=== PATIENT | male | born 1945 | race Caucasian/White ===

== ENCOUNTER 2018-09-04 10:35 | Inpatient (IN) ==
[2018-09-04] MEDS ORDERED: SODIUM CHLORIDE 0.9% 1000ML 1,000 ML IV ONE (11:07)
[2018-09-04] MEDS ORDERED: ONDANSETRON INJ 2 MG/ML 2 ML VIAL IV STA (11:07)
[2018-09-04] MEDS: ACETAMINOPHEN 500 MG TAB PO STA ×2 (11:22→11:37)
[2018-09-04 11:23] LABS: Hematocrit (blood only) 37.8 % (42-52); Hemoglobin 12.5 g/dL (14.0-18.0); Immature Granulocytes # (auto) 0.05 K/uL (0.00-0.02); Immature Granulocytes % (auto) 0.4 %; Lymphocytes % (auto) 4.4 %; Mean Corpuscular Hgb Conc 33.1 g/dL (32-36); Mean Corpuscular Volume 84.2 fL (80-100); Mean Platelet Volume 10.2 fL (7.4-10.4); Monocytes # (auto) 0.48 K/uL (0.11-0.59); Monocytes % (auto) 4.2 %; Platelet Count 119 K/uL (130-400); RDW Coefficient of Variation 14.7 % (11.5-14.5); Red Blood Count 4.49 M/uL (4.7-6.1); White Blood Count 11.33 K/uL (4.8-10.8)
--- NOTE | 2018-09-04 11:27 | XRay Report ---
XR chest 1V portable CLINICAL HISTORY: Sepsis COMPARISON STUDY: No previous studies for comparison. FINDINGS: Lung volumes are normal. There is no pneumothorax or pleural effusion. Note is made of a 3. 7 cm airspace opacity within the periphery of the right midlung. Left lung is clear. Cardiac size is normal. Mediastinal contours are normal. There is no evidence for pulmonary edema. IMPRESSION: Mild right midlung airspace opacity. This favors pneumonia however radiographic follow-u p is recommended to exclude the possibility of an underlying pulmonary nodule/mass. Electronically signed by: Randy Medina M.D. 09/04/2018 11:25 AM
[2018-09-04 11:37] LABS: INR 1.2 (0.9-1.1); Partial Thromboplastin Ratio 0.8; Partial Thromboplastin Time 20.5 Seconds (21.0-31.0); Prothrombin Time 12.4 Seconds (9.0-12.0)
[2018-09-04 11:41] LABS: Alanine Aminotransferase 25 U/L (12-78); Albumin Level 3.5 gm/dl (3.4-5.0); Aspartate Aminotransferase 16 U/L (15-37); BUN Creatinine Ratio 20.9 (10-20); Blood Urea Nitrogen 18 mg/dl (7-18); C Reactive Protein 0.82 mg/dl (0-0.29); Calcium 9.1 mg/dl (8.5-10.1); Carbon Dioxide 28 mmol/L (21-32); Chloride 104 mmol/L (98-107); Creatinine Clr Calc Pharmacy 90.9 ml/min; Est GFR (African American) 100.6; Est GFR (Non-African American) 86.8; Glucose 228 mg/dl (70-99); Magnesium 1.2 mg/dl (1.8-2.4); Potassium 3.7 mmol/L (3.5-5.1); Sodium 139 mmol/L (136-145)
[2018-09-04] MEDS ORDERED: cefTRIAXone SODIUM 1,000 MG/50 ML BAG IV STA (11:45)
[2018-09-04 11:46] LABS: Alkaline Phosphatase 42 U/L (45-117); Bilirubin,Total 0.7 mg/dl (0.2-1); Globulin 3.5 gm/dl (2.5-4.0); Troponin I < 0.015 ng/ml (0-0.045)
[2018-09-04 12:32] LABS: Influenza A virus by PCR Neg for Influ A (Neg); Influenza B virus by PCR Neg for Influ B (Neg)
[2018-09-04] MEDS ORDERED: OPTIRAY 320 125ml IV PRN (12:36)
[2018-09-04] MEDS: MAGNESIUM SULFATE / D5W 1 GM/100 ML BAG IV SCH ×4 (12:58→19:36)
--- NOTE | 2018-09-04 13:00 | CT Scan Report ---
CT angio chest PE protocol CT DOSE: 531.71 mGycm HISTORY: 73 years-old Male with PE. Acute shortness of breath with chest pain TECHNIQUE: Multiple CTA images of the chest were obtained after the intravenous administration of 120 ml Optiray 320. Coronal and sagittal MIPS were obtained from the axial data set and were submitted for review. All measurements were obtained according to NASCET criteria. A dose lowering technique w as utilized adhering to the principles of ALARA. COMPARISON: Chest radiograph of same day. FINDINGS: CTA: Heart is upper limits of normal in size. No pericardial effusion. Coronary arterial calcifications ar e noted in addition to aortic annular calcifications. There is no thoracic aortic aneurysm or dissect ion. There is patency of the imaged great vessels. The pulmonary arterial tree is opacified to level of the proximal subsegmental branches and demonstrates no focal filling defects to suggest pulmonary thromboembolic disease. CT CHEST: No dominant thyroid nodule. Mildly prominent paratracheal and hilar lymph nodes are likely physiologi c and not significantly enlarged by CT size criteria. No pneumothorax or pleural effusion. Respirator y motion artifact limits evaluation of the lungs. Moderate bilateral bronchial wall thickening with m ild areas of mucous plugging. Mild subsegmental bibasilar atelectasis. Moderate upper lung zone predo minant paraseptal and centrilobular emphysema. No overt pulmonary edema. 2.7 cm thin-walled cysts not ed about the medial aspect of the right lower lobe. Consolidation of the anterior segment right upper lobe abutting the minor fissure measures up to 4.8 x 4.6 cm. Associated airspace opacities are also noted about the right middle lobe. Mild nonspecific wall thickening of the distal esophagus. Thickening of the left adrenal gland. Soft tissues appear unremarkable. Demineralized appearance of the bones with degenerative changes of the s houlders and spine. IMPRESSION: 1. No acute aortic pathology or evidence of pulmonary thromboembolic disease. 2. Focal airspace consolidation of the anterior segment right upper lobe and right middle lobe sugges ts pneumonia. Follow-up imaging to document resolution is recommended. 3. Emphysema with moderate bilateral bronchial wall thickening suggestive of associated bronchitis wi th areas of mucous plugging. 4. Mild nonspecific wall thickening of the distal esophagus. 5. Additional findings as above. The above report was generated using voice recognition software. It may contain grammatical, syntax o r spelling errors. Electronically signed by: Hudson Potter M.D. 09/04/2018 12:58 PM
[2018-09-04 13:53] LABS: Appearance Urine Clear (Clear); Bilirubin Urine Negative (Negative); Blood Urine Negative (Negative); Color Urine Yellow; Glucose Urine UA 1+ (Negative); Ketones Urine Trace (Negative); Leukocyte Esterase Urine Negative (Negative); Nitrite Urine Negative (Negative); Protein Urine Negative (Negative); Specific Gravity Urine 1.043 (1.000-1.030); Urobilinogen Urine Negative (Negative)
--- NOTE | 2018-09-04 15:45 | History & Physical Report ---
Date of Service September 04, 2018 Assessment & Plan (1) PNA (pneumonia): This is a 73-year-old male who has a significant PMH T2 DM, HLD, ADHD who presents to [facility] ED secondary to ill feeling times 1 day. In ED influenza negative, WBC elevated at 11.3, H/H 12.5/37.8, PLT 119, ESR 32, CRP 0.82, INR 1.2, glucose 228, LA 2.4, mag 1.2, procalcitonin 1.01 CXR: concerning for mild R lung airspace opacity CTA: negative for PE but + for Ant RUL and RML PNA as well as centrilobular empysyhema with notable b/l bronchial wall thickening, associated bronchitis and mucous plugging Received 1L IVF, 1g Rocephin, IV Mag 2g while in ED. Patient did not meet Sirs/Sepsis criteria despite dx of PNA Temp 37.8, RR 15, WBC 11k, but pulse > 90 Lactate 2.4 -admit to med/surg telemetry -treatment for CAP including Rocephin 1g daily and Azithromycin 500mg IV daily -aggressive pulmonary toilet with duboneb, incentive spirometry, flutter valve, O2 prn -if no improvement consider mucomyst, pulm consultation -repeat lacate at 4pm -received 1L IVF while in ED, will order additional 1 L at 75cc/hr (2) Emphysema, unspecified: -noted on CXR, attributed to pt prior hx of tobacco abuse -acute exacerbation -aggressive pulmonary toilet, no [place]ia wheezing on exam, will hold on IV steroids -consider oral steroids if no improvement in symptoms (3) Hypomagnesemia: -received 2g IV mag while in ED -will replete wiht 2 additional grams -recheck mag in a.m. -being mag oxide 400mg daily (4) T2DM (type 2 diabetes mellitus): -obtain A1C in a.m., last known A1C 11/2017 7.5 -hold metformin and glipizide -Lantus/novolog per protocol (5) HLD (hyperlipidemia): -continue statin (6) ADHD: -continue methylphenidate (7) DVT prophylaxis: -lovenox Disposition: to be determined Follow up: PCP Dr. Spence upon discharge Patient was seen and examined in collaboration with Dr. Lema, please see addendum Starting 09/05/18 patient will be under the care of Dr. Cates History of Present Illness Chief Complaint: Ill feeling x 1 day. Primary Care Provider: Dr. Spence This is a 73-year-old male who has a significant PMH T2 DM, HLD, ADHD who presents to [facility] ED secondary to ill feeling times 1 day. Daughter is at bedside. "I am here because my daughter." Daughter received a call while patient was at work stating he was ill, shaking, "white," and recommended he be picked up to take for evaluation. Patient elicits he has been in his normal state of health until today. "I just did not feel good." He complains of moist cough but unable to produce, nausea and emesis x1, weakness, increased shortness of breath with exertion. Given patient's history of tobacco abuse he does have chronic JORGENSEN but was more pronounced today per daughter. Daughter has noted pursed lip breathing in the past but today was more pronounced. Patient denies feeling fevers chills, sweats, lightheadedness, dizziness, chest pain, shortness breath at rest, hemoptysis, abdominal pain, diarrhea, dysuria, hematuria, increased urgency or frequency with urination. Patient's appetite has been good, "I need to lose weight." He denies any weight loss. No known sick contacts. Patient does have a significant tobacco abuse history which he quit approximately 1 year ago; however, smoked half a pack a day for 30 years. Denies hx of PNA or COPD. 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 stress echo 09/2017 revealed EF 55-60%, mod av sclerosis w/o stenosis, Grade 1 DD T2DM (type 2 diabetes mellitus) (Chronic) HLD (hyperlipidemia) (Chronic) ADHD (Chronic) No active medical problems (Acute) Surgical History History of tonsillectomy (Chronic) History of colonoscopy with polypectomy (Chronic) Family History Father Alzheimer disease Mother Unknown family medical history Social History Preferred Language: Gibralt[place] Communication Ability: Effective Client Relations Associate Required: No Beliefs That Will Affect Care: None Current Living Situation: Alone current occupational status: employed 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 Feels Safe at Home: Yes Safety Concerns: Feels Safe At This Time Smoking Status: Former smoker Hx Alcohol Use: No Hx Substance Use: No Review of Systems All systems reviewed & are unremarkable except as noted in HPI & below Physical Exam Vital Signs (Past 24 Hours): Last Vital Signs Temp 37.8 C H 09/04/18 10:39 Pulse 83 09/04/18 15:01 Resp 15 09/04/18 15:01 BP 122/68 09/04/18 15:01 Pulse Ox 97 09/04/18 15:01 Physical Exam: Gen: WD/WN, M, appears older than stated age, NAD, sitting up in bed, pleasant, conversing easily Head: Normocephalic, Atraumatic Eyes: Sclera normal, no conjunctival injection, PERRLA, EOMI ENT: Gross hearing intact, normal pharynx, mucous membranes moist Neck: supple, no adenopathy, No JVD, no bruit, Resp: Clear to auscultation b/l, right sided rhonchi noted at base/lingula, otherwise no wheeze, rales. Normal insp/exp effort, no accessory muscle use, saturating well on room air CV: Regular rate, regular rhythm, no murmur, rub, gallop, or ectopy Abd: +BS x 4, soft, nontender, nondistended Musculoskeletal: moves extremities active rom x 4, strength intact, good oil prospecting observer strength Extremities: No edema bilaterally Skin: warm, moist, no rash, negative turgor, cap refill < 2sec Neuro: Alert and oriented x 3, speech normal, good mood/affect, cran nerve 2-12 intact grossly : deferred Results & Data Laboratory Results Short CBC 09/04/18 09/04/18 09/04/18 Range/Units 10:57 11:00 11:00 WBC 11.33 H (4.8-10.8) K/uL RBC 4.49 L (4.7-6.1) M/uL Hgb 12.5 L (14.0-18.0) g/dL Hct 37.8 L (42-52) % MCV 84.2 (80-100) fL MCH 27.8 (25-34) pg MCHC 33.1 (32-36) g/dL RDW Std Deviation 45.0 (36.4-46.3) fL RDW Coeff of Andreas 14.7 H (11.5-14.5) % Plt Count 119 L (130-400) K/uL MPV 10.2 (7.4-10.4) fL Immature Gran % (Auto) 0.4 % Neut % (Auto) 91.0 % Lymph % (Auto) 4.4 % [place] % (Auto) 4.2 % Eos % (Auto) 0.0 % Baso % (Auto) 0.0 % Immature Gran # (Auto) 0.05 H (0.00-0.02) K/uL Neut # (Auto) 10.30 H (1.4-6.5) K/uL Lymph # (Auto) 0.50 L (1.2-3.4) K/uL [place] # (Auto) 0.48 (0.11-0.59) K/uL Eos # (Auto) 0.00 (0-0.5) K/uL Baso # (Auto) 0.00 (0-0.2) K/uL ESR (0-14) mm/hr PT 12.4 H (9.0-12.0) Seconds INR 1.2 H (0.9-1.1) APTT 20.5 L (21.0-31.0) Seconds PTT Ratio 0.8 Sodium (136-145) mmol/L Potassium (3.5-5.1) mmol/L Chloride (98-107) mmol/L Carbon Dioxide (21-32) mmol/L Anion Gap (3-11) BUN (7-18) mg/dl Creatinine (0.6-1.4) mg/dl Est Cr Clr Drug Dosing ml/min Est GFR ( Amer) Est GFR (Non-Af Amer) BUN/Creatinine Ratio (10-20) Glucose (70-99) mg/dl POC Glucose (70-99) Lactate (0.4-2.0) mmol/L Calcium (8.5-10.1) mg/dl Magnesium (1.8-2.4) mg/dl Total Bilirubin (0.2-1) mg/dl AST (15-37) U/L ALT (12-78) U/L Alkaline Phosphatase (45-117) U/L Troponin I (0-0.045) ng/ml C-Reactive Protein (0-0.29) mg/dl Total Protein (6.4-8.2) gm/dl Albumin (3.4-5.0) gm/dl Globulin (2.5-4.0) gm/dl Albumin/Globulin Ratio (0.9-2) Procalcitonin (0-0.5) ng/ml Urine Color Urine Appearance (Clear) Urine pH (4.5-7.5) Ur Specific Russell (1.000-1.030) Urine Protein (Negative) Urine Glucose (UA) (Negative) Urine Ketones (Negative) Urine Blood (Negative) Urine Nitrite (Negative) Urine Bilirubin (Negative) Urine Urobilinogen (Negative) Ur Leukocyte Esterase (Negative) Influenza Type A (PCR) Neg for Influ A (Neg) Influenza Type B (PCR) Neg for Influ B (Neg) 09/04/18 09/04/18 09/04/18 Range/Units 11:00 11:00 11:00 WBC (4.8-10.8) K/uL RBC (4.7-6.1) M/uL Hgb (14.0-18.0) g/dL Hct (42-52) % MCV (80-100) fL MCH (25-34) pg MCHC (32-36) g/dL RDW Std Deviation (36.4-46.3) fL RDW Coeff of Andreas (11.5-14.5) % Plt Count (130-400) K/uL MPV (7.4-10.4) fL Immature Gran % (Auto) % Neut % (Auto) % Lymph % (Auto) % [place] % (Auto) % Eos % (Auto) % Baso % (Auto) % Immature Gran # (Auto) (0.00-0.02) K/uL Neut # (Auto) (1.4-6.5) K/uL Lymph # (Auto) (1.2-3.4) K/uL [place] # (Auto) (0.11-0.59) K/uL Eos # (Auto) (0-0.5) K/uL Baso # (Auto) (0-0.2) K/uL ESR 32 H (0-14) mm/hr PT (9.0-12.0) Seconds INR (0.9-1.1) APTT (21.0-31.0) Seconds PTT Ratio Sodium 139 (136-145) mmol/L Potassium 3.7 (3.5-5.1) mmol/L Chloride 104 (98-107) mmol/L Carbon Dioxide 28 (21-32) mmol/L Anion Gap 6.0 (3-11) BUN 18 (7-18) mg/dl Creatinine 0.87 (0.6-1.4) mg/dl Est Cr Clr Drug Dosing 90.9 ml/min Est GFR ( Amer) 100.6 Est GFR (Non-Af Amer) 86.8 BUN/Creatinine Ratio 20.9 H (10-20) Glucose 228 H (70-99) mg/dl POC Glucose (70-99) Lactate (0.4-2.0) mmol/L Calcium 9.1 (8.5-10.1) mg/dl Magnesium 1.2 L (1.8-2.4) mg/dl Total Bilirubin 0.7 (0.2-1) mg/dl AST 16 (15-37) U/L ALT 25 (12-78) U/L Alkaline Phosphatase 42 L (45-117) U/L Troponin I < 0.015 (0-0.045) ng/ml C-Reactive Protein 0.82 H (0-0.29) mg/dl Total Protein 7.0 (6.4-8.2) gm/dl Albumin 3.5 (3.4-5.0) gm/dl Globulin 3.5 (2.5-4.0) gm/dl Albumin/Globulin Ratio 1.0 (0.9-2) Procalcitonin 1.01 H (0-0.5) ng/ml Urine Color Urine Appearance (Clear) Urine pH (4.5-7.5) Ur Specific Russell (1.000-1.030) Urine Protein (Negative) Urine Glucose (UA) (Negative) Urine Ketones (Negative) Urine Blood (Negative) Urine Nitrite (Negative) Urine Bilirubin (Negative) Urine Urobilinogen (Negative) Ur Leukocyte Esterase (Negative) Influenza Type A (PCR) (Neg) Influenza Type B (PCR) (Neg) 09/04/18 09/04/18 09/04/18 Range/Units 11:03 11:30 13:15 WBC (4.8-10.8) K/uL RBC (4.7-6.1) M/uL Hgb (14.0-18.0) g/dL Hct (42-52) % MCV (80-100) fL MCH (25-34) pg MCHC (32-36) g/dL RDW Std Deviation (36.4-46.3) fL RDW Coeff of Andreas (11.5-14.5) % Plt Count (130-400) K/uL MPV (7.4-10.4) fL Immature Gran % (Auto) % Neut % (Auto) % Lymph % (Auto) % [place] % (Auto) % Eos % (Auto) % Baso % (Auto) % Immature Gran # (Auto) (0.00-0.02) K/uL Neut # (Auto) (1.4-6.5) K/uL Lymph # (Auto) (1.2-3.4) K/uL [place] # (Auto) (0.11-0.59) K/uL Eos # (Auto) (0-0.5) K/uL Baso # (Auto) (0-0.2) K/uL ESR (0-14) mm/hr PT (9.0-12.0) Seconds INR (0.9-1.1) APTT (21.0-31.0) Seconds PTT Ratio Sodium (136-145) mmol/L Potassium (3.5-5.1) mmol/L Chloride (98-107) mmol/L Carbon Dioxide (21-32) mmol/L Anion Gap (3-11) BUN (7-18) mg/dl Creatinine (0.6-1.4) mg/dl Est Cr Clr Drug Dosing ml/min Est GFR ( Amer) Est GFR (Non-Af Amer) BUN/Creatinine Ratio (10-20) Glucose (70-99) mg/dl POC Glucose 226 H (70-99) Lactate 2.4 H* (0.4-2.0) mmol/L Calcium (8.5-10.1) mg/dl Magnesium (1.8-2.4) mg/dl Total Bilirubin (0.2-1) mg/dl AST (15-37) U/L ALT (12-78) U/L Alkaline Phosphatase (45-117) U/L Troponin I (0-0.045) ng/ml C-Reactive Protein (0-0.29) mg/dl Total Protein (6.4-8.2) gm/dl Albumin (3.4-5.0) gm/dl Globulin (2.5-4.0) gm/dl Albumin/Globulin Ratio (0.9-2) Procalcitonin (0-0.5) ng/ml Urine Color Yellow Urine Appearance Clear (Clear) Urine pH 5.0 (4.5-7.5) Ur Specific Russell 1.043 H (1.000-1.030) Urine Protein Negative (Negative) Urine Glucose (UA) 1+ H (Negative) Urine Ketones Trace H (Negative) Urine Blood Negative (Negative) Urine Nitrite Negative (Negative) Urine Bilirubin Negative (Negative) Urine Urobilinogen Negative (Negative) Ur Leukocyte Esterase Negative (Negative) Influenza Type A (PCR) (Neg) Influenza Type B (PCR) (Neg) BMP 09/04/18 11:00 Sodium 139 Potassium 3.7 Chloride 104 Carbon Dioxide 28 BUN 18 Creatinine 0.87 Glucose 228 H Calcium 9.1 Cardiac Enzymes 09/04/18 Range/Units 11:00 Troponin I < 0.015 (0-0.045) ng/ml Liver Function 09/04/18 Range/Units 11:00 Total Bilirubin 0.7 (0.2-1) mg/dl AST 16 (15-37) U/L ALT 25 (12-78) U/L Alkaline Phosphatase 42 L (45-117) U/L Albumin 3.5 (3.4-5.0) gm/dl Urine 09/04/18 Range/Units 13:15 Urine Color Yellow Urine Appearance Clear (Clear) Urine pH 5.0 (4.5-7.5) Ur Specific Russell 1.043 H (1.000-1.030) Urine Protein Negative (Negative) Urine Glucose (UA) 1+ H (Negative) Diagnostic Findings CTA CHEST IMPRESSION: 1. No acute aortic pathology or evidence of pulmonary thromboembolic disease. 2. Focal airspace consolidation of the anterior segment right upper lobe and right middle lobe suggests pneumonia. Follow-up imaging to document resolution is recommended. 3. Emphysema with moderate bilateral bronchial wall thickening suggestive of associated bronchitis with areas of mucous plugging. 4. Mild nonspecific wall thickening of the distal esophagus. 5. Additional findings as above CXR: IMPRESSION: Mild right midlung airspace opacity. This favors pneumonia however radiographic follow-up is recommended to exclude the possibility of an underlying pulmonary nodule/mass. Medications Administered Ioversol (Optiray 320 125ml) 120 ml IV ONCE PRN PRN Reason: Interaction Checking Stop: 09/08/18 12:35 Last Admin: 09/04/18 12:37 Dose: 120 ml Documented by: [id number] Discontinued Medications Acetaminophen (Tylenol) 1,000 mg PO NOW STA Stop: 09/04/18 11:08 Last Admin: 09/04/18 11:37 Dose: 1,000 mg Documented by: [id number] Sodium Chloride (Nss 1000ml) 1,000 mls @ 999 mls/hr IV .Q1H1M ONE Stop: 09/04/18 12:07 Last Infusion: 09/04/18 12:22 Dose: 0 mls/hr Documented by: [id number] Admin: 09/04/18 11:18 Dose: 999 mls/hr Documented by: [id number] Magnesium Sulfate/Dextrose (Magnesium Sulfate / D5w) 1 gm in 100 mls @ 100 mls/hr IV Q1H ERINN Stop: 09/04/18 13:44 Last Infusion: 09/04/18 14:15 Dose: 0 mls/hr Documented by: [id number] Admin: 09/04/18 13:12 Dose: 100 mls/hr Documented by: [id number] Infusion: 09/04/18 13:12 Dose: 100 mls/hr Documented by: [id number] Admin: 09/04/18 12:58 Dose: 100 mls/hr Documented by: [id number] Ceftriaxone Sodium (Rocephin) 1,000 mg in 50 mls @ 100 mls/hr IV NOW STA Stop: 09/04/18 12:14 Last Infusion: 09/04/18 12:39 Dose: 0 mls/hr Documented by: [id number] Admin: 09/04/18 12:20 Dose: 100 mls/hr Documented by: [id number] Ondansetron HCl (Zofran) 4 mg IV NOW STA Stop: 09/04/18 11:08 Last Admin: 09/04/18 11:22 Dose: Not Given Documented by: [id number] ECG Rate (beats per minute): 88 Rhythm: normal sinus Code Status & VTE Plan Code Status Full Code VTE Prophylaxis Plan VTE Prophylaxis will be ordered: Yes Supervising Physician Co-Signing Physician Notes Attending addendum; The patient was seen and examined in emergency room He has been complaining of weakness with cough and shortness of breath for the last few days Denies any fever and/or chills Noted to have right lower lobe infiltration on x-ray in the emergency room On examination No apparent distress at rest Hemodynamically stable Chest-crackles bilaterally more on the right than the left Heart-S1-S2 regular Abdomen-benign Extremities-negative Admission labs and imaging studies noted Right lower lobe infiltration Intravenous ceftriaxone and azithromycin started in the emergency room Agree with assessment and plan as outlined above by Patsy Lema (1) T2DM (type 2 diabetes mellitus) Diabetes mellitus complication status: without complication Diabetes mellitus mcfp insulin use: without mcfp use Qualified Code(s): E11.9 - Type 2 diabetes mellitus without complications (2) HLD (hyperlipidemia) Hyperlipidemia type: unspecified Qualified Code(s): E78.5 - Hyperlipidemia, unspecified (3) Emphysema, unspecified Emphysema type: centrilobular Qualified Code(s): J43.2 - Centrilobular emphysema (4) ADHD Attention deficit-hyperactivity disorder type: unspecified Qualified Code(s): F90.9 - Attention-deficit hyperactivity disorder, unspecified type (5) PNA (pneumonia) Laterality: right Lung location: unspecified part of lung Pneumonia type: due to unspecified organism Qualified Code(s): J18.9 - Pneumonia, unspecified organism
--- NOTE | 2018-09-04 17:49 | Emergency Department Note ---
Entered by Perla Tejada acting as a scribe for Raul Landaverde DO History of Present Illness General Chief complaint: Illness Stated complaint: SOB,NAUSEA,ARM/LEG PAIN,SHAKING,WEAK Time Seen by Provider: 09/04/18 11:00 Source: patient and family History of Present Illness Provider complaint: weakness Onset (ago): hour(s) (today) Location: left and right Maximum Pain Intensity: 8 Quality: + other (weakness) Associated symptoms: + denies other symptoms (denies back pain or urinary sympto ms), + cough, + nausea/vomiting (nausea) and + weakness (shakiness, fatigue); no fever/chills The patient is a 73 year old male who presents to the Emergency Room with complaints of weakness today. Per family, the patient has also been nauseous and shaky. His family states that the patient was too sick to eat this morning and did not take his pills. His family states that the patient has also had a cough and has been fatigued. He reports having nausea but denies having any urinary symptoms or back pain. The patient denies being febrile. He states that he did not take Tylenol or Ibuprofen recently. He states that he did get a flu shot this year and a pneumonia shot. He denies recent tobacco or alcohol use. Home Medications Home Medications Medication Instructions Recorded Confirmed Type aspirin 81 mg PO DAILY 09/04/18 09/04/18 History atorvastatin [Lipitor] 40 mg PO DAILY 09/04/18 09/04/18 History glipizide 5 mg PO BID 09/04/18 09/04/18 History metformin 850 mg PO TID 09/04/18 09/04/18 History methylphenidate HCl [Concerta] 54 mg PO QAM 09/04/18 09/04/18 History multivitamin 1 tab PO DAILY 09/04/18 09/04/18 History Allergies Allergy/AdvReac Type Severity Reaction Status Date / Time milk AdvReac Nausea Unverified 09/04/18 12:01 Past Med/Surg History Medical History Diastolic 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 failure stress echo 09/2017 revealed EF 55-60%, mod av sclerosis w/o stenosis, Grade 1 DD T2DM (type 2 diabetes mellitus) (Chronic) HLD (hyperlipidemia) (Chronic) ADHD (Chronic) No active medical problems (Acute) Surgical History History of tonsillectomy (Chronic) History of colonoscopy with polypectomy (Chronic) Family History Father Alzheimer disease Mother Unknown family medical history Social History Preferred Language: Cambodian Communication Ability: Effective Lightning Protection Installer Required: No Beliefs That Will Affect Care: None Current Living Situation: Alone current occupational status: employed current occupation: Works at [employer] job Feels Safe at Home: Yes Safety Concerns: Feels Safe At This Time Smoking Status: Former smoker Hx Alcohol Use: No Hx Substance Use: No Review of Systems See HPI for pertinent positives & negatives. and A total of 10 systems reviewed and were otherwise negative Physical Exam Vital Signs Vital Signs - 24 hr 09/04/18 10:39 09/04/18 11:11 09/04/18 11:20 Temperature 37.8 C H Temperature Source Oral Sepsis Recent Fever Within 48 Hours No Sepsis New/Unexplained Change in Mental Status No Sepsis Action Taken by Nursing No Action Required Pulse Rate 104 H 92 H 88 Pulse Rate [Finger] Pulse Rate from SpO2 Sensor 92 H 91 H Pulse Rhythm [Finger] Pulse Strength [Finger] Respiratory Rate 22 28 H 19 Respiratory Effort / Characteristics Respiratory Depth Respiratory Pattern Blood Pressure 136/62 Blood Pressure [Right Arm] Blood Pressure Mean 86 Blood Pressure Mean [Right Arm] Blood Pressure Position [Right Arm] Pulse Oximetry 97 93 92 Oxygen Delivery Method 09/04/18 11:30 09/04/18 11:40 09/04/18 11:50 Temperature Temperature Source Sepsis Recent Fever Within 48 Hours Sepsis New/Unexplained Change in Mental Status Sepsis Action Taken by Nursing Pulse Rate 87 91 H 89 Pulse Rate [Finger] Pulse Rate from SpO2 Sensor Pulse Rhythm [Finger] Pulse Strength [Finger] Respiratory Rate 22 24 18 Respiratory Effort / Characteristics Respiratory Depth Respiratory Pattern Blood Pressure Blood Pressure [Right Arm] Blood Pressure Mean Blood Pressure Mean [Right Arm] Blood Pressure Position [Right Arm] Pulse Oximetry Oxygen Delivery Method 09/04/18 12:00 09/04/18 12:01 09/04/18 12:10 Temperature Temperature Source Sepsis Recent Fever Within 48 Hours Sepsis New/Unexplained Change in Mental Status Sepsis Action Taken by Nursing Pulse Rate 86 90 94 H Pulse Rate [Finger] Pulse Rate from SpO2 Sensor Pulse Rhythm [Finger] Pulse Strength [Finger] Respiratory Rate 21 25 H 17 Respiratory Effort / Characteristics Respiratory Depth Respiratory Pattern Blood Pressure 145/62 H Blood Pressure [Right Arm] Blood Pressure Mean 89 Blood Pressure Mean [Right Arm] Blood Pressure Position [Right Arm] Pulse Oximetry Oxygen Delivery Method 09/04/18 12:20 09/04/18 12:38 09/04/18 12:40 Temperature Temperature Source Sepsis Recent Fever Within 48 Hours Sepsis New/Unexplained Change in Mental Status Sepsis Action Taken by Nursing Pulse Rate 89 94 H 95 H Pulse Rate [Finger] Pulse Rate from SpO2 Sensor 95 H Pulse Rhythm [Finger] Pulse Strength [Finger] Respiratory Rate 21 17 20 Respiratory Effort / Characteristics Respiratory Depth Respiratory Pattern Blood Pressure 139/66 Blood Pressure [Right Arm] Blood Pressure Mean 90 Blood Pressure Mean [Right Arm] Blood Pressure Position [Right Arm] Pulse Oximetry 97 Oxygen Delivery Method 09/04/18 12:50 09/04/18 13:00 09/04/18 13:01 Temperature Temperature Source Sepsis Recent Fever Within 48 Hours Sepsis New/Unexplained Change in Mental Status Sepsis Action Taken by Nursing Pulse Rate 93 H 92 H 94 H Pulse Rate [Finger] 95 H Pulse Rate from SpO2 Sensor Pulse Rhythm [Finger] Pulse Strength [Finger] Respiratory Rate 22 13 17 Respiratory Effort / Characteristics Respiratory Depth Respiratory Pattern Blood Pressure 124/64 Blood Pressure [Right Arm] 124/64 Blood Pressure Mean 84 Blood Pressure Mean [Right Arm] 84 Blood Pressure Position [Right Arm] Pulse Oximetry 93 Oxygen Delivery Method Room Air 09/04/18 13:10 09/04/18 13:20 09/04/18 13:30 Temperature Temperature Source Sepsis Recent Fever Within 48 Hours Sepsis New/Unexplained Change in Mental Status Sepsis Action Taken by Nursing Pulse Rate 96 H 88 90 Pulse Rate [Finger] Pulse Rate from SpO2 Sensor 89 90 Pulse Rhythm [Finger] Pulse Strength [Finger] Respiratory Rate 20 24 22 Respiratory Effort / Characteristics Respiratory Depth Respiratory Pattern Blood Pressure Blood Pressure [Right Arm] Blood Pressure Mean Blood Pressure Mean [Right Arm] Blood Pressure Position [Right Arm] Pulse Oximetry 91 90 Oxygen Delivery Method 09/04/18 13:31 09/04/18 13:40 09/04/18 13:50 Temperature Temperature Source Sepsis Recent Fever Within 48 Hours Sepsis New/Unexplained Change in Mental Status Sepsis Action Taken by Nursing Pulse Rate 91 H 88 88 Pulse Rate [Finger] Pulse Rate from SpO2 Sensor 90 88 88 Pulse Rhythm [Finger] Pulse Strength [Finger] Respiratory Rate 22 23 21 Respiratory Effort / Characteristics Respiratory Depth Respiratory Pattern Blood Pressure 122/60 Blood Pressure [Right Arm] Blood Pressure Mean 80 Blood Pressure Mean [Right Arm] Blood Pressure Position [Right Arm] Pulse Oximetry 91 91 90 Oxygen Delivery Method 09/04/18 14:00 09/04/18 14:28 09/04/18 14:31 Temperature Temperature Source Sepsis Recent Fever Within 48 Hours Sepsis New/Unexplained Change in Mental Status Sepsis Action Taken by Nursing Pulse Rate 86 85 Pulse Rate [Finger] 86 Pulse Rate from SpO2 Sensor 86 85 Pulse Rhythm [Finger] Pulse Strength [Finger] Respiratory Rate 25 H 20 20 Respiratory Effort / Characteristics Respiratory Depth Respiratory Pattern Blood Pressure 124/59 L 133/63 Blood Pressure [Right Arm] 124/59 L Blood Pressure Mean 80 86 Blood Pressure Mean [Right Arm] 80 Blood Pressure Position [Right Arm] Pulse Oximetry 91 96 95 Oxygen Delivery Method Room Air 09/04/18 15:00 09/04/18 15:01 09/04/18 16:00 Temperature Temperature Source Sepsis Recent Fever Within 48 Hours Sepsis New/Unexplained Change in Mental Status Sepsis Action Taken by Nursing Pulse Rate 82 83 Pulse Rate [Finger] 81 Pulse Rate from SpO2 Sensor 81 83 Pulse Rhythm [Finger] Regular Pulse Strength [Finger] Normal Respiratory Rate 15 15 20 Respiratory Effort / Characteristics Non-Labored Respiratory Depth Normal Respiratory Pattern Regular Blood Pressure 122/68 Blood Pressure [Right Arm] 100/31 L Blood Pressure Mean 86 Blood Pressure Mean [Right Arm] 54 Blood Pressure Position [Right Arm] Sitting Pulse Oximetry 95 97 99 Oxygen Delivery Method Room Air 09/04/18 16:21 Temperature Temperature Source Sepsis Recent Fever Within 48 Hours Sepsis New/Unexplained Change in Mental Status Sepsis Action Taken by Nursing Pulse Rate Pulse Rate [Finger] Pulse Rate from SpO2 Sensor Pulse Rhythm [Finger] Pulse Strength [Finger] Respiratory Rate Respiratory Effort / Characteristics Spontaneous Short of Breath SOB on Exertion Respiratory Depth Normal Respiratory Pattern Regular Blood Pressure Blood Pressure [Right Arm] Blood Pressure Mean Blood Pressure Mean [Right Arm] Blood Pressure Position [Right Arm] Pulse Oximetry Oxygen Delivery Method Room Air GENERAL: Patient is awake, alert, and in no acute distress.Patient is resting comfortably and is mildly anxious. EYES: The conjunctivae are clear. The pupils are round and reactive. EARS, NOSE, MOUTH AND THROAT: The nose is without any evidence of any deformity. Mucous membranes are dry.Tongue is midline NECK: The neck is nontender and supple. RESPIRATORY: Normal respiratory effort is noted. Diminished breath sounds throughout. Rales at the left base. Mildly tachypneic. CARDIOVASCULAR: Regular rate and rhythm noted. Distant heart sounds. There no murmurs rubs or gallops normal S1 normal S2 GASTROINTESTINAL: The abdomen is soft. Bowel sounds are present in all q uadrants. Abdomen is nontender. MUSCULOSKELETAL/EXTREMITIES: There is no evidence of gross deformity. Full range of motion is noted in the hips and shoulders. Trace pedal edema. SKIN: There is no obvious evidence of any rash. There are no petechiae, pallor or cyanosis noted. NEUROLOGIC: Patient is awake alert and oriented x3. Course 1106: The patient was evaluated in room D3B, and a complete history and physical examination were performed. 1420: I updated the patient who verbalized agreement and understanding of the treatment plan. 1437: I discussed the patient's case with Patsy Murrieta who will evaluate the patient for further management. Consultations Consultation #1: Patsy Murrieta Time: 14:37 Administered Medications Ioversol (Optiray 320 125ml) 120 ml IV ONCE PRN PRN Reason: Interaction Checking Stop: 09/08/18 12:35 Last Admin: 09/04/18 12:37 Dose: 120 ml Documented by: [id number] Discontinued Medications Acetaminophen (Tylenol) 1,000 mg PO NOW STA Stop: 09/04/18 11:08 Last Admin: 09/04/18 11:37 Dose: 1,000 mg Documented by: [id number] Sodium Chloride (Nss 1000ml) 1,000 mls @ 999 mls/hr IV .Q1H1M ONE Stop: 09/04/18 12:07 Last Infusion: 09/04/18 12:22 Dose: 0 mls/hr Documented by: [id number] Admin: 09/04/18 11:18 Dose: 999 mls/hr Documented by: [id number] Magnesium Sulfate/Dextrose (Magnesium Sulfate / D5w) 1 gm in 100 mls @ 100 mls/hr IV Q1H ERINN Stop: 09/04/18 13:44 Last Infusion: 09/04/18 14:15 Dose: 0 mls/hr Documented by: [id number] Admin: 09/04/18 13:12 Dose: 100 mls/hr Documented by: [id number] Infusion: 09/04/18 13:12 Dose: 100 mls/hr Documented by: [id number] Admin: 09/04/18 12:58 Dose: 100 mls/hr Documented by: [id number] Ceftriaxone Sodium (Rocephin) 1,000 mg in 50 mls @ 100 mls/hr IV NOW STA Stop: 09/04/18 12:14 Last Infusion: 09/04/18 12:39 Dose: 0 mls/hr Documented by: [id number] Admin: 09/04/18 12:20 Dose: 100 mls/hr Documented by: [id number] Magnesium Sulfate/Dextrose (Magnesium Sulfate / D5w) 1 gm in 100 mls @ 100 mls/hr IV Q1H ERINN Stop: 09/04/18 17:14 Last Admin: 09/04/18 16:52 Dose: 100 mls/hr Documented by: [id number] Ondansetron HCl (Zofran) 4 mg IV NOW STA Stop: 09/04/18 11:08 Last Admin: 09/04/18 11:22 Dose: Not Given Documented by: [id number] Medical Decision Making Differential Diagnosis Differential diagnosis: Etiologies such as infections, reactive airway disease, COPD, pneumonia, pleural effusion, pulmonary edema, ARDS, pneumothorax, CHF, cardiac ischemia, cardiac tamponade, dysrhythmia, anemia, pulmonary embolism, musculoskeletal, gastrointestinal process, as well as others were entertained. Medical Records Attestation: I reviewed the patient's medical records. Home Medications Current Medication List: was personally reviewed by me Laboratory Data Attestation: I reviewed the patient's lab results. Result diagrams: 09/04/18 11:00 09/04/18 11:00 Lab Results 09/04/18 09/04/18 09/04/18 Range/Units 10:57 11:00 11:00 WBC 11.33 H (4.8-10.8) K/uL RBC 4.49 L (4.7-6.1) M/uL Hgb 12.5 L (14.0-18.0) g/dL Hct 37.8 L (42-52) % MCV 84.2 (80-100) fL MCH 27.8 (25-34) pg MCHC 33.1 (32-36) g/dL RDW Std Deviation 45.0 (36.4-46.3) fL RDW Coeff of Andreas 14.7 H (11.5-14.5) % Plt Count 119 L (130-400) K/uL MPV 10.2 (7.4-10.4) fL Immature Gran % (Auto) 0.4 % Neut % (Auto) 91.0 % Lymph % (Auto) 4.4 % [place] % (Auto) 4.2 % Eos % (Auto) 0.0 % Baso % (Auto) 0.0 % Immature Gran # (Auto) 0.05 H (0.00-0.02) K/uL Neut # (Auto) 10.30 H (1.4-6.5) K/uL Lymph # (Auto) 0.50 L (1.2-3.4) K/uL [place] # (Auto) 0.48 (0.11-0.59) K/uL Eos # (Auto) 0.00 (0-0.5) K/uL Baso # (Auto) 0.00 (0-0.2) K/uL ESR (0-14) mm/hr PT 12.4 H (9.0-12.0) Seconds INR 1.2 H (0.9-1.1) APTT 20.5 L (21.0-31.0) Seconds PTT Ratio 0.8 Sodium (136-145) mmol/L Potassium (3.5-5.1) mmol/L Chloride (98-107) mmol/L Carbon Dioxide (21-32) mmol/L Anion Gap (3-11) BUN (7-18) mg/dl Creatinine (0.6-1.4) mg/dl Est Cr Clr Drug Dosing ml/min Est GFR ( Amer) Est GFR (Non-Af Amer) BUN/Creatinine Ratio (10-20) Glucose (70-99) mg/dl POC Glucose (70-99) Lactate (0.4-2.0) mmol/L Calcium (8.5-10.1) mg/dl Magnesium (1.8-2.4) mg/dl Total Bilirubin (0.2-1) mg/dl AST (15-37) U/L ALT (12-78) U/L Alkaline Phosphatase (45-117) U/L Troponin I (0-0.045) ng/ml C-Reactive Protein (0-0.29) mg/dl Total Protein (6.4-8.2) gm/dl Albumin (3.4-5.0) gm/dl Globulin (2.5-4.0) gm/dl Albumin/Globulin Ratio (0.9-2) Procalcitonin (0-0.5) ng/ml Urine Color Urine Appearance (Clear) Urine pH (4.5-7.5) Ur Specific [place] (1.000-1.030) Urine Protein (Negative) Urine Glucose (UA) (Negative) Urine Ketones (Negative) Urine Blood (Negative) Urine Nitrite (Negative) Urine Bilirubin (Negative) Urine Urobilinogen (Negative) Ur Leukocyte Esterase (Negative) Influenza Type A (PCR) Neg for Influ A (Neg) Influenza Type B (PCR) Neg for Influ B (Neg) 09/04/18 09/04/18 09/04/18 Range/Units 11:00 11:00 11:00 WBC (4.8-10.8) K/uL RBC (4.7-6.1) M/uL Hgb (14.0-18.0) g/dL Hct (42-52) % MCV (80-100) fL MCH (25-34) pg MCHC (32-36) g/dL RDW Std Deviation (36.4-46.3) fL RDW Coeff of Andreas (11.5-14.5) % Plt Count (130-400) K/uL MPV (7.4-10.4) fL Immature Gran % (Auto) % Neut % (Auto) % Lymph % (Auto) % [place] % (Auto) % Eos % (Auto) % Baso % (Auto) % Immature Gran # (Auto) (0.00-0.02) K/uL Neut # (Auto) (1.4-6.5) K/uL Lymph # (Auto) (1.2-3.4) K/uL [place] # (Auto) (0.11-0.59) K/uL Eos # (Auto) (0-0.5) K/uL Baso # (Auto) (0-0.2) K/uL ESR 32 H (0-14) mm/hr PT (9.0-12.0) Seconds INR (0.9-1.1) APTT (21.0-31.0) Seconds PTT Ratio Sodium 139 (136-145) mmol/L Potassium 3.7 (3.5-5.1) mmol/L Chloride 104 (98-107) mmol/L Carbon Dioxide 28 (21-32) mmol/L Anion Gap 6.0 (3-11) BUN 18 (7-18) mg/dl Creatinine 0.87 (0.6-1.4) mg/dl Est Cr Clr Drug Dosing 90.9 ml/min Est GFR ( Amer) 100.6 Est GFR (Non-Af Amer) 86.8 BUN/Creatinine Ratio 20.9 H (10-20) Glucose 228 H (70-99) mg/dl POC Glucose (70-99) Lactate (0.4-2.0) mmol/L Calcium 9.1 (8.5-10.1) mg/dl Magnesium 1.2 L (1.8-2.4) mg/dl Total Bilirubin 0.7 (0.2-1) mg/dl AST 16 (15-37) U/L ALT 25 (12-78) U/L Alkaline Phosphatase 42 L (45-117) U/L Troponin I < 0.015 (0-0.045) ng/ml C-Reactive Protein 0.82 H (0-0.29) mg/dl Total Protein 7.0 (6.4-8.2) gm/dl Albumin 3.5 (3.4-5.0) gm/dl Globulin 3.5 (2.5-4.0) gm/dl Albumin/Globulin Ratio 1.0 (0.9-2) Procalcitonin 1.01 H (0-0.5) ng/ml Urine Color Urine Appearance (Clear) Urine pH (4.5-7.5) Ur Specific [place] (1.000-1.030) Urine Protein (Negative) Urine Glucose (UA) (Negative) Urine Ketones (Negative) Urine Blood (Negative) Urine Nitrite (Negative) Urine Bilirubin (Negative) Urine Urobilinogen (Negative) Ur Leukocyte Esterase (Negative) Influenza Type A (PCR) (Neg) Influenza Type B (PCR) (Neg) 09/04/18 09/04/18 09/04/18 Range/Units 11:03 11:30 13:15 WBC (4.8-10.8) K/uL RBC (4.7-6.1) M/uL Hgb (14.0-18.0) g/dL Hct (42-52) % MCV (80-100) fL MCH (25-34) pg MCHC (32-36) g/dL RDW Std Deviation (36.4-46.3) fL RDW Coeff of Andreas (11.5-14.5) % Plt Count (130-400) K/uL MPV (7.4-10.4) fL Immature Gran % (Auto) % Neut % (Auto) % Lymph % (Auto) % [place] % (Auto) % Eos % (Auto) % Baso % (Auto) % Immature Gran # (Auto) (0.00-0.02) K/uL Neut # (Auto) (1.4-6.5) K/uL Lymph # (Auto) (1.2-3.4) K/uL [place] # (Auto) (0.11-0.59) K/uL Eos # (Auto) (0-0.5) K/uL Baso # (Auto) (0-0.2) K/uL ESR (0-14) mm/hr PT (9.0-12.0) Seconds INR (0.9-1.1) APTT (21.0-31.0) Seconds PTT Ratio Sodium (136-145) mmol/L Potassium (3.5-5.1) mmol/L Chloride (98-107) mmol/L Carbon Dioxide (21-32) mmol/L Anion Gap (3-11) BUN (7-18) mg/dl Creatinine (0.6-1.4) mg/dl Est Cr Clr Drug Dosing ml/min Est GFR ( Amer) Est GFR (Non-Af Amer) BUN/Creatinine Ratio (10-20) Glucose (70-99) mg/dl POC Glucose 226 H (70-99) Lactate 2.4 H* (0.4-2.0) mmol/L Calcium (8.5-10.1) mg/dl Magnesium (1.8-2.4) mg/dl Total Bilirubin (0.2-1) mg/dl AST (15-37) U/L ALT (12-78) U/L Alkaline Phosphatase (45-117) U/L Troponin I (0-0.045) ng/ml C-Reactive Protein (0-0.29) mg/dl Total Protein (6.4-8.2) gm/dl Albumin (3.4-5.0) gm/dl Globulin (2.5-4.0) gm/dl Albumin/Globulin Ratio (0.9-2) Procalcitonin (0-0.5) ng/ml Urine Color Yellow Urine Appearance Clear (Clear) Urine pH 5.0 (4.5-7.5) Ur Specific [place] 1.043 H (1.000-1.030) Urine Protein Negative (Negative) Urine Glucose (UA) 1+ H (Negative) Urine Ketones Trace H (Negative) Urine Blood Negative (Negative) Urine Nitrite Negative (Negative) Urine Bilirubin Negative (Negative) Urine Urobilinogen Negative (Negative) Ur Leukocyte Esterase Negative (Negative) Influenza Type A (PCR) (Neg) Influenza Type B (PCR) (Neg) Imaging Data Radiologist's Impression: Radiology results as stated below per my review and the radiologist's interpretation: XR chest 1V portable CLINICAL HISTORY: Sepsis COMPARISON STUDY: No previous studies for comparison. FINDINGS: Lung volumes are normal. There is no pneumothorax or pleural effusion. Note is made of a 3.7 cm airspace opacity within the periphery of the right midlung. Left lung is clear. Cardiac size is normal. Mediastinal contours are normal. There is no evidence for pulmonary edema. IMPRESSION: Mild right midlung airspace opacity. This favors pneumonia however radiographic follow-up is recommended to exclude the possibility of an under lying pulmonary nodule/mass. Electronically signed by: Randy Medina M.D. 09/04/2018 11:[address] angio chest PE protocol CT DOSE: 531.71 mGycm HISTORY: 73 years-old Male with PE. Acute shortness of breath with chest pain TECHNIQUE: Multiple CTA images of the chest were obtained after the intravenous administration of 120 ml Optiray 320. Coronal and sagittal MIPS were obtained from the axial data set and were submitted for review. All measurements were o btained according to NASCET criteria. A dose lowering technique was utilized adhering to the principles of ALARA. COMPARISON: Chest radiograph of same day. FINDINGS: CTA: Heart is upper limits of normal in size. No pericardial effusion. Coronary arterial calcifications are noted in addition to aortic annular calcifications. There is no thoracic aortic aneurysm or dissection. There is patency of the imaged great vessels. The pulmonary arterial tree is opacified to level of the proximal subsegmental branches and demonstrates no focal filling defects to suggest pulmonary thromboembolic disease. CT CHEST: No dominant thyroid nodule. Mildly prominent paratracheal and hilar lymph nodes are likely physiologic and not significantly enlarged by CT size criteria. No pneumothorax or pleural effusion. Respiratory motion artifact limits evaluation of the lungs. Moderate bilateral bronchial wall thickening with mild areas of mucous plugging. Mild subsegmental bibasilar atelectasis. Moderate upper lung zone predominant paraseptal and centrilobular emphysema. No overt pulmonary edema. 2.7 cm thin-walled cysts noted about the medial aspect of the right lower lobe. Consolidation of the anterior segment right upper lobe abutting the minor fissure measures up to 4.8 x 4.6 cm. Associated airspace opacities are also noted about the right middle lobe. Mild nonspecific wall thickening of the distal esophagus. Thickening of the left adrenal gland. Soft tissues appear unremarkable. Demineralized appearance of the bones with degenerative changes of the shoulders and spine. IMPRESSION: 1. No acute aortic pathology or evidence of pulmonary thromboembolic disease. 2. Focal airspace consolidation of the anterior segment right upper lobe and right middle lobe suggests pneumonia. Follow-up imaging to document resolution is recommended. 3. Emphysema with moderate bilateral bronchial wall thickening suggestive of associated bronchitis with areas of mucous plugging. 4. Mild nonspecific wall thickening of the distal esophagus. 5. Additional findings as above. The above report was generated using voice recognition software. It may contain grammatical, syntax or spelling errors. Electronically signed by: Hudson Potter M.D. 09/04/2018 12:58 PM ECG Data Attestation: I personally reviewed and interpreted this ECG as follows: Indication: weakness Rate (beats per minute): 88 Rhythm: normal sinus Findings: no PAC, no PVC, no ST depression, no ST elevation, no acute ischemic change and no ectopy Comparison ECG Date: no prior available Blood Pressure Blood Pressure Findings: Low blood pressure Blood Pressure Disposition: further management by hospitalist KAREY Rodney The patient is a 73-year-old male who presented to the emergency department for an evaluation of cough. Patient had a low-grade fever and signs of pneumonia on chest x-ray. I discussed the patient's laboratory and radiographic studies with him. He was found to have only a slight pneumonia on chest x-ray and given his symptoms I thought this could be consistent with pulmonary embolism. For this reason CT of the chest was obtained. The patient was treated with IV fluids and IV antibiotics. He was reevaluated multiple times. I discussed the patient's laboratory and radiographic studies with him and his family member. Because of the degree of symptoms I also discussed his case with the on-call [facility] hospitalist group. They have agreed to evaluate the patient in the emergency department for further management and disposition. The patient was agreeable to inpatient management at this time. Impression & Plan PNA (pneumonia), Hypomagnesemia Discharge Plan Visit Data Chief Complaint: Illness Stated Complaint: SOB,NAUSEA,ARM/LEG PAIN,SHAKING,WEAK ED Provider: Raul Landaverde Discharge Problem: PNA (pneumonia), Hypomagnesemia Patient Disposition: Being Evaluated by Hospitalist Discharge Problem: PNA (pneumonia) Qualifiers: Pneumonia type: due to unspecified organism Laterality: right Lung location: unspecified part of lung Qualified Code(s): J18.9 - Pneumonia, unspecified organism The scribe's documentation has been prepared under my direction and personally reviewed by me in its entirety. I confirm that the note above accurately reflects all work, treatment, procedures, and medical decision making performed by me.
[2018-09-04] MEDS ORDERED: GLUCOSE 10 TABS/TUBE PO PRN (18:38)
[2018-09-04] MEDS ORDERED: ACETAMINOPHEN 325 MG TAB PO PRN (18:38)
[2018-09-04] MEDS ORDERED: POLYETHYLENE (MIRALAX) 17 GM PACK PO PRN (18:38)
[2018-09-04] MEDS ORDERED: CARBOHYDRATES FOR HYPOGLYCEMIA PO PRN (18:38)
[2018-09-04] MEDS ORDERED: GLUCAGON FOR INJ 1 MG VIAL SQ PRN (18:38)
[2018-09-04] MEDS ORDERED: ALUMINUM/MAGNESIUM SUSP 30 ML UDC PO PRN (18:38)
[2018-09-04] MEDS ORDERED: ONDANSETRON INJ 2 MG/ML 2 ML VIAL IV PRN (18:38)
[2018-09-04] MEDS ORDERED: MAGNESIUM HYDROXIDE SUSP 30 ML UDC PO PRN (18:38)
[2018-09-04] MEDS ORDERED: DEXTROSE 50% 50 ML SYRINGE IV PRN (18:38)
[2018-09-04] MEDS ORDERED: SODIUM CHLORIDE 0.9% 1000ML 1,000 ML IV SCH (18:38)
[2018-09-04] MEDS ORDERED: GLUCOSE 40% GEL 15 GM TUBE PO PRN (18:38)
[2018-09-04] MEDS ORDERED: AZITHROMYCIN 500 MG in DEXTROSE 5% 250 ML IV SCH (19:00)
[2018-09-04] MEDS: ALBUT/IPRATROP 3MG/0.5MG NEB 3 ML VIAL NEB SCH (19:22)
[2018-09-04] MEDS: INSULIN GLARGINE SOLOSTAR 100 UNITS/ML 3 ML PEN SC SCH (20:47)
[2018-09-04] MEDS: INSULIN ASPART 100 UNITS/ML 3 ML PEN SC SCH ×2 (20:47→22:30)
[2018-09-04] MEDS ORDERED: ENOXAPARIN INJ 40 MG/0.4 ML SYR SQ SCH (21:00)
[2018-09-05 06:03] LABS: Eosinophils # (auto) 0.01 K/uL (0-0.5); Eosinophils % (auto) 0.1 %; Hematocrit (blood only) 34.6 % (42-52); Hemoglobin 11.3 g/dL (14.0-18.0); Immature Granulocytes # (auto) 0.04 K/uL (0.00-0.02); Immature Granulocytes % (auto) 0.3 %; Lymphocytes # (auto) 0.94 K/uL (1.2-3.4); Lymphocytes % (auto) 8.2 %; Mean Corpuscular Hgb Conc 32.7 g/dL (32-36); Mean Corpuscular Volume 84.4 fL (80-100); Mean Platelet Volume 9.3 fL (7.4-10.4); Monocytes # (auto) 0.65 K/uL (0.11-0.59); Monocytes % (auto) 5.6 %; Neutrophils # (auto) 9.89 K/uL (1.4-6.5); Neutrophils % (auto) 85.8 %; Platelet Count 115 K/uL (130-400); RDW Coefficient of Variation 15.1 % (11.5-14.5); RDW Standard Deviation 46.6 fL (36.4-46.3); White Blood Count 11.53 K/uL (4.8-10.8)
[2018-09-05 06:20] LABS: BUN Creatinine Ratio 16.6 (10-20); Calcium 8.4 mg/dl (8.5-10.1); Creatinine Clr Calc Pharmacy 101.4 ml/min; Est GFR (African American) 105.3; Est GFR (Non-African American) 90.8; Magnesium 2.1 mg/dl (1.8-2.4); Potassium 3.3 mmol/L (3.5-5.1)
[2018-09-05 06:40] LABS: Estimated Average Glucose 194 mg/dl; Hemoglobin A1C 8.4 % (4.5-5.6)
[2018-09-05] MEDS: ALBUT/IPRATROP 3MG/0.5MG NEB 3 ML VIAL NEB SCH ×3 (07:00→15:03)
[2018-09-05] MEDS: cefTRIAXone SODIUM 1,000 MG in DEXTROSE 5% 50 ML IV SCH (08:06)
[2018-09-05] MEDS: INSULIN GLARGINE SOLOSTAR 100 UNITS/ML 3 ML PEN SC SCH ×2 (08:06→20:54)
[2018-09-05] MEDS: INSULIN ASPART 100 UNITS/ML 3 ML PEN SC SCH ×4 (08:06→20:54)
[2018-09-05] MEDS: ATORVASTATIN 40 MG TAB PO SCH (08:07)
[2018-09-05] MEDS: MAGNESIUM OXIDE 400 MG TAB PO SCH (08:07)
[2018-09-05] MEDS ORDERED: ASPIRIN 81 MG ECTAB PO SCH (09:00)
--- NOTE | 2018-09-05 17:45 | Hospitalist Progress Note ---
Date of Service September 05, 2018 Assessment & Plan (1) PNA (pneumonia): presented with cough , fever , feeling ill for past few days In ED influenza negative, CXR: concerning for mild R lung airspace opacity CTA: negative for PE but + for Ant RUL and RML PNA as well as centrilobular empysyhema with notable b/l bronchial wall thickening, associated bronchitis and mucous plugging on empiric tx with IV rocephin /Zithromax ( for atypical microbial coverage) presented with Lactate 2.4 level normalized with IV fluids clinically much improved /vitals stable D/c telemonitoring (2) Thrombocytopenia: platelet count 117 K no prior hx no evidence of active bleeding due to infection? D/c Lovenox /Aspirin follow CBC peripheral blood smear in AM Present on Admission?: Yes (3) Emphysema, unspecified: hx of heavy smoking in past /quit 1 yr back -noted on CXR, attributed to pt prior hx of tobacco abuse -no evidence of acute exacerbation-no wheeze -cont tx for Pneumonia changed Neb tx to PRN (4) Hypomagnesemia: corrected -on mag oxide 400mg daily -follow labs (5) T2DM (type 2 diabetes mellitus): -hold metformin and glipizide-acute illness -Lantus/novolog per protocol (6) HLD (hyperlipidemia): -continue statin (7) ADHD: -continue methylphenidate (8) DVT prophylaxis: -lovenox d/ras due to thrombocytopnenia ordered for SCD /TEds increased activity Disposition: lives at home alone was independent with ADL's ordered for PT/OT daughter updated at beside Follow up: PCP Dr. Spence upon discharge Subjective feels much better today afebrile minimum cough weakness has improved no complain of SOB or JORGENSEN no hypoxia Physical Exam Vital Signs (Past 24 Hours): Last Vital Signs Temp 36.7 C 09/05/18 15:34 Pulse 72 09/05/18 15:34 Resp 20 09/05/18 15:34 BP 136/69 09/05/18 15:34 Pulse Ox 96 09/05/18 15:34 Physical Exam: GENERAL: No sign of distress, HEENT: Sclera nonicteric, pink-purple bilateral equal reactive to light extraocular muscle intact Normal oral mucosa, neck: No JVD, no thyromegaly, trachea midline Lungs: + rales at base Cardiovascular: Regular S1 and S2, no murmur or gallop, no JVD, no lower extremity edema Abdomen: Soft, nontender, bowel sounds active, no hepatosplenomegaly Extremities: No rash or deformity, normal joint, Neuro: No focal neurological deficit, no dysarthria, no facial droop Psych: Alert awake oriented x3: Euthymic Skin: No rash LYMPH NODES: No cervical lymphadenopathy (1) T2DM (type 2 diabetes mellitus) Diabetes mellitus complication status: without complication Diabetes mellitus termite renewal inspector insulin use: without termite renewal inspector use Qualified Code(s): E11.9 - Type 2 diabetes mellitus without complications (2) HLD (hyperlipidemia) Hyperlipidemia type: unspecified Qualified Code(s): E78.5 - Hyperlipidemia, unspecified (3) Emphysema, unspecified Emphysema type: centrilobular Qualified Code(s): J43.2 - Centrilobular emphysema (4) ADHD Attention deficit-hyperactivity disorder type: unspecified Qualified Code(s): F90.9 - Attention-deficit hyperactivity disorder, unspecified type (5) PNA (pneumonia) Laterality: right Lung location: unspecified part of lung Pneumonia type: due to unspecified organism Qualified Code(s): J18.9 - Pneumonia, unspecified organism
[2018-09-05] MEDS ORDERED: ALBUT/IPRATROP 3MG/0.5MG NEB 3 ML VIAL NEB PRN (19:23)
[2018-09-05] MEDS: AZITHROMYCIN 250 MG TAB PO SCH (19:25)
[2018-09-06] MEDS: cefTRIAXone SODIUM 1,000 MG in DEXTROSE 5% 50 ML IV SCH (07:49)
[2018-09-06] MEDS: MULTIVITAMIN TAB PO SCH (07:50)
[2018-09-06] MEDS: POTASSIUM CHLORIDE 20 MEQ TABCR PO SCH (07:50)
[2018-09-06] MEDS: ATORVASTATIN 40 MG TAB PO SCH (07:50)
[2018-09-06] MEDS: MAGNESIUM OXIDE 400 MG TAB PO SCH (07:50)
[2018-09-06 08:01] LABS: Hematocrit (blood only) 33.2 % (42-52); Hemoglobin 10.9 g/dL (14.0-18.0); Mean Corpuscular Hgb Conc 32.8 g/dL (32-36); Mean Corpuscular Volume 83.8 fL (80-100); Mean Platelet Volume 9.5 fL (7.4-10.4); Platelet Count 118 K/uL (130-400); RDW Coefficient of Variation 14.9 % (11.5-14.5); RDW Standard Deviation 45.7 fL (36.4-46.3); Red Blood Count 3.96 M/uL (4.7-6.1); White Blood Count 6.49 K/uL (4.8-10.8)
[2018-09-06] MEDS: INSULIN ASPART 100 UNITS/ML 3 ML PEN SC SCH ×4 (08:14→21:12)
[2018-09-06] MEDS: INSULIN GLARGINE SOLOSTAR 100 UNITS/ML 3 ML PEN SC SCH ×2 (08:15→21:07)
[2018-09-06 08:23] LABS: BUN Creatinine Ratio 21.5 (10-20); Calcium 8.4 mg/dl (8.5-10.1); Creatinine Clr Calc Pharmacy 123.5 ml/min; Est GFR (African American) 114.2; Est GFR (Non-African American) 98.5; Magnesium 1.9 mg/dl (1.8-2.4); Potassium 3.4 mmol/L (3.5-5.1)
[2018-09-06 14:22] LABS: BUN Creatinine Ratio 14.2 (10-20); Calcium 8.5 mg/dl (8.5-10.1); Creatinine Clr Calc Pharmacy 87.8 ml/min; Est GFR (African American) 99.2; Est GFR (Non-African American) 85.6; Potassium 4.5 mmol/L (3.5-5.1)
[2018-09-06] MEDS: ALBUT/IPRATROP 3MG/0.5MG NEB 3 ML VIAL NEB SCH ×3 (15:47→23:09)
--- NOTE | 2018-09-06 16:00 | Hospitalist Progress Note ---
Date of Service September 06, 2018 Assessment & Plan (1) PNA (pneumonia): has more wheeze/SOB /productive cough ordered for scheduled Neb tx PO Prednisone for broncospasm cont empiric Abx for Communotu acquired pneumonia presented with cough , fever , feeling ill for past few days In ED influenza negative, CXR: concerning for mild R lung airspace opacity CTA: negative for PE but + for Ant RUL and RML PNA as well as centrilobular empysyhema with notable b/l bronchial wall thickening, associated bronchitis and mucous plugging on empiric tx with IV rocephin /Zithromax ( for atypical microbial coverage) presented with Lactate 2.4 level normalized with IV fluids (2) Thrombocytopenia: platelet count 117 K no prior hx no evidence of active bleeding due to infection? D/c Lovenox /Aspirin follow CBC peripheral blood smear in AM (3) Emphysema, unspecified: hx of heavy smoking in past /quit 1 yr back -noted on CXR, attributed to pt prior hx of tobacco abuse -having Audible wheeze /COPD exacerbation possible due to pneumoinia -ordered for PO prednisone - cont Neb tx cont Antibiotic for pneumonia (4) Hypomagnesemia: corrected -on mag oxide 400mg daily -follow labs (5) T2DM (type 2 diabetes mellitus): -hold metformin and glipizide-acute illness -Lantus/novolog per protocol (6) HLD (hyperlipidemia): -continue statin (7) ADHD: -continue methylphenidate (8) DVT prophylaxis: -lovenox d/ras due to thrombocytopnenia ordered for SCD /TEds increased activity Disposition: lives at home alone was independent with ADL's ordered for PT/OT daughter updated at beside Follow up: PCP Dr. Spence upon discharge Subjective Tired and worn out today, having ongoing nonproductive cough, audible wheeze Afebrile Order for nebulizer treatment added p.o. prednisone Physical Exam Vital Signs (Past 24 Hours): Last Vital Signs Temp 36.6 C 09/06/18 15:37 Pulse 67 09/06/18 15:47 Resp 16 09/06/18 15:47 BP 134/79 09/06/18 15:37 Pulse Ox 94 09/06/18 15:47 Physical Exam: GENERAL: No sign of distress, HEENT: Sclera nonicteric, pink-purple bilateral equal reactive to light extraocular muscle intact Normal oral mucosa, neck: No JVD, no thyromegaly, trachea midline Lungs: Clear to auscultate, no wheeze or rales Cardiovascular: Regular S1 and S2, no murmur or gallop, no JVD, no lower extremity edema Abdomen: Soft, nontender, bowel sounds active, no hepatosplenomegaly Extremities: No rash or deformity, normal joint, Neuro: No focal neurological deficit, no dysarthria, no facial droop Psych: Alert awake oriented x3: Euthymic Skin: No rash LYMPH NODES: No cervical lymphadenopathy (1) T2DM (type 2 diabetes mellitus) Diabetes mellitus complication status: without complication Diabetes mellitus 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 lines 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 insulin use: without long lines operator use Qualified Code(s): E11.9 - Type 2 diabetes mellitus without complications (2) HLD (hyperlipidemia) Hyperlipidemia type: unspecified Qualified Code(s): E78.5 - Hyperlipidemia, unspecified (3) Emphysema, unspecified Emphysema type: centrilobular Qualified Code(s): J43.2 - Centrilobular emphysema (4) ADHD Attention deficit-hyperactivity disorder type: unspecified Qualified Code(s): F90.9 - Attention-deficit hyperactivity disorder, unspecified type (5) PNA (pneumonia) Laterality: right Lung location: unspecified part of lung Pneumonia type: due to unspecified organism Qualified Code(s): J18.9 - Pneumonia, unspecified organism
[2018-09-06] MEDS: predniSONE 20 MG TAB PO SCH (16:32)
[2018-09-06] MEDS: AZITHROMYCIN 250 MG TAB PO SCH (19:01)
[2018-09-07] MEDS: ALBUT/IPRATROP 3MG/0.5MG NEB 3 ML VIAL NEB SCH ×6 (03:33→23:11)
[2018-09-07] MEDS: INSULIN ASPART 100 UNITS/ML 3 ML PEN SC SCH ×4 (08:03→21:16)
[2018-09-07] MEDS: cefTRIAXone SODIUM 1,000 MG in DEXTROSE 5% 50 ML IV SCH (08:03)
[2018-09-07] MEDS: MAGNESIUM OXIDE 400 MG TAB PO SCH (08:04)
[2018-09-07] MEDS: INSULIN GLARGINE SOLOSTAR 100 UNITS/ML 3 ML PEN SC SCH ×3 (08:04→21:24)
[2018-09-07] MEDS: MULTIVITAMIN TAB PO SCH (08:04)
[2018-09-07] MEDS: predniSONE 20 MG TAB PO SCH (08:04)
[2018-09-07] MEDS: POTASSIUM CHLORIDE 20 MEQ TABCR PO SCH (08:05)
[2018-09-07] MEDS: ATORVASTATIN 40 MG TAB PO SCH (08:05)
--- NOTE | 2018-09-07 18:28 | Hospitalist Progress Note ---
Date of Service September 07, 2018 Assessment & Plan (1) PNA (pneumonia): Clinically much improved today wheeze has improved after starting on scheduled nebulizer treatment oral prednisone cont empiric Abx for community acquired pneumonia, on p.o. Zithromax, IV Rocephin We will transition to oral antibiotics in next 1-2 days, patient will need total 7-10 days of treatment presented with cough , fever , feeling ill for past few days In ED influenza negative, CXR: concerning for mild R lung airspace opacity CTA: negative for PE but + for Ant RUL and RML PNA as well as centrilobular empysyhema with notable b/l bronchial wall thickening, associated bronchitis and mucous plugging on empiric tx with IV rocephin /Zithromax ( for atypical microbial coverage) presented with Lactate 2.4 level normalized with IV fluids (2) Thrombocytopenia: platelet count 117 K no prior hx no evidence of active bleeding Possible due to infection D/c Lovenox /Aspirin follow CBC peripheral blood smear: Shows normal chromic anemia possible secondary to anemia of chronic disease, low platelet counts, no evidence of bone marrow suppression, no evidence of cysts histocytes, possible secondary to active infection, continue to monitor no further testing or intervention needed (3) Emphysema, unspecified: Blood COPD exacerbation secondary to right lower lobe pneumonia, Symptom improved with scheduled nebulizer treatment, p.o. prednisone, continue pulmonary toileting She is encouraged to use incentive spirometry hx of heavy smoking in past /quit 1 yr back cont Antibiotic for pneumonia (4) Hypomagnesemia: corrected -on mag oxide 400mg daily -follow labs (5) T2DM (type 2 diabetes mellitus): -hold metformin and glipizide-acute illness -Lantus/novolog per protocol (6) HLD (hyperlipidemia): -continue statin (7) ADHD: -continue methylphenidate (8) DVT prophylaxis: -lovenox d/ras due to thrombocytopnenia ordered for SCD /TEds increased activity She is ambulatory Disposition: lives at home alone Appreciate input from PT OT, patient appears to be independent, minimum loss of balance, will be able to return home after clinic is stable Follow up: PCP Dr. Spence upon discharge Subjective Feels much better today, less wheeze, less short of breath, cough has improved, afebrile, able to walk on the hallway with assistance with physical therapy Physical Exam Vital Signs (Past 24 Hours): Last Vital Signs Temp 36.4 C L 09/07/18 14:59 Pulse 74 09/07/18 15:57 Resp 18 09/07/18 15:57 BP 156/65 H 09/07/18 14:59 Pulse Ox 97 09/07/18 15:57 Physical Exam: GENERAL: No sign of distress, HEENT: Sclera nonicteric, pink-purple bilateral equal reactive to light extraocular muscle intact Normal oral mucosa, neck: No JVD, no thyromegaly, trachea midline Lungs: Minimum wheeze, no rales Cardiovascular: Regular S1 and S2, no murmur or gallop, no JVD, no lower extremity edema Abdomen: Soft, nontender, bowel sounds active, no hepatosplenomegaly Extremities: No rash or deformity, normal joint, Neuro: No focal neurological deficit, no dysarthria, no facial droop Psych: Alert awake oriented x3: Euthymic Skin: No rash LYMPH NODES: No cervical lymphadenopathy (1) PNA (pneumonia) Laterality: right Lung location: unspecified part of lung Pneumonia type: due to unspecified organism Qualified Code(s): J18.9 - Pneumonia, unspecified organism (2) Emphysema, unspecified Emphysema type: centrilobular Qualified Code(s): J43.2 - Centrilobular emphysema (3) T2DM (type 2 diabetes mellitus) Diabetes mellitus custodial insulin use: without supervisor intermediates use Diabetes mellitus complication status: without complication Qualified Code(s): E11.9 - Type 2 diabetes mellitus without complications (4) HLD (hyperlipidemia) Hyperlipidemia type: unspecified Qualified Code(s): E78.5 - Hyperlipidemia, unspecified (5) ADHD Attention deficit-hyperactivity disorder type: unspecified Qualified Code(s): F90.9 - Attention-deficit hyperactivity disorder, unspecified type
[2018-09-07] MEDS: AZITHROMYCIN 250 MG TAB PO SCH (20:00)
[2018-09-08] MEDS: ALBUT/IPRATROP 3MG/0.5MG NEB 3 ML VIAL NEB SCH ×2 (03:40→08:27)
[2018-09-08] MEDS: INSULIN GLARGINE SOLOSTAR 100 UNITS/ML 3 ML PEN SC SCH ×2 (08:47→21:40)
[2018-09-08] MEDS: INSULIN ASPART 100 UNITS/ML 3 ML PEN SC SCH ×4 (08:50→21:38)
[2018-09-08] MEDS: POTASSIUM CHLORIDE 20 MEQ TABCR PO SCH (08:51)
[2018-09-08] MEDS: MULTIVITAMIN TAB PO SCH (08:51)
[2018-09-08] MEDS: MAGNESIUM OXIDE 400 MG TAB PO SCH (08:51)
[2018-09-08] MEDS: predniSONE 20 MG TAB PO SCH (08:52)
[2018-09-08] MEDS: cefTRIAXone SODIUM 1,000 MG in DEXTROSE 5% 50 ML IV SCH (08:52)
[2018-09-08] MEDS: ATORVASTATIN 40 MG TAB PO SCH (08:52)
[2018-09-08] MEDS ORDERED: ALBUT/IPRATROP 3MG/0.5MG NEB 3 ML VIAL NEB PRN (09:50)
[2018-09-08] MEDS ORDERED: PHARMACY GLYCEMIC MGMT CONSULT PRN (11:49)
[2018-09-08] MEDS ORDERED: SITAGLIPTIN PHOSPHATE 100 MG TAB PO ONE (12:00)
--- NOTE | 2018-09-08 12:21 | Pharmacy Report ---
Pharmacy Glycemic Short Note 2 - Date of Service September 08, 2018 - Glycemic Short BSG Results (Last 24 hours): 09/07/18 09/07/18 09/07/18 12:00 16:28 20:17 POC Glucose 281 H 343 H 369 H* 09/07/18 09/08/18 09/08/18 20:19 07:42 11:36 POC Glucose 357 H* 175 H 263 H OUTPATIENT ANTIDIABETIC REGIMEN: * Glipizide 5mg PO BID * Metformin 850mg PO TID The patient is currently receiving: * Basal insulin: Lantus 15 units every 12 hours * Correctional Insulin: Novolog Correction per scale ACHS Goal Range: Low 110 mg/dL - High 140 mg/dL Correction Factor: 25 mg/dL/unit * Prandial insulin: Per carb ratio of 1 unit per 7 grams CHO consumed ASSESSMENT: * Mr. Nair was admitted on 09/04 with complaints of generalized weakness. Chest XR and CT were indicative of pneumonia and was started on antibiotics and oral steroids. Oral diabetes meds held while admitted. * BSGs began to steadily climb from 09/05 to 09/07 where they reached a peak of 369 around dinner/early evening. * Pharmacy now consulted to manage hyperglycemia secondary to oral prednisone. * Daily insulin use has varied over the last three days (40-65 units/daily), may require additional basal to bring down fasting BSGs, as well as additional prandial coverage during steroid use. PLAN FOR INPATIENT GLYCEMIC CONTROL: * Hold outpatient oral diabetes medications * Basal insulin * Lantus 18 units SQ BID * NPH 37 units SQ daily with 40mg PO Prednisone starting tomorrow, 09/09 * Bolus insulin * NovoLog per scale ACHS * Goal Range: Low 110 mg/dL - High 140 mg/dL * Correction Factor: 15 mg/dL/unit * Nutritional / Prandial insulin per carb ratio of 1 unit per 5 grams CHO consumed PLAN FOR DISCHARGE: * to be determined
[2018-09-08] MEDS: IPRATROPIUM BROMIDE/ALBUTEROL respimat INH INH SCH ×3 (13:35→21:37)
--- NOTE | 2018-09-08 18:30 | Hospitalist Progress Note ---
Date of Service September 08, 2018 Assessment & Plan (1) PNA (pneumonia): Continue to feel better, no wheeze no shortness of breath, able to walk around without any hypoxia Continues to have nonproductive cough, no fever or chills Was treated empirically with IV Rocephin, p.o. Zithromax Will transition to p.o. doxycycline tomorrow Possible discharge home tomorrow Patient admitted on 09/04/2018 with cough , fever , feeling ill for past few days In ED influenza negative, CXR: concerning for mild R lung airspace opacity CTA: negative for PE but + for Ant RUL and RML PNA as well as centrilobular empysyhema with notable b/l bronchial wall thickening, associated bronchitis and mucous plugging on empiric tx with IV rocephin /Zithromax ( for atypical microbial coverage) presented with Lactate 2.4 level normalized with IV fluids (2) Thrombocytopenia: platelet count 117 K no prior hx no evidence of active bleeding Possible due to infection D/c Lovenox /Aspirin peripheral blood smear: Shows normal chromic anemia possible secondary to anemia of chronic disease, low platelet counts, no evidence of bone marrow suppression, no evidence of cysts histocytes, possible secondary to active infection, continue to monitor no further testing or intervention needed (3) Emphysema, unspecified: Blood COPD exacerbation secondary to right lower lobe pneumonia, Symptom improved with scheduled nebulizer treatment, p.o. prednisone, continue pulmonary toileting encouraged to use incentive spirometry hx of heavy smoking in past /quit 1 yr back cont Antibiotic for pneumonia She needs on p.o. prednisone 40 mg daily, will be discharged with Medrol Dosepak, will need as needed albuterol inhaler, outpatient follow-up with family physician for further evaluation, possible referral to pulmonology clinic, pulmonary function test (4) Hypomagnesemia: corrected -on mag oxide 400mg daily -follow labs (5) T2DM (type 2 diabetes mellitus): -hold metformin and glipizide-acute illness -Lantus/novolog per protocol -Blood sugar remains elevated secondary to steroids Hemoglobin A1c 8 point (6) HLD (hyperlipidemia): -continue statin (7) ADHD: -continue methylphenidate-patient home meds, (8) DVT prophylaxis: -lovenox d/ras due to thrombocytopnenia ordered for SCD /TEds increased activity Patient ambulatory Disposition: lives at home alone Appreciate input from PT OT, patient appears to be independent, minimum loss of balance, will be able to return home No further discharge need Follow up: PCP Dr. Spence upon discharge Subjective Continues to feel better, less short of breath, no dyspnea on exertion or hypoxia Having bouts of nonproductive cough, no fever or chills Physical Exam Vital Signs (Past 24 Hours): Last Vital Signs Temp 36.6 C 09/08/18 15:34 Pulse 77 09/08/18 15:34 Resp 16 09/08/18 15:34 BP 126/57 L 09/08/18 15:34 Pulse Ox 96 09/08/18 15:34 Physical Exam: GENERAL: No sign of distress, HEENT: Sclera nonicteric, pink-purple bilateral equal reactive to light extraocular muscle intact Normal oral mucosa, neck: No JVD, no thyromegaly, trachea midline Lungs: Breath sounds diminished, no wheeze or rales Cardiovascular: Regular S1 and S2, no murmur or gallop, no JVD, no lower extremity edema Abdomen: Soft, nontender, bowel sounds active, no hepatosplenomegaly Extremities: No rash or deformity, normal joint, Neuro: No focal neurological deficit, no dysarthria, no facial droop Psych: Alert awake oriented x3: Euthymic Skin: No rash LYMPH NODES: No cervical lymphadenopathy (1) T2DM (type 2 diabetes mellitus) Diabetes mellitus complication status: without complication Diabetes mellitus half-way insulin use: without half-way use Qualified Code(s): E11.9 - Type 2 diabetes mellitus without complications (2) HLD (hyperlipidemia) Hyperlipidemia type: unspecified Qualified Code(s): E78.5 - Hyperlipidemia, unspecified (3) Emphysema, unspecified Emphysema type: centrilobular Qualified Code(s): J43.2 - Centrilobular emphysema (4) ADHD Attention deficit-hyperactivity disorder type: unspecified Qualified Code(s): F90.9 - Attention-deficit hyperactivity disorder, unspecified type (5) PNA (pneumonia) Laterality: right Lung location: unspecified part of lung Pneumonia type: due to unspecified organism Qualified Code(s): J18.9 - Pneumonia, unspecified organism
[2018-09-08] MEDS: AZITHROMYCIN 250 MG TAB PO SCH (21:36)
[2018-09-09] MEDS ORDERED: INSULIN ASPART 100 UNITS/ML 3 ML PEN SC SCH (02:00)
[2018-09-09] MEDS: MULTIVITAMIN TAB PO SCH (08:26)
[2018-09-09] MEDS: IPRATROPIUM BROMIDE/ALBUTEROL respimat INH INH SCH ×2 (08:26→13:05)
[2018-09-09] MEDS: predniSONE 20 MG TAB PO SCH (08:26)
[2018-09-09] MEDS: POTASSIUM CHLORIDE 20 MEQ TABCR PO SCH (08:26)
[2018-09-09] MEDS: ATORVASTATIN 40 MG TAB PO SCH (08:26)
[2018-09-09] MEDS: cefTRIAXone SODIUM 1,000 MG in DEXTROSE 5% 50 ML IV SCH (08:27)
[2018-09-09] MEDS: MAGNESIUM OXIDE 400 MG TAB PO SCH (08:27)
[2018-09-09] MEDS: INSULIN ASPART 100 UNITS/ML 3 ML PEN SC SCH ×2 (08:28→13:02)
[2018-09-09] MEDS: INSULIN GLARGINE SOLOSTAR 100 UNITS/ML 3 ML PEN SC SCH (08:31)
[2018-09-09] MEDS ORDERED: INSULIN HUMAN NPH SC SCH (09:00)
[2018-09-09] MEDS ORDERED: SITAGLIPTIN PHOSPHATE 100 MG TAB PO SCH (09:00)
[2018-09-09] MEDS ORDERED: GUAIFENESIN/DEXTROM SYRUP 200MG/20MG 10ML UDC PO STA (13:22)
--- NOTE | 2018-09-09 15:32 | Discharge Summary ---
Date of Service September 09, 2018 Admission HPI Per Admitting Provider This is a 73-year-old male who has a significant PMH T2 DM, HLD, ADHD who presents to [facility] ED secondary to ill feeling times 1 day. Daughter is at bedside. "I am here because my daughter." Daughter received a call while patient was at work stating he was ill, shaking, "white," and recommended he be picked up to take for evaluation. Patient elicits he has been in his normal state of health until today. "I just did not feel good." He complains of moist cough but unable to produce, nausea and emesis x1, weakness, increased shortness of breath with exertion. Given patient's history of tobacco abuse he does have chronic JORGENSEN but was more pronounced today per daughter. Daughter has noted pursed lip breathing in the past but today was more pronounced. Patient denies feeling fevers chills, sweats, lightheadedness, dizziness, chest pain, shortness breath at rest, hemoptysis, abdominal pain, diarrhea, dysuria, hematuria, increased urgency or frequency with urination. Patient's appetite has been good, "I need to lose weight." He denies any weight loss. No known sick contacts. Patient does have a significant tobacco abuse history which he quit approximately 1 year ago; however, smoked half a pack a day for 30 years. Denies hx of PNA or COPD. Principal Diagnosis Right lower lobe pneumonia Discharge Data Allergies Allergy/AdvReac Type Severity Reaction Status Date / Time milk AdvReac Nausea Unverified 09/04/18 12:01 Consultations 09/04/18 14:24 ED Decision to Admit Stat 09/05/18 19:23 Consult Case Management - Discharge Planning Routine Ordered Studies 09/04/18 12:08 CT angio chest PE protocol Stat Hospital Course (1) PNA (pneumonia): Continue to feel better, no wheeze no shortness of breath, able to walk around without any hypoxia Continues to have nonproductive cough, no fever or chills Was treated empirically with IV Rocephin, p.o. Zithromax Stable to be discharged home today, antibiotic changed to p.o. doxycycline for 5 more days Patient admitted on 09/04/2018 with cough , fever , feeling ill for past few days In ED influenza negative, CXR: concerning for mild R lung airspace opacity CTA: negative for PE but + for Ant RUL and RML PNA as well as centrilobular empysyhema with notable b/l bronchial wall thickening, associated bronchitis and mucous plugging on empiric tx with IV rocephin /Zithromax ( for atypical microbial coverage) presented with Lactate 2.4 level normalized with IV fluids (2) Thrombocytopenia: platelet count 117 K no prior hx no evidence of active bleeding Possible due to infection D/c Lovenox /Aspirin peripheral blood smear: Shows normal chromic anemia possible secondary to anemia of chronic disease, low platelet counts, no evidence of bone marrow suppression, no evidence of cysts histocytes, possible secondary to active infection, continue to monitor no further testing or intervention needed (3) Emphysema, unspecified: Blood COPD exacerbation secondary to right lower lobe pneumonia, Symptom improved with scheduled nebulizer treatment, p.o. prednisone, continue pulmonary toileting encouraged to use incentive spirometry hx of heavy smoking in past /quit 1 yr back cont Antibiotic for pneumonia will be discharged with Medrol Dosepak, Order for as needed albuterol rescue inhaler r, outpatient follow-up with family physician for further evaluation, possible referral to pulmonology clinic, pulmonary function test (4) Hypomagnesemia: corrected -on mag oxide 400mg daily (5) T2DM (type 2 diabetes mellitus): -metformin and glipizide-resumed on discharge -Lantus/novolog per protocol -Blood sugar remains elevated secondary to steroids Hemoglobin A1c 8 point (6) HLD (hyperlipidemia): -continue statin (7) ADHD: -continue methylphenidate-patient home meds, (8) DVT prophylaxis: -lovenox d/ras due to thrombocytopnenia ordered for SCD /TEds increased activity Patient ambulatory Disposition: lives at home alone Appreciate input from PT OT, patient appears to be independent, minimum loss of balance, will be able to return home No further discharge need Stable to be discharged home today Follow up: PCP Dr. Spence upon discharge Total Time Total Time Spent Total Time Spent (In Minutes): Proximate 40 minutes Discharge Plan Discharge Items Patient Disposition: Home - Home Health Services Reason For Visit: PNA Discharge Diagnosis: Right lower lobe pneumonia Discharge Goals: Decrease discomfort, Diagnostic testing and Therapeutic intervention Activity: Resume your previous activity Non-emergency contact: Primary Care Provider Call non-emergency contact if: you have any medication questions Follow-up/Referrals: PCP,NO [Primary Care Provider] - Diet: Carb Consistent or DM2 and Heart Healthy Addtl Provider Instructions: Follow-up with family physician DR Spence at [facility] within a week, office will call with appointment Prescriptions: New doxycycline hyclate 100 mg capsule 100 mg PO BID 5 Days Qty: 10 RF: 0 methylprednisolone [Medrol ([place])] 4 mg tablets,dose pack 4 mg PO UD Qty: 21 RF: 0 albuterol sulfate 90 mcg/actuation HFA aerosol inhaler 1 inha INH Q6H PRN (Reason: shortness of breath or wheezing) Qty: 6.7 RF: 3 magnesium oxide 400 mg (241.3 mg magnesium) Tablet 400 mg PO QAM 7 Days Qty: 7 RF: 0 Continued multivitamin Tablet 1 tab PO DAILY RF: 0 atorvastatin [Lipitor] 40 mg Tablet 40 mg PO DAILY RF: 0 methylphenidate HCl [Concerta] 54 mg Tablet Extended Release 24hr 54 mg PO QAM RF: 0 metformin 850 mg Tablet 850 mg PO TID RF: 0 aspirin 81 mg Tablet,Delayed Release (Dr/Ec) 81 mg PO DAILY RF: 0 glipizide 5 mg Tablet 5 mg PO BID RF: 0 Stand-Alone Forms: My [facility], Work/School Release (Inpt) Discharge Orders: Discharge Order (Routine); Ordered 09/09/18 Ordered By: Nery Cates Admission Data Admit Date/Time: 09/04/18 14:56 Attending Provider: Nery Cates Admit Provider: Ronni Lema Primary Care Provider: PCP,DANIS Other Providers: Jez Tello Manabendra Service: Telemetry Medical Other Interventions: Discharge Summary Assessment (RN) Last Done: 09/09/18 11:43
== END 2018-09-09 15:33 | disposition home health service (06) | DRG 194 ==
LOC: ED 10:35 → 2N 14:56 → SUATTDRO 14:56 → 2N 18:30

== ENCOUNTER 2022-05-23 18:03 | Inpatient (IN) ==
[2022-05-23 19:27] LABS: Basophils # (auto) 0.02 K/uL (0-0.2); Basophils % (auto) 0.3 %; Eosinophils % (auto) 1.4 %; Hematocrit (blood only) 38.4 % (40.1-51.0); Hemoglobin 12.3 g/dl (14.0-18.0); Immature Granulocytes # (auto) 0.04 K/uL (0.00-0.02); Immature Granulocytes % (auto) 0.6 %; Lymphocytes # (auto) 0.85 K/uL (1.2-3.4); Lymphocytes % (auto) 12.1 %; Mean Corpuscular Hemoglobin 26.4 pg (25.0-34.0); Mean Corpuscular Volume 82.4 fL (80.0-100.0); Mean Platelet Volume 9.5 fL (9.4-12.4); Monocytes # (auto) 0.46 K/uL (0.24-0.82); Monocytes % (auto) 6.5 %; Neutrophils # (auto) 5.58 K/uL (1.4-6.5); Neutrophils % (auto) 79.1 %; Platelet Count 168 K/uL (130-400); RDW Coefficient of Variation 14.6 % (11.5-14.5); RDW Standard Deviation 43.6 fL (36.4-46.3); Red Blood Count 4.66 M/uL (4.63-6.08); White Blood Count 7.05 K/ul (4.8-10.8)
--- NOTE | 2022-05-23 19:27 | XRay Report ---
XR chest 1V portable CLINICAL HISTORY: SOB TECHNIQUE: Single frontal radiograph of the chest was obtained. Comparison: Comparison is made to chest radiograph 09/29/2018 FINDINGS: No lines and tubes are seen. The cardiomediastinal silhouette is normal. Reticular interstitial opaci ties are seen. No evidence of pleural effusion or pneumothorax. IMPRESSION: No acute abnormalities and in particular no evidence of pneumonia. ACT 112: Negative or not required by law. Electronically signed by: Parish Fajardo M.D. 05/23/2022 7:26 PM
[2022-05-23 19:39] LABS: INR 1.1 (0.9-1.1); Partial Thromboplastin Time 26.7 Seconds (21.0-31.0)
[2022-05-23 19:57] LABS: Alanine Aminotransferase 19 U/L (7-52); Albumin Globulin Ratio 1.3 (0.9-2); Albumin Level 4.1 gm/dl (3.4-5.0); Alkaline Phosphatase 44 U/L (34-104); Anion Gap 10 (3-11); Aspartate Aminotransferase 20 U/L (13-39); BUN Creatinine Ratio 21.1 (10-20); Bilirubin,Total 0.3 mg/dl (0.2-1.0); Blood Urea Nitrogen 19 mg/dl (6-23); Calcium 9.1 mg/dl (8.5-10.1); Carbon Dioxide 28 mmol/L (21-32); Chloride 103 mmol/L (98-107); Est GFR (African American) 96.5 ml/min; Est GFR (Non-African American) 83.3 ml/min; Globulin 3.1 gm/dl (2.5-4.0); Glucose 171 mg/dl (70-99(Fasting)); Magnesium 1.3 mg/dl (1.7-2.4); Potassium 4.3 mmol/L (3.5-5.1); Sodium 141 mmol/L (136-145); Total Protein 7.2 gm/dl (6.0-8.3)
[2022-05-23 20:00] LABS: Influenza A virus by PCR Negative (Neg); Influenza B virus by PCR Negative (Neg); RSV by PCR Negative (Neg); SARS CoV2 RNA(COVID-19) Ceph NEGATIVE (Negative)
[2022-05-23] MEDS ORDERED: ALBUT/IPRATROP 3MG/0.5MG NEB 3 ML VIAL NEB STA (21:03)
[2022-05-23] MEDS: MAGNESIUM SULFATE / D5W 1 GM/100 ML BAG IV SCH ×2 (21:12→22:05)
[2022-05-23] MEDS ORDERED: SODIUM CHLORIDE 0.9% 1000ML 1,000 ML IV SCH (21:15)
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
[2022-05-23] MEDS ORDERED: DOXYCYCLINE HYCLATE 100 MG in DEXTROSE 5% 100 ML IV STA (21:51)
[2022-05-23] MEDS ORDERED: MAGNESIUM SULFATE / D5W 1 GM/100 ML BAG IV ONE (22:56)
[2022-05-23] MEDS ORDERED: SODIUM CHLORIDE 0.9% 1000ML 1,000 ML IV ONE (22:57)
[2022-05-23] MEDS ORDERED: Flu Vaccine-High Dose (Fluzone-HD) PF 65+ 0.7mL SYR IM ONE (23:45)
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
[2022-05-24] MEDS ORDERED: GLUCAGON FOR INJ 1 MG VIAL SQ PRN (02:32)
[2022-05-24] MEDS ORDERED: INSULIN ASPART PER UNIT SC SCH (02:32)
[2022-05-24] MEDS ORDERED: GLUCOSE 40% GEL 15 GM TUBE PO PRN (02:32)
[2022-05-24] MEDS ORDERED: ACETAMINOPHEN 325 MG TAB PO PRN (02:32)
[2022-05-24] MEDS ORDERED: LANTUS PER UNIT CHARGE SQ SCH ×2 (02:32→03:15)
[2022-05-24] MEDS ORDERED: CARBOHYDRATES FOR HYPOGLYCEMIA PO PRN (02:32)
[2022-05-24] MEDS ORDERED: DEXTROSE 50% 50 ML SYRINGE IV PRN (02:32)
[2022-05-24] MEDS ORDERED: PROMETHAZINE HCL 6.25 MG in SODIUM CHLORIDE 0.9% 50 ML IV PRN (02:32)
[2022-05-24] MEDS ORDERED: GLUCOSE 10 TAB/TUBE PO PRN (02:32)
[2022-05-24 05:46] LABS: Hematocrit (blood only) 35.4 % (40.1-51.0); Hemoglobin 11.5 g/dl (14.0-18.0); Immature Granulocytes # (auto) 0.03 K/uL (0.00-0.02); Immature Granulocytes % (auto) 0.7 %; Lymphocytes # (auto) 0.39 K/uL (1.2-3.4); Lymphocytes % (auto) 8.8 %; Mean Corpuscular Hemoglobin 26.2 pg (25.0-34.0); Mean Corpuscular Hgb Conc 32.5 g/dL (32.0-36.0); Mean Corpuscular Volume 80.6 fL (80.0-100.0); Mean Platelet Volume 9.6 fL (9.4-12.4); Monocytes # (auto) 0.06 K/uL (0.24-0.82); Monocytes % (auto) 1.4 %; Neutrophils # (auto) 3.93 K/uL (1.4-6.5); Neutrophils % (auto) 89.1 %; Platelet Count 141 K/uL (130-400); RDW Coefficient of Variation 14.6 % (11.5-14.5); RDW Standard Deviation 42.5 fL (36.4-46.3); Red Blood Count 4.39 M/uL (4.63-6.08); White Blood Count 4.41 K/ul (4.8-10.8)
[2022-05-24] MEDS: DOXYCYCLINE HYCLATE 100 MG CAP PO SCH ×2 (06:04→17:44)
[2022-05-24] MEDS: PANTOprazole 40 MG TAB PO SCH (06:04)
[2022-05-24 06:16] LABS: Anion Gap 8 (3-11); Blood Urea Nitrogen 19 mg/dl (6-23); Calcium 8.4 mg/dl (8.5-10.1); Carbon Dioxide 25 mmol/L (21-32); Chloride 104 mmol/L (98-107); Est GFR (African American) 103.4 ml/min; Est GFR (Non-African American) 89.2 ml/min; Glucose 302 mg/dl (70-99(Fasting)); Magnesium 1.9 mg/dl (1.7-2.4); Potassium 4.1 mmol/L (3.5-5.1); Sodium 137 mmol/L (136-145)
[2022-05-24] MEDS ORDERED: LACTATED RINGER'S 1,000 ML IV ONE (07:00)
[2022-05-24] MEDS ORDERED: LANTUS PER UNIT CHARGE SQ STA (07:02)
[2022-05-24] MEDS: IPRATROPIUM BROMIDE NEB SOLN 0.02% 2.5 ML VIAL INH SCH ×3 (07:13→20:47)
[2022-05-24] MEDS: LEVALBUTEROL 1.25MG/0.5ML NEB INH SCH ×3 (07:13→20:47)
[2022-05-24 08:05] LABS: Estimated Average Glucose 183 mg/dl
[2022-05-24] MEDS ORDERED: XOPENEX/ATROVENT 1.25mg/0.5MG NEB COMBO NEB SCH (09:00)
[2022-05-24] MEDS ORDERED: predniSONE 20 MG TAB PO SCH (09:00)
[2022-05-24] MEDS: ENOXAPARIN INJ 40 MG/0.4 ML SYR SQ SCH (10:18)
[2022-05-24] MEDS: predniSONE 10 MG TABLET PO SCH (10:18)
[2022-05-24] MEDS: ATORVASTATIN 40 MG TAB PO SCH (10:18)
[2022-05-24] MEDS: MULTIVITAMIN TAB PO SCH (10:18)
[2022-05-24] MEDS: TAMSULOSIN HCL 0.4 MG CAP PO SCH (10:18)
[2022-05-24] MEDS: ASPIRIN 81 MG ECTAB PO SCH (10:18)
[2022-05-24] MEDS: MAGNESIUM OXIDE 400 MG TAB PO SCH (10:18)
[2022-05-24] MEDS: INSULIN ASPART PER UNIT SC SCH ×4 (10:19→21:07)
--- NOTE | 2022-05-24 11:50 | Communication Note ---
Date of Service: May 24, 2022 Patient seen and examined at bedside for follow-up of acute exacerbation of COPD and complicated bronchitis. Patient here with 1 week history of cough symptoms. Patient was sitting up in bed, on room air, NAD, crackles and occasional bibasilar wheezing bilaterally, heart rate in 90s, no murmurs appreciated, patient reports feeling better. Patient reports cough which is getting more dry now, earlier in infection it was with yellow sputum per patient. Patient also was found with lactic acid elevation likely secondary to transient hypotension s econdary to hypovolemia secondary to illness. Lactic acid normalized. Plan to continue with IV fluid and antibiotic. Nebulizations. Monitor /replete electrolytes. For detailed information on the patient refer to today's H and P note.
[2022-05-24] MEDS: LANTUS PER UNIT CHARGE SQ SCH (21:06)
[2022-05-24] MEDS ORDERED: guaiFENesin/CODEINE 100MG/10MG 5ML UDC PO PRN (23:28)
[2022-05-24] MEDS ORDERED: BENZONATATE 100 MG CAPSULE PO PRN (23:44)
[2022-05-25] MEDS: COUGH DROP (SUGAR FREE) LOZ 24 LOZ/1 BOX BUCCAL PRN ×2 (00:47→05:08)
[2022-05-25] MEDS: PANTOprazole 40 MG TAB PO SCH (05:07)
[2022-05-25] MEDS: DOXYCYCLINE HYCLATE 100 MG CAP PO SCH ×2 (05:07→17:53)
[2022-05-25 07:19] LABS: Hematocrit (blood only) 35.5 % (40.1-51.0); Hemoglobin 11.4 g/dl (14.0-18.0); Mean Corpuscular Hemoglobin 26.3 pg (25.0-34.0); Mean Corpuscular Hgb Conc 32.1 g/dL (32.0-36.0); Mean Corpuscular Volume 81.8 fL (80.0-100.0); Platelet Count 165 K/uL (130-400); RDW Coefficient of Variation 14.6 % (11.5-14.5); Red Blood Count 4.34 M/uL (4.63-6.08); White Blood Count 6.89 K/ul (4.8-10.8)
[2022-05-25 07:45] LABS: Anion Gap 8 (3-11); Blood Urea Nitrogen 20 mg/dl (6-23); Calcium 8.9 mg/dl (8.5-10.1); Carbon Dioxide 30 mmol/L (21-32); Chloride 105 mmol/L (98-107); Est GFR (African American) 95.2 ml/min; Est GFR (Non-African American) 82.2 ml/min; Glucose 62 mg/dl (70-99(Fasting)); Magnesium 1.4 mg/dl (1.7-2.4); Phosphorus 4.2 mg/dl (2.5-4.9); Potassium 3.5 mmol/L (3.5-5.1); Sodium 143 mmol/L (136-145)
[2022-05-25] MEDS: LEVALBUTEROL 1.25MG/0.5ML NEB INH SCH ×2 (07:49→19:53)
[2022-05-25] MEDS: IPRATROPIUM BROMIDE NEB SOLN 0.02% 2.5 ML VIAL INH SCH ×2 (07:49→19:53)
[2022-05-25] MEDS ORDERED: MAGNESIUM SULFATE / D5W 1 GM/100 ML BAG IV ONE (08:39)
[2022-05-25] MEDS: INSULIN ASPART PER UNIT SC SCH ×4 (09:14→20:32)
[2022-05-25] MEDS: ASPIRIN 81 MG ECTAB PO SCH (10:20)
[2022-05-25] MEDS: MAGNESIUM OXIDE 400 MG TAB PO SCH (10:20)
--- NOTE | 2022-05-25 10:20 | Hospitalist Progress Note ---
Date of Service May 25, 2022 Assessment & Plan (1) Acute exacerbation of chronic obstructive pulmonary disease (COPD): Plan: Complicated bronchitis No sepsis Continue prednisone Continue nebs Continue doxycycline Hypotension likely secondary to hypovolemia Lactic acidosis Resolved with IVF DM2 On oral medications, A1c of 7.5 last December 2021 A1c on 05/24/22 is 8 Will need counselling on glycemic control once more awake Continue insulin sliding scale while inpatient Hyperlipidemia Continue statin Rx History of GERD Stable on PPI ADD Stable on Concerta Chronic anemia Hemoglobin at baseline Hypomagnesemia Replete with IV mag Continue po mag DVT prophylaxis. Lovenox subcu Full code Get PT/OT eval Patient daughter requesting updates from providers. Ms. Julianna Lennon, contact #[phone]. Admission and Anticipated Discharge Date Admission Date: May 24, 2022 Subjective Patient seen and examined Patient was drowsy earlier. RN had reported he went to bed late Was reassessed when awake. Reports cough. Denied shortness of breath Denied fevers, chills, nausea, vomiting, abd pain, diarrhea Reports weakness and feels unsteady on his feet. Denied falls at home Denied chest pain Physical Exam Constitutional: no acute distress Drowsy Eyes: PERRL, conjunctivae normal, anicteric sclerae ENMT: External ear and nose normal Respiratory: normal respiratory effort; no respiratory distress Diminished breath sounds, Scattered rhonchi Cardiovascular: Rate/Rhythm: regular rate and regular rhythm S1 S2 Gastrointestinal (Abdomen): normal bowel sounds, soft, nontender, no hepatosplenomegaly Musculoskeletal: No pedal edema Neurologic: PERRL, EOMI, accommodation nl, no face palsy, no dysarthria AOX3 Results & Data Results & Data ([facility]) Vital Signs (Past 12 Hours) Vital Signs Temp Pulse Pulse Resp BP BP Pulse Ox 05/25/22 08:00 72 05/25/22 05:15 36.4 C L 71 16 113/61 95 05/24/22 23:44 05/24/22 23:04 36.8 C 87 18 125/58 L 94 O2 Del Method 05/25/22 08:00 05/25/22 05:15 Room Air 05/24/22 23:44 Room Air 05/24/22 23:04 Room Air Laboratory Results Abnormal lab results 05/24/22 05/24/22 05/24/22 Range/Units 12:41 16:34 19:54 RBC (4.63-6.08) M/uL Hgb (14.0-18.0) g/dl Hct (40.1-51.0) % RDW Coeff of Andreas (11.5-14.5) % BUN/Creatinine Ratio (10-20) Glucose (70-99(Fasting)) mg/dl POC Glucose 313 H* 222 H 160 H (70-99) mg/dl Magnesium (1.7-2.4) mg/dl 05/25/22 05/25/22 Range/Units 06:28 06:28 RBC 4.34 L (4.63-6.08) M/uL Hgb 11.4 L (14.0-18.0) g/dl Hct 35.5 L (40.1-51.0) % RDW Coeff of Andreas 14.6 H (11.5-14.5) % BUN/Creatinine Ratio 22.0 H (10-20) Glucose 62 L (70-99(Fasting)) mg/dl POC Glucose (70-99) mg/dl Magnesium 1.4 L (1.7-2.4) mg/dl
[2022-05-25] MEDS: TAMSULOSIN HCL 0.4 MG CAP PO SCH (10:21)
[2022-05-25] MEDS: ATORVASTATIN 40 MG TAB PO SCH (10:21)
[2022-05-25] MEDS: MULTIVITAMIN TAB PO SCH (10:21)
[2022-05-25] MEDS: predniSONE 10 MG TABLET PO SCH (10:21)
[2022-05-25] MEDS: ENOXAPARIN INJ 40 MG/0.4 ML SYR SQ SCH (10:22)
[2022-05-25] MEDS: LANTUS PER UNIT CHARGE SQ SCH ×2 (10:27→20:33)
--- NOTE | 2022-05-25 22:56 | Electrocardiogram Report ---
Test Reason : Blood Pressure : / mmHG Vent. Rate : 087 BPM Atrial Rate : 087 BPM P-R Int : 186 ms QRS Dur : 076 ms QT Int : 352 ms P-R-T Axes : 068 056 074 degrees QTc Int : 423 ms Sinus rhythm with occasional Premature ventricular complexes Otherwise normal ECG When compared with ECG of 30-JAN-2020 14:15, Premature ventricular complexes are now Present TX interval has decreased Confirmed by Adam Otero ([id number]) on 05/25/2022 10:55:42 PM Referred By: REFERRED SELF Confirmed By:Adam Otero
[2022-05-26] MEDS: PANTOprazole 40 MG TAB PO SCH (06:43)
[2022-05-26] MEDS: DOXYCYCLINE HYCLATE 100 MG CAP PO SCH ×2 (06:43→17:51)
[2022-05-26] MEDS: LEVALBUTEROL 1.25MG/0.5ML NEB INH SCH ×2 (07:30→20:13)
[2022-05-26] MEDS: IPRATROPIUM BROMIDE NEB SOLN 0.02% 2.5 ML VIAL INH SCH ×2 (07:30→20:14)
[2022-05-26] MEDS: MULTIVITAMIN TAB PO SCH (08:24)
[2022-05-26] MEDS: MAGNESIUM OXIDE 400 MG TAB PO SCH ×2 (08:24→20:36)
[2022-05-26] MEDS: ASPIRIN 81 MG ECTAB PO SCH (08:24)
[2022-05-26] MEDS: TAMSULOSIN HCL 0.4 MG CAP PO SCH (08:24)
[2022-05-26] MEDS: predniSONE 10 MG TABLET PO SCH (08:24)
[2022-05-26] MEDS: ATORVASTATIN 40 MG TAB PO SCH (08:24)
[2022-05-26] MEDS: INSULIN ASPART PER UNIT SC SCH ×4 (08:51→20:36)
[2022-05-26] MEDS: LANTUS PER UNIT CHARGE SQ SCH ×2 (08:51→20:40)
[2022-05-26] MEDS ORDERED: LANTUS PER UNIT CHARGE SQ SCH (09:00)
[2022-05-26] MEDS: ENOXAPARIN INJ 40 MG/0.4 ML SYR SQ SCH (10:17)
[2022-05-26 10:42] LABS: Hematocrit (blood only) 34.3 % (40.1-51.0); Hemoglobin 11.1 g/dl (14.0-18.0); Mean Corpuscular Hemoglobin 26.3 pg (25.0-34.0); Mean Corpuscular Hgb Conc 32.4 g/dL (32.0-36.0); Mean Corpuscular Volume 81.3 fL (80.0-100.0); Mean Platelet Volume 9.7 fL (9.4-12.4); Platelet Count 152 K/uL (130-400); RDW Coefficient of Variation 14.8 % (11.5-14.5); RDW Standard Deviation 43.1 fL (36.4-46.3); Red Blood Count 4.22 M/uL (4.63-6.08); White Blood Count 6.26 K/ul (4.8-10.8)
[2022-05-26 10:55] LABS: Anion Gap 7 (3-11); BUN Creatinine Ratio 26.6 (10-20); Blood Urea Nitrogen 21 mg/dl (6-23); Calcium 8.8 mg/dl (8.5-10.1); Carbon Dioxide 29 mmol/L (21-32); Chloride 104 mmol/L (98-107); Est GFR (African American) 101.8 ml/min; Est GFR (Non-African American) 87.8 ml/min; Glucose 181 mg/dl (70-99(Fasting)); Potassium 3.6 mmol/L (3.5-5.1); Sodium 140 mmol/L (136-145)
--- NOTE | 2022-05-26 12:00 | Hospitalist Progress Note ---
Date of Service May 26, 2022 Assessment & Plan (1) Acute exacerbation of chronic obstructive pulmonary disease (COPD): Plan: Complicated bronchitis No sepsis Continue prednisone Continue nebs On doxycycline Hypotension likely secondary to hypovolemia Lactic acidosis Resolved with IVF DM2 On oral medications, A1c of 7.5 last December 2021 A1c on 05/24/22 is 8 Provided diabetes education Was hypoglycemic this morning, inptient lantus reduced Continue insulin sliding scale while inpatient Will resume home antidiabetic regimen on discharge Hyperlipidemia Continue statin Rx History of GERD Stable on PPI ADD Stable on Concerta Chronic anemia Hemoglobin at baseline Hypomagnesemia Got repleted yesterday Recheck today DVT prophylaxis. Lovenox subcu Full code PT eval noted. Discharge home with rolling walker recommended Called daughter and updated her. Patient is medically ready for discharge. She stated she does not feel comfortable with patient going home. I reviewed his activity level based on PT eval. She reported that patient may not use the rolling walker or let HH/PT in. I explained that we cannot do anything about that. We can only encourage him to use rolling walker and participate in PT. She and family should continue to encourage him. She stated she will like patient discharged to SNF/rehab. I asked CM to make referrals Patient daughter requesting updates from providers. Ms. Julianna Lennon, contact #[phone]. Admission and Anticipated Discharge Date Admission Date: May 24, 2022 Subjective Patient seen and examined Patient reports feeling better Reports cough has significantly improved since admission Denied shortness of breath, chest pain Denied fevers, chills, nausea, vomiting, abd pain, diarrhea Denied dysuria, freq, urgency Physical Exam Constitutional: no acute distress Eyes: PERRL, conjunctivae normal, anicteric sclerae Respiratory: normal respiratory effort; no respiratory distress Diminished air entry. No crackles/wheeze Cardiovascular: Rate/Rhythm: regular rate and regular rhythm S1 S2 Gastrointestinal (Abdomen): normal bowel sounds, soft, nontender, no hepatosplenomegaly Musculoskeletal: No pedal edema Neurologic: PERRL, EOMI, accommodation nl, no face palsy, no dysarthria Results & Data Results & Data ([facility]) Vital Signs (Past 12 Hours) Vital Signs Temp Pulse Pulse Resp BP BP Pulse Ox 05/26/22 11:54 36.7 C 75 18 144/73 H 95 05/26/22 10:51 05/26/22 08:00 67 05/26/22 08:18 36.4 C L 68 20 128/72 93 05/26/22 03:48 36.4 C L 65 20 102/61 94 O2 Del Method 05/26/22 11:54 Room Air 05/26/22 10:51 Room Air 05/26/22 08:00 05/26/22 08:18 Room Air 05/26/22 03:48 Room Air Laboratory Results Abnormal lab results 05/25/22 05/25/22 05/26/22 Range/Units 16:34 20:17 07:54 RBC (4.63-6.08) M/uL Hgb (14.0-18.0) g/dl Hct (40.1-51.0) % RDW Coeff of Andreas (11.5-14.5) % BUN/Creatinine Ratio (10-20) Glucose (70-99(Fasting)) mg/dl POC Glucose 289 H 139 H 63 L* (70-99) mg/dl 05/26/22 05/26/22 05/26/22 Range/Units 10:09 10:09 11:33 RBC 4.22 L (4.63-6.08) M/uL Hgb 11.1 L (14.0-18.0) g/dl Hct 34.3 L (40.1-51.0) % RDW Coeff of Andreas 14.8 H (11.5-14.5) % BUN/Creatinine Ratio 26.6 H (10-20) Glucose 181 H (70-99(Fasting)) mg/dl POC Glucose 177 H (70-99) mg/dl
[2022-05-26] MEDS: MAGNESIUM SULFATE / D5W 1 GM/100 ML BAG IV SCH ×2 (14:51→16:51)
[2022-05-27] MEDS: DOXYCYCLINE HYCLATE 100 MG CAP PO SCH (05:50)
[2022-05-27] MEDS: PANTOprazole 40 MG TAB PO SCH (05:50)
[2022-05-27] MEDS: IPRATROPIUM BROMIDE NEB SOLN 0.02% 2.5 ML VIAL INH SCH ×2 (07:33→20:03)
[2022-05-27] MEDS: LEVALBUTEROL 1.25MG/0.5ML NEB INH SCH ×2 (07:33→20:04)
[2022-05-27] MEDS: LANTUS PER UNIT CHARGE SQ SCH ×2 (08:35→20:51)
[2022-05-27] MEDS: INSULIN ASPART PER UNIT SC SCH ×4 (08:35→20:50)
[2022-05-27] MEDS: ENOXAPARIN INJ 40 MG/0.4 ML SYR SQ SCH (08:41)
[2022-05-27] MEDS: ATORVASTATIN 40 MG TAB PO SCH (08:41)
[2022-05-27] MEDS: ASPIRIN 81 MG ECTAB PO SCH (08:41)
[2022-05-27] MEDS: TAMSULOSIN HCL 0.4 MG CAP PO SCH (08:41)
[2022-05-27] MEDS: MULTIVITAMIN TAB PO SCH (08:41)
[2022-05-27] MEDS: MAGNESIUM OXIDE 400 MG TAB PO SCH ×2 (08:41→20:51)
[2022-05-27 10:05] LABS: Anion Gap 9 (3-11); BUN Creatinine Ratio 27.5 (10-20); Blood Urea Nitrogen 22 mg/dl (6-23); Calcium 8.5 mg/dl (8.5-10.1); Carbon Dioxide 26 mmol/L (21-32); Chloride 106 mmol/L (98-107); Est GFR (African American) 101.3 ml/min; Est GFR (Non-African American) 87.4 ml/min; Glucose 229 mg/dl (70-99(Fasting)); Magnesium 1.6 mg/dl (1.7-2.4); Potassium 3.7 mmol/L (3.5-5.1); Sodium 141 mmol/L (136-145)
--- NOTE | 2022-05-27 11:54 | Hospitalist Progress Note ---
Date of Service May 27, 2022 Assessment & Plan (1) Acute exacerbation of chronic obstructive pulmonary disease (COPD): Plan: Complicated bronchitis No sepsis Completed prednisone and doxycycline Continue nebs Hypotension likely secondary to hypovolemia Lactic acidosis Resolved with IVF DM2 On oral medications, A1c of 7.5 last December 2021 A1c on 05/24/22 is 8 Provided diabetes education Continue insulin sliding scale while inpatient Will resume home antidiabetic regimen on discharge Hyperlipidemia Continue statin Rx History of GERD Stable on PPI ADD Stable on Concerta Chronic anemia Hemoglobin at baseline Hypomagnesemia Mag 1.6 Replete with IV Home po increased to BID DVT prophylaxis. Lovenox subcu Full code PT eval noted. Discharge home with rolling walker recommended CM working on placement per daughter's request Patient daughter requesting updates from providers. Ms. Julianna Lennon, contact #[phone]. Admission and Anticipated Discharge Date Admission Date: May 24, 2022 Subjective Patient seen and examined Reports mild cough Denied shortness of breath, chest pain Denied fevers, chills, nausea, vomiting, abd pain, diarrhea Denied dysuria, freq, urgency Physical Exam Constitutional: no acute distress Eyes: PERRL, conjunctivae normal, anicteric sclerae ENMT: external ear and nose normal, oropharynx normal Respiratory: normal respiratory effort; no respiratory distress Cardiovascular: Rate/Rhythm: regular rate and regular rhythm S1 S2 Gastrointestinal (Abdomen): normal bowel sounds, soft, nontender, no hepatosplenomegaly Musculoskeletal: No pedal edema Neurologic: PERRL, EOMI, accommodation nl, no face palsy, no dysarthria Results & Data Results & Data ([facility]) Vital Signs (Past 12 Hours) Vital Signs Temp Pulse Resp BP Pulse Ox O2 Del Method 05/27/22 11:42 36.6 C 75 18 108/57 L 94 Room Air 05/27/22 09:32 60 18 91 Room Air 05/27/22 08:06 36.5 C 82 18 129/68 94 Room Air Laboratory Results Abnormal lab results 05/26/22 05/26/22 05/27/22 Range/Units 16:39 20:26 07:56 BUN/Creatinine Ratio (10-20) Glucose (70-99(Fasting)) mg/dl POC Glucose 292 H 104 H 170 H (70-99) mg/dl Magnesium (1.7-2.4) mg/dl 05/27/22 05/27/22 Range/Units 08:45 11:39 BUN/Creatinine Ratio 27.5 H (10-20) Glucose 229 H (70-99(Fasting)) mg/dl POC Glucose 242 H (70-99) mg/dl Magnesium 1.6 L (1.7-2.4) mg/dl
[2022-05-27] MEDS: MAGNESIUM SULFATE / D5W 1 GM/100 ML BAG IV SCH ×2 (14:39→16:52)
[2022-05-27] MEDS ORDERED: XOPENEX/ATROVENT 1.25mg/0.5MG NEB COMBO NEB PRN (22:26)
[2022-05-27] MEDS ORDERED: LEVALBUTEROL 1.25MG/0.5ML NEB INH PRN (22:30)
[2022-05-27] MEDS ORDERED: IPRATROPIUM BROMIDE NEB SOLN 0.02% 2.5 ML VIAL INH PRN (22:30)
[2022-05-28] MEDS: PANTOprazole 40 MG TAB PO SCH (05:44)
[2022-05-28 07:00] LABS: Anion Gap 7 (3-11); BUN Creatinine Ratio 27.4 (10-20); Blood Urea Nitrogen 23 mg/dl (6-23); Calcium 8.8 mg/dl (8.5-10.1); Carbon Dioxide 30 mmol/L (21-32); Chloride 105 mmol/L (98-107); Est GFR (African American) 99.3 ml/min; Est GFR (Non-African American) 85.7 ml/min; Glucose 139 mg/dl (70-99(Fasting)); Magnesium 1.8 mg/dl (1.7-2.4); Potassium 4.2 mmol/L (3.5-5.1); Sodium 142 mmol/L (136-145)
[2022-05-28] MEDS: MULTIVITAMIN TAB PO SCH (08:41)
[2022-05-28] MEDS: ASPIRIN 81 MG ECTAB PO SCH (08:42)
[2022-05-28] MEDS: ENOXAPARIN INJ 40 MG/0.4 ML SYR SQ SCH (08:42)
[2022-05-28] MEDS: ATORVASTATIN 40 MG TAB PO SCH (08:42)
[2022-05-28] MEDS: MAGNESIUM OXIDE 400 MG TAB PO SCH ×2 (08:42→20:54)
[2022-05-28] MEDS: TAMSULOSIN HCL 0.4 MG CAP PO SCH (08:42)
[2022-05-28] MEDS: INSULIN ASPART PER UNIT SC SCH ×4 (08:44→20:54)
[2022-05-28] MEDS: LANTUS PER UNIT CHARGE SQ SCH ×2 (08:45→20:54)
--- NOTE | 2022-05-28 10:22 | Hospitalist Progress Note ---
Date of Service May 28, 2022 Assessment & Plan (1) Acute exacerbation of chronic obstructive pulmonary disease (COPD): Plan: Complicated bronchitis No sepsis Completed prednisone and doxycycline Continue nebs Hypotension likely secondary to hypovolemia Lactic acidosis Resolved with IVF DM2 On oral medications, A1c of 7.5 last December 2021 A1c on 05/24/22 is 8 Provided diabetes education Continue insulin sliding scale while inpatient Will resume home antidiabetic regimen on discharge Hyperlipidemia Continue statin Rx History of GERD Stable on PPI ADD Stable on Concerta Chronic anemia Hemoglobin at baseline Hypomagnesemia Mag 1.8 Continue home po mag increased to BID DVT prophylaxis. Lovenox subcu Full code PT eval noted. Discharge home with rolling walker recommended CM working on placement per daughter's request Patient daughter requesting updates from providers. Ms. Julianna Lennon, contact #[phone]. Admission and Anticipated Discharge Date Admission Date: May 24, 2022 Subjective Patient seen and examined Reports mild cough Denied shortness of breath, chest pain Denied fevers, chills, nausea, vomiting, abd pain, diarrhea Denied dysuria, freq, urgency Physical Exam Constitutional: no acute distress Eyes: PERRL, conjunctivae normal, anicteric sclerae ENMT: external ear and nose normal, oropharynx normal Respiratory: normal respiratory effort; no respiratory distress Diminished breath sounds. No crackles or wheeze Cardiovascular: Rate/Rhythm: regular rate and regular rhythm S1 S2 Gastrointestinal (Abdomen): normal bowel sounds, soft, nontender, no hepatosplenomegaly Musculoskeletal: No pedal edema Neurologic: PERRL, EOMI, accommodation nl, no face palsy, no dysarthria Results & Data Results & Data ([facility]) Vital Signs (Past 12 Hours) Vital Signs Temp Pulse Resp BP Pulse Ox O2 Del Method 05/28/22 08:28 93 H 05/28/22 08:27 19 L 18 125/71 97 Room Air 05/27/22 23:00 36.6 C 83 18 110/64 93 Room Air 05/27/22 22:24 Room Air Laboratory Results Abnormal lab results 05/27/22 05/27/22 05/27/22 Range/Units 11:39 17:01 17:06 BUN/Creatinine Ratio (10-20) Glucose (70-99(Fasting)) mg/dl POC Glucose 242 H 122 H 121 H (70-99) mg/dl 05/28/22 05/28/22 Range/Units 05:45 08:01 BUN/Creatinine Ratio 27.4 H (10-20) Glucose 139 H (70-99(Fasting)) mg/dl POC Glucose 119 H (70-99) mg/dl
[2022-05-29] MEDS: PANTOprazole 40 MG TAB PO SCH (05:37)
[2022-05-29] MEDS: TAMSULOSIN HCL 0.4 MG CAP PO SCH (08:38)
[2022-05-29] MEDS: MULTIVITAMIN TAB PO SCH (08:38)
[2022-05-29] MEDS: MAGNESIUM OXIDE 400 MG TAB PO SCH ×2 (08:38→20:13)
[2022-05-29] MEDS: ASPIRIN 81 MG ECTAB PO SCH (08:38)
[2022-05-29] MEDS: ENOXAPARIN INJ 40 MG/0.4 ML SYR SQ SCH (08:38)
[2022-05-29] MEDS: ATORVASTATIN 40 MG TAB PO SCH (08:38)
[2022-05-29] MEDS: INSULIN ASPART PER UNIT SC SCH ×4 (08:44→20:12)
[2022-05-29] MEDS: LANTUS PER UNIT CHARGE SQ SCH ×2 (08:44→20:12)
--- NOTE | 2022-05-29 09:25 | Hospitalist Progress Note ---
Date of Service May 29, 2022 Assessment & Plan (1) Acute exacerbation of chronic obstructive pulmonary disease (COPD): Plan: Complicated bronchitis No sepsis Completed prednisone and doxycycline Continue nebs Hypotension likely secondary to hypovolemia Lactic acidosis Resolved with IVF DM2 On oral medications, A1c of 7.5 last December 2021 A1c on 05/24/22 is 8 Provided diabetes education Continue insulin sliding scale while inpatient Will resume home antidiabetic regimen on discharge Hyperlipidemia Continue statin Rx History of GERD Stable on PPI ADD Stable on Concerta Chronic anemia Hemoglobin at baseline Hypomagnesemia Mag 1.7 Continue home po mag increased to BID DVT prophylaxis. Lovenox subcu Full code PT eval noted. Discharge home with rolling walker recommended CM working on placement per daughter's request Patient daughter requesting updates from providers. Ms. Julianna Lennon, contact #[phone]. Admission and Anticipated Discharge Date Admission Date: May 24, 2022 Subjective Patient seen and examined Reports only cough Denied shortness of breath, chest pain Denied fevers, chills, nausea, vomiting, abd pain, diarrhea Denied dysuria, freq, urgency Physical Exam Constitutional: no acute distress Eyes: PERRL, conjunctivae normal, anicteric sclerae ENMT: external ear and nose normal, oropharynx normal Respiratory: normal respiratory effort; no respiratory distress Diminished breath sounds Cardiovascular: Rate/Rhythm: regular rate and regular rhythm S1 S2 Gastrointestinal (Abdomen): normal bowel sounds, soft, nontender, no hepatosplenomegaly Musculoskeletal: No pedal edema Neurologic: PERRL, EOMI, accommodation nl, no face palsy, no dysarthria Psychiatric: A+Ox3, euthymic affect Results & Data Results & Data ([facility]) Vital Signs (Past 12 Hours) Vital Signs Temp Pulse Resp BP Pulse Ox O2 Del Method 05/29/22 08:34 36.4 C L 76 19 113/62 96 Room Air 05/28/22 22:43 36.5 C 88 18 112/70 95 Room Air 05/28/22 21:48 Room Air Laboratory Results Abnormal lab results 05/28/22 05/28/22 05/28/22 Range/Units 11:52 16:44 20:11 POC Glucose 120 H 187 H 141 H (70-99) mg/dl 05/29/22 Range/Units 07:36 POC Glucose 194 H (70-99) mg/dl
[2022-05-30] MEDS: PANTOprazole 40 MG TAB PO SCH (05:55)
[2022-05-30 07:12] LABS: Est GFR (Non-African American) 89.7 ml/min
[2022-05-30] MEDS: MULTIVITAMIN TAB PO SCH (08:51)
[2022-05-30] MEDS: MAGNESIUM OXIDE 400 MG TAB PO SCH ×2 (08:51→21:18)
[2022-05-30] MEDS: ENOXAPARIN INJ 40 MG/0.4 ML SYR SQ SCH (08:51)
[2022-05-30] MEDS: TAMSULOSIN HCL 0.4 MG CAP PO SCH (08:51)
[2022-05-30] MEDS: ASPIRIN 81 MG ECTAB PO SCH (08:51)
[2022-05-30] MEDS: ATORVASTATIN 40 MG TAB PO SCH (08:51)
[2022-05-30] MEDS: LANTUS PER UNIT CHARGE SQ SCH ×2 (10:01→21:17)
[2022-05-30] MEDS: INSULIN ASPART PER UNIT SC SCH ×4 (10:02→21:16)
--- NOTE | 2022-05-30 10:38 | Hospitalist Progress Note ---
Date of Service May 30, 2022 Assessment & Plan (1) Acute exacerbation of chronic obstructive pulmonary disease (COPD): Plan: Complicated bronchitis No sepsis Completed prednisone and doxycycline Continue nebs Hypotension likely secondary to hypovolemia Lactic acidosis Resolved with IVF DM2 On oral medications, A1c of 7.5 last December 2021 A1c on 05/24/22 is 8 Provided diabetes education Continue insulin sliding scale while inpatient Will resume home antidiabetic regimen on discharge Hyperlipidemia Continue statin Rx History of GERD Stable on PPI ADD Stable on Concerta Chronic anemia Hemoglobin at baseline Hypomagnesemia Last Mag 1.7 Continue home po mag increased to BID DVT prophylaxis. Lovenox subcu Full code PT eval noted. Discharge home with rolling walker recommended CM working on placement per daughter's request Patient daughter requesting updates from providers. Ms. Julianna Lennon, contact #[phone]. Admission and Anticipated Discharge Date Admission Date: May 24, 2022 Subjective Patient seen and examined Denied any complaints today Denied cough Denied shortness of breath, chest pain Denied fevers, chills, nausea, vomiting, abd pain, diarrhea Denied dysuria, freq, urgency Physical Exam Constitutional: no acute distress Eyes: PERRL, conjunctivae normal, anicteric sclerae ENMT: external ear and nose normal, oropharynx normal Respiratory: normal respiratory effort; no respiratory distress Diminished breath sounds Cardiovascular: Rate/Rhythm: regular rate and regular rhythm S1 S2 Gastrointestinal (Abdomen): normal bowel sounds, soft, nontender, no hepatosplenomegaly Musculoskeletal: No pedal edema Neurologic: PERRL, EOMI, accommodation nl, no face palsy, no dysarthria Psychiatric: A+Ox3, euthymic affect Results & Data Results & Data ([facility]) Vital Signs (Past 12 Hours) Vital Signs Temp Pulse Resp BP Pulse Ox O2 Del Method 05/30/22 08:01 37.0 C 84 18 101/61 95 Room Air Laboratory Results Abnormal lab results 05/29/22 05/29/22 05/29/22 Range/Units 11:44 15:50 16:44 POC Glucose 181 H 135 H 212 H (70-99) mg/dl 05/29/22 05/29/22 05/30/22 Range/Units 19:41 19:43 07:48 POC Glucose 309 H* 321 H* 137 H (70-99) mg/dl
[2022-05-31] MEDS: PANTOprazole 40 MG TAB PO SCH (06:25)
[2022-05-31] MEDS: ASPIRIN 81 MG ECTAB PO SCH (09:22)
[2022-05-31] MEDS: ATORVASTATIN 40 MG TAB PO SCH (09:22)
[2022-05-31] MEDS: TAMSULOSIN HCL 0.4 MG CAP PO SCH (09:23)
[2022-05-31] MEDS: MAGNESIUM OXIDE 400 MG TAB PO SCH ×2 (09:23→21:17)
[2022-05-31] MEDS: ENOXAPARIN INJ 40 MG/0.4 ML SYR SQ SCH (09:23)
[2022-05-31] MEDS: MULTIVITAMIN TAB PO SCH (09:23)
[2022-05-31] MEDS: INSULIN ASPART PER UNIT SC SCH ×4 (09:47→21:19)
[2022-05-31] MEDS: LANTUS PER UNIT CHARGE SQ SCH ×2 (09:48→21:18)
--- NOTE | 2022-05-31 15:04 | Hospitalist Progress Note ---
Date of Service May 31, 2022 Assessment & Plan (1) Acute exacerbation of chronic obstructive pulmonary disease (COPD): Plan: Complicated bronchitis No sepsis Completed prednisone and doxycycline Continue nebs Hypotension likely secondary to hypovolemia Lactic acidosis Resolved with IVF DM2 On oral medications, A1c of 7.5 last December 2021 A1c on 05/24/22 is 8 Provided diabetes education Continue insulin sliding scale while inpatient Will resume home antidiabetic regimen on discharge Hyperlipidemia Continue statin Rx History of GERD Stable on PPI ADD Stable on Concerta Chronic anemia Hemoglobin at baseline Hypomagnesemia Last Mag 1.7. Recheck BMP/Mag tomorrow Continue home po mag increased to BID DVT prophylaxis. Lovenox subcu Full code PT eval noted. CM working on placement per daughter's request Patient daughter requesting updates from providers. Ms. Julianna Lennon, contact #[phone]. Admission and Anticipated Discharge Date Admission Date: May 24, 2022 Subjective Patient seen and examined Denied any complaints today Reported occasional cough Denied shortness of breath, chest pain Denied fevers, chills, nausea, vomiting, abd pain, diarrhea Denied dysuria, freq, urgency Physical Exam Constitutional: no acute distress Eyes: PERRL, conjunctivae normal, anicteric sclerae ENMT: external ear and nose normal, oropharynx normal Respiratory: normal respiratory effort; no respiratory distress Cardiovascular: Rate/Rhythm: regular rate and regular rhythm S1 S2 Gastrointestinal (Abdomen): normal bowel sounds, soft, nontender, no hepatosplenomegaly Musculoskeletal: No pedal edema Neurologic: PERRL, EOMI, accommodation nl, no face palsy, no dysarthria Psychiatric: A+Ox3, euthymic affect Results & Data Results & Data ([facility]) Vital Signs (Past 12 Hours) Vital Signs Temp Pulse Resp BP Pulse Ox O2 Del Method 05/31/22 08:29 36.4 C L 72 16 123/67 95 Room Air Laboratory Results Abnormal lab results 05/30/22 05/30/22 05/31/22 Range/Units 17:02 19:50 07:56 POC Glucose 162 H 238 H 126 H (70-99) mg/dl 05/31/22 Range/Units 11:52 POC Glucose 204 H (70-99) mg/dl
[2022-06-01] MEDS: PANTOprazole 40 MG TAB PO SCH (06:25)
[2022-06-01] MEDS: INSULIN ASPART PER UNIT SC SCH ×4 (08:40→21:32)
[2022-06-01] MEDS: ASPIRIN 81 MG ECTAB PO SCH (08:41)
[2022-06-01] MEDS: LANTUS PER UNIT CHARGE SQ SCH ×2 (08:41→21:33)
[2022-06-01] MEDS: TAMSULOSIN HCL 0.4 MG CAP PO SCH (08:41)
[2022-06-01] MEDS: ATORVASTATIN 40 MG TAB PO SCH (08:41)
[2022-06-01] MEDS: MAGNESIUM OXIDE 400 MG TAB PO SCH ×2 (08:41→21:07)
[2022-06-01] MEDS: MULTIVITAMIN TAB PO SCH (08:41)
[2022-06-01] MEDS: ENOXAPARIN INJ 40 MG/0.4 ML SYR SQ SCH (08:41)
[2022-06-01 09:28] LABS: Anion Gap 6 (3-11); BUN Creatinine Ratio 34.1 (10-20); Blood Urea Nitrogen 28 mg/dl (6-23); Calcium 8.6 mg/dl (8.5-10.1); Carbon Dioxide 29 mmol/L (21-32); Chloride 106 mmol/L (98-107); Est GFR (African American) 100.3 ml/min; Est GFR (Non-African American) 86.5 ml/min; Glucose 134 mg/dl (70-99(Fasting)); Magnesium 1.7 mg/dl (1.7-2.4); Potassium 3.9 mmol/L (3.5-5.1); Sodium 141 mmol/L (136-145)
--- NOTE | 2022-06-01 10:52 | Hospitalist Progress Note ---
Date of Service June 01, 2022 Assessment & Plan (1) Acute exacerbation of chronic obstructive pulmonary disease (COPD): Plan: Acute COPD exacerbation Complicated bronchitis Completed doxycycline course Continue nebs Saturating well on room air Hypotension likely secondary to hypovolemia Lactic acidosis Resolved with IV Fluids DM II On oral medications, HbA1c 8.0 Continue insulin sliding scale while inpatient Monitor BGs Hyperlipidemia Continue statin GERD Continue PPI ADD On Concerta Chronic Anemia Monitor CBC Hypomagnesemia Replete electrolytes as needed DVT Px: Lovenox SQ Code Status Full code Admission and Anticipated Discharge Date Admission Date: May 24, 2022 Subjective Patient is seen and examined at bedside Less cough today Denies any shortness of breath, dizziness, nausea, abdominal pain Discussed with patient's daughter over the phone Saturating well on room air Review of Systems Review of Systems: All systems reviewed & are unremarkable except as noted in Subjective Physical Exam Physical Exam: Physical Exam: Vitals signs as noted above General Appearance:Moderately built and nourished, no apparent distress Head: normocephalic, Atraumatic Eyes: normal inspection, EOMI Neck: supple, Trachea midline Respiratory/Chest: Decreased breath sounds, scattered wheezing, No accessory muscle use Cardiovascular: S1, S2, No murmur Abdomen/GI:Soft, Non tender, Bowel sounds present Extremities/Musculoskeletal:normal inspection, no edema Neurologic/Psych:AAOX3, grossly no focal neurological deficits Skin: normal color, warm Results & Data Results & Data ([facility]) Vital Signs (Past 12 Hours) Vital Signs Temp Pulse Resp BP Pulse Ox O2 Del Method 06/01/22 07:35 36.8 C 74 16 111/65 97 Room Air Laboratory Results [facility] 06/01/22 08:09 Sodium 141 Potassium 3.9 Chloride 106 Carbon Dioxide 29 BUN 28 H Creatinine 0.82 Glucose 134 H Calcium 8.6
[2022-06-01] MEDS: LEVALBUTEROL 1.25MG/0.5ML NEB INH SCH ×2 (14:36→19:46)
[2022-06-01] MEDS: IPRATROPIUM BROMIDE NEB SOLN 0.02% 2.5 ML VIAL INH SCH ×2 (14:36→19:46)
[2022-06-01] MEDS: predniSONE 10 MG TABLET PO SCH (15:51)
[2022-06-02] MEDS: PANTOprazole 40 MG TAB PO SCH (06:18)
[2022-06-02] MEDS: IPRATROPIUM BROMIDE NEB SOLN 0.02% 2.5 ML VIAL INH SCH (07:08)
[2022-06-02] MEDS: LEVALBUTEROL 1.25MG/0.5ML NEB INH SCH (07:08)
[2022-06-02 08:52] LABS: Est GFR (African American) 106.4 ml/min; Est GFR (Non-African American) 91.8 ml/min; Magnesium 1.8 mg/dl (1.7-2.4)
[2022-06-02] MEDS ORDERED: UMECLIDINIUM BROMIDE 62.5MCG/BLISTER 7 PUFFS/INHALER INH SCH (09:00)
[2022-06-02] MEDS ORDERED: TIOTROPIUM BROMIDE 5 PUFF/90 MCG INH INH SCH (09:00)
[2022-06-02] MEDS ORDERED: LEVALBUTEROL 1.25MG/0.5ML NEB INH PRN (09:25)
[2022-06-02] MEDS ORDERED: IPRATROPIUM BROMIDE NEB SOLN 0.02% 2.5 ML VIAL INH PRN (09:25)
[2022-06-02] MEDS: INSULIN ASPART PER UNIT SC SCH ×2 (09:32→13:15)
[2022-06-02] MEDS: LANTUS PER UNIT CHARGE SQ SCH (09:33)
[2022-06-02] MEDS: ASPIRIN 81 MG ECTAB PO SCH (09:34)
[2022-06-02] MEDS: ENOXAPARIN INJ 40 MG/0.4 ML SYR SQ SCH (09:34)
[2022-06-02] MEDS: TAMSULOSIN HCL 0.4 MG CAP PO SCH (09:34)
[2022-06-02] MEDS: ATORVASTATIN 40 MG TAB PO SCH (09:34)
[2022-06-02] MEDS: MAGNESIUM OXIDE 400 MG TAB PO SCH (09:34)
[2022-06-02] MEDS: predniSONE 10 MG TABLET PO SCH (09:34)
[2022-06-02] MEDS: MULTIVITAMIN TAB PO SCH (09:35)
--- NOTE | 2022-06-02 13:05 | Hospitalist Progress Note ---
Date of Service June 02, 2022 Assessment & Plan (1) Acute exacerbation of chronic obstructive pulmonary disease (COPD): Plan: Acute COPD exacerbation Complicated bronchitis Completed doxycycline course Continue nebs as needed Continue home inhalers Saturating well on room air Plan to discharge home today on prednisone taper course Hypotension likely secondary to hypovolemia Lactic acidosis Resolved with IV Fluids DM II On oral medications, HbA1c 8.0 Continue insulin sliding scale while inpatient Monitor BGs Hyperlipidemia Continue statin GERD Continue PPI ADD On Concerta Chronic Anemia Monitor CBC Hypomagnesemia Replete electrolytes as needed DVT Px: Lovenox SQ Code Status Full code Admission and Anticipated Discharge Date Admission Date: May 24, 2022 Subjective Patient is seen and examined at bedside States feeling well today Reports having morning occasional non expectorant cough No other complaints Denies any shortness of breath, dizziness, nausea, abdominal pain Plan to discharge home today Review of Systems Review of Systems: All systems reviewed & are unremarkable except as noted in Subjective Physical Exam Physical Exam: Physical Exam: Vitals signs as noted above General Appearance:Moderately built and nourished, no apparent distress Head: normocephalic, Atraumatic Eyes: normal inspection, EOMI Neck: supple, Trachea midline Respiratory/Chest: Decreased breath sounds, CTA, No accessory muscle use Cardiovascular: S1, S2, No murmur Abdomen/GI:Soft, Non tender, Bowel sounds present Extremities/Musculoskeletal:normal inspection, no edema Neurologic/Psych:AAOX3, grossly no focal neurological deficits Skin: normal color, warm Results & Data Results & Data ([facility]) Vital Signs (Past 12 Hours) Vital Signs Temp Pulse Resp BP Pulse Ox O2 Del Method 06/02/22 08:59 Room Air 06/02/22 07:42 36.5 C 71 20 119/67 95 Room Air 06/02/22 07:10 65 16 97 Room Air Laboratory Results [facility] 06/02/22 07:49 Creatinine 0.71
--- NOTE | 2022-06-02 13:14 | Discharge Summary ---
Date of Service June 02, 2022 Admission HPI Per Admitting Provider History obtained from patient, family, and records. Medical history significant for COPD, DM2 on oral medications, hyperlipidemia, GERD, BPH, ADD, chronic anemia (baseline hemoglobin 12-13), past tobacco abuse. Last confinement September 2018 for right lower lobe pneumonia. 1 week history of cough symptoms occasionally productive of yellow sputum. No chest pain. Worsening shortness of breath. Patient more tired. Not sure about sick contacts. Patient received COVID-19 vaccination. Patient brought to ER for evaluation. SBP 90s at 1 point during ER stay. Solu-Medrol, neb treatment, doxycycline administered for COPD exacerbation. 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 Admission Exam Per Admitting Provider Physical Exam Physical Exam: GENERAL: Comfortable, pleasant, no respiratory distress SKIN: Pallor , warm HEENT: Bespectacled, pale palpebral conjunctivae, no ptosis, dry buccal mucosa NECK : Supple, no tenderness CHEST : Decreased breath sounds, no tenderness HEART : RRR, no obvious murmurs ABDOMEN: Some distention, nontender EXTREMITIES : No LE swelling/tenderness, no other conspicuous deformities noted NEUROLOGIC : Coherent, no facial asymmetry, no other gross focality Principal Diagnosis Acute COPD exacerbation Hypomagnesemia Discharge Data Allergies Allergy/AdvReac Type Severity Reaction Status Date / Time lactose AdvReac Severe Gastrointestinal Verified 05/28/22 12:01 Upset Consultations 05/23/22 22:59 ED Decision to Admit Stat Procedures Performed Laboratory Results WBC 6.26 K/ul (4.8-10.8) 05/26/22 10:09 RBC 4.22 M/uL (4.63-6.08) L 05/26/22 10:09 Hgb 11.1 g/dl (14.0-18.0) L 05/26/22 10:09 Hct 34.3 % (40.1-51.0) L 05/26/22 10:09 MCV 81.3 fL (80.0-100.0) 05/26/22 10:09 MCH 26.3 pg (25.0-34.0) 05/26/22 10:09 MCHC 32.4 g/dL (32.0-36.0) 05/26/22 10:09 RDW Std Deviation 43.1 fL (36.4-46.3) 05/26/22 10:09 RDW Coeff of Andreas 14.8 % (11.5-14.5) H 05/26/22 10:09 Plt Count 152 K/uL (130-400) 05/26/22 10:09 MPV 9.7 fL (9.4-12.4) 05/26/22 10:09 Immature Gran % (Auto) 0.7 % 05/24/22 05:32 Neut % (Auto) 89.1 % 05/24/22 05:32 Lymph % (Auto) 8.8 % 05/24/22 05:32 [place] % (Auto) 1.4 % 05/24/22 05:32 Eos % (Auto) 0.0 % 05/24/22 05:32 Baso % (Auto) 0.0 % 05/24/22 05:32 Neut # (Auto) 3.93 K/uL (1.4-6.5) 05/24/22 05:32 Lymph # (Auto) 0.39 K/uL (1.2-3.4) L 05/24/22 05:32 [place] # (Auto) 0.06 K/uL (0.24-0.82) L 05/24/22 05:32 Eos # (Auto) 0.00 K/uL (0-0.50) 05/24/22 05:32 Baso # (Auto) 0.00 K/uL (0-0.2) 05/24/22 05:32 Immature Gran # (Auto) 0.03 K/uL (0.00-0.02) H 05/24/22 05:32 PT 12.0 Seconds (9.0-12.0) 05/23/22 19:14 INR 1.1 (0.9-1.1) 05/23/22 19:14 APTT 26.7 Seconds (21.0-31.0) 05/23/22 19:14 PTT Ratio 1.0 05/23/22 19:14 Sodium 141 mmol/L (136-145) 06/01/22 08:09 Potassium 3.9 mmol/L (3.5-5.1) 06/01/22 08:09 Chloride 106 mmol/L (98-107) 06/01/22 08:09 Carbon Dioxide 29 mmol/L (21-32) 06/01/22 08:09 Anion Gap 6 (3-11) 06/01/22 08:09 BUN 28 mg/dl (6-23) H 06/01/22 08:09 Creatinine 0.71 mg/dl (0.6-1.4) 06/02/22 07:49 Est Cr Clr Drug Dosing Not Reportable 06/02/22 07:49 Est GFR ( Amer) 106.4 ml/min 06/02/22 07:49 Est GFR (Non-Af Amer) 91.8 ml/min 06/02/22 07:49 BUN/Creatinine Ratio 34.1 (10-20) H 06/01/22 08:09 Glucose 134 mg/dl (70-99(Fasting)) H 06/01/22 08:09 POC Glucose 221 mg/dl (70-99) H 06/02/22 12:15 Estimat Average Glucose 183 mg/dl 05/24/22 05:32 Hemoglobin A1c 8.0 % (4.5-5.6) H 05/24/22 05:32 Lactate 1.2 mmol/L (0.4-2.0) 05/24/22 09:53 Calcium 8.6 mg/dl (8.5-10.1) 06/01/22 08:09 Phosphorus 4.0 mg/dl (2.5-4.9) 06/01/22 08:09 Magnesium 1.8 mg/dl (1.7-2.4) 06/02/22 07:49 Total Bilirubin 0.3 mg/dl (0.2-1.0) 05/23/22 19:14 AST 20 U/L (13-39) 05/23/22 19:14 ALT 19 U/L (7-52) 05/23/22 19:14 Alkaline Phosphatase 44 U/L (34-104) 05/23/22 19:14 Troponin I High Sens 4.0 pg/ml (0-20) 05/23/22 19:14 Total Protein 7.2 gm/dl (6.0-8.3) 05/23/22 19:14 Albumin 4.1 gm/dl (3.4-5.0) 12/19/22 19:14 Globulin 3.1 gm/dl (2.5-4.0) 05/23/22 19:14 Albumin/Globulin Ratio 1.3 (0.9-2) 05/23/22 19:14 TSH 2.482 uIu/ml (0.300-4.500) 05/23/22 19:14 SARS-CoV-2 (PCR) NEGATIVE (Negative) 05/23/22 19:08 Influenza Type A (PCR) Negative (Neg) 05/23/22 19:08 Influenza Type B (PCR) Negative (Neg) 05/23/22 19:08 RSV (RT-PCR) Negative (Neg) 05/23/22 19:08 Impressions Chest X-Ray 05/23/22 18:17 XR chest 1V portable CLINICAL HISTORY: SOB TECHNIQUE: Single frontal radiograph of the chest was obtained. Comparison: Comparison is made to chest radiograph 09/29/2018 FINDINGS: No lines and tubes are seen. The cardiomediastinal silhouette is normal. Reticular interstitial opacities are seen. No evidence of pleural effusion or pneumothorax. IMPRESSION: No acute abnormalities and in particular no evidence of pneumonia. ACT 112: Negative or not required by law. Electronically signed by: Parish Fajardo M.D. 05/23/2022 7:26 PM Hospital Course (1) Acute exacerbation of chronic obstructive pulmonary disease (COPD): Acute COPD exacerbation Complicated bronchitis Completed doxycycline course Continue nebs as needed Continue home inhalers Saturating well on room air Plan to discharge home today on prednisone taper course Hypotension likely secondary to hypovolemia Lactic acidosis Resolved with IV Fluids DM II On oral medications, HbA1c 8.0 Continue insulin sliding scale while inpatient Monitor BGs Hyperlipidemia Continue statin GERD Continue PPI ADD On Concerta Chronic Anemia Monitor CBC Hypomagnesemia Replete electrolytes as needed DVT Px: Lovenox SQ Code Status Full code Total Time Total Time Spent Total Time Spent (In Minutes): 49 minutes Discharge Plan Discharge Items Patient Disposition: Home - Self-Care Reason For Visit: TRANSIENT HYPOTENSION, COPD EXACERBATION Discharge Diagnosis: Acute COPD exacerbation Hypomagnesemia Condition on Discharge: Good Activity: Per Instructions section Exercise/Sports: Gradually increase as tolerated Non-emergency contact: Primary Care Provider Call non-emergency contact if: you have any medication questions, your symptoms worsen and your pain is concerning for you Follow-up/Referrals: Nirmala Alford DO [Primary Care Provider] - (Date & Time 06/09/2022 10:00 AM Provider Pharmacist [address] [facility] [address] [facility] Date & Time 06/09/2022 10:20 AM Provider Nirmala Alford [facility] [address] [facility] ) Darline Odonnell PA-C [Outside Practitioners] - Diet: Carb Consistent or DM2 Addtl Attending Provider Instructions: Follow-up with your primary care physician on 06/09/2022 10:00 AM as scheduled -- Complete prednisone tapering course as prescribed. Take prednisone 10 mg daily for 1 more day and then take 5 mg daily for 2 days and stop. Seek immediate medical attention if your symptoms reoccur or worsen Please take all medications as instructed on discharge list below. Please call if you have any questions or problems. You can reach a [facility] hospitalist on duty at [facility] 24 hours a day by calling [phone] Pending Studies at Discharge: No Stand-Alone Forms: My [facility], Smoking Cessation Medications and DC Order Prescriptions: New Incruse Ellipta 62.5 mcg/actuation Blister With Device 1 inh inhalation DAILY Qty: 30 0RF magnesium oxide 400 mg (241.3 mg magnesium) Tablet 400 mg PO DAILY Qty: 30 0RF prednisone 5 mg tablet 5 mg PO DIRECTED Qty: 4 0RF Rx Instructions: see taper instructions: Take prednisone 10 mg daily for 1 more day and then take 5 mg daily for 2 days and stop. Continued multivitamin Tablet 1 tab PO QAM atorvastatin [Lipitor] 40 mg Tablet 40 mg PO QAM methylphenidate HCl [Concerta] 54 mg Tablet Extended Release 24hr 54 mg PO QAM metformin 850 mg Tablet 850 mg PO TIDM Rx Instructions: PER PT "TOLD NOT TO TAKE BY DAUGHTER'S FRIEND". aspirin 81 mg Tablet,Delayed Release (Dr/Ec) 81 mg PO QAM glipizide 5 mg Tablet 5 mg PO BID albuterol sulfate 90 mcg/actuation HFA aerosol inhaler 1 inha INH Q6H PRN (Reason: shortness of breath or wheezing) Qty: 6.7 3RF tamsulosin 0.4 mg Capsule 0.4 mg PO QAM acetaminophen [Tylenol] 325 mg Tablet 325 mg PO Q6H PRN (Reason: NEEDED PER [facility]) omeprazole 20 mg Capsule,Delayed Release(Dr/Ec) 20 mg PO DAILYBB Tradjenta 5 mg tablet 5 mg PO QAM Discontinued magnesium 250 mg Tablet 250 mg PO QAM Discharge Orders: Discharge Order (Routine); Ordered 06/02/22 Ordered By: Jez Lugo/Other Patient Handouts: Managing Type 2 Diabetes Admission Data Admit Date/Time: 05/24/22 00:35 Attending Provider: Jez Tello Admit Provider: Tejinder Zimmer Primary Care Provider: Nirmala Alford Other Providers: Joleen Oconnell ; Tejinder Zimmer
== END 2022-06-02 18:42 | disposition home or self-care (01) | DRG 191 ==
LOC: ED 18:03 → SUATTDRO 05-24 00:35 → EDINP 05-24 00:35 → 2N 05-24 02:33 → 3N 05-30 23:45

== ENCOUNTER 2024-06-16 23:36 | Inpatient (IN) ==
--- OUTSIDE RECORDS SUMMARY | 2024-06-16 23:41 | External Medical Summary | Summary of Care ---
Author Name Unknown Organization [facility] Address [address] [place] [address] Phone [phone] Care Team Providers Care [employer] Name Role Phone Nirmala Jackson DO Primary Care Provider [phone] Reason for Referral * Evaluate & Treat - Unlimited Visits (Within 3 days (urgent)) - Authorized Specialty Diagnoses / Procedures Referred By Eben samayoa Referred To Contact Physical Therapy / Physical Medicine And Rehab Diagnoses Falls frequently Other abnormalities of gait and mobility Nirmala Jackson DO [address] [place] [address] Phone: tel: fax: Referral ID Status Reason Start Date Expiration Date Visits Requested Visits Authorized [id number] Authorized Specialty Services Required 4 [phone] Question Answer Referral Priority Within 3 days (urgent) Where should this appointment be scheduled? [facility] Reason for Visit * Reason Onset Date Comments Advice 05/14/2024 Encounter Details Date Type Department Care Team (Late st Contact Info) Description 05/14/2024 Telephone Family Practice [facility], [place] [address] [place] [phone] Nirmala Jackson DO [address] [place] [address] Advice Allergies Active Allergy Reactions Criticality Noted Date Comments Alcohol 01/19/2023 Sugar Alcohol Lactose Intolerance 12/12/2005 documented as of this encounter (statuses as of 05/16/2024) Medications aspirin enteric coated 81 MG TBEC Take 1 Tablet by mouth daily at noon. 100 Tab 3 12/27/19 17 Active Multiple Vitamins-Minerals (MULTIVITAMIN ADULT) TABS Take 1 Tablet by mouth daily at noon. Active ONETOUCH ULTRASOFT LANCETS MISC Use as directed 4 times a day as needed for Hyperglycemia (high sugar) or Hypoglycemia (low sugar). E11.9 1 Box Dosing Unit 11 09/18/19 19 Active OneTouch Verio w/Device Kit Use to test blood sugars daily E11.9 1 Kit 02/19/20 21 Active Farxiga 10 MG Oral Tablet (Dapagliflozin Propanediol) Take 1 Tablet by mouth daily at noon. -- getting through roll wrapper 04/07/20 23 Active OneTouch Verio In Vitro Strip (Glucose Blood) USE UP TO 4 TIMES A DAY DIRECTED 400 Strip 3 4 9:55 AM EST 06/01/20 23 Active Incruse Ellipta 62.5 MCG/ACT Inhalation Aerosol Powder Breath Activated (umeclidinium [place])Indicatio ns:Chronic obstructive pulmonary disease, unspecified COPD type (HCC) INHALE ONE PUFF BY MOUTH EVERY MORNING 90 Each 3 06/17/19 24 025 Active glipiZIDE 10 MG Oral Tablet (Glucotrol)Indica tions:Type 2 diabetes mellitus with hemoglobin A1c goal of less than 8.0% (HCC) TAKE ONE TABLET BY MOUTH TWICE A DAY 30 MINUTES BEFORE MORNING AND EVENING MEALS 200 Tablet 3 4 5:54 PM EST 07/09/19 24 025 Active Atorvastatin Calcium 20 MG Oral Tablet (Lipitor)Indicati ons:Type 2 diabetes mellitus with hemoglobin A1c goal of less than 8.0% (HCC) TAKE ONE TABLET BY MOUTH DAILY 100 Tablet 3 4 2:12 PM EDT 07/31/19 24 025 Active Omeprazole 20 MG Oral Capsule Delayed Release (PriLOSEC)Indicat ions:Gastroesopha geal reflux disease without esophagitis TAKE ONE CAPSULE BY MOUTH EVERY MORNING 1 HOUR BEFORE THE FIRST MEAL OF THE DAY FOR HEART BURN 100 Capsule 3 4 2:12 PM EDT 07/31/19 24 025 Active Tamsulosin HCl 0.4 MG Oral Capsule (Flomax)Indicatio ns:BPH with obstruction/lower urinary tract symptoms TAKE TWO CAPSULES BY MOUTH EVERY DAY IN THE MORNING 180 Capsule 3 4 12:26 PM EDT 09/22/19 24 025 Active Dexcom G7 Sensor Use as directed. 0 24 Active Ketoconazole 2 % External Cream Apply topically to affected area on both feet twice daily. 30 g 2 12/11/19 24 Active Finasteride 5 MG Oral Tablet (Proscar) TAKE ONE TABLET BY MOUTH EVERY DAY IN THE MORNING 90 Tablet 6 4 12:26 PM EDT 12/18/19 24 025 Active Methylphenidate HCl 10 MG Oral Tablet (Ritalin)Indicati ons:Attention deficit hyperactivity disorder (ADHD), predominantly inattentive type Take 1 Tablet by mouth 2 times a day. 60 Tablet 02/15/20 24 Active metFORMIN HCl 850 MG Oral Tablet (Glucophage)Indic ations:Type 2 diabetes mellitus with hemoglobin A1c goal of less than 8.0% ([facility]) TAKE ONE TABLET BY MOUTH THREE TIMES A DAY IN THE MORNING, AT NOON AND BEFORE BEDTIME 300 Tablet 1 4 4:12 PM EDT 03/19/20 24 Active oxyBUTYnin Chloride ER 5 MG Oral Tablet Extended Release 24 Hour Take 1 Tablet by mouth in the morning. Take for bladder spasms and stent pain. 30 Tablet 03/22/20 24 Active Additional Information Patient not taking.Reported on 04/23/2024 Magnesium Oxide 400 MG Oral Tablet Take 1 Tablet by mouth daily. 100 Tablet 3 04/23/20 24 Active documented as of this encounter (statuses as of 05/16/2024) Active Problems Patient Care Coordination No te Formatting of this note migh t be different from the original. 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 07/26/2019 Attention deficit hyperactiv ity disorder (ADHD), predominantly inattentive type 07/26/2019 Pulmonary emphysema 12/28/2018 History of tobacco abuse 03/09/2018 Dyslipidemia 03/09/2018 Type 2 diabetes mellitus wit h hemoglobin A1c goal of less than 8.0% 11/28/2017 documented as of this encounter (statuses as of 05/16/2024) Resolved Problems Problem Noted Date Diagnosed Date Resolved Date COPD, group A, by GOLD 2017 classification 08/12/2019 06/16/2022 Overview: Per COPD GOLD Classification Attention deficit disorder w ithout hyperactivity 12/28/2018 01/13/2020 Overview (01/13/2020): history Dyslipidemia, goal LDL below 100 09/14/2011 03/09/2018 Type 2 diabetes mellitus wit h hemoglobin A1c goal of less than 7.0% 01/31/2011 11/28/2017 Overview (09/29/2015): Per Diabetes Protocol #22 ICD-10 update of inactive term Attention deficit hyperactiv ity disorder (ADHD) 11/05/2009 12/28/2018 Dyslipidemia, goal LDL below 160 04/08/2009 05/20/2009 Overview (05/20/2009): Per Lipid Taxonomy. ADVANCE DIRECTIVE INFORMATION 02/28/2005 03/09/2018 Overview (02/28/2005): No, Advance Directive brochure given to patient at prior appointment. Tobacco use disorder 018 documented as of this encounter (statuses as of 05/16/2024) Immunizations Name Administration Dates Next Due COVID-19 mRNA, LNP-s, No Pre serve, 2-Dose Series (Moderna) 09/07/2020,08/10/2020 COVID-19, LNP-s, No Preserve , Charlie-sucrose, Ages 12+ (Pfizer) 07/07/2021 COVID-19, MRNA-LNP, PF, 30 M CG/0.3 mL, 12 YRS AND ABOVE, IM (PFIZER-Comirnaty) 02/20/2024,04/14/2023 Covid-19, Mrna, Lnp-s, Pf, B ivalent, 30 Mcg, IM, 12 yrs and above (Pfizer) 08/19/2022 Pneumococcal Conjugate Vacc, 13 Valent (Prevnar) 11/07/2014 Pneumococcal Conjugate Vacci ne, 20-valent ([id number]) 02/20/2024 Pneumococcal Polysaccharide PPV23 (Pneumovax) 09/07/2017,02/25/2010 RSV Vac., Bivalent, Perfusio n F, Pf,0.5 Ml (Abrysvo) 04/14/2023 Seasonal Influenza Vac., MDV , IM, 0.5 mL (Fluzone) 02/18/2016,02/25/2015,03/05/2014,03/05,02/18/2012,02/25/2010 Seasonal Influenza, High Dos e, Trivalent, PF, IM (Fluzone HD) 02/20/2024 Seasonal Influenza, PF, 6 M & above, IM , (FluLaval or Fluzone) 05/08/2020,03/09/2019,03/05/2018,03/24 Seasonal Influenza, Quadriva lent Hd (Fluzone Hd) 04/14/2023,04/22/2021 Seasonal Influenza, Quadriva lent Hd, 65+ Yrs 06/02/2022 Seasonal Influenza, Trivalen t, (IIV3), PF, (Fluzone) 02/22/2012,03/14/2011,03/23/2009 TD, Preservative Free 2020 TDAP, Age 7 and older, IM (Adacel) 04/08/2009 Zoster Vaccine Recombinant (Shingrix) 08/19/2022 ,06/09/2022 documented as of this encounter Social History Tobacco Use Types Packs/Day Years Used Date Smoking Tobacco: Former Cigarettes 0.5 30 0 11/19/1987 - 11/18/2017 Passive Smoke Exposure: Past Smokeless Tobacco: Never Alcohol Use Standard Drinks/Week Comments No 0 (1 standard drink = 0.6 oz pur e alcohol) rarely PHQ-2 Answer Date Recorded PHQ Adult Total Score 0 04/12/2024 Hunger Vital Sign Answer Date Recorded Within the past 12 months, y ou worried that your food would run out before you got the money to buy more. Never true 04/12/20 24 Within the past 12 months, t he food you bought just didn't last and you didn't have money to get more. Never true 04/12/2024 Childcare Answer Date Recorded Do you feel overwhelmed with taking care of a child, family member or friend? No 04/12/2024 Does your family need help f inding childcare? (Household - for ages 0-17 years) Not on file 04/12/2024 Clothing Answer Date Recorded Have you been unable to get clothing when it was really needed? No 04/12/2024 Is your family able to get c lothes or diapers when needed? (Household - for ages 0-17 years) Not on file 04/12/2024 Personal Safety Answer Date Recorded Do you feel unsafe or have concerns for your saf ety? No 04/12/2024 Do you have concerns for you r family's safety? (Household - for ages 0-17 years) Not on file 04/12/2024 Utilities Answer Date Recorded Do you have trouble paying y our heating, water, or electric bill? No 04/12/2024 Is your family able to pay t he heat, water, or electric bill? (Household - for ages 0-17 years) Not on file 04/12/2024 Does your family have access to good internet? (Household - for ages 0-17 years) Not on file 04/12/2024 Employment Status Answer Date Recorded Are you unemployed or without regular income? No 04/12/2024 Does the household have a re gular source of income? (Household - for ages 0-17 years) Not on file 04/12/2024 Social Connections Answer Date Recorded How often do you feel lonely or isolated from th ose around you? Never 04/12/2024 Financial Resource Strain Answer Date R ecorded Do you have any trouble payi ng for your medications, or do you think you might in the future? No 04/12/2024 Does your family have troubl e paying for medicine? (Household - for ages 0-17 years) Not on file 04/12/2024 Transportation Needs Answer Date Record ed Do you have trouble getting a ride to medical visits or work? (Adult - for ages 18 years and over) Not on file 04/12/2024 Does your family have a hard time getting a ride to doctors visits? (Household - for ages 0-17 years) Not on file 04/12/2024 Has lack of transportation k ept you from medical appointments, meetings, work, or from getting things needed for daily living? Check all that apply. No 04/12/2024 Do you (or your family) have trouble finding or paying for a ride (transportation)? (Household - for ages 0-17 years) Not on file 04/12/2024 Housing Stability Answer Date Recorded Do you currently live in a s helter or have no steady place to sleep at night? No 04/12/2024 Do you think you are at risk of becoming homeless? (Adult - for ages 18 years and over) Not on file 04/12/2024 Does your family worry about paying for your home or becoming homeless? (Household - for ages 0-17 years) Not on file 1 06/12/2023 Are you homeless or worried that you might be in the future? No 04/12/2024 Are you (or your family) christoph eless or worried that you might be in the future? (Household - for ages 0-17 years) Not on file Food Insecurity Answer Date Recorded Do you need food for this week? No 04/12/2024 Are you able to get enough f ood for your family? (Household - for ages 0-17 years) Not on file 04/12/2024 Does your family need food t his week? (Household - for ages 0-17 years) Not on file 04/12/2024 Do you always have enough fo od for your family? (Household - for ages 0-17 years) Not on file 04/12/2024 Sex and Gender Information Value Date Recorded Sex Assigned at Male 10/05/2018 12:49 PM EDT Legal Sex Male 7:01 AM EST Gender Identity Male 10/05/2018 12:49 PM EDT Sexual Orientation Straight 10/05/2018 12 :49 PM EDT documented as of this encounter Functional Status * Are you deaf or do you have serious difficulty hearing? Answer Date of Assessment Author Yes 03/22/2024 12:26 PM EDT Oz Rosario RN * Are you blind or do you have serious difficulty seeing, even when wearing glasses? Answer Date of Assessment Author No 03/22/2024 12:26 PM EDT Oz Rosario RN * Do you have serious difficulty walking or climbing stairs? (5 years old or older) Answer Date of Assessment Author Yes 03/22/2024 12:26 PM EDT Oz Rosario RN * Do you have difficulty dressing or bathing? (5 years old or older) Answer Date of Assessment Author No 03/22/2024 12:26 PM EDT Oz Rosario RN * Because of a physical, mental, or emotional condition, do you have difficulty doing errands alone such as visiting a doctors office or shopping? (15 years old or older) Answer Date of Assessment Author Yes 03/22/2024 12:26 PM EDT Oz Rosario RN documented as of this encounter Mental Status * Because of a physical, mental, or emotional condition, do you have serious difficulty concentrating, remembering, or making decisions? (5 years old or older) Answer Entry Date Author Yes 03/22/2024 12:26 PM EDT Oz Rosario RN documented in this encounter Miscellaneous Notes * Addendum Note - Nirmala Jackson DO - 05/16/2024 1:52 PM ESTAddended by: NIRMALA JACKSON on: 05/16/2024 01:52 PM Modules accepted: Orders * Telephone Encounter - Nirmala Jackson DO - 05/16/2024 1:50 PM EST I signed but it is the responsibility of the PT company to submit and get approval to be paid. I would fax back to [employer] and ask that they get this going for pt as it has been nearly a month. * Addendum Note - Imelda Hidalgo RN - 05/16/2024 1:33 PM ESTAddended by: IMELDA HIDALGO on: 05/16/2024 01:33 PM Modules accepted: Orders * Telephone Encounter - Imelda Hidalgo RN - 05/16/2024 1:30 PM EST I heard back from [facility] insurance. States they cannot find any reference to this referral, and they ask this be resubmitted. Will pend for your review. Thanks. * Telephone Encounter - Nirmala Jackson DO - 05/14/2024 4:57 PM EST We really need that clean catch [facility] to see what is going on. * Telephone Encounter - Imelda Hidalgo RN - 05/14/2024 4:28 PM EST Spoke to Julianna. Reports that patient has not had any falls since living with his daughter- which will be the permanent residence. She has been taking over his medications and he is taking them all consistently now. She said he has frequent incontinence episodes and will sit in the wet pants for a long period of time. She said he c/o of a diaper-type rash, she did not look at it, but did get him the 'bourdeaux'sbutt paste' to help with it. She has discussed with him about retraining his bladder to help with decreasing accidents, but states he only sits and watches TV most days. Office of Aging is meeting with the family tomorrow evening. Julianna is doing well, but overwhelmed with the add on of her dad. She is unable to take off any additional time from work. Encouraged her to reach out to the [facility] for assistance. States patient is hesitant to it, but said it might offer some caregiver assistance. I did ask her to drop off a urine specimen when she can. I will follow up with the PT referral tomorrow. Any additional recommendations? * Telephone Encounter - Imelda Hidalgo RN - 05/14/2024 3:53 PM EST I called to get an update... still living with his daughter. Using walker to get around the house. Denies pain, fevers. Has not fallen for over a week. He gave verbal consent to speak to his daughter, Julianna. Had to leave voicemail- want to follow up about urinalaysis that was ordered at last visit as well as PT referral. CM to call Julianna again tomorrow, 05/15/24. Dr. Jackson- would you like to see him sooner? I am still trying to get a hold of the daughter, Julianna. Patient states there is some burning with urination, and has had some blood in urine the past couple days, and that "when he has to go, he has got to go." documented in this encounter Plan of Treatment Upcoming Encounters Date Type Department Care Team (Late st Contact Info) Description 06/03/2024 3:00 PM EST Office Visit Podiatry [facility] [address] [address] Coreen Gonzales DPM [address] [place] [address] 06/25/2024 3:00 PM EST Nutrition Services Nutrition Services [address] [place] [id number] Mari Parra RDN [address] [place] [address] 06/25/2024 3:40 PM EST Office Visit Family Practice [address] [place] [phone] Nirmala Jackson DO [address] [place], [place] [phone] 10/03/2024 2:15 PM EDT Office Visit Urology, [place] [address] [place] [address] Jonas Gupta MD [address] [place] [address] 10/07/2024 2:00 PM EDT Nurse Only Family Practice [address] [place] [phone] Betty Hartmann, JEO [address] [place] [phone] Scheduled Procedures Name Priority Associated Diagnoses Date/Ti me COLONOSCOPY FLEXIBLE PROXIMA L DIAGNOSTIC Recall Benign neoplasm of colon Scheduled Referrals Name Type Priority Associated Diagnoses Orde r Schedule PHYSICAL THERAPY REFERRAL OP Referral Within 3 days (urgent) Falls frequently Other abnormalities of gait and mobility Ordered: 05/16/2024 Health Maintenance Due Date Last Done Comments Alpha-1 Antitrypsin 1963 Colonoscopy 06/23/2014 06/23/2009 Albumin/Creatinine Ratio 07/10/2024 024, 06/09/2022, 04/22/2021, Additional history exists Diabetic Foot Exam 07/10/2024 07/10/2023, 0 06/09/2022, 06/14/2021, Additional history exists HbA1c 09/24/2024 03/26/2024, 1009/2023, 10/24/2023, Additional history exists Adult Wellness Visit 09/28/2024 09/29/2023, 09/27/19 23 B-12 10/23/2024 10/24/2023, 08, 12/15/2021, Additional history exists Diabetic Eye Exam 01/25/2025 01/26/2024, , 2023, Additional history exists O2 ASSESSMENT COMPLETED IN PAST YEAR FOR COPD 03/22/2025 03/22/2024 Depression Screening 04/12/2025 04/12/2024, 09/29/2023, 09/29/2023 GFR 04/23/2025 04/23/2024, 03/06, 03/25/2024, Additional history exists DTap/Tdap Vaccines (3 - Td or Tdap) 01/23/2030 2020, 04/08/2009 RETIRED - COLONOSCOPY-EVERY 5 YRS AGES 18-100 Discontinued 06/23/2009 Zoster Vaccines Completed 08/19/2022, 06/09/2022 COVID-19 Vaccine Completed 02/20/2024, 03/2023, 08/19/2022, Additional history exists Influenza Vaccine (FLU shot) Completed 02/20/2024, 04/14/2023, 06/02/2022, Additional history exists Pneumococcal Vaccine: 65+ Years Completed 02/20/2024, 09/07/2017, 11/07/2014, Additional history exists HPV (Gardasil) Vaccine Aged Out No lo nger eligible based on patient's age to complete this topic Hepatitis B Vaccine Aged Out No longe r eligible based on patient's age to complete this topic MENINGOCOCCAL (MENACTRA/MENVEO) Aged Out No longer eligible based on patient's age to complete this topic documented as of this encounter Medical Devices Not on filedocumented as of this encounter Visit Diagnoses Diagnosis Falls frequently- Primary Personal history of fall Other abnormalities of gait and mobility documented in this encounter Advance Directives * Full Code (Latest Code Status on File) Date Activated Date Inactivated Comments 03/22/2024 9:13 AM 03/26/2024 12:27 AM This orde r reflects the patients wishes and were consensually agreed upon. Question Answer Comments Discussion of Advance Directives occurred with: Patient * Full Code Date Activated Date Inactivated Comments 03/22/2024 6:40 AM 03/22/2024 9:13 AM This order reflects the patients wishes and were consensually agreed upon. Question Answer Comments Discussion of Advance Directives occurred with: Patient Care Teams [employer] Relationship Specialty Start Date End Date Nirmala Jackson DO [address] [facility] [address] PCP - General Family Medicine 01/23/24 documented as of this encounter
--- OUTSIDE RECORDS SUMMARY | 2024-06-16 23:41 | External Medical Summary | Summary of Care ---
Author Name Unknown Organization [facility] Address [address] [place] [address] Phone [phone] Care Team Providers Care Reaming Machine Operator Name Role Phone Nirmala Jackson DO Primary Care Provider Reason for Visit * Reason Onset Date Comments Medication Refill 06/02/2024 Encounter Details Date Type Department Care Team (Late st Contact Info) Description 06/02/2024 Refill Family Practice [address] [place] [address] [place] [address] Nirmala Jackson DO [address] [place] [address] Confusion*; Attention deficit hyperactivity disorder (ADHD), predominantly inattentive type Allergies Active Allergy Reactions Criticality Noted Date Comments Alcohol 01/19/2023 Sugar Alcohol Lactose Intolerance 12/12/2005 documented as of this encounter (statuses as of 06/03/2024) Medications aspirin enteric coated 81 MG TBEC [...] Box Dosing Unit 11 09/18/19 19 Active COMARCO Verio w/Device Kit Use to test blood sugars daily E11.9 1 Kit 02/19/20 21 Active Farxiga 10 MG Oral Tablet (Dapagliflozin Propanediol) Take 1 Tablet by mouth daily at noon. -- getting through moisture conditioner operator 04/07/20 23 Active Eataly NetTouch Verio In Vitro Strip (Glucose Blood) USE UP TO 4 TIMES A DAY DIRECTED 400 Strip 3 4 9:55 AM EST 06/01/20 23 Active Incruse Ellipta 62.5 MCG/ACT Inhalation Aerosol Powder Breath Activated (umeclidinium [place])Indicatio ns:Chronic obstructive pulmonary disease, unspecified COPD type [...] BY MOUTH DAILY 100 Tablet 3 4 11:37 AM EST 07/31/19 24 025 Active Omeprazole 20 MG Oral Capsule Delayed Release (PriLOSEC)Indicat ions:Gastroesopha geal reflux disease without esophagitis TAKE ONE CAPSULE BY MOUTH EVERY MORNING 1 HOUR BEFORE THE FIRST MEAL OF THE DAY FOR HEART BURN 100 Capsule 3 4 11:37 AM EST 07/31/19 24 025 Active Tamsulosin HCl 0.4 [...] hemoglobin A1c goal of less than 8.0% ([facility]) TAKE ONE TABLET BY MOUTH THREE TIMES [...] daily. 100 Tablet 3 04/23/20 24 Active Methylphenidate HCl 5 MG Oral Tablet (Ritalin) Take 1 Tablet by mouth in the morning and 1 Tablet before bedtime. 60 Tablet 06/03/20 24 Active documented as of this encounter (statuses as of 06/03/2024) Active Problems Patient Care Coordination No te [...] 11/23/2020 Acquired absence of other right toe(s) 03/12/202 1 Type 2 diabetes mellitus with diabetic cataract 07/26/2019 Attention deficit hyperactiv ity disorder (ADHD), predominantly inattentive type 07/26/2019 Pulmonary emphysema 12/28/2018 History of tobacco abuse 03/09/2018 Dyslipidemia 03/09/2018 Type 2 diabetes mellitus wit h hemoglobin A1c goal of less than 8.0% 11/28/2017 documented as of this encounter (statuses as of 06/03/2024) Resolved Problems Problem Noted Date Diagnosed Date [...] as of this encounter (statuses as of 06/03/2024) Immunizations Name Administration Dates Next Due COVID-19 [...] (Prevnar) 11/07/2014 Pneumococcal Conjugate Vacci ne, 20-valent ([id number]) 02/20/2024 Pneumococcal Polysaccharide PPV23 (Pneumovax) 09/07/2017,02/25/2010 RSV [...] 04/12/2024 Does the household have a re lar source of income? (Household - for ages [...] Assessment Author Yes 03/22/2024 12:26 PM EDT zO Rosario RN * Do you have difficulty [...] documented in this encounter Miscellaneous Notes * Telephone Encounter - Betty Butts LPN - 06/03/2024 4:09 PM EST Did schedule a follow up for patient, also did ask daughter to bring in urine She will try Thank you * Telephone Encounter - Nirmala Jackson DO - 06/03/2024 3:39 PM EST R/O of urine infection would be important. Still no urine from last visit. Would schedule visit back to see me with her present if able. * Telephone Encounter - Moriah Linares CCMA - 06/03/2024 2:51 PM EST Spoke with Julianna and made her aware Rx was sent in and to stop medication next month. Daughter has concerns that pt is having visual and audio hallucination. He's frequently seeing bugsthat no one else is seeing, he thinks he has seen bubbles in his drink when they aren't there, alsokeeps hearing noises out side that no one else is hearing. Please advise. Daughter would like a response through the portal if possible. * Telephone Encounter - Nirmala Jackson DO - 06/03/2024 2:28 PM ESTSigned Prescriptions: Disp Refills Methylphenidate HCl 5 MG Oral Tablet (Shakira*60 Tab*0 Sig: Take 1 Tablet by mouth in the morning and 1 Tablet before bedtime. Authorizing Provider: NIRMALA JACKSON * Telephone Encounter - Nirmala Jackson DO - 06/03/2024 2:27 PM EST Cut down to 5mg twice daily. Plan to stop next month. 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 Please give them daughter's number to schedule. * Telephone Encounter - Betty Butts LPN - 06/03/2024 1:59 PM ESTPending Prescriptions: Disp Refills Methylphenidate HCl 10 MG Oral Tablet (Rit*60 Tab*0 Sig: Take 1 Tablet by mouth 2 times a day. * Telephone Encounter - Beckie Stephenie, LPN - 06/03/2024 1:59 PM ESTPending Prescriptions: Disp Refills Methylphenidate HCl 10 MG Oral Tablet (Rit*60 Tab*0 Sig: Take 1 Tablet by mouth 2 times a day. * Telephone Encounter - Beckie Stephenie, LPN - 06/03/2024 1:58 PM EST Daughter states she has been trying to get him off for years. Is aware that medication will be changed to wean off. Also, home pt was ordered and they have not heard anything Possibly because they maybe calling house phone and he has not been there since April. * Telephone Encounter - Lashonda Rubin OSA - 06/03/2024 1:55 PM EST Julianna returned Betty's call. She is able to take the call any time this afternoon. She apologizes formissing the first call. * Telephone Encounter - Betty Butts LPN - 06/03/2024 1:47 PM EST Attempted to call patient, there was no answer, left voicemail. When patient returns call, ok for ELE[facility]AR to relay message, please refer to below documentation. If needed, can transfer to dedicated nurse line. Please see Dr Jackson's note. Thank you * Telephone Encounter - Nirmala Jackson DO - 06/03/2024 9:51 AM ESTPending Prescriptions: Disp Refills Methylphenidate HCl 10 MG Oral Tablet (Rit*60 Tab*0 Sig: Take 1 Tablet by mouth 2 times a day. * Telephone Encounter - Nirmala Jackson DO - 06/03/2024 9:50 AM EST I would like pt to start weaning this medication now that he is living with his daughter. It has significant potential cardiac issues and risk of sudden . No longer has requirements for use. * Telephone Encounter - Marybeth Kapadia [facility] - 06/03/2024 9:46 AM ESTPending Prescriptions: Disp Refills Methylphenidate HCl 10 MG Oral Tablet (Rit*60 Tab*0 Sig: Take 1 Tablet by mouth 2 times a day. * Telephone Encounter - Marybeth Kapadia [facility] - 06/03/2024 9:19 AM EST I have reviewed the patients controlled substance dispensing history in the Prescription Drug Monitoring Program in compliance with the [facility] regulations before prescribing a controlled substance. PDMP checked on 06/03/2024. Pending Prescriptions: Disp Refills Methylphenidate HCl 10 MG Oral Tablet (Ri*60 Tab*0 Sig: Take 1 Tablet by mouth 2 times a day. Last Visit: 04/23/2024 (in office), 11/07/2023 (telemedicine) Next Visit: 06/25/2024 Date medication was last filled: 03/28/24 Date medication is due for refill: 04/27/24 Pharmacy: [id number] Is this request for a controlled substance? Yes and Urine Drug Screen Not completed Toxicology results: No results found for this or any previous visit. Please approve if appropriate. Thanks, Marybeth Hauser, Pharm D, BCACP Clinical Pharmacist [address] [facility] 06/03/2024, 9:45 AM Ph. [phone] documented in this encounter Plan of Treatment Upcoming Encounters Date Type Department Care Team (Late st Contact Info) Description 06/17/2024 3:40 PM EST Office Visit Family Practice [address] [place] [phone] Nirmala Jackson DO [address] [place] [address] 06/25/2024 3:00 PM EST Nutrition Services Nutrition Services [address] [address] Mari Parra RDN [address] [place] [address] 06/25/2024 3:40 PM EST Office Visit Family Practice [address] [place] [phone] Nirmala Jackson, DO [address] [place] [address] 10/03/2024 2:15 PM EDT Office Visit Urology, [place] [address] [place] [address] Jonas Gupta MD [address] [place] [address] Scheduled Orders Name Type Priority Associated Diagnoses Orde r Schedule URINALYSIS, POINT OF CARE (ENTER/EDIT) Point of Care Testing Routine Confusion Ordered: 06/03/2024 Scheduled Procedures Name Priority Associated Diagnoses Date/Ti me COLONOSCOPY FLEXIBLE PROXIMA L DIAGNOSTIC Recall Benign neoplasm of colon Health Maintenance Due Date Last Done Comments Alpha-1 Antitrypsin 1963 Colonoscopy 06/23/2014 06/23/2009 Albumin/Creatinine Ratio 07/10/2024 024, 06/09/2022, 04/22/2021, Additional history exists Diabetic Foot Exam 07/10/2024 07/10/2023, 0 06/09/2022, 06/14/2021, Additional history exists HbA1c 09/24/2024 03/26/2024, 10/09/2023, 10/24/2023, Additional history exists Adult Wellness Visit 09/28/2024 09/29/2023, 09/27/19 23 B-12 10/23/2024 10/24/2023, 08/, 12/15/2021, Additional history exists Diabetic Eye Exam [...] 04/14/2023, 06/02/2022, Additional history exists Pneumococcal Vaccine: 50+ Years Completed 02/20/2024, 09/07/2017, 11/07/2014, Additional history [...] as of this encounter Visit Diagnoses Diagnosis Confusion- Primary Unspecified psychosis Attention deficit hyperactivity disorder (ADHD), predominantly inattentive type documented in this encounter Advance Directives * [...] Advance Directives occurred with: Patient Care Teams Reaming Machine Operator Relationship Specialty Start Date End Date Nirmala Jackson DO [address] [place] [phone] PCP - General Family Medicine 01/23/24 documented as of this encounter
--- OUTSIDE RECORDS SUMMARY | 2024-06-16 23:41 | External Medical Summary | Summary of Care ---
Author Name Unknown Organization [facility] Address [address] [place] [address] Phone [phone] Care Team Providers Care Saturation Diver Name Role Phone Nirmala Alford DO Primary Care Provider Reason for Visit * Reason Onset Date Comments Advice 05/14/2024 Encounter Details Date Type Department Care Team (Late st Contact Info) Description 05/14/2024 Telephone Family Practice 65 [facility] [address] [place] [phone] Nirmala Alford DO [address] [place] [address] Advice Allergies Active Allergy Reactions Criticality Noted Date Comments Alcohol 01/19/2023 Sugar Alcohol Lactose Intolerance 12/12/2005 documented as of this encounter (statuses as of 05/14/2024) Medications aspirin enteric coated 81 MG TBEC [...] mouth daily at noon. -- getting through perforating machine operator 04/07/20 23 Active Fitouch Verernestina In Vitro Strip (Glucose Blood) USE UP TO 4 TIMES A DAY DIRECTED 400 Strip 3 4 9:55 AM EST 06/01/20 23 Active Incruse Ellipta 62.5 MCG/ACT Inhalation Aerosol Powder Breath Activated (umeclidinium [place])Indicatio ns:Chronic obstructive pulmonary disease, unspecified COPD type [...] 8.0% (HCC) TAKE ONE TABLET BY MOUTH THREE TIMES [...] as of this encounter (statuses as of 05/14/2024) Active Problems Patient Care Coordination No te [...] as of this encounter (statuses as of 05/14/2024) Resolved Problems Problem Noted Date Diagnosed Date [...] as of this encounter (statuses as of 05/14/2024) Immunizations Name Administration Dates Next Due COVID-19 mRNA, LNP-s, No Pre serve, 2-Dose Series (Moderna) 09/07/2020,08/10/2020 COVID-19, LNP-s, No Preserve , Charlie-sucrose, Ages 12+ (Pfizer) 07/07/2021 COVID-19, MRNA-LNP, PF, 30 M CG/0.3 mL, 12 YRS AND ABOVE, IM (PFIZER-Comirnat) 02/20/2024,04/14/2023 Covid-19, Mrna, Lnp-s, Pf, B ivalent, 30 Mcg, IM, 12 yrs and above (Pfizer) 08/19/2022 Pneumococcal Conjugate Vacc, 13 Valent (Prevnar) 11/07/2014 Pneumococcal Conjugate Vacci ne, 20-valent ([id number]) 02/20/2024 Pneumococcal Polysaccharide PPV23 (Pneumovax) 09/07/2017,02/25/2010 RSV [...] Author Yes 03/22/2024 12:26 PM EDT Oz Rosario, JOE * Are you blind or do you [...] encounter Miscellaneous Notes * Telephone Encounter - Nirmala Alford DO - 05/14/2024 4:57 PM EST We really need that clean catch LUCIO to see what is going on. * [...] to call Julianna again tomorrow, 05/15/24. Dr. Alford- would you like to see him sooner? [...] 06/03/2024 3:00 PM EST Office Visit Podiatry [facility] [address] [facility] [place] [address] Coreen Gonzales DPM [address] [facility] [place] [id number] 06/25/2024 3:00 PM EST Nutrition Services Nutrition Services [address] [place] [address] [facility] [address] GolMari hope RDN [address] [place] [address] 06/25/2024 3:40 PM EST Office Visit Family Practice 65 [facility] [address] [place] [phone] Nirmala Alford DO [address] [place] [address] 10/03/2024 2:15 PM EDT Office Visit Urology, [place] [address] [place] [address] Jonas Gupta MD [address] [place] [address] 10/07/2024 2:00 PM EDT Nurse Only Family Practice [address] [place] [phone] Betty Hartmann, JOE [address] [place] [address] Scheduled Procedures Name Priority Associated Diagnoses Date/Ti me COLONOSCOPY FLEXIBLE PROXIMA L DIAGNOSTIC Recall Benign neoplasm of colon Health Maintenance Due Date Last Done Comments Alpha-1 Antitrypsin 1963 Colonoscopy 06/23/2014 06/23/2009 Albumin/Creatinine Ratio 07/10/2024 024, 06/09/2022, 04/22/2021, Additional history exists Diabetic Foot Exam 07/10/2024 07/10/2023, 0 06/09/2022, 06/14/2021, Additional history exists HbA1c 09/24/2024 03/26/2024, 10/0 09/2023, 10/24/2023, Additional history exists Adult Wellness Visit [...] Not on filedocumented as of this encounter Advance Directives * Full Code [...] Advance Directives occurred with: Patient Care Teams Saturation Diver Relationship Specialty Start Date End Date Nirmala Alford DO [address] [place] [facility] [place] [address] PCP - General Family Medicine 01/23/24 documented as of this encounter
--- OUTSIDE RECORDS SUMMARY | 2024-06-16 23:41 | External Medical Summary ---
Author Name Unknown Address Unknown Organization [id number]:[facility] [place] [facility] [place] [address] Laboratory Report Ordering Provider Test Date Status RENETTA SOLOMON 06/04/2024 14:25:28 Final Normal: <30 mg/g creatinine< br/>High: 30-300 mg/g creatinine
Very High: >300 mg/g creatinine
Nephrotic: >2200 mg/g creatinine Observation Date Value Abnormality Reference (Units ) Status Albumin, Urine 06/04/2024 14:25:28 19.00 (mg/dL) Final Creatinine, Urine 06/04/2024 14:25:28 69 (mg/dL) Final Albumin/Creatinine [Mass Ratio] in Urine 06/04/2024 14:25:28 275 Above high normal <30 (mg/g Creat) Final Performing Location LABOR[facility]ORY [facility] [place] [address] [place] [address]
--- OUTSIDE RECORDS SUMMARY | 2024-06-16 23:41 | External Medical Summary | Summary of Care ---
Author Name Unknown Organization [facility] Address [address] [place] [address] Phone [phone] Care Team Providers Care Sleep Technician Name Role Phone Nirmala Jackson DO Primary Care Provider Reason for Visit * Reason Onset Date Comments Medication Refill 06/02/2024 Encounter Details Date Type Department Care Team (Late st Contact Info) Description 06/02/2024 Refill Family Practice [address], [place] [address] [place] [phone] Nirmala Jackson DO [address] [place] [address] Confusion*; Attention deficit hyperactivity disorder (ADHD), predominantly inattentive type Allergies Active Allergy Reactions Criticality Noted Date Comments Alcohol 01/19/2023 Sugar Alcohol Lactose Intolerance 12/12/2005 documented as of this encounter (statuses as of 06/04/2024) Medications aspirin enteric coated 81 MG TBEC [...] Box Dosing Unit 11 09/18/19 19 Active Plunify Verio w/Device Kit Use to test blood sugars daily E11.9 1 Kit 02/19/20 21 Active Farxiga 10 MG Oral Tablet (Dapagliflozin Propanediol) Take 1 Tablet by mouth daily at noon. -- getting through shearer screen measurer and trimmer 04/07/20 23 Active SwippTouch Verio In Vitro Strip (Glucose Blood) USE UP TO 4 TIMES A DAY DIRECTED 400 Strip 3 4 9:55 AM EST 06/01/20 23 Active Incruse Ellipta 62.5 MCG/ACT Inhalation Aerosol Powder Breath Activated (umeclidinium [place])Indicatio ns:Chronic obstructive pulmonary disease, unspecified COPD type [...] hemoglobin A1c goal of less than 8.0% ([facility]) TAKE ONE TABLET BY MOUTH THREE TIMES [...] as of this encounter (statuses as of 06/04/2024) Active Problems Patient Care Coordination No te [...] as of this encounter (statuses as of 06/04/2024) Resolved Problems Problem Noted Date Diagnosed Date [...] as of this encounter (statuses as of 06/04/2024) Immunizations Name Administration Dates Next Due COVID-19 [...] (Prevnar) 11/07/2014 Pneumococcal Conjugate Vacci ne, 20-valent ([id number]) 02/20/2024 Pneumococcal Polysaccharide PPV23 (Pneumovax) 09/07/2017,02/25/2010 RSV [...] 12:26 PM EDT zO Rosario RN * Are you blind or [...] Telephone Encounter - Betty Butts LPN - 06/04/2024 3:28 PM EST [employer] [facility] [address] [facility] , [place] [address] * Telephone Encounter - Christy Emery OSA - 06/04/2024 1:50 PM EST In previous encounter, it stated patient hasn't been contacted by [facility]. Please advise on what facility or person is. Thanks. * Telephone Encounter - Betty Butts LPN [...] twice daily. Plan to stop next month. 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 Please give them daughter's number to schedule. * Telephone Encounter - Betty Butts LPN - 06/03/2024 1:59 PM ESTPending Prescriptions: Disp Refills Methylphenidate HCl 10 MG Oral Tablet (Rit*60 Tab*0 Sig: Take 1 Tablet by mouth 2 times a day. * Telephone Encounter - Betty Butts LPN - 06/03/2024 1:59 PM ESTPending Prescriptions: Disp Refills Methylphenidate HCl 10 MG Oral Tablet (Rit*60 Tab*0 Sig: Take 1 Tablet by mouth 2 times a day. * Telephone Encounter - Betty Butts LPN - 06/03/2024 1:58 PM EST Daughter [...] the first call. * Telephone Encounter - Beckie Betty TejadaKYRA - 06/03/2024 1:47 PM EST Attempted to [...] use. * Telephone Encounter - Marybeth Kapadia RP - 06/03/2024 9:46 AM ESTPending Prescriptions: Disp Refills Methylphenidate HCl 10 MG Oral Tablet (Rit*60 Tab*0 Sig: Take 1 Tablet by mouth 2 times a day. * Telephone Encounter - Marybeth Kapadia RP - 06/03/2024 9:19 AM EST I have reviewed the patients controlled substance dispensing history in the Prescription Drug Monitoring Program in compliance with the [facility] regulations before prescribing a controlled substance. PDMP checked on 06/03/2024. Pending Prescriptions: Disp Refills Methylphenidate HCl 10 MG Oral Tablet (Ri*60 Tab*0 Sig: Take 1 Tablet by mouth 2 times a day. Last Visit: 04/23/2024 (in office), 11/07/2023 (telemedicine) Next Visit: 06/25/2024 Date medication was last filled: 03/28/24 Date medication is due for refill: 04/27/24 Pharmacy: [id number] [facility] Is this request for a controlled substance? Yes and Urine Drug Screen Not completed Toxicology results: No results found for this or any previous visit. Please approve if appropriate. Thanks, Marybeth Hauser, Pharm D, BCACP Clinical Pharmacist [address] [facility] - Medication Therapy Disease [facility] 06/03/2024, 9:45 AM Ph. [phone] documented in this encounter Plan of Treatment Upcoming Encounters Date Type Department Care Team (Late st Contact Info) Description 06/17/2024 3:40 PM EST Office Visit Family Practice [address], [address] [place] [phone] Nirmala Jackson, DO [address] [place] [address] 06/25/2024 3:00 PM EST Nutrition Services Nutrition Services 65 [facility] [address] [place] [address] Mari Prara RDN [address] [place] [address] 06/25/2024 3:40 PM EST Office Visit Family Practice 65 [facility] [address] [place] [phone] Nirmala Jackson, DO [address] [place] [address] 10/03/2024 2:15 PM EDT Office Visit Urology, [place] [address] [place] [address] Jonas Gupta MD [address] [place] [address] Scheduled Orders Name Type Priority Associated Diagnoses [...] 09/28/2024 09/29/2023, 09/27/19 23 B-12 10/23/2024 10/24/2023, 01/03, 12/15/2021, Additional history exists Diabetic Eye Exam [...] Advance Directives occurred with: Patient Care Teams Sleep Technician Relationship Specialty Start Date End Date Nirmala Jackson DO [address] [place] [address] PCP - General Family Medicine 01/23/24 documented as of this encounter
--- OUTSIDE RECORDS SUMMARY | 2024-06-16 23:41 | External Medical Summary ---
Author Name Unknown Address Unknown Organization K01:LABORATORY [facility] [place] - [address] [facility] [address] Laboratory Report Ordering Provider Test Date Status RENETTA SOLOMON 06/04/2024 14:24:53 Final <10,000 colonies/ml mixed no rmal birgit Observation Date Value Abnormality Reference (Units ) Status Bacteria identified in Specimen by Culture 06/04/2024 14:24:53 [id number]^PROTEUS MIRABILIS Abnormal Final >100,000 colonies/mL Proteus mirabilis Performing Location LAB[facility]ORY [facility] [place] - [address] [facility] [address] Ordering Provider Test Date Status RENETTA SOLOMON 06/04/2024 14:24:53 Final Observation Date Value Abnormality Reference (Units ) Status Ampicillin 06/04/2024 14:24:53 <=2 Susceptible Final Cefazolin 06/04/2024 14:24:53 <=4 Susceptible Final Cefepime susceptibility 06/04/2024 14:24:53 <=1 Susceptible Final Ceftriaxone suceptibility 06/04/2024 14:24:53 <=1 Susceptible Final Ciprofloxacin 06/04/2024 14:24:53 1 Resistant Final Due to serious side effects, the FDA has advised against using Ciprofloxacin to treat uncomplicated UTIs and respiratory tract infections unless there are no alternative treatment options. Gentamicin susceptibility 06/04/2024 14:24:53 >=16 Resi stant Final Levofloxacin susceptibility 06/04/2024 14:24:53 1 In termediate Final Due to serious side effects, the FDA has advised against using Levofloxacin to treat uncomplicated UTIs and respiratory tract infections unless there are no alternative treatment options. Piperacillin + Tazobactamsusceptibility 06/04/2024 14:24:53 <=4 Susceptible Final TMP-SMZ susceptibility 06/04/2024 14:24:53 >=320 Resista nt Final Test: Culture, Urine, Quanti tative
Specimen Source: Urine, Clean Catch
Specimen Type: Urine
Specimen Date: 06/04/2024 1424
Result Date: 06/07/2024 0722
Result Status: Final result
Abnormal: Yes
Resulting Lab: [facility]ORY [facility]
[address]
[place] [address]

CULTURE

>100,000 colonies/mL Proteus mirabilis (Abnormal)

<10,000 colonies/ml mixed normal birgit

SUSCEPTIBILITY

Proteus mirabilis
METHOD MICROBROTH
DILUTIONS

AMPICILLIN <=2 Susceptible
CEFAZOLIN <=4 Susceptible
CEFEPIME <=1 Susceptible
CEFTRIAXONE <=1 Susceptible
CIPROFLOXACIN 1 Resistant
[1]
GENTAMICIN >=16 Resistant
LEVOFLOXACIN 1 Intermediate
[2]
PIPERACILLIN TAZOBACTAM <=4 Susceptible
TRIMETH/SULFAMETHOXAZOLE >=320 Resistant

[1] Due to serious side effects, the FDA has advised against using
Ciprofloxacin to treat uncomplicated UTIs and respiratory tract infections
unless there are no alternative treatment options.

[2] Due to serious side effects, the FDA has advised against using
Levofloxacin to treat uncomplicated UTIs and respiratory tract infections
unless there are no alternative treatment options.

null Performing Location LABORATORY [facility] - [address] [place] [address]
--- OUTSIDE RECORDS SUMMARY | 2024-06-16 23:41 | External Medical Summary ---
Author Name Unknown Address Unknown Organization [id number]:[facility] [place] [address] [facility] [address] Laboratory Report Ordering Provider Test Date Status RENETTA SOLOMON 06/04/2024 14:24:24 Final Observation Date Value Abnormality Reference (Units ) Status Color of Urine by Auto 06/04/2024 14:24:24 Yellow Colorless, Light Yellow, Yellow, Dark Yellow Final Clarity, Urine 06/04/2024 14:24:24 Cloudy Abnormal Clear Final Glucose [Mass/volume] in Urine by Automated test strip 06/04/2024 14:24:24 250 Abnormal Negative (mg/dL) Final Bilirubin.total [Presence] in Urine by Automated test strip 06/04/2024 14:24:24 Negative Negative Final Ketones [Mass/volume] in Urine by Automated test strip 06/04/2024 14:24:24 Trace Abnormal Negative (mg/dL) Final Specific gravity, Urine 06/04/2024 14:24:24 1.029 1.003-1.030 Final Hemoglobin [Presence] in Urine by Automated test strip 06/04/2024 14:24:24 Negative Negative Final pH, Urine 06/04/2024 14:24:24 8.5 Above high normal 5.0-7.5 (Units) Final Protein [Mass/volume] in Urine by Automated test strip 06/04/2024 14:24:24 >300 Abnormal Negative (mg/dL) Final Urobilinogen [Mass/volume] in Urine by Automated test strip 06/04/2024 14:24:24 Normal Normal (mg/dL) Final Nitrite [Presence] in Urine by Automated test strip 06/04/2024 14:24:24 Negative Negative Final Leukocyte esterase [Presence] in Urine by Automated test strip 06/04/2024 14:24:24 Large Abnormal Negative Final RBC, Urine 06/04/2024 14:24:24 50+ Abnormal 0-2 (/HPF) Final WBC, Urine 06/04/2024 14:24:24 50+ Abnormal 0-2 (/HPF) Final Bacteria [#/area] in Urine sediment by Microscopy high power field 06/04/2024 14:24:24 26-50 Abnormal 0-25 (/HPF) Final Leukocyte clumps [#/area] in Urine sediment by Microscopy high power field 06/04/2024 14:24:24 Present Abnormal None (/HPF) Final Performing Location [facility] [place] [address] [facility] [address]
--- OUTSIDE RECORDS SUMMARY | 2024-06-16 23:41 | External Medical Summary | Summary of Care ---
Author Name Unknown Organization [facility] Address [address] [place] [address] Phone [phone] Care Team Providers Care Interventional Radiology Rn Name Role Phone Nirmala Alford DO Primary Care Provider [phone] Reason for Visit * Reason Onset Date Comments Advice 05/14/2024 Encounter Details Date Type Department Care Team (Late st Contact Info) Description 05/14/2024 Telephone Family Practice 65 [facility] [address] [place] [address] Nirmala Alford DO [address] [place] [address] Advice Allergies Active Allergy Reactions Criticality Noted [...] mouth daily at noon. -- getting through powder blender and pourer 04/07/20 23 Active Fitouch Verernestina In Vitro Strip (Glucose Blood) USE UP TO 4 TIMES A DAY DIRECTED 400 Strip 3 4 9:55 AM EST 06/01/20 23 Active Incruse Ellipta 62.5 MCG/ACT Inhalation Aerosol Powder Breath Activated (umeclidinium [place])Indicatio ns:Chronic obstructive pulmonary disease, unspecified COPD type [...] (Prevnar) 11/07/2014 Pneumococcal Conjugate Vacci ne, 20-valent ([id number]) 02/20/2024 Pneumococcal Polysaccharide PPV23 (Pneumovax) 09/07/2017,02/25/2010 RSV [...] encounter Miscellaneous Notes * Addendum Note - Imelda Hidalgo RN - 05/16/2024 1:33 PM ESTAddended by: IMELDA HIDALGO on: 05/16/2024 01:33 PM Modules accepted: Orders * Telephone Encounter - Imelda Hidalgo RN - 05/16/2024 1:30 PM EST I heard back from [facility] insurance. States they cannot find any reference to this referral, and they ask this be resubmitted. Will pend for your review. Thanks. * Telephone Encounter - Nirmala Alford DO [...] 06/03/2024 3:00 PM EST Office Visit Podiatry [facility] [address] [place] [address] Coreen Gonzales DPM [address] [place], [place] [id number] 06/25/2024 3:00 PM EST Nutrition Services Nutrition Services 65 [facility] [address] [place] [address] Mari Parra RDN [address] [place], [place] [phone] 06/25/2024 3:40 PM EST Office Visit Family Practice 65 [facility] [address] [place] [address] Nirmala Alford DO [address] [place] [address] 10/03/2024 2:15 PM EDT Office Visit Urology, [place] [address] [place] [address] Jonas Gupta MD [address] [place] [address] 10/07/2024 2:00 PM EDT Nurse Only Family Practice 65 [facility] [address] [place] [address] Betty Hartmann, JOE [address] [place] [address] Scheduled Procedures Name Priority Associated [...] Advance Directives occurred with: Patient Care Teams Interventional Radiology Rn Relationship Specialty Start Date End Date Nirmala Alford DO [address] [place] [address] PCP - General Family Medicine 01/23/24 documented as of this encounter
--- OUTSIDE RECORDS SUMMARY | 2024-06-16 23:41 | External Medical Summary | Summary of Care ---
Author Name Unknown Organization [facility] Address [address] [place] [address] Phone [phone] Care Team Providers Care Front Line Supervisor Name Role Phone Nirmala Jackson DO Primary Care Provider Reason for Visit * Reason Onset Date Comments Medication Refill 06/02/2024 Encounter Details Date Type Department Care Team (Late st Contact Info) Description 06/02/2024 Refill Family Practice [address] [facility] [place] [address] [place] [address] Nirmala Jackson DO [address] [place] [address] Confusion*; Attention deficit hyperactivity disorder (ADHD), predominantly [...] Box Dosing Unit 11 09/18/19 19 Active Nanostim Verio w/Device Kit Use to test blood sugars daily E11.9 1 Kit 02/19/20 21 Active Farxiga 10 MG Oral Tablet (Dapagliflozin Propanediol) Take 1 Tablet by mouth daily at noon. -- getting through accounting policy consultant 04/07/20 23 Active NeofonieTouch Verio In Vitro Strip (Glucose Blood) USE UP TO 4 TIMES A DAY DIRECTED 400 Strip 3 4 9:55 AM EST 06/01/20 23 Active Incruse Ellipta 62.5 MCG/ACT Inhalation Aerosol Powder Breath Activated (umeclidinium [place])Indicatio ns:Chronic obstructive pulmonary disease, unspecified COPD type [...] hemoglobin A1c goal of less than 8.0% ([facility]) TAKE ONE TABLET BY MOUTH THREE [...] (Prevnar) 11/07/2014 Pneumococcal Conjugate Vacci ne, 20-valent ([id number]) 02/20/2024 Pneumococcal Polysaccharide PPV23 (Pneumovax) 09/07/2017,02/25/2010 RSV [...] encounter Miscellaneous Notes * Telephone Encounter - Christy Emery OSA - 06/04/2024 1:50 PM EST In previous encounter, it stated patient hasn't been contacted by [employer]. Please advise on what facility or person [...] to stop next month. it desktop support specialist- please f/u with [employer] as pt has not been scheduled as of yet. Please give them daughter's number to schedule. * Telephone Encounter - Betty Butts LPN - 06/03/2024 1:59 PM ESTPending Prescriptions: Disp Refills Methylphenidate HCl 10 MG Oral Tablet (Rit*60 Tab*0 Sig: Take 1 Tablet by mouth 2 times a day. * Telephone Encounter - Beckie Betty TejadaKYRA - 06/03/2024 1:59 PM ESTPending Prescriptions: Disp Refills Methylphenidate HCl 10 MG Oral Tablet (Rit*60 Tab*0 Sig: Take 1 Tablet by mouth 2 times a day. * Telephone Encounter - Betty ButtsKYRA - 06/03/2024 1:58 PM EST Daughter states [...] for use. * Telephone Encounter - Marybeth Kapadia, [facility] - 06/03/2024 9:46 AM ESTPending Prescriptions: Disp Refills Methylphenidate HCl 10 MG Oral Tablet (Rit*60 Tab*0 Sig: Take 1 Tablet by mouth 2 times a day. Electronically signed by Marybeth Kapadia [facility] at 06/03/2024 9:46 AM EST * Telephone Encounter - Marybeth Kapadia [facility] - 06/03/2024 9:19 AM EST I have reviewed the patients controlled substance dispensing history in the Prescription Drug Monitoring Program in compliance with the [facility] regulations before prescribing a controlled substance. PDMP checked on 06/03/2024. Pending Prescriptions: Disp Refills Methylphenidate HCl 10 MG Oral Tablet (Ri*60 Tab*0 Sig: Take 1 Tablet by mouth 2 times a day. Last Visit: 04/23/2024 (in office), 11/07/2023 (telemedicine) Next Visit: 06/25/2024 Date medication was last filled: 03/28/24 Date medication is due for refill: 04/27/24 Pharmacy: [id number] Is this request for a controlled substance? Yes and Urine Drug Screen Not completed Toxicology results: No results found for this or any previous visit. Please approve if appropriate. Thanks, Marybeth Hauser, Pharm D, BCACP Clinical Pharmacist 65 [facility] - [facility] 06/03/2024, 9:45 AM Ph. [phone] Electronically signed by Marybeth Kapadia [facility] at 06/03/2024 9:46 AM EST documented in this encounter Plan of Treatment Upcoming Encounters Date Type Department Care Team (Late st Contact Info) Description 06/17/2024 3:40 PM EST Office Visit Family Practice 65 [facility] [address] [place] [address] Nirmala Jackson DO [address] [place] [address] 06/25/2024 3:00 PM EST Nutrition Services Nutrition Services 65 [facility] [address] [place] [address] Mari Parra RDN 293 [place] [address] 06/25/2024 3:40 PM EST Office Visit Family Practice [address] [facility] [place] [address] [place] [phone] Nirmala Jackson DO 293 [place] [address] 10/03/2024 2:15 PM EDT Office Visit Urology, [place] [address] [place] [address] Jonas Gupta MD [address] [place] [address] Scheduled Orders Name Type Priority Associated Diagnoses [...] Advance Directives occurred with: Patient Care Teams Front Line Supervisor Relationship Specialty Start Date End Date Nirmala Jackson DO [address] [place] [address] PCP - General Family Medicine 01/23/24 documented as of this encounter
--- OUTSIDE RECORDS SUMMARY | 2024-06-16 23:41 | External Medical Summary | Summary of Care ---
Author Name Unknown Organization [facility] Address [address] [place] [address] Phone [phone] Care Team Providers Care Test Skein Winder Name Role Phone Nirmala Alford DO Primary Care Provider [phone] Encounter Details Date Type Department Care Team (Late st Contact Info) Description 06/04/2024 9:45 AM EST Nurse Only Family Practice 65 [facility] [address] [place] [address] College, Nurse [facility] Pr[facility] [address] [address] Arrived Allergies Active Allergy Reactions Criticality Noted Date [...] mouth daily at noon. -- getting through cut off worker 04/07/20 23 Active OneArturouch Verernestina In Vitro Strip (Glucose Blood) USE UP TO 4 TIMES A DAY DIRECTED 400 Strip 3 4 9:55 AM EST 06/01/20 23 Active Incruse Ellipta 62.5 MCG/ACT Inhalation Aerosol Powder Breath Activated (umeclidinium [place])Indicatio ns:Chronic obstructive pulmonary disease, unspecified COPD type [...] CG/0.3 mL, 12 YRS AND ABOVE, IM ([facility]) 02/20/2024,04/14/2023 Covid-19, Mrna, Lnp-s, Pf, B ivalent, 30 Mcg, IM, 12 yrs and above (Pfizer) 08/19/2022 Pneumococcal Conjugate Vacc, 13 Valent (Prevnar) 11/07/2014 Pneumococcal Conjugate Vacci ne, 20-valent ([id number]) 02/20/2024 Pneumococcal Polysaccharide PPV23 (Pneumovax) 09/07/2017,02/25/2010 RSV [...] Oz Rosario RN documented in this encounter Plan of Treatment Upcoming Encounters Date Type Department Care Team (Late st Contact Info) Description 06/17/2024 3:40 PM EST Office Visit Family Practice [address] [address] Nirmala Alford DO [address] [place] [address] 06/25/2024 3:00 PM EST Nutrition Services Nutrition Services [address] [address] Mari Parra RDN [address] [place] [address] 06/25/2024 3:40 PM EST Office Visit Family Practice [address] [address] Nirmala Alford DO [address] [place] [address] 10/03/2024 2:15 PM EDT Office Visit Urology, [place] [address] [place] [address] Jonas Gupta MD [address] [place] [address] Pending Results Name Type Priority Associated Diagnoses Date /Time URINALYSIS WITH MICROSCOPIC EXAM Lab Routine Confusion 06/04/2024 2:24 PM EST CULTURE, URINE, QUANTITATIVE Lab Routine Other urinary incontinence 06/04/2024 2:24 PM EST ALBUMIN / CREATININE RATIO, URINE Lab Routine Type 2 diabetes mellitus with hyperglycemia, without long-term current use of insulin ([facility]) 06/04/2024 2:25 PM EST Scheduled Orders Name Type Priority Associated Diagnoses Orde r Schedule URINALYSIS WITH MICROSCOPIC EXAM Lab Routine Confusion Expected: 06/04/2024 (Approximate), Expires: 06/04/2025 Scheduled Procedures Name Priority Associated Diagnoses Date/Ti [...] Visit Diagnoses Diagnosis Confusion- Primary Unspecified psychosis Other urinary incontinence Type 2 diabetes mellitus with hyperglycemia, without long-term current use of insulin (HCC) documented in this encounter Advance Directives * [...] Advance Directives occurred with: Patient Care Teams Test Skein Winder Relationship Specialty Start Date End Date Nirmala Alford DO [address] [place] [address] PCP - General Family Medicine 01/23/24 documented as of this encounter
--- OUTSIDE RECORDS SUMMARY | 2024-06-16 23:41 | External Medical Summary | Summary of Care ---
Author Name Unknown Organization [facility] Address [address] [place] [address] Phone [phone] Care Team Providers Care Cab Station Attendant Name Role Phone Nirmala Jackson DO Primary Care Provider Reason for Visit * Reason Onset Date Comments Medication Refill 06/02/2024 Encounter Details Date Type Department Care Team (Late st Contact Info) Description 06/02/2024 Refill Family Practice [address] [facility] [place] [address] [place] [address] Nirmala Jackson DO [address] [place] [address] Confusion*; Attention deficit hyperactivity disorder (ADHD), predominantly [...] Box Dosing Unit 11 09/18/19 19 Active PolySpot Verio w/Device Kit Use to test blood sugars daily E11.9 1 Kit 02/19/20 21 Active Farxiga 10 MG Oral Tablet (Dapagliflozin Propanediol) Take 1 Tablet by mouth daily at noon. -- getting through water operator 04/07/20 23 Active TagoraTouch Verio In Vitro Strip (Glucose Blood) USE UP TO 4 TIMES A DAY DIRECTED 400 Strip 3 4 9:55 AM EST 06/01/20 23 Active Incruse Ellipta 62.5 MCG/ACT Inhalation Aerosol Powder Breath Activated (umeclidinium [place])Indicatio ns:Chronic obstructive pulmonary disease, unspecified COPD type [...] hemoglobin A1c goal of less than 8.0% ([facility]) TAKE ONE TABLET BY MOUTH THREE TIMES [...] (Prevnar) 11/07/2014 Pneumococcal Conjugate Vacci ne, 20-valent ([id number]) 02/20/2024 Pneumococcal Polysaccharide PPV23 (Pneumovax) 09/07/2017,02/25/2010 RSV [...] twice daily. Plan to stop next month. assignment desk editor- please f/u with [employer] as pt has [...] use. * Telephone Encounter - Marybeth Kapadia, [facility] - 06/03/2024 9:46 AM ESTPending Prescriptions: Disp Refills Methylphenidate HCl 10 MG Oral Tablet (Rit*60 Tab*0 Sig: Take 1 Tablet by mouth 2 times a day. * Telephone Encounter - Marybeth Kapadia [facility] - 06/03/2024 9:19 AM EST I have reviewed the patients controlled substance dispensing history in the Prescription Drug Monitoring Program in compliance with the [facility] regulations before prescribing a controlled substance. PDMP checked on 06/03/2024. Pending Prescriptions: Disp Refills Methylphenidate HCl 10 MG Oral Tablet (Ri*60 Tab*0 Sig: Take 1 Tablet by mouth 2 times a day. Last Visit: 04/23/2024 (in office), 11/07/2023 (telemedicine) Next Visit: 06/25/2024 Date medication was last filled: 03/28/24 Date medication is due for refill: 04/27/24 Pharm[facility]: [id number] [facility] HERNANDE[facility]RISTOPHER Is this request for a controlled substance? Yes and Urine Drug Screen Not completed Toxicology results: No results found for this or any previous visit. Please approve if appropriate. Thanks, Marybeth Hauser, Pharm D, BCACP Clinical Pharmacist 65 [facility] - [facility] 06/03/2024, 9:45 AM Ph. [phone] documented in this encounter Plan of Treatment Upcoming Encounters Date Type Department Care Team (Late st Contact Info) Description 06/17/2024 3:40 PM EST Office Visit Family Practice 65 [facility] [address] [place] [address] Nirmala Jackson DO [address] [place] [address] 06/25/2024 3:00 PM EST Nutrition Services Nutrition Services 65 [facility] [address] [place] [address] Mari Parra RDN [address] [place] [address] 06/25/2024 3:40 PM EST Office Visit Family Practice [address] [facility] [place] [address] [facility] [place] [phone] Nirmala Jackson DO [address] [place] [address] 10/03/2024 2:15 PM EDT Office Visit Urology, [place] [address] [place] [address] Jonas Gupta MD [address] [place] [address] Scheduled Orders Name Type Priority Associated Diagnoses [...] Advance Directives occurred with: Patient Care Teams Cab Station Attendant Relationship Specialty Start Date End Date Nirmala Jackson DO [address] [place] [address] PCP - General Family Medicine 01/23/24 documented as of this encounter
--- OUTSIDE RECORDS SUMMARY | 2024-06-16 23:42 | External Medical Summary | Summary of Care ---
Author Name Unknown Organization [facility] Address [address] [place] [address] Phone [phone] Care Team Providers Care Pot Tender Name Role Phone Nirmala Alford DO Primary Care Provider [phone] Reason for Visit * Reason Onset Date Comments Test Results 04/25/202404/25 Encounter Details Date Type Department Care Team (Late st Contact Info) Description 04/25/2024 Telephone Family Practice 65 [facility] [address] [place] [address] Nirmala Alford DO [address] [place] [address] Test Results (04/25) Allergies Active Allergy Reactions Criticality Noted Date Comments Alcohol 01/19/2023 Sugar Alcohol Lactose Intolerance 12/12/2005 documented as of this encounter (statuses as of 04/25/2024) Medications aspirin enteric coated 81 MG TBEC [...] mouth daily at noon. -- getting through de icer installer 04/07/20 23 Active A[employer]os Software Ver1Rebel In Vitro Strip (Glucose Blood) USE UP TO 4 TIMES A DAY DIRECTED 400 Strip 3 4 9:55 AM EST 06/01/20 23 Active Incruse Ellipta 62.5 MCG/ACT Inhalation Aerosol Powder Breath Activated (umeclidinium [place])Indicatio ns:Chronic obstructive pulmonary disease, unspecified COPD type (HCC) INHALE ONE PUFF BY MOUTH EVERY MORNING 90 Each 3 06/17/19 24 025 Active glipiZIDE 10 MG Oral Tablet (Glucotrol)Indica tions:Type 2 diabetes mellitus with hemoglobin A1c goal of less than 8.0% (HCC) TAKE ONE TABLET BY MOUTH TWICE A DAY 30 MINUTES BEFORE MORNING AND EVENING MEALS 200 Tablet 3 4 5:49 PM EDT 07/09/19 24 025 Active Atorvastatin Calcium 20 [...] 4 4:12 PM EDT 03/19/20 24 Active Magnesium Oxide 400 MG Oral Tablet Take 1 Tablet by mouth daily. 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 Pulmonary emphysema 12/28/2018 History of tobacco abuse 03/09/2018 Dyslipidemia 03/09/2018 Type 2 diabetes mellitus wit h hemoglobin A1c goal of less than 8.0% 11/28/2017 documented as of this encounter (statuses as of 04/25/2024) Resolved Problems Problem Noted Date Diagnosed Date [...] as of this encounter (statuses as of 04/25/2024) Immunizations Name Administration Dates Next Due COVID-19 [...] (Prevnar) 11/07/2014 Pneumococcal Conjugate Vacci ne, 20-valent ([id number]) 02/20/2024 Pneumococcal Polysaccharide PPV23 (Pneumovax) 09/07/2017,02/25/2010 RSV [...] No 04/12/2024 Does the household have a [facility] source of income? (Household - for ages [...] encounter Miscellaneous Notes * Telephone Encounter - Thuy Gayle LPN - 04/25/2024 1:52 PM EST Spoke to patient. Aware and verbalized understanding. * Telephone Encounter - Constanza Mary OSA - 04/25/2024 1:41 PM EST Pt returning our call. He asks a call back, he states you may have to leave a message. He can be reached at [phone] * Telephone Encounter - Thuy Gayle LPN - 04/25/2024 11:17 AM EST Attempted to call, no answer. Left message to call back. * Telephone Encounter - Nirmala Alford DO - 04/25/2024 9:35 AM EST Please let pt know: His x-ray showed no rib fractures. His lab studies looked good. Continue to eat and drink well. No changes there. documented in this encounter Plan of Treatment Upcoming Encounters Date Type Department Care Team (Late st Contact Info) Description 05/10/2024 2:00 PM EST Office Visit Podiatry [facility] [address] [place] [address] Coreen Gonzales DPM [address] [place], [place] [phone] 05/16/2024 9:00 AM EST Office Visit Urology, [place] [address] [place], [place] [phone] Jonas Gupta MD [address] [place] [address] 06/25/2024 3:00 PM EST Nutrition Services Nutrition Services 65 [facility] [address] [place] [address] Mari Parra RDN [address] [place] [address] 06/25/2024 3:40 PM EST Office Visit Family Practice 65 [facility] [address] [place] [address] Nirmala Alford DO [address] [place] [address] 10/07/2024 2:00 PM EDT Nurse Only Family Practice 65 [facility] [address] [place] [address] Betty Hartmann, JOE [address] [place] [address] Scheduled Procedures Name Priority Associated [...] Advance Directives occurred with: Patient Care Teams Pot Tender Relationship Specialty Start Date End Date Nirmala Alford DO 293 [place] [address] PCP - General Family Medicine 01/23/24 documented as of this encounter
--- OUTSIDE RECORDS SUMMARY | 2024-06-16 23:42 | External Medical Summary | Summary of Care ---
Author Name Unknown Organization [facility] Address [address] [place] [address] Phone [phone] Care Team Providers Care Closing Coordinator Name Role Phone JessicaNirmala ziegler Derrick LOCO Primary Care Provider Encounter Details Date Type Department Care Team (Late st Contact Info) Description 04/26/2024 11:30 AM EST Scheduled Telephone Care Coordination and Integration [address] [place] [address] [facility] [address] [place] [address] Allergies Active Allergy Reactions Criticality Noted Date Comments Alcohol 01/19/2023 Sugar Alcohol Lactose Intolerance 12/12/2005 documented as of this encounter (statuses as of 04/26/2024) Medications aspirin enteric coated 81 MG TBEC [...] mouth daily at noon. -- getting through criminal justice faculty 04/07/20 23 Active Marion Rose In Vitro Strip (Glucose Blood) USE UP TO 4 TIMES A DAY DIRECTED 400 Strip 3 4 9:55 AM EST 06/01/20 23 Active Incruse Ellipta 62.5 MCG/ACT Inhalation Aerosol Powder Breath Activated (umeclidinium [place])Indicatio ns:Chronic obstructive pulmonary disease, unspecified COPD type [...] as of this encounter (statuses as of 04/26/2024) Active Problems Patient Care Coordination No te [...] as of this encounter (statuses as of 04/26/2024) Resolved Problems Problem Noted Date Diagnosed Date [...] as of this encounter (statuses as of 04/26/2024) Immunizations Name Administration Dates Next Due COVID-19 [...] (Prevnar) 11/07/2014 Pneumococcal Conjugate Vacci ne, 20-valent ([id number]) 02/20/2024 Pneumococcal Polysaccharide PPV23 (Pneumovax) 09/07/2017,02/25/2010 RSV [...] No 04/12/2024 Does the household have a [facility] source of income? (Household - for [...] Oz Rosario RN documented in this encounter Progress Notes * [facility] - 04/26/2024 12:32 PM EST Telemedicine visit: No [facility] (KATINA) documentation: [facility] lorelei call week 2 per Imelda Hidalgo RNCM [facility] spoke with pt this date and told him that [facility] would be reaching out about a rollingwalker and PT. Pt confirmed that he is still living with his daughter at this time. [facility] survey completed without any new issues or concerns identified. Red Flags address: Fever, Chills, Blood in urine, Falls, Increased Shortness of Breath. Pt was not sure if [facility] had been in contact or not. He states that his daughter takes care of all of that. I. documented in this encounter Plan of Treatment Upcoming Encounters Date Type Department Care Team (Late st Contact Info) Description 05/10/2024 2:00 PM EST Office Visit Podiatry [facility] [address] [facility] [place]STOP[place] RANGEL [phone] Coreen Gonzales DPM 400 [facility] [place] RAMOS [id number] 05/16/2024 9:00 AM EST Office Visit Urology, [address] [place] [address] Jonas Gupta MD [address] [place] [address] 06/25/2024 3:00 PM EST Nutrition Services Nutrition Services [address] [address] Mari Parra RDN [address] [place] [address] 06/25/2024 3:40 PM EST Office Visit Family Practice [address] [phone] Nirmala Alford DO [address] [place] [address] 10/07/2024 2:00 PM EDT Nurse Only Family Practice [address] [phone] Betty Hartmann, JOE [address] [facility] [place] [phone] Scheduled Procedures Name Priority Associated Diagnoses Date/Ti [...] Advance Directives occurred with: Patient Care Teams Closing Coordinator Relationship Specialty Start Date End Date Nirmala Alford DO [address] [facility] [place] [address] PCP - General Family Medicine 01/23/24 documented as of this encounter
--- OUTSIDE RECORDS SUMMARY | 2024-06-16 23:42 | External Medical Summary | Summary of Care ---
Author Name Unknown Organization [facility] Address [address] [place] [address] Phone [phone] Care Team Providers Care Superintendent Sales Name Role Phone JessicaNirmala ziegler Derrick LOCO Primary Care Provider [phone] Encounter Details Date Type Department Care Team (Late st Contact Info) Description 05/09/2024 12:00 PM EST Scheduled Telephone Care Coordination and Integration [address] [place] [address] [facility] [address] [place] [address] Allergies Active Allergy Reactions Criticality Noted Date Comments Alcohol 01/19/2023 Sugar Alcohol Lactose Intolerance 12/12/2005 documented as of this encounter (statuses as of 05/09/2024) Medications aspirin enteric coated 81 MG TBEC [...] mouth daily at noon. -- getting through billet recorder 04/07/20 23 Active Marion Rose In Vitro Strip (Glucose Blood) USE UP TO 4 TIMES A DAY DIRECTED 400 Strip 3 4 9:55 AM EST 06/01/20 23 Active Incruse Ellipta 62.5 MCG/ACT Inhalation Aerosol Powder Breath Activated (umeclidinium [place])Indicatio ns:Chronic obstructive pulmonary disease, unspecified COPD type [...] as of this encounter (statuses as of 05/09/2024) Active Problems Patient Care Coordination No te [...] as of this encounter (statuses as of 05/09/2024) Resolved Problems Problem Noted Date Diagnosed Date [...] as of this encounter (statuses as of 05/09/2024) Immunizations Name Administration Dates Next Due COVID-19 [...] (Prevnar) 11/07/2014 Pneumococcal Conjugate Vacci ne, 20-valent ([id number]) 02/20/2024 Pneumococcal Polysaccharide PPV23 (Pneumovax) 09/07/2017,02/25/2010 RSV [...] Progress Notes * [facility] - 05/09/2024 12:31 PM EST Telemedicine visit: No [facility] (KATINA) documentation: Pt returned call to [facility] this date. He reports he is still living with his daughter. [facility] is scheduled to come and do an assessment with him to determine needs. He is currently using a walker from time to time in the home depending on where in the home he has to go. He states some areas aren't accessible with the walker. Pt states he has no new issue or concerns for his CM. * [facility] - 05/09/2024 11:58 AM EST Telemedicine visit: No [facility] (KATINA) documentation: [facility] lorelei call week 4 [facility] documented in this encounter Plan of Treatment Upcoming Encounters Date Type Department Care Team (Late st Contact Info) Description 05/10/2024 2:00 PM EST Office Visit Podiatry [facility] [address] [facility] [place] [address] Coreen Gonzales DPM 400 [facility] [place] [address] 05/16/2024 9:00 AM EST Office Visit Urology, [place] [address] [place] [address] Jonas Gupta MD [address] [place] [address] 06/25/2024 3:00 PM EST Nutrition Services Nutrition Services 65 [facility] [address] [place] [address] Mari Parra RDN [address] [place] [address] 06/25/2024 3:40 PM EST Office Visit Family Practice [address] [place] [address] [address] [place] [phone] Nirmala Alford DO [address] [place] [address] 10/07/2024 2:00 PM EDT Nurse Only Family Practice 65 [facility] [address] [place] [phone] Betty Hartmann, JOE [address] [place] [phone] Scheduled Procedures Name Priority Associated Diagnoses Date/Ti [...] Advance Directives occurred with: Patient Care Teams Superintendent Sales Relationship Specialty Start Date End Date Nirmala Alford DO [address] [place] [address] PCP - General Family Medicine 01/23/24 documented as of this encounter
--- OUTSIDE RECORDS SUMMARY | 2024-06-16 23:42 | External Medical Summary | Summary of Care ---
Author Name Unknown Organization [facility] Address [address] [place] [address] Phone [phone] Care Team Providers Care End Polisher Name Role Phone Nirmala Alford DO Primary Care Provider [phone] Reason for Referral * Evaluate & Treat - Unlimited Visits (Within 10 days (routine)) - Authorized Specialty Diagnoses / Procedures Referred By Eben samayoa Referred To Contact Physical Therapy / Physical Medicine And Rehab Diagnoses Falls frequently Nirmala Alford DO [address] [place] [address] Phone: tel: fax: Referral ID Status Reason Start Date Expiration Date Visits Requested Visits Authorized [id number] Authorized Specialty Services Required [phone] Question Answer Referral Priority Within 10 days (routine) Where should this appointment be scheduled? [facility] in the home please Reason for Visit * Reason Comments Hospital Follow-Up Encounter Details Date Type Department Care Team (Late st Contact Info) Description 04/23/2024 1:40 PM EST Office Visit Family Practice [facility], [place] [address] [place] [phone] Nirmala Alford DO [address] [place] [address] Hospital discharge follow-up*; S/P TURP; Type 2 diabetes mellitus with hyperglycemia, without long-term current use of insulin (HCC); Falls frequently; Other urinary incontinence; Rib pain on left side; Mass of right axilla Allergies Active Allergy Reactions Criticality Noted Date Comments Alcohol 01/19/2023 Sugar Alcohol Lactose Intolerance 12/12/2005 documented as of this encounter (statuses as of 04/24/2024) Medications aspirin enteric coated 81 MG TBEC [...] mouth daily at noon. -- getting through staff analyst 04/07/20 23 Active BuddyBounceTouch Verio In Vitro Strip (Glucose Blood) USE UP TO 4 TIMES A DAY DIRECTED 400 Strip 3 4 9:55 AM EST 06/01/20 23 Active Incruse Ellipta 62.5 MCG/ACT Inhalation Aerosol Powder Breath Activated (umeclidinium [place])Indicatio ns:Chronic obstructive pulmonary disease, unspecified COPD type [...] daily. 100 Tablet 3 04/23/20 24 Active Magnesium Oxide 400 MG Oral Tablet Take 1 Tablet by mouth daily. 100 Tablet 3 07/04/19 23 024 Discontin ued(Refil l) documented as of this encounter (statuses as of 04/24/2024) Active Problems Patient Care Coordination No te [...] as of this encounter (statuses as of 04/24/2024) Resolved Problems Problem Noted Date Diagnosed Date [...] as of this encounter (statuses as of 04/24/2024) Immunizations Name Administration Dates Next Due COVID-19 [...] (Prevnar) 11/07/2014 Pneumococcal Conjugate Vacci ne, 20-valent ([id number]) 02/20/2024 Pneumococcal Polysaccharide PPV23 (Pneumovax) 09/07/2017,02/25/2010 RSV [...] Passive Smoke Exposure: Past Smokeless Tobacco: Never Tobacco Cessation:Counseling Given: Yes Alcohol Use Standard Drinks/Week Comments No 0 [...] PM EDT documented as of this encounter Last Filed Vital Signs Vital Sign Reading Time Taken Comments Blood Pressure 110/60 04/23/2024 1:37 PM EST Pulse 100 04/23/2024 1:37 PM EST Temperature 36.2 C (97.1 F) 04/23/2024 1:37 PM ES T Respiratory Rate - - Oxygen Saturation 95% 04/23/2024 1:37 PM EST Inhaled Oxygen Concentration - - Weight 76.6 kg (168 lb 14.4 oz) 04/23/2024 1:37 PM EST Height 175.3 cm (5' 9") 04/23/2024 1:37 PM EST Body Mass Index 24.94 04/23/2024 1:37 PM EST documented in this encounter Functional Status * Are you [...] documented in this encounter Progress Notes * Nirmala Alford, - 04/23/2024 1:58 PM EST SUBJECTIVE: Chief Complaint Patient presents with Hospital Follow-Up HPI: Kamlesh Nair Jr. is a 79 year old male who presents today for hospital and rehab discharge. Pt was admitted to [facility] on 03/22 for TURP and cystolithalopaxy. He remained hospitalized for 3 days pending SNF placement. He was noted to be stable for discharged on 03/25 to [facility]. Wedo not have any information from that facility. He was discharged to home on 04/11/24. Since discharge, he has had at least 2 falls. Pt states that he was outside for at least 1/2 an hour after a fall. He states that he crawled to a place he could stand up. He had a fall inside before this fall. He hit his low left back and notes he has had a lot of pain up until last night. He is using a cane. He is not at his daughter's so that he has supervision. Pt feels that his urinary incontinence initially improved but then worsened. He states that sometimes he feels he has to go and then does not. He may also urinate without realizing it. Pt has had a cough for a couple of weeks per his report. He notes that it seemed to get better and then return. He notes that it is a dry cough. He is not really bringing anything up. 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 100 Tab 3 Multiple Vitamins-Minerals (MULTIVITAMIN ADULT) TABS Take 1 Tablet by mouth daily at noon. PaxeraUCH ULTRASOFT LANCETS MISC Use as directed 4 times a day as needed for Hyperglycemia (high sugar) or Hypoglycemia (low sugar). E11.9 1 Box Dosing Unit 11 Pay by Shopping (deal united) Verio w/Device Kit Use to test blood sugars daily E11.9 1 Kit 0 Magnesium Oxide 400 MG Oral Tablet Take 1 Tablet by mouth daily. 100 Tablet 3 Farxiga 10 MG Oral Tablet (Dapagliflozin Propanediol) Take 1 Tablet by mouth daily at noon. -- getting through staff analyst [employer] ([employer]) VerUbiquisys In Vitro Strip (Glucose Blood) USE UP TO 4 TIMES A DAY DIRECTED 400 Strip 3 Incruse Ellipta 62.5 MCG/ACT Inhalation Aerosol Powder Breath Activated (umeclidinium [place]) INHALE ONE PUFF BY MOUTH EVERY MORNING 90 Each 3 glipiZIDE 10 MG Oral Tablet (Glucotrol) TAKE ONE TABLET BY MOUTH TWICE A DAY 30 MINUTES BEFORE MORNING AND EVENING MEALS 200 Tablet 3 Atorvastatin Calcium 20 MG Oral Tablet (Lipitor) TAKE ONE TABLET BY MOUTH DAILY 100 Tablet 3 Omeprazole 20 MG Oral Capsule Delayed Release (PriLOSEC) TAKE ONE CAPSULE BY MOUTH EVERY MORNING 1 HOUR BEFORE THE FIRST MEAL OF THE DAY FOR HEART BURN 100 Capsule 3 Tamsulosin HCl 0.4 MG Oral Capsule (Flomax) TAKE TWO CAPSULES BY MOUTH EVERY DAY IN THE MORNING 180Capsule 3 Dexcom G7 Sensor Use as directed. (Patient not taking: Reported on 02/20/2024) Ketoconazole 2 % External Cream Apply topically to affected area on both feet twice daily. 30 g 2 Finasteride 5 MG Oral Tablet (Proscar) TAKE ONE TABLET BY MOUTH EVERY DAY IN THE MORNING 90 Tablet 6 Methylphenidate HCl 10 MG Oral Tablet (Ritalin) Take 1 Tablet by mouth 2 times a day. 60 Tablet 0 metFORMIN HCl 850 MG Oral Tablet (Glucophage) TAKE ONE TABLET BY MOUTH THREE TIMES A DAY IN THE MORNING, AT NOON AND BEFORE BEDTIME 300 Tablet 1 No current facility-administered medications for this visit. Past Medical History: Diagnosis Date ADHD COPD (chronic obstructive pulmonary disease) (HCC) DM2 (diabetes mellitus, type 2) (HCC) Dyslipidemia Emphysema, unspecified (HCC) GERD (gastroesophageal reflux disease) Past Surgical History: Procedure Laterality Date COLONOSCOPY W/ BIOPSY (RECTUM) 06/23/2009 done diverticulosis, one polyp at 20cm proximal to anus PARTIAL AMPUTATION OF TOE Right right middle toe- REMOVAL OF PROSTATE (TURP) N/A 03/22/2024 TRANSURETHRAL RESECTION PROSTATE ELECTROSURGICAL performed by [facility] at [facility] REMOVAL OF TONSILS, UNDER AGE 14 REMOVE SMALL BLADDER STONE, SIMPLE N/A 03/22/2024 LITHOLAPAXY SIMPLE performed by Jonas Gupta MD at [facility] Review of patient's allergies indicates: Allergen Reactions Alcohol Sugar Alcohol Milk [Lactose Intolerance] Family History Problem Relation Name Age of Onset Arthritis Mother 77 years old in 2006, now 85 Other (alzheimers) Father at age 84 Family Status Relation Status Mo (Not Specified) Fa (Not Specified) Social History Tobacco Use Smoking status: Former Current packs/day: 0.00 Average packs/day: 0.5 packs/day for 30.0 years (15.0 ttl pk-yrs) Types: Cigarettes Start date: 11/19/1987 Quit date: 11/18/2017 Years since quittin.4 Passive exposure: Past Smokeless tobacco: Never Substance Use Topics Alcohol use: No Comment: rarely Vaping/E-Cigarette Use Vaping/E-Cigarette Use Never User Vaping/E-Cigarette Substances Vaping/E-Cigarette Devices REVIEW OF SYSTEMS: Review of Systems Constitutional: Negative for chills, fatigue, fever and unexpected weight change. Respiratory: Negative for cough, chest tightness, shortness of breath and wheezing. Cardiovascular: Negative for chest pain, palpitations and leg swelling. Gastrointestinal: Negative for abdominal pain, constipation, diarrhea, nausea and vomiting. Genitourinary: As per HPI Musculoskeletal: Negative for arthralgias, gait problem and joint swelling. Skin: Negative for color change, pallor and rash. OBJECTIVE: BP 110/60 (BP Site: Left Arm, BP Position: Sitting, BP Cuff Size: Regular) | Pulse 100 | Temp 97.1 F (36.2 C) (Tympanic) | Ht 5' 9" (1.753 m) | Wt 168 lb 14.4 oz (76.6 kg) | SpO2 95% | BMI 24.94 kg/m | BSA 1.93 m PHYSICAL EXAM: Physical Exam Constitutional: General: He is not in acute distress. Appearance: He is well-developed. Cardiovascular: Rate and Rhythm: Normal rate and regular rhythm. Heart sounds: Normal heart sounds. No murmur heard. No friction rub. No gallop. Pulmonary: Effort: Pulmonary effort is normal. No respiratory distress. Breath sounds: Normal breath sounds. No wheezing or rales. Abdominal: General: Bowel sounds are normal. There is no distension. Palpations: Abdomen is soft. Tenderness: There is no abdominal tenderness. There is no guarding. Musculoskeletal: General: No tenderness or deformity. Normal range of motion. Skin: General: Skin is warm and dry. Coloration: Skin is not pale. Findings: No erythema or rash. Neurological: Mental Status: He is alert and oriented to person, place, and time. ASSESSMENT/PLAN: (Z09) Hospital discharge follow-up (primary encounter diagnosis) (Z90.79) S/P TURP Plan: DISCH MED RECON CUR MED LIS Pt overall doing ok from a procedural standpoint. Some worsening incontinence, see below.keep f/u with urology. (E11.65) Type 2 diabetes mellitus with hyperglycemia, without long-term current use of insulin (HCC) Plan: ALBUMIN / CREATININE RATIO, URINE Pt will remain on current regimen. Hopeful that in a more controlled environment, sugars will improve. (R29.6) Falls frequently Plan: CBC WITH WBC DIFFERENTIAL, COMPREHENSIVE METABOLIC PANEL, MAGNESIUM, XR RIBS UNILATERAL W/PA CHEST MINIMUM 3 VIEWS, CBC WITH WBC DIFFERENTIAL, COMPREHENSIVE METABOLIC PANEL, MAGNESIUM, PHYSICAL THERAPY REFERRAL OP Pt will complete lab studies today. PT order in for PT in the home. Await official read on rib x-ray but I do not see obvious fracture. (N39.498) Other urinary incontinence Plan: CULTURE, URINE, QUANTITATIVE Pt unable to urinate in office today. Sent with culture collection cup. Will await results. (R07.81) Rib pain on left side Plan: XR RIBS UNILATERAL W/PA CHEST MINIMUM 3 VIEWS As above. (R22.31) Mass of right axilla Plan: US EXTREMITY AXILLA ?small lump upper arm/axilla. Check US. Follow-up:1-2 months Total time today including reviewing chart before the visit, pertinent labs, imaging reports, face to face time, and documentation time was 51 minutes. Nirmala Alford DO documented in this encounter Plan of Treatment Upcoming Encounters Date Type Department Care Team (Late st Contact Info) Description 04/25/2024 11:15 AM EST Imaging Radiology, [address] [address] 05/10/2024 2:00 PM EST Office Visit Podiatry [facility] [address] [facility] [place] [address] Coreen Gonzales DPDerrick [address] [place] [address] 05/16/2024 9:00 AM EST Office Visit Urology, [place] [address] [place] [address] Jonas Gupta MD [address] [place] [address] 06/25/2024 3:00 PM EST Nutrition Services Nutrition Services [address] [facility] [address] [place] [address] Mari Parra RDN [address] [place] [address] 06/25/2024 3:40 PM EST Office Visit Family Practice [address] [facility] [address] [place] [phone] Nirmala Alford DO [address] [place] [address] 10/07/2024 2:00 PM EDT Nurse Only Family Practice [address] [facility] [address] [place] [address] Betty Hartmann RN [address] [place] [address] Scheduled Orders Name Type Priority Associated Diagnoses Orde r Schedule ALBUMIN / CREATININE RATIO, URINE Lab Routine Type 2 diabetes mellitus with hyperglycemia, without long-term current use of insulin (HCC) Expected: 04/23/2024, Expires: 04/23/2025 CULTURE, URINE, QUANTITATIVE Lab Routine Other urinary incontinence Expected: 04/23/2024, Expires: 04/23/2025 US EXTREMITY AXILLA Medical Imaging Routine Mass of right axilla Expected: 04/23/2024, Expires: 05/23/2025 Scheduled Procedures Name Priority Associated Diagnoses Date/Ti me COLONOSCOPY FLEXIBLE PROXIMA L DIAGNOSTIC Recall Benign neoplasm of colon Scheduled Referrals Name Type Priority Associated Diagnoses Orde r Schedule PHYSICAL THERAPY REFERRAL OP Referral Within 10 days (routine) Falls frequently Ordered: 04/24/2024 Health Maintenance Due Date Last Done Comments [...] Not on filedocumented as of this encounter Procedures Procedure Name Priority Date/Time Associated Diagnosis Comments DIFFERENTIAL, AUTOMATED Routine 04/23/2024 2:55 PM EST Falls frequently COMPREHENSIVE METABOLIC PANEL Routine 04/23/2024 2:55 PM EST Falls frequently CBC Routine 04/23/2024 2:55 PM EST Falls frequently CBC Routine 04/23/2024 2:55 PM EST Falls frequently MAGNESIUM Routine 04/23/2024 2:55 PM EST Falls frequently XR RIBS UNILATERAL W/PA CHEST MINIMUM 3 VIEWS Routine 04/23/2024 2:37 PM EST Falls frequently Rib pain on left side documented in this encounter Results * (ABNORMAL) DIFFERENTIAL, AUTOMATED (04/23/2024 2:55 PM EST) WBC 6.49 4.00 - 10.80 K/uL 04/23/2024 11:44 PM EST [facility] Neutrophils % 78.0(H) 40.0 - 75.0 % 04/23/2024 11:44 PM EST [facility] Lymphocytes % 13.1(L) 18.0 - 42.0 % 04/23/2024 11:44 PM EST [facility] Monocytes % 7.9 1.0 - 11.0 % 04/23/2024 11:44 PM EST [facility] Eosinophils % 0.5 0.0 - 6.0 % 04/23/2024 11:44 PM EST [facility] Basophils % 0.2 0.0 - 2.0 % 04/23/2024 11:44 PM EST [facility] Immature Granulocytes % 0.3 0.0 - 2.0 % 04/23/2024 11:44 PM EST [facility] Absolute Neutrophils 5.07 1.80 - 7.70 K/uL 04/23/2024 11:44 PM EST [facility] Absolute Lymphocytes 0.85(L) 1.00 - 4.80 K/ul 04/23/2024 11:44 PM EST [facility] Absolute Monocytes 0.51 0.00 - 1.10 K/uL 04/23/2024 11:44 PM EST [facility] Absolute Eosinophils 0.03 0.00 - 0.70 K/uL 04/23/2024 11:44 PM EST [facility] Absolute Basophils 0.01 0.00 - 0.20 K/uL 04/23/2024 11:44 PM EST [facility] Absolute Immature Granulocytes 0.02 0.00 - 0.20 K/uL 04/23/2024 11:44 PM EST [facility] Blood Venous blood specimen / Unknown Venipuncture / Unknown 04/23/2024 2:55 PM EST 04/23/2024 2:55 PM EST us Nirmala Alford DO LAB BLOOD ORDERABLES Final R esult [facility] [address] [place] [address] * (ABNORMAL) CBC (04/23/2024 2:55 PM EST) WBC 6.49 4.00 - 10.80 K/uL 04/23/2024 11:44 PM EST [facility] RBC 4.65 4.50 - 5.25 M/uL 04/23/2024 11:44 PM EST [facility] HGB 11.9(L) 14.0 - 16.8 g/dL 04/23/2024 11:44 PM EST [facility] HCT 40.3 40.0 - 48.4 % 04/23/2024 11:44 PM EST [facility] MCV 86.7 82.0 - 99.5 fL 04/23/2024 11:44 PM EST [facility] MCH 25.6 27.0 - 34.0 pg 04/23/2024 11:44 PM EST [facility] MCHC 29.5 32.0 - 36.0 g/dL 04/23/2024 11:44 PM EST [facility] RDW 15.0 11.5 - 15.5 % 04/23/2024 11:44 PM EST [facility] PLT 216 140 - 400 K/uL 04/23/2024 11:44 PM EST [facility] MPV 10.9 6.6 - 11.1 fL 04/23/2024 11:44 PM EST [facility] nRBCs 0 <=0 /100 WBCs 04/23/2024 11:44 PM EST [facility] Blood Venous blood specimen / Unknown Venipuncture / Unknown 04/23/2024 2:55 PM EST 04/23/2024 2:55 PM EST Nirmala Alford DO LAB BLOOD ORDERABLES Final R esult [facility] [address] [place] [address] * MAGNESIUM (04/23/2024 2:55 PM EST) Pathologist [facility] Magnesium 1.6 1.5 - 2.6 mg/dL 04/24/2024 5:23 AM EST [facility] Blood Venous blood specimen / Unknown Venipuncture / Unknown 04/23/2024 2:55 PM EST 04/23/2024 2:55 PM EST us Nirmala Meza Jessicatoney DO LAB BLOOD ORDERABLES Final R esult [facility] [address] [place] [address] * (ABNORMAL) COMPREHENSIVE METABOLIC PANEL (04/23/2024 2:55 PM EST) BUN 25(H) 6 - 20 mg/dL 04/24/2024 5:23 AM EST [facility] CREATININE 0.9 0.6 - 1.2 mg/dL 04/24/2024 5:23 AM EST [facility] EGFR 88 >=60 mL/min 04/24/2024 5:23 AM EST [facility] Comment:eGFR is calculated b ased on the CKD-EPI 2020 equation. SODIUM 142 135 - 146 mmol/L 04/24/2024 5:23 AM EST [facility] POTASSIUM 3.9 3.5 - 5.1 mmol/L 04/24/2024 5:23 AM EST [facility] CHLORIDE 101 98 - 107 mmol/L 04/24/2024 5:23 AM EST [facility] CO2 22 22 - 32 mmol/L 04/24/2024 5:23 AM EST [facility] ANION GAP 19(H) 7 - 15 mmol/L 04/24/2024 5:23 AM EST [facility] GLUCOSE 209(H) 70 - 120 mg/dL 04/24/2024 5:23 AM EST [facility] Albumin 4.1 3.8 - 5.0 g/dL 04/24/2024 5:23 AM EST [facility] AST 19 10 - 50 U/L 04/24/2024 5:23 AM EST [facility] Alkaline Phosphatase 55 35 - 130 U/L 04/24/2024 5:23 AM EST [facility] Bilirubin, Total 0.4 <=1.2 mg/dL 04/24/2024 5:23 AM EST [facility] CALCIUM 9.4 8.4 - 10.2 mg/dL 04/24/2024 5:23 AM EST [facility] Protein 6.4 6.0 - 8.3 g/dL 04/24/2024 5:23 AM EST [facility] ALT 17 10 - 50 U/L 04/24/2024 5:23 AM EST [facility] Blood Venous blood specimen / Unknown Venipuncture / Unknown 04/23/2024 2:55 PM EST 04/23/2024 2:55 PM EST Nirmala Alford DO LAB BLOOD ORDERABLES Final R esult [facility] [address] [place] [address] * XR RIBS UNILATERAL W/PA CHEST MINIMUM 3 VIEWS (04/23/2024 2:37 PM EST) Anatomical Region Laterality Modality Chest Digital Radiogra phy 04/23/2024 9:53 PM EST Impressions 04/23/2024 9:51 PM EST IMPRESSION No acute displaced left rib fracture. Narrative 04/23/2024 9:51 PM EST EXAM XR RIBS UNILATERAL W/PA CHEST MINIMUM 3 VIEWS - 04/23/2024 2:37 pm HISTORY left lower rib pain, fall TECHNIQUE Single AP view of the chest was obtained in addition to 5 views of the left ribs, as part of a rib series. COMPARISON None. FINDINGS No acute displaced left rib fracture is identified. The visualized lungs are clear, without focal consolidation, pleural effusion, or pneumothorax. Procedure Note Ashok Portillo MD - 04/23/2024 EXAM XR RIBS UNILATERAL W/PA CHEST MINIMUM 3 VIEWS - 04/23/2024 2:37 pm HISTORY left lower rib pain, fall TECHNIQUE Single AP view of the chest was obtained in addition to 5 views of theleft ribs, as part of a rib series. COMPARISON None. FINDINGS No acute displaced left rib fracture is identified. The visualized lungs are clear, without focal consolidation, pleuraleffusion, or pneumothorax. IMPRESSION IMPRESSION No acute displaced left rib fracture. us Nirmala Alford DO RADIOLOGY (RAD GENERAL) Marilyn l Result documented in this encounter Visit Diagnoses Diagnosis Hospital discharge follow-up- Primary Other follow-up examination S/P TURP Other postprocedural status Type 2 diabetes mellitus with hyperglycemia, without long-term current use of insulin (HCC) Falls frequently Personal history of fall Other urinary incontinence Rib pain on left side Chest pain, unspecified Mass of right axilla documented in this encounter Advance Directives * [...] Advance Directives occurred with: Patient Care Teams End Polisher Relationship Specialty Start Date End Date Nirmala Alford DO [address] [address] PCP - General Family Medicine 01/23/24 documented as of this encounter
--- OUTSIDE RECORDS SUMMARY | 2024-06-16 23:42 | External Medical Summary | Summary of Care ---
Author Name Unknown Organization [facility] Address [address] [place] [address] Phone [phone] Care Team Providers Care Knitting Machine Operator Helper Name Role Phone Nirmala Alford DO Primary Care Provider Reason for Visit * Reason Onset Date Comments Advice 05/14/2024 Encounter Details Date Type Department Care Team (Late st Contact Info) Description 05/14/2024 Telephone Family Practice [facility] [address] [place] [address] Nirmala Alford DO [address] [place] [address] Advice Allergies Active Allergy Reactions Criticality Noted [...] mouth daily at noon. -- getting through processing tech 04/07/20 23 Active Fitouch Verernestina In Vitro Strip (Glucose Blood) USE UP TO 4 TIMES A DAY DIRECTED 400 Strip 3 4 9:55 AM EST 06/01/20 23 Active Incruse Ellipta 62.5 MCG/ACT Inhalation Aerosol Powder Breath Activated (umeclidinium [place])Indicatio ns:Chronic obstructive pulmonary disease, unspecified COPD type [...] (Prevnar) 11/07/2014 Pneumococcal Conjugate Vacci ne, 20-valent ([id number]) 02/20/2024 Pneumococcal Polysaccharide PPV23 (Pneumovax) 09/07/2017,02/25/2010 RSV [...] encounter Miscellaneous Notes * Telephone Encounter - Imelda Hidalgo RN [...] 06/03/2024 3:00 PM EST Office Visit Podiatry [facility] [address] [facility] [place] [address] Coreen Gonzales, BRANDON [address] [facility] [place] [address] 06/25/2024 3:00 PM EST Nutrition Services Nutrition Services 65 [facility] [address] [place] [address] Mari Parra RDN [address] [place] [address] 06/25/2024 3:40 PM EST Office Visit Family Practice [address] [place] [address] [address] [place] [address] Nirmala Alford DO [address] [place] [address] 10/03/2024 2:15 PM EDT Office Visit Urology, [place] [address] [place] [address] Jonas Gupta MD [address] [place] [address] 10/07/2024 2:00 PM EDT Nurse Only Family Practice [address] [facility] [address] [place] [address] Betty Hartmann, JOE [address] [place] [address] Scheduled Procedures Name Priority Associated [...] Advance Directives occurred with: Patient Care Teams Knitting Machine Operator Helper Relationship Specialty Start Date End Date Nirmala Alford DO [address] [place] [address] PCP - General Family Medicine 01/23/24 documented as of this encounter
--- OUTSIDE RECORDS SUMMARY | 2024-06-16 23:42 | External Medical Summary ---
Author Name Unknown Address Unknown Organization K01:[facility] [place] - [address] [facility] John [place] [address] Laboratory Report Ordering Provider Test Date Status RENETTA SOLOMON 04/23/2024 14:55:18 Final Observation Date Value Abnormality Reference (Units ) Status SYNC LEUKOCYTES IN BLOOD BY AUTOMATED COUNT 04/23/2024 14:55:18 6.49 4.00-10.80 (K/uL) Final Segs 04/23/2024 14:55:18 78.0 Above high normal 40.0-75.0 (%) Final Lymphs % 04/23/2024 14:55:18 13.1 Below low normal 18.0-42.0 (%) Final Monos 04/23/2024 14:55:18 7.9 1.0-11.0 (%) Final Eosinophils 04/23/2024 14:55:18 0.5 0.0-6.0 (%) Final Basos 04/23/2024 14:55:18 0.2 0.0-2.0 (%) Final Immature Granulocyte, Percent 04/23/2024 14:55:18 0.3 0.0-2.0 (%) Final Absolute Segs 04/23/2024 14:55:18 5.07 1.80-7.70 (K/uL) Final Lymphs, absolute 04/23/2024 14:55:18 0.85 Below low normal 1.00-4.80 (K/ul) Final Monos, Abs 04/23/2024 14:55:18 0.51 0.00-1.10 (K/uL) Final Eos, Abs 04/23/2024 14:55:18 0.03 0.00-0.70 (K/uL) Final Basos, Abs 04/23/2024 14:55:18 0.01 0.00-0.20 (K/uL) Final Immature Granulocytes, Number 04/23/2024 14:55:18 0.02 0.00-0.20 (K/uL) Final Performing Location [facility] [place] - [facility] [address] [place] [address]
--- OUTSIDE RECORDS SUMMARY | 2024-06-16 23:42 | External Medical Summary | Summary of Care ---
Author Name Unknown Organization [facility] Address [address] [place] [address] Phone [phone] Care Team Providers Care Work Ticket Distributor Name Role Phone Nirmala Alford DO Primary Care Provider [phone] Reason for Visit * Reason Onset Date Comments Advice 05/14/2024 Encounter Details Date Type Department Care Team (Late st Contact Info) Description 05/14/2024 Telephone Family Practice 65 [facility] [address] [place] [address] Nirmala Alford DO [address] [place] [address] Advice Allergies Active Allergy Reactions Criticality Noted [...] mouth daily at noon. 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 Reports that patient has not had any [...] PM EST Office Visit Podiatry [facility] [address] [place] [address] Coreen Gonzales DPM [address] [place], [place] [address]CHRISTOPHER Mckeon [address] 06/25/2024 3:00 PM EST Nutrition Services Nutrition Services 65 [facility] [address] [place] [address] Mari Parra RDN [address] [place] [address] 06/25/2024 3:40 PM EST Office Visit Family Practice 65 [facility] [address] [place] [phone] Nirmala Alford DO [address] [place] [address] 10/03/2024 2:15 PM EDT Office Visit Urology, [place] [address] [place] [address] Jonas Gupta MD [address] [place] [address] 10/07/2024 2:00 PM EDT Nurse Only Family Practice [address] [facility] [place] [address] [place] [address] Betty Hartmann, JOE [address] [place] [address] Scheduled Procedures Name Priority Associated [...] Advance Directives occurred with: Patient Care Teams Work Ticket Distributor Relationship Specialty Start Date End Date Nirmala Alford DO [address] [place] [address] PCP - General Family Medicine 01/23/24 documented as of this encounter
--- OUTSIDE RECORDS SUMMARY | 2024-06-16 23:42 | External Medical Summary | Summary of Care ---
Author Name Unknown Organization [facility] Address [address] [place] [address] Phone [phone] Care Team Providers Care Icu Manager Name Role Phone Nirmala Alford DO Primary Care Provider Encounter Details Date Type Department Care Team (Late st Contact Info) Description 04/24/2024 Orders Only Care Coordination and Integration [address] [place] [address] Nirmala Alford DO [address] [place] [address] Falls frequently*; Other abnormalities of gait and mobility Allergies Active Allergy Reactions Criticality Noted Date [...] mouth daily at noon. 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 04/07/20 23 Active OneTouch Verernestina In Vitro Strip (Glucose Blood) USE UP TO 4 TIMES A DAY DIRECTED 400 Strip 3 4 9:55 AM EST 06/01/20 23 Active Incruse Ellipta 62.5 MCG/ACT Inhalation Aerosol Powder Breath Activated (umeclidinium [place])Indicatio ns:Chronic obstructive pulmonary disease, unspecified COPD type [...] DAY IN THE MORNING 90 Tablet 6 10/14/202 4 12:26 PM EDT 12/18/19 24 025 [...] (Prevnar) 11/07/2014 Pneumococcal Conjugate Vacci ne, 20-valent ([id number]) 02/20/2024 Pneumococcal Polysaccharide PPV23 (Pneumovax) 09/07/2017,02/25/2010 RSV [...] No 04/12/2024 Does the household have a [facility] source of income? (Household - for [...] Info) Description 04/25/2024 11:15 AM EST Imaging Radiology[address] [address] 05/10/2024 2:00 PM EST Office Visit Podiatry [facility] [address] [place] [address] Coreen Gonzales, BRANDON [address] [place] [address] 05/16/2024 9:00 AM EST Office Visit Urology, [place] [address] [place] [address] Jonas Gupta MD [address] [place] [address] 06/25/2024 3:00 PM EST Nutrition Services Nutrition Services 65 [facility] [address] [place] [address] Mari Parra RDN 293 [place] [address] 06/25/2024 3:40 PM EST Office Visit Family Practice 65 [facility] [address] [place] [phone] Nirmala Alford, 293 [place] [address] 10/07/2024 2:00 PM EDT Nurse Only Family Practice [address] [facility], [place] 293 [place] [address] Betty Hartmann, JOE 293 [place] [place] [address] Scheduled Procedures Name Priority Associated Diagnoses [...] Advance Directives occurred with: Patient Care Teams Icu Manager Relationship Specialty Start Date End Date Nirmala Alford DO [address] [place] [address] PCP - General Family Medicine 01/23/24 documented as of this encounter
--- OUTSIDE RECORDS SUMMARY | 2024-06-16 23:42 | External Medical Summary ---
Author Name Unknown Address Unknown Organization K01:[facility] [place] [address] [facility] [address] [facility] [address] Laboratory Report Ordering Provider Test Date Status RENETTA SOLOMON 04/23/2024 14:55:18 Final Observation Date Value Abnormality Reference (Units ) Status WBC, Total 04/23/2024 14:55:18 6.49 4.00-10.80 (K/uL) Final RBC 04/23/2024 14:55:18 4.65 4.50-5.25 (M/uL) Final Hemoglobin 04/23/2024 14:55:18 11.9 Below low normal 14.0-16.8 (g/dL) Final HCT 04/23/2024 14:55:18 40.3 40.0-48.4 (%) Final MCV 04/23/2024 14:55:18 86.7 82.0-99.5 (fL) Final MCH 04/23/2024 14:55:18 25.6 27.0-34.0 (pg) Final MCHC 04/23/2024 14:55:18 29.5 32.0-36.0 (g/dL) Final RDW 04/23/2024 14:55:18 15.0 11.5-15.5 (%) Final Platelets 04/23/2024 14:55:18 216 140-400 (K/uL) Final MPV 04/23/2024 14:55:18 10.9 6.6-11.1 (fL) Final Nucleated erythrocytes/100 leukocytes [Ratio] in Blood by Automated count 04/23/2024 14:55:18 0 <=0 (/100 WBCs) Final Performing Location [facility] [place] [address] [facility] [address]
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
--- OUTSIDE RECORDS SUMMARY | 2024-06-16 23:42 | External Medical Summary | Summary of Care ---
Author Name Unknown Organization [facility] Address [address] [place] [address] Phone [phone] Care Team Providers Care Head Orthopedic Team Physician Name Role Phone JessicaNirmala ziegler Derrick LOCO Primary Care Provider Encounter Details Date Type Department Care Team (Late st Contact Info) Description 05/09/2024 12:00 PM EST Scheduled Telephone Care Coordination and Integration [address] [place] [address] Jag[facility] Head Correction Officer [address] [place] [address] Allergies Active Allergy Reactions Criticality Noted Date [...] mouth daily at noon. 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 04/07/20 23 Active Marion Rose In Vitro Strip (Glucose Blood) USE UP TO 4 TIMES A DAY DIRECTED 400 Strip 3 4 9:55 AM EST 06/01/20 23 Active Incruse Ellipta 62.5 MCG/ACT Inhalation Aerosol Powder Breath Activated (umeclidinium [place])Indicatio ns:Chronic obstructive pulmonary disease, unspecified COPD type [...] (Prevnar) 11/07/2014 Pneumococcal Conjugate Vacci ne, 20-valent ([id number]) 02/20/2024 Pneumococcal Polysaccharide PPV23 (Pneumovax) 09/07/2017,02/25/2010 RSV [...] Progress Notes * Jagr[facility] Head Correction Officer - 05/09/2024 11:58 AM EST Telemedicine visit: No Community [facility] Head Correction Officer (KATINA) documentation: CHW lorelei call week 4 per Imelda Hidalgo [facility]SSM [facility] documented in this encounter Plan of Treatment Upcoming Encounters Date Type Department Care Team (Late st Contact Info) Description 05/10/2024 2:00 PM EST Office Visit Podiatry [facility] 132 [facility] CHRISTOPHER RANGEL [address] Coreen Gonzales DPM [address] [place] [address] 05/16/2024 9:00 AM EST Office Visit Urology, [place] [address] [place] [address] Jonas Gupta MD [address] [place] [address] 06/25/2024 3:00 PM EST Nutrition Services Nutrition Services 65 [facility] 293 [place] [address] Mari Parra RDN 293 [place] [address] 06/25/2024 3:40 PM EST Office Visit Family Practice 65 [facility] 293 [place] [phone] Nirmala Alford DO 293 [place] [address] 10/07/2024 2:00 PM EDT Nurse Only Family Practice 65 [facility] 293 [place] [phone] Betty Hartmann, JOE 293 [place] [address] Scheduled Procedures Name Priority Associated Diagnoses [...] Advance Directives occurred with: Patient Care Teams Head Orthopedic Team Physician Relationship Specialty Start Date End Date Nirmala Alford DO [address] [facility] [place] [address] PCP - General Family Medicine 01/23/24 documented as of this encounter
--- OUTSIDE RECORDS SUMMARY | 2024-06-16 23:42 | External Medical Summary | Summary of Care ---
Author Name Unknown Organization [facility] Address [address] [place] [address] Phone [phone] Care Team Providers Care Roving Department Supervisor Name Role Phone JessicaNirmala ziegler Derrick LOCO Primary Care Provider Reason for Visit * Reason Onset Date Comments Other 04/19/2024 Encounter Details Date Type Department Care Team (Late st Contact Info) Description 04/19/2024 Telephone Care Coordination and Integration [address] [place], [place] [phone] Denise Castelan OSA [address] [place], [place] [phone] Other Allergies Active Allergy Reactions Criticality Noted Date Comments Alcohol 01/19/2023 Sugar Alcohol Lactose Intolerance 12/12/2005 documented as of this encounter (statuses as of 04/19/2024) Medications aspirin enteric coated 81 MG TBEC [...] daily E11.9 1 Kit 02/19/20 21 Active Magnesium Oxide 400 MG Oral Tablet Take 1 Tablet by mouth daily. 100 Tablet 3 07/04/19 23 Active Farxiga 10 MG Oral Tablet (Dapagliflozin Propanediol) Take 1 Tablet by mouth daily at noon. 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 30 Tablet 03/22/20 24 024 Active Docusate Sodium 100 MG Oral Capsule (Colace) Take 1 Capsule by mouth twice per day (morning, before bedtime). 10 Capsule 03/22/20 24 Active Additional Information Patient not taking.Reported on 04/12/2024 documented as of this encounter (statuses as of 04/19/2024) Active Problems Patient Care Coordination No te [...] as of this encounter (statuses as of 04/19/2024) Resolved Problems Problem Noted Date Diagnosed Date [...] as of this encounter (statuses as of 04/19/2024) Immunizations Name Administration Dates Next Due COVID-19 mRNA, LNP-s, No Pre serve, 2-Dose Series (Moderna) 09/07/2020,08/10/2020 COVID-19, LNP-s, No Preserve , Charlie-sucrose, Ages 12+ (Pfizer) 07/07/2021 COVID-19, MRNA-LNP, PF, 30 M CG/0.3 mL, 12 YRS AND ABOVE, IM ([facility]) 02/20/2024,04/14/2023 Covid-19, Mrna, Lnp-s, Pf, B ivalent, 30 Mcg, IM, 12 yrs and above (Pfizer) 08/19/2022 Pneumococcal Conjugate Vacc, 13 Valent (Prevnar) 11/07/2014 Pneumococcal Conjugate Vacci ne, 20-valent ([id number]) 02/20/2024 Pneumococcal Polysaccharide PPV23 (Pneumovax) 09/07/2017,02/25/2010 RSV [...] st Contact Info) Description 04/23/2024 1:10 PM EST Pharmacy Family Practice 65 [facility] 293 [place] [address] College, Pharmacist [address] [place] [address] 04/23/2024 1:40 PM EST Office Visit Family Practice 65 [facility] 293 [place] [address] Nirmala Alford DO 293 [place] [address] 05/10/2024 2:00 PM EST Office Visit Podiatry [facility] [address] [place] [address] Coreen Gonzales DPM [address] [place] [address] [place] [address] 05/16/2024 9:00 AM EST Office Visit Urology, [place] [address] [place] [address] Jonas Gupta MD [address] [place] [address] 06/25/2024 3:00 PM EST Nutrition Services Nutrition Services 65 [facility] 293 [place] [address] Mari Parra RDN [address] [place] [address] 06/25/2024 3:40 PM EST Office Visit Family Practice [address] [place] [phone] Nirmala Alford DO [address] [place] [address] 10/07/2024 2:00 PM EDT Nurse Only Family Practice [address] [place] [phone] Betty Hartmann, JOE [address] [place] [address] Scheduled Procedures Name Priority Associated [...] IN PAST YEAR FOR COPD 03/22/2025 03/22/2024 GFR 03/26/2025 03/26/2024, 03/06, 03/24/2024, Additional history exists Depression Screening 04/12/2025 04/12/2024, 09/29/2023, 09/29/2023 DTap/Tdap Vaccines (3 - Td or Tdap) [...] Advance Directives occurred with: Patient Care Teams Roving Department Supervisor Relationship Specialty Start Date End Date Nirmala lAford DO [address] [facility] [place] [address] PCP - General Family Medicine 01/23/24 documented as of this encounter
--- OUTSIDE RECORDS SUMMARY | 2024-06-16 23:42 | External Medical Summary | Summary of Care ---
Author Name Unknown Organization [facility] Address [address] [place] [address] Phone [phone] Care Team Providers Care Preparation Room Worker Name Role Phone JessicaNirmala ziegler Derrick LOCO Primary Care Provider Encounter Details Date Type Department Care Team (Late st Contact Info) Description 05/03/2024 10:15 AM EST Scheduled Telephone Care Coordination and Integration [address] [place] [address] Jagruti Jackson [facility]ist [address] [place] [address] Allergies Active Allergy Reactions Criticality Noted Date Comments Alcohol 01/19/2023 Sugar Alcohol Lactose Intolerance 12/12/2005 documented as of this encounter (statuses as of 05/03/2024) Medications aspirin enteric coated 81 MG TBEC [...] mouth daily at noon. -- getting through floral manager 04/07/20 23 Active Marion Rose In Vitro Strip (Glucose Blood) USE UP TO 4 TIMES A DAY DIRECTED 400 Strip 3 4 9:55 AM EST 06/01/20 23 Active Incruse Ellipta 62.5 MCG/ACT Inhalation Aerosol Powder Breath Activated (umeclidinium [place])Indicatio ns:Chronic obstructive pulmonary disease, unspecified COPD type [...] as of this encounter (statuses as of 05/03/2024) Active Problems Patient Care Coordination No te [...] as of this encounter (statuses as of 05/03/2024) Resolved Problems Problem Noted Date Diagnosed Date [...] as of this encounter (statuses as of 05/03/2024) Immunizations Name Administration Dates Next Due COVID-19 [...] (Prevnar) 11/07/2014 Pneumococcal Conjugate Vacci ne, 20-valent ([id number]) 02/20/2024 Pneumococcal Polysaccharide PPV23 (Pneumovax) 09/07/2017,02/25/2010 RSV [...] No 04/12/2024 Does the household have a [facility] source of income? (Household - for [...] Author No 03/22/2024 12:26 PM EDT Oz Rosario, JOE * Because of a physical, mental, or [...] Progress Notes * Jagruti Jackson [facility] Specialist - 05/03/2024 10:36 AM EST Telemedicine visit: No Community Health Inclusion Specialist (KATINA) documentation: [facility] lorelei call week 3 per Imelda Hidalgo [facility], [facility] Electronically signed by Jagruti Jackson [facility] Specialist at 05/03/2024 10:37 AM EST documented in this encounter Plan of Treatment Upcoming Encounters Date Type Department Care Team (Late st Contact Info) Description 05/10/2024 2:00 PM EST Office Visit Podiatry Health system [address] [place] [address] Coreen Gonzales, DPM [address] [place] [address] 05/16/2024 9:00 AM EST Office Visit Urology, [place] [address] [place] [address] Jonas Gupta MD [address] [place] [address] 06/25/2024 3:00 PM EST Nutrition Services Nutrition Services [address] [place] [address] [address] [place] [address] Mari Parra RDN [address] [place] [address] 06/25/2024 3:40 PM EST Office Visit Family Practice [facility] [address] [place] [phone] Nirmala Alford DO [address] [place] [address] 10/07/2024 2:00 PM EDT Nurse Only Family Practice [address] [facility] [address] [place] [phone] Betty Hartmann, JOE [address] [place] [address] Scheduled Procedures Name Priority Associated Diagnoses [...] Advance Directives occurred with: Patient Care Teams Preparation Room Worker Relationship Specialty Start Date End Date Nirmala Alford DO [address] [place] [address] PCP - General Family Medicine 01/23/24 documented as of this encounter
--- OUTSIDE RECORDS SUMMARY | 2024-06-16 23:42 | External Medical Summary ---
Author Name Unknown Address Unknown Organization K01:[facility] - [address] [place] [address] Laboratory Report Ordering Provider Test Date Status RENETTA SOLOMON 04/23/2024 14:55:18 Final Observation Date Value Abnormality Reference (Units ) Status Magnesium 04/23/2024 14:55:18 1.6 1.5-2.6 (m g/dL) Final Performing Location [facility] - [address] [place] [address]
--- OUTSIDE RECORDS SUMMARY | 2024-06-16 23:42 | External Medical Summary ---
Author Name Unknown Address Unknown Organization K01:[facility] - [address] [facility] [place] [address] Laboratory Report Ordering Provider Test Date Status RENETTA SOLOMON 04/23/2024 14:55:18 Final Observation Date Value Abnormality Reference (Units ) Status BUN 04/23/2024 14:55:18 25 Above high normal 6-20 (mg/dL) Final Creatinine 04/23/2024 14:55:18 0.9 0.6-1.2 (mg/dL) Final Glomerular filtration rate/1.73 sq M.predicted [Volume Rate/Area] in Serum, Plasma or Blood by Creatinine-based formula (CKD-EPI) 04/23/2024 14:55:18 88 >=60 (mL/min) Final eGFR is calculated based on the CKD-EPI 2020 equation. Sodium 04/23/2024 14:55:18 142 135-146 (m mol/L) Final Potassium 04/23/2024 14:55:18 3.9 3.5-5.1 (m mol/L) Final Cl 04/23/2024 14:55:18 101 98-107 (mm ol/L) Final CO2 04/23/2024 14:55:18 22 22-32 (mmo l/L) Final Anion gap 04/23/2024 14:55:18 19 Above high normal 7- 15 (mmol/L) Final Glucose 04/23/2024 14:55:18 209 Above high normal 70 -120 (mg/dL) Final Albumin 04/23/2024 14:55:18 4.1 3.8-5.0 (g /dL) Final AST (Aspartate aminotransferase) 04/23/2024 14:55:18 19 10-50 (U/L) Fin al Alk Phos 04/23/2024 14:55:18 55 35-130 (U/ L) Final Bilirubin, Total 04/23/2024 14:55:18 0.4 <=1 .2 (mg/dL) Final Calcium 04/23/2024 14:55:18 9.4 8.4-10.2 ( mg/dL) Final Protein 04/23/2024 14:55:18 6.4 6.0-8.3 (g /dL) Final ALT (Alanine aminotransferase) 04/23/2024 14:55:18 17 10-50 (U/L) Ilir ngo Performing Location [facility] - [address] [facility] [address]
--- OUTSIDE RECORDS SUMMARY | 2024-06-16 23:43 | External Medical Summary | Summary of Care ---
Author Name Unknown Organization [facility] Address [address] [place] [address] Phone [phone] Care Team Providers Care Manager Winter Name Role Phone Prashanth Nirmalajorgito Meza DO Primary Care Provider Reason for Visit * Auth/Cert Specialty Diagnoses / Procedures Referred By Eben samayoa Referred To Contact Diagnoses Acute urinary retention BPH with obstruction/lower urinary tract symptoms Bladder stone Acute urinary retention [R33.8] BPH with obstruction/lower urinary tract symptoms [N40.1, N13.8] Bladder stone [N21.0] Procedures REMOVAL OF PROSTATE (TURP) REMOVE SMALL BLADDER STONE, SIMPLE TRANSURETHRAL RESECTION PROSTATE ELECTROSURGICAL LITHOLAPAXY SIMPLE Jonas Gupta MD [address] [place] [address] Or Ip [facility] [address] [place] [address] Referral ID Status Reason Start Date Expiration Date Visits Re quested Visits Authorized [id number] Encounter Details Date Type Department Care Team (Latest Contact Info) Description 03/22/2024 6:25 AM EDT - 03/25/2024 8:21 PM EDT Hospital Encounter [facility], [facility] [address] [place] [address] Jonas Gupta MD [address] [place] [address] Discharge Disposition: SNF Allergies Active Allergy Reactions Criticality Noted Date Comments Alcohol 01/19/2023 Sugar Alcohol Lactose Intolerance 12/12/2005 documented as of this encounter (statuses as of 03/26/2024) Medications Medication Sig Dispensed Refills Start Date End Date Status aspirin enteric coated 81 MG TBEC Take 1 Tablet by mouth daily at noon. 100 Tab 3 12/26/2016 Active Multiple Vitamins-Minerals (MULTIVITAMIN ADULT) TABS Take 1 Tablet by mouth daily at noon. Active ONETOUCH ULTRASOFT LANCETS MISC Use as directed 4 times a day as needed for Hyperglycemia (high sugar) or Hypoglycemia (low sugar). E11.9 1 Box Dosing Unit 11 09/17/2018 Active OneTouch Verio w/Device Kit Use to test blood sugars daily E11.9 1 Kit 02/18/2021 Active Magnesium Oxide 400 MG Oral Tablet Take 1 Tablet by mouth daily. 100 Tablet 3 07/04/2022 Active Farxiga 10 MG Oral Tablet (Dapagliflozin Propanediol) Take 1 Tablet by mouth daily at noon. -- getting through infrastructure manager 04/07/2023 Active SensGardTouch Verio In Vitro Strip (Glucose Blood) USE UP TO 4 TIMES A DAY DIRECTED 400 Strip 3 06/01/2023 Active Incruse Ellipta 62.5 MCG/ACT Inhalation Aerosol Powder Breath Activated (umeclidinium [place])Indications :Chronic obstructive pulmonary disease, unspecified COPD type (HCC) INHALE ONE PUFF BY MOUTH EVERY MORNING 90 Each 3 06/17/2023 5 Active glipiZIDE 10 MG Oral Tablet (Glucotrol)Indicati ons:Type 2 diabetes mellitus with hemoglobin A1c goal of less than 8.0% (HCC) TAKE ONE TABLET BY MOUTH TWICE A DAY 30 MINUTES BEFORE MORNING AND EVENING MEALS 200 Tablet 3 07/09/2023 5 Active Atorvastatin Calcium 20 MG Oral Tablet (Lipitor)Indication s:Type 2 diabetes mellitus with hemoglobin A1c goal of less than 8.0% (HCC) TAKE ONE TABLET BY MOUTH DAILY 100 Tablet 3 07/31/2023 5 Active Omeprazole 20 MG Oral Capsule Delayed Release (PriLOSEC)Indicatio ns:Gastroesophageal reflux disease without esophagitis TAKE ONE CAPSULE BY MOUTH EVERY MORNING 1 HOUR BEFORE THE FIRST MEAL OF THE DAY FOR HEART BURN 100 Capsule 3 07/31/2023 5 Active Tamsulosin HCl 0.4 MG Oral Capsule (Flomax)Indications :BPH with obstruction/lower urinary tract symptoms TAKE TWO CAPSULES BY MOUTH EVERY DAY IN THE MORNING 180 Capsule 3 09/22/2023 5 Active Dexcom G7 Sensor Use as directed. 10/27/2023 Ac tive Ketoconazole 2 % External Cream Apply topically to affected area on both feet twice daily. 30 g 2 12/11/2023 Active Finasteride 5 MG Oral Tablet (Proscar) TAKE ONE TABLET BY MOUTH EVERY DAY IN THE MORNING 90 Tablet 6 12/18/2023 5 Active Methylphenidate HCl 10 MG Oral Tablet (Ritalin)Indication s:Attention deficit hyperactivity disorder (ADHD), predominantly inattentive type Take 1 Tablet by mouth 2 times a day. 60 Tablet 02/15/2024 Active metFORMIN HCl 850 MG Oral Tablet (Glucophage)Indicat ions:Type 2 diabetes mellitus with hemoglobin A1c goal of less than 8.0% ([facility]) TAKE ONE TABLET BY MOUTH THREE TIMES A DAY IN THE MORNING, AT NOON AND BEFORE BEDTIME 300 Tablet 1 03/19/2024 Active oxyBUTYnin Chloride ER 5 MG Oral Tablet Extended Release 24 Hour Take 1 Tablet by mouth in the morning. Take for bladder spasms and stent pain. 30 Tablet 03/22/2024 4 Active Docusate Sodium 100 MG Oral Capsule (Colace) Take 1 Capsule by mouth twice per day (morning, before bedtime). 10 Capsule 03/22/2024 Active Sennosides 8.6 MG Oral Tablet (Senokot) Take 1 Tablet by mouth twice per day (morning, before bedtime) for 10 days. 20 Tablet 03/22/2024 4 Active documented as of this encounter (statuses as of 03/26/2024) Active Problems Patient Care Coordination No te [...] diabetic retinopathy of right e ye 06/10/2022 Overview: See letter from Dr Mclean on 01/18/2022 [...] as of this encounter (statuses as of 03/26/2024) Resolved Problems Problem Noted Date Diagnosed Date Resolved Date COPD, group A, by GOLD 2017 classification 08/12/2019 06/16/2022 Overview: Per COPD GOLD Classification Attention deficit disorder w ithout hyperactivity 12/28/2018 01/13/2020 Overview: history Dyslipidemia, goal LDL below 100 09/14/2011 03/09/2018 Type 2 diabetes mellitus wit h hemoglobin A1c goal of less than 7.0% 01/31/2011 11/28/2017 Overview: Per Diabetes Protocol #22 ICD-10 update of inactive term Attention deficit hyperactiv ity disorder (ADHD) 11/05/2009 12/28/2018 Dyslipidemia, goal LDL below 160 04/08/2009 05/20/2009 Overview: Per Lipid Taxonomy. ADVANCE DIRECTIVE INFORMATION 02/28/2005 03/09/2018 Overview: No, Advance Directive brochure given to patient at prior appointment. Tobacco use disorder 018 documented as of this encounter (statuses as of 03/26/2024) Immunizations Name Administration Dates Next Due COVID-19 mRNA, LNP-s, No Pre serve, 2-Dose Series (Moderna) 09/07/2020,08/10/2020 COVID-19, LNP-s, No Preserve , Charlie-sucrose, Ages 12+ (Pfizer) 07/07/2021 COVID-19, MRNA-LNP, 23-24, P F, 30 MCG/0.3 mL, 12 YRS AND ABOVE, IM ([facility]) 04/14/2023 COVID-19, MRNA-LNP, 24-25, P R, 30MCG/0.3ML, IM, 12YRS AND ABOVE ([facility]) 02/20/2024 Covid-19, Mrna, Lnp-s, Pf, B ivalent, 30 Mcg, IM, 12 yrs and above (Pfizer) 08/19/2022 Pneumococcal Conjugate Vacc, 13 Valent (Prevnar) 11/07/2014 Pneumococcal Conjugate Vacci ne, 20-valent ([id number]) 02/20/2024 Pneumococcal Polysaccharide PPV23 (Pneumovax) 09/07/2017,02/25/2010 RSV [...] Answer Date Recorded PHQ Adult Total Score 4 09/29/2023 Hunger Vital Sign Answer Date Recorded Within the past 12 months, y ou worried that your food would run out before you got the money to buy more. Never true 04/14/20 23 Within the past 12 months, t he food you bought just didn't last and you didn't have money to get more. Never true 04/14/2023 Childcare Answer Date Recorded Do you feel overwhelmed with taking care of a child, family member or friend? No 04/14/2023 Does your family need help f inding childcare? (Household - for ages 0-17 years) Not on file 04/14/2023 Clothing Answer Date Recorded Have you been unable to get clothing when it was really needed? No 04/14/2023 Is your family able to get c lothes or diapers when needed? (Household - for ages 0-17 years) Not on file 04/14/2023 Personal Safety Answer Date Recorded Do you feel unsafe or have concerns for your saf ety? No 04/14/2023 Do you have concerns for you r family's safety? (Household - for ages 0-17 years) Not on file 04/14/2023 Utilities Answer Date Recorded Do you have trouble paying y our heating, water, or electric bill? No 04/14/2023 Is your family able to pay t he heat, water, or electric bill? (Household - for ages 0-17 years) Not on file 04/14/2023 Does your family have access to good internet? (Household - for ages 0-17 years) Not on file 04/14/2023 Employment Status Answer Date Recorded Are you unemployed or without regular income? No 04/14/2023 Does the household have a re gular source of income? (Household - for ages 0-17 years) Not on file 04/14/2023 Social Connections Answer Date Recorded How often do you feel lonely or isolated from those around you? Sometimes 04/14/2023 Financial Resource Strain Answer Date R ecorded Do you have any trouble payi ng for your medications, or do you think you might in the future? No 04/14/2023 Does your family have troubl e paying for medicine? (Household - for ages 0-17 years) Not on file 04/14/2023 Transportation Needs Answer Date Record ed READ ONLY Do you have troubl e getting a ride to medical visits or work? Never True 04/14/2023 Does your family have a hard time getting a ride to doctors visits? (Household - for ages 0-17 years) Not on file 04/14/2023 Has lack of transportation k ept you from medical appointments, meetings, work, or from getting things needed for daily living? Check all that apply. (Adult - for ages 18 years and over) Not on file 04/14/2023 Do you (or your family) have trouble finding or paying for a ride (transportation)? (Household - for ages 0-17 years) Not on file 04/14/2023 Housing Stability Answer Date Recorded Do you currently live in a s helter or have no steady place to sleep at night? No 04/14/2023 READ ONLY Do you think you a re at risk of becoming homeless? No 04/14/2023 Does your family worry about paying for your home or becoming homeless? (Household - for ages 0-17 years) Not on file 1 06/14/2022 Are you homeless or worried that you might be in the future? (Adult - for ages 18 years and over) Not on file Are you (or your family) christoph eless or worried that you might be in the future? (Household - for ages 0-17 years) Not on file Food Insecurity Answer Date Recorded Do you need food for this week? No 04/14/2023 Are you able to get enough f ood for your family? (Household - for ages 0-17 years) Not on file 04/14/2023 Does your family need food t his week? (Household - for ages 0-17 years) Not on file 04/14/2023 Do you always have enough fo od for your family? (Household - for ages 0-17 years) Not on file 04/14/2023 Sex and Gender Information Value Date Recorded Sex Assigned at Male 10/05/2018 12:49 PM EDT Gender Identity Male 10/05/2018 12:49 PM EDT Sexual Orientation Straight 10/05/2018 12 :49 PM EDT Job Start Date Occupation Industry Not on file Not on file Not on file documented as of this encounter Last Filed Vital Signs Vital Sign Reading Time Taken Comments Blood Pressure 121/43 03/25/2024 2:07 PM EDT Pulse 76 03/25/2024 2:07 PM EDT Temperature 36.4 C (97.5 F) 03/25/2024 2:07 PM ED T Respiratory Rate 18 03/25/2024 2:07 PM EDT Oxygen Saturation 96% 03/25/2024 2:07 PM EDT Inhaled Oxygen Concentration - - Weight 81.6 kg (179 lb 12.8 oz) 03/24/2024 6:40 AM EDT Height 175.3 cm (5' 9") 03/22/2024 12:0 7 PM EDT Body Mass Index 26.55 03/22/2024 12:07 PM EDT documented in this encounter Functional Status Functional Status Response Date of Assess ment Are you deaf or do you have serious difficulty hearing? 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 No hearing aids 03/22/2024 Are you blind or do you have serious difficulty seeing, even when wearing glasses? No 03/22/2024 Do you have serious difficul ty walking or climbing stairs? (5 years old or older) Yes 03/22/2024 Do you have difficulty dress ing or bathing? (5 years old or older) No 03/22/2024 Because of a physical, menta l, or emotional condition, do you have difficulty doing errands alone such as visiting a doctor s office or shopping? (15 years old or older) Yes 03/22/2024 Cognitive Status Response Date of Assessm ent Because of a physical, menta l, or emotional condition, do you have serious difficulty concentrating, remembering, or making decisions? (5 years old or older) Yes 03/22/2024 documented as of this encounter Discharge Summaries * Mary Brar MD - 03/25/2024 12:29 PM EDT UROLOGY DISCHARGE SUMMARY Name: Kamlesh Nair Jr. Sex: male Age: [age] year old Admission Date: 03/22/2024 Discharge Date: 03/25/2024 DISCHARGE DIAGNOSES: Active Hospital Problems Diagnosis Acute urinary retention BPH with obstruction/lower urinary tract symptoms Bladder stone Resolved Hospital Problems No resolved problems to display. Other Significant Diagnoses: Past Medical History: Diagnosis Date ADHD COPD (chronic obstructive pulmonary disease) ([facility]) DM2 (diabetes mellitus, type 2) ([facility]) Dyslipidemia Emphysema, unspecified ([facility]) GERD (gastroesophageal reflux disease) CONDITION ON DISCHARGE: Stable Cognition: Normal DISPOSITION ON DISCHARGE: Home FOLLOW-UP: Future Appointments Appt Date/Time Provider Department 03/29/2024 10:30 AM [place]03/2024 3:00 PM Coreen Gonzales DPM Podiatry [facility] 05/16/2024 9:00 AM [facility]as [facility] 06/25/2024 3:00 PM Mari Parra RDN Nutrition Services [address] [place] [address] 06/25/2024 3:40 PM Nirmala Jackson DO [address] 10/07/2024 2:00 PM Betty Hartmann RN [address] Inpatient test results pending: surgical pathology MEDICATIONS ON DISCHARGE: MEDICATION UPDATES AT DISCHARGE START taking these medications INSTRUCTIONS Docusate Sodium 100 MG Capsule Commonly known as: Colace Take 1 Capsule by mouth in the morning and 1 Capsule before bedtime. oxybutynin XL 5 MG Tb24 Commonly known as: Ditropan XL Take 1 Tablet by mouth in the morning. Take for bladder spasms and stent pain. senna Tablet Commonly known as: Senokot Take 1 Tablet by mouth in the morning and 1 Tablet before bedtime. Do all this for 10 days. CONTINUE taking these medications INSTRUCTIONS aspirin enteric coated 81 MG Tbec Take 1 Tablet by mouth daily at noon. atorvaSTATin 20 MG Tablet Commonly known as: Lipitor TAKE ONE TABLET BY MOUTH DAILY Farxiga 10 MG Tabs Generic drug: Dapagliflozin Propanediol Take 1 Tablet by mouth daily at noon. -- getting through infrastructure manager Finasteride 5 MG Tablet Commonly known as: Proscar TAKE ONE TABLET BY MOUTH EVERY DAY IN THE MORNING glipiZIDE 10 MG Tablet Commonly known as: Glucotrol TAKE ONE TABLET BY MOUTH TWICE A DAY 30 MINUTES BEFORE MORNING AND EVENING MEALS INCRUSE ellipta 62.5 MCG/ACT Aepb Generic drug: umeclidinium [place] INHALE ONE PUFF BY MOUTH EVERY MORNING Ketoconazole 2 % cream Apply topically to affected area on both feet twice daily. Magnesium Oxide 400 MG Tablet Take 1 Tablet by mouth daily. metFORMIN 850 MG Tablet Commonly known as: Glucophage TAKE ONE TABLET BY MOUTH THREE TIMES A DAY IN THE MORNING, AT NOON AND BEFORE BEDTIME methylPHENIDATE 10 MG Tablet Commonly known as: Ritalin Take 1 Tablet by mouth 2 times a day. Multivitamin Adult Tabs Take 1 Tablet by mouth daily at noon. omeprazole 20 MG Cpdr Commonly known as: PriLOSEC TAKE ONE CAPSULE BY MOUTH EVERY MORNING 1 HOUR BEFORE THE FIRST MEAL OF THE DAY FOR HEART BURN OneTouch UltraSoft Lancets Misc Use as directed 4 times a day as needed for Hyperglycemia (high sugar) or Hypoglycemia (low sugar).E11.9 OneTouch Verio Strp Generic drug: Glucose Blood USE UP TO 4 TIMES A DAY DIRECTED OneTouch Verio w/Device Kit Use to test blood sugars daily E11.9 tamsulosin 0.4 MG Capsule Commonly known as: Flomax TAKE TWO CAPSULES BY MOUTH EVERY DAY IN THE MORNING CONTINUE taking these medications but follow up with your Primary Care Physician (PCP). INSTRUCTIONS Dexcom G7 Sensor Misc Use as directed. ALLERGIES: Alcohol and Milk [lactose intolerance] ADMISSION HISTORY & PHYSICAL EXAM (focused): Kamlesh Nair Jr. is a 79 year old male who presents today for TURP and cystolithalopaxy. Clinical history as detailed below: "78 year old male with BPH and mixed LUTS, primarily weak stream, urgency, and urge incontinence. The patient underwent office cystoscopy which revealed wide caliber bulbar stricture and significant bilateral hyperplasia of the lateral lobes. The patient was recommended to proceed with an outlet procedure and he elected to proceed with TURP" The patient reports no interval changes in health since last seen in clinic. Anticoagulation: none HOSPITAL COURSE (focused): Kamlesh Nair Jr. is a 79 year old male admitted to [facility] on 03/22/2024 following the operation listed below. The operation was performed without complication and he was transferred postoperativelyto the floor in stable condition. On POD 1 he continued to do well clinically and progressed appropriately. He remained in the hospital for the next 3 days pending SNF placement. On day of discharge the patient was stable for discharge and he was discharged to home with appropriate medications, postoperative instructions and follow-up arrangements. Prior to discharge, the patient was able to tolerate a diet, ambulate without difficulty, and have adequate pain control. Operations & Procedures: TRANSURETHRAL RESECTION PROSTATE ELECTROSURGICAL LITHOLAPAXY SIMPLE Complications: None significant SIGNIFICANT RESULTS: Vital Signs (last recorded): Most Recent Systolic BP: 109 mmHg (03/22/24 1000) Most Recent Diastolic BP: 49 mmHg (03/22/24 1000) Pulse: 56 (03/22/24 1000) Resp: 14 (03/22/24 1000) Most Recent Temperature: 36 C (03/22/24 0945) Weight: 78.5 kg (173 lb) (03/22/24 0630) SpO2: 96 % (03/22/24 1000) O2 flow rate: 0 L/MIN (03/22/24 1000) Labs: CHEMISTRY: BUN, Creatinine, GFR Estimated, Sodium, Potassium, Chloride, Carbon Dioxide, Glucose, Calcium (see below for most recent value): Lab Results Component Value Date/Time BUN 22 (H) 03/22/2024 09:35 AM BUN 19 01/14/2020 09:14 AM CREAT 0.7 03/22/2024 09:35 AM CREAT 1.0 01/14/2020 09:14 AM GFRESTIMATED >60.0 01/14/2020 09:14 AM NA 138 03/22/2024 09:35 AM NA 139 01/14/2020 09:07 AM POTASSIUM 3.8 03/22/2024 09:35 AM POTASSIUM 4.4 01/14/2020 09:07 AM CL 103 03/22/2024 09:35 AM CL 101 01/14/2020 09:07 AM CO2 25 03/22/2024 09:35 AM CO2 23 01/14/2020 09:07 AM CA 8.3 (L) 03/22/2024 09:35 AM CA 9.7 01/14/2020 09:07 AM COAGS: PT, INR (see below for three most recent values): No results found for: "PATINR", "INR" BLOOD COUNT: WBC, Hgb, Platelets (see below for most recent value): Lab Results Component Value Date/Time WBC 3.79 (L) 03/22/2024 09:35 AM WBC 5.94 12/28/2018 10:53 AM HGB 10.9 (L) 03/22/2024 09:35 AM HGB 13.2 (L) 12/28/2018 10:53 AM PLT 102 (L) 03/22/2024 09:35 AM PLT 162 12/28/2018 10:53 AM HEMOGLOBIN: Hgb (see below for last three most recent values): Lab Results Component Value Date/Time HGB 10.9 (L) 03/22/2024 09:35 AM HGB 12.6 (L) 03/08/2024 08:55 AM HGB 13.4 (L) 01/12/2023 03:59 PM HGB 13.2 (L) 12/28/2018 10:53 AM HGB 12.7 (L) 09/25/2018 11:45 AM HGB 11.4 (L) 11/20/2017 02:58 PM Imaging (focused): No significant imaging No orders to display CONSULTS ORDERED: None REFERRING PHYSICIAN: REF: NIRMALA JACKSON PRIMARY CARE PROVIDER: PCP: NIRMALA JACKSON [address] [place] [address] [phone] Note: To contact a physician responsible for this patients hospital care, please call [facility] [phone]. Mary Brar MD PGY1 | [facility] Urology documented in this encounter Discharge Instructions * Discharge Instr - AVS* Mary Brar MD - 03/22/2024 10:18 AM EDT Discharge Date: 03/25/[address] Gupta of the Department of Urology at [phone] during business hours for any questions or test results. For after hours emergencies call [phone] and have the doctor on callpaged. Call your doctor right away or go to the ER if you have any of the following: Fever above 100.2F Pain or cramping in the abdomen that won't go away Check your Patient Education Brochure for further information. [facility] is available 24 hours a dayat . The information below provides you with the instructions and the list of medications you need to betaking following discharge from the hospital. If you have any questions, please ask before leaving.Please carry this letter with you when you see your doctor in the clinic. If you have questions, you can reach us at the numbers above. Brief summary of your inpatient care: You were treated for enlarged prostate You have had a procedure called a Transurethral Resection of Prostate (TURP) Anticoagulation: You may resume your blood thinner aspirin once your crow catheter is removed. Home Care: Take care of your catheter the way you were shown in the hospital. The nursing staff will instruct you on the care of your catheter and the use of a leg bag. It is recommended that you use a leg bag during the day and the large drainage bag at night. Remember to keep the bag to gravity drainage, the bag should be lower than your lower abdominal area Avoid tension on the catheter by keeping the leg strap high on your thigh. Apply KY or similar water based lubricant at the catheter insertion site if any irritation occurs. Don't be alarmed by light red blood, or clots, in your urine. It can be normal to see blood in the urine for the next several weeks - this is expected. This is a result of the procedure. If clots areso numerous, or large, that urine does not flow call us right away. Drink plenty of fluids during the day (enough to keep your urine very light colored). This will help keep a healthy flow of urine. Don't do any heavy lifting for two weeks after the procedure. Slowly resume activities as toleratedand plenty of rest after surgery to support your recovery. Do not lift heavier than 10 pounds until after your crow catheter is removed. Walking at least 100 feet three times a day is encouraged. Once your catheter is removed, expect some blood in your urine and some burning when you urinate. If you take any blood thinners you may resume your blood thinners after your crow catheter removal. Post Operative Pain Control: Take Tylenol 975 every 8 hrs (dosage), no more than 4000 mg in 24 hr. Decrease as tolerated after you are no longer having pain / no longer using Oxycodone. Ibuprofen: you can take this medication scheduled as instructed over the counter - do not use this if you have problems with acid reflux and heart burn. Take this medication staggered between your Tylenol doses, take according to manufacture instructions and limitations. Pain medication has been prescribed for bladder spasms called oxybutynin. Take 5mg once a day. DISCONTINUE DITROPAN/OXYBUTYNIN AT LEAST 48 HOURS BEFORE YOUR CROW REMOVAL IT MAY INCREASE YOUR RISKOF URINARY RETENTION AND CAUSE YOU TO FAIL YOUR VOID TRIAL IN CLINIC Follow-Up: Our office will call you for follow up to remove the catheter on 03/29/24. Another appointment has been made on 05/16/[address] Gupta to review your symptoms. Call us at [phone] if you do not hear back in the next 3 days. Future Appointments-next 60 days Date/Time Provider Specialty Dept Phone 03/29/2024 10:30 AM Nurse John Urology Urology [phone] 04/03/2024 3:00 PM (Arrive by 2:45 PM) Coreen Gonzales DPM Podiatry [phone] 05/16/2024 9:00 AM Jonas Gupta MD Urology [phone] 06/25/2024 3:00 PM (Arrive by 2:45 PM) Mari Parra RDN Nutrition Services [phone] 06/25/2024 3:40 PM (Arrive by 3:25 PM) Nirmala Jackson DO Family Medicine [phone] 10/07/2024 2:00 PM Betty Hartmann, stencil machine operator Medicine [phone] documented in this encounter H&P Notes * Razia Stack MD - 03/22/2024 7:21 AM EDT History and Physical - Urology [facility] [address] Name: Kamlesh Nair Jr. Location: Room/bed info not found Date: 03/22/24 HPI: Kamlesh Nair Jr. is a 79 year old male who presents today for TURP and cystolithalopaxy. Clinical history as detailed below: "78 year old male with BPH and mixed LUTS, primarily weak stream, urgency, and urge incontinence. The patient underwent office cystoscopy which revealed wide caliber bulbar stricture and significant bilateral hyperplasia of the lateral lobes. The patient was recommended to proceed with an outlet procedure and he elected to proceed with TURP" The patient reports no interval changes in health since last seen in clinic. Anticoagulation: none PAST MEDICAL HISTORY: Past Medical History: Diagnosis Date ADHD COPD (chronic obstructive pulmonary disease) (HCC) DM2 (diabetes mellitus, type 2) (HCC) Dyslipidemia Emphysema, unspecified (HCC) GERD (gastroesophageal reflux disease) PAST SURGICAL HISTORY: Past Surgical History: Procedure Laterality Date COLONOSCOPY W/ BIOPSY (RECTUM) 06/23/2009 done diverticulosis, one polyp at 20cm proximal to anus PARTIAL AMPUTATION OF TOE Right right middle toe- REMOVAL OF TONSILS, UNDER AGE 14 FAMILY HISTORY: Family History Problem Relation Name Age of Onset Arthritis Mother 77 years old in 2005, now 85 Other (alzheimers) Father at age 84 SOCIAL HISTORY: Social History Tobacco Use Smoking status: Former Current packs/day: 0.00 Average packs/day: 0.5 packs/day for 30.0 years (15.0 ttl pk-yrs) Types: Cigarettes Start date: 11/19/1987 Quit date: 11/18/2017 Years since quittin.3 Passive exposure: Past Smokeless tobacco: Never Vaping Use Vaping status: Never Used Substance Use Topics Alcohol use: No Comment: rarely Drug use: No ALLERGIES: Alcohol and Milk [lactose intolerance] HOME MEDS: Prior to Admission medications Medication Sig Last Dose Discont. metFORMIN HCl 850 MG Oral Tablet (Glucophage) TAKE ONE TABLET BY MOUTH THREE TIMES A DAY IN THE MORNING, AT NOON AND BEFORE BEDTIME Past Week Methylphenidate HCl 10 MG Oral Tablet (Ritalin) Take 1 Tablet by mouth 2 times a day. Past Week Finasteride 5 MG Oral Tablet (Proscar) TAKE ONE TABLET BY MOUTH EVERY DAY IN THE MORNING Past Week Ketoconazole 2 % External Cream Apply topically to affected area on both feet twice daily. Past Week Tamsulosin HCl 0.4 MG Oral Capsule (Flomax) TAKE TWO CAPSULES BY MOUTH EVERY DAY IN THE MORNING Past Week Atorvastatin Calcium 20 MG Oral Tablet (Lipitor) TAKE ONE TABLET BY MOUTH DAILY Past Week Omeprazole 20 MG Oral Capsule Delayed Release (PriLOSEC) TAKE ONE CAPSULE BY MOUTH EVERY MORNING 1 HOUR BEFORE THE FIRST MEAL OF THE DAY FOR HEART BURN Past Week glipiZIDE 10 MG Oral Tablet (Glucotrol) TAKE ONE TABLET BY MOUTH TWICE A DAY 30 MINUTES BEFORE MORNING AND EVENING MEALS Past Week Incruse Ellipta 62.5 MCG/ACT Inhalation Aerosol Powder Breath Activated (umeclidinium [place]) INHALE ONE PUFF BY MOUTH EVERY MORNING Past Week OneTouch Verio In Vitro Strip (Glucose Blood) USE UP TO 4 TIMES A DAY DIRECTED Past Week Farxiga 10 MG Oral Tablet (Dapagliflozin Propanediol) Take 1 Tablet by mouth daily at noon. 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 Past Week OneTouch Verio w/Device Kit Use to test blood sugars daily E11.9 Past Week Multiple Vitamins-Minerals (MULTIVITAMIN ADULT) TABS Take 1 Tablet by mouth daily at noon. Past Week ONETOUCH ULTRASOFT LANCETS MISC Use as directed 4 times a day as needed for Hyperglycemia (high sugar) or Hypoglycemia (low sugar). E11.9 Past Week aspirin enteric coated 81 MG TBEC Take 1 Tablet by mouth daily at noon. Past Week Dexcom G7 Sensor Use as directed. Patient not taking: Reported on 02/20/2024 REVIEW OF SYSTEMS: Pertinent +/- in HPI PHYSICAL EXAMINATION: Most Recent Vital Signs: BP: 119 mmHg/54 mmHg (03/22/24704) Pulse: 68 (03/22/24704) Resp: 16 (03/22/24704) Temp: 36.22 C (03/22/24704) Temp Summary: Temp Min: 36.2 C (97.2 F) Max: 36.2 C (97.2 F) SpO2: 97 % (03/22/24704) O2 flow rate: Supplemental O2 Delivery: Room Air, None (03/22/24704) GEN: NAD, awake, alert and responsive HEAD: Normocephalic, atraumatic CV: Regular rate CHEST: Normal WOB on RA ABDOMEN: soft non tender EXT: No deformities : none NEURO: grossly intact PSYCH: normal affect LAB LINKS:Labs reviewed as indicated below: CBC Lab Results Component Value Date/Time WBC 6.29 03/08/2024 08:55 AM WBC 5.94 12/28/2018 10:53 AM HGB 12.6 (L) 03/08/2024 08:55 AM HGB 13.2 (L) 12/28/2018 10:53 AM HCT 41.6 03/08/2024 08:55 AM HCT 42.6 12/28/2018 10:53 AM PLT 138 (L) 03/08/2024 08:55 AM PLT 162 12/28/2018 10:53 AM BMP Lab Results Component Value Date/Time NA 137 03/08/2024 08:55 AM NA 139 01/14/2020 09:07 AM POTASSIUM 4.3 03/08/2024 08:55 AM POTASSIUM 4.4 01/14/2020 09:07 AM CL 101 03/08/2024 08:55 AM CL 101 01/14/2020 09:07 AM CO2 25 03/08/2024 08:55 AM CO2 23 01/14/2020 09:07 AM BUN 22 (H) 03/08/2024 08:55 AM BUN 19 01/14/2020 09:14 AM CREAT 0.8 03/08/2024 08:55 AM CREAT 1.0 01/14/2020 09:14 AM IMAGING: No orders to display IMPRESSION: Kamlesh Nair Jr. 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 [facility] G218/A General Internal Medicine Consult IP Consult performed by: Michael Ríos MD Consult ordered by: Tessa Alarcon MD REASON FOR CONSULT: " Hyperglycemia - recs for dc meds" REQUESTOR OF CONSULT: Urology HPI: Kamlesh Nair Jr. is a 79 year old male with PMH significant for type 2 diabetes mellitus (A1c 7.8 in March 24, 2024), COPD, ADHD, BPH admitted for TURP and removal of bladder stone (4Dr. Alonso). Hospital Medicine consulted for management of hyperglycemia in the setting of diabetes. Since surgery patient has had blood sugars 190 - 360 range, mostly in the 300s. On sliding scale insulin. Patient states he is surprised his blood sugars have been high recently. At home his blood sugars in the 130-160 range. Patient states he does not like the food here and has not been eating well. Endorses having a good appetite. Denies any dyspnea, chest discomfort, any history of heart problems. Was hoping to be discharged home immediately after surgery however now is considering the possibilityof going to SNF. Subjective Patient's past history, medications, and allergies were reviewed. Objective Physical Exam Most Recent Vital Signs: BP: 128 mmHg/48 mmHg (03/24/24125) Pulse: 74 (03/24/24125) Resp: 18 (03/24/24125) Temp: 36.22 C (03/24/24125) Temp Summary: Temp Min: 36.2 C (97.2 F) Max: 37.3 C (99.1 F) SpO2: 96 % (03/24/24125) O2 flow rate: 0 L/MIN (03/22/24 1100) Supplemental O2 Delivery: Room Air, None (03/24/24125) BP: 125 mmHg/49 mmHg (03/24/24727) Pulse: 74 (03/24/24727) Resp: 18 (03/24/24727) Temp: 36.78 C (03/24/24727) Temp Summary: Temp Min: 36.2 C (97.2 F) Max: 37.3 C (99.1 F) SpO2: 94 % (03/24/24727) O2 flow rate: 0 L/MIN (03/22/24 1100) Supplemental O2 Delivery: Room Air, None (03/24/24727) Most Recent Systolic BP Av.3 mmHg Min: 101 mmHg Max: 128 mmHg Most Recent Temperature Av.9 C Min: 36.22 C Max: 37.28 C Pulse Av.2 Min: 72 Max: 90 Resp Av.7 Min: 17 Max: 18 SpO2 Av.3 % Min: 91 % Max: 96 % General: elderly gentleman, reclined in bed, no acute distress CV: regular rate & rhythm, no murmur Pulm: non-labored, clear to auscultation bilaterally without wheezes/crackles/rhonchi GI: soft, non-tender, non-distended, no rigidity or guarding Ext: warm & well-perfused, no edema Skin: no significant rash or wound on limited skin exam Neuro: alert, normal speech & comprehension - weak with attempting to sit up on his own Lines/Drains/Airways: Continuous Bladder Irrigation Triple lumen (Active) Number of days: 2 Urethral Catheter (Active) Number of days: 2 Peripheral Line Right 20 Gauge (Active) Number of days: 2 STUDIES: Encounter Orders Labs and other studes reviewed with pertinent findings noted below: Cr 0.7-0.8 BG's 220-360 Hgb 10.5 (10-11) MCV 85 Plt 106 (100-130) Assessment and Plan IMPRESSION: Active Problems: Acute urinary retention BPH with obstruction/lower urinary tract symptoms Bladder stone Resolved Problems: * No resolved hospital problems. * Kamlesh Nair Jr. is a 79 year old male with PMH significant for type 2 diabetes mellitus (A1c 7.8 in March 24, 2024), COPD, ADHD, BPH admitted for TURP and removal of bladder stone (4Dr. Alonso). Hospital Medicine consulted for management of hyperglycemia in the setting of diabetes. RECOMMENDATIONS: T2DM Hyperglycemia - likely stress-induced as well as related to not taking his usual 3 oral diabetes meds Insulin to carb ratio of 1:10 added by me Continue high-dose sliding scale for now, though with addition of nutritional insulin anticipate improved glycemic control Continue holding HAT SIZER metformin, glipizide, Farxiga while inpatient - recommend resuming these 3 meds at HAT SIZER doses at time of discharge Recommend patient keeping blood sugar log at home and following up with PCP Discussed with primary team this AM Thank you for allowing Hospital Medicine to participate in the care of this patient. Hospital Medicine will continue to follow. Please page [facility] Consults Hospitalists on [employer] with anyquestions. I spent a total of 45 minutes coordinating, documenting, and providing care for this patient excluding time spent in the performance of separately billed services or time spent by another provider/QHP. * Alicia Arora, OT - 03/23/2024 1:30 PM EDTAssociated Order(s): ADULT OCCUPATIONAL THERAPY CONSULT IP GENERAL EVALUATION - Occupational Therapy [address] [id number] Name: Kamlesh Nair Jr. Location: [facility] G218/A Date: 03/23/2024 Time: 1:30 PM Kamlesh Nair Jr. is a 79 year old male. Patient Status: SORU (23 hr Surgical Overnight) Insurance: Payor: Work Market Plan: Work Market CLASSIC 1 PART D -LD Product Type: *No Product type* Patient Seen: at bedside, nursing cleared patient for therapy Patient Identified By: Name, ID Band and Date Diagnosis: Benign prostatic hypertrophy with bladder outlet obstruction, s/p TURp (03/23/241246) Status of treatment: Evaluation completed (03/23/241246) Orders: OT evaluation and treatment (03/23/241246) Weight Bearing Status: Weight bearing as tolerated (03/23/241246) Precautions: Alarms;Falls;Crow;Safety (03/23/241246) Total Treatment Time: 20 (03/23/241246) Per [facility] note: "Kamlesh Nair Jr. is a 79 year old male who presents today for TURP and cystolithalopaxy. Clinical history as detailed below: "78 year old male with BPH and mixed LUTS, primarily weak stream, urgency, and urge incontinence. The patient underwent office cystoscopy which revealed wide caliber bulbar stricture and significant bilateral hyperplasia of the lateral lobes. The patient was recommended to proceed with an outlet procedure and he elected to proceed with TURP" The patient reports no interval changes in health since last seen in clinic." OPERATION: 1. Cystoscopy and Transurethral Bipolar Resection of the prostate 2. Removal of the bladder stone 3. Urethrotomy with anthony urethrotome 4. Crow Catheter Placement Past Medical History: Past Medical History: Diagnosis Date ADHD COPD (chronic obstructive pulmonary disease) (HCC) DM2 (diabetes mellitus, type 2) (HCC) Dyslipidemia Emphysema, unspecified (HCC) GERD (gastroesophageal reflux disease) Past Surgical History: Past Surgical History: Procedure Laterality Date COLONOSCOPY W/ BIOPSY (RECTUM) 06/23/2009 done diverticulosis, one polyp at 20cm proximal to anus PARTIAL AMPUTATION OF TOE Right right middle toe- REMOVAL OF TONSILS, UNDER AGE 14 Social History/Disposition Lives with: Alone (03/23/241246) Assistance available: Yes (limited) (03/23/241246) Dwelling type: Multi-story home (03/23/241246) Entry steps: 3 (03/23/241246) Inside steps: None (03/23/241246) Bedroom location: 1st floor (03/23/241246) Bath location: 1st floor full bath (03/23/241246) Prior Level of Function Reported by: Patient (03/23/241246) Ambulation: Ambulatory with device (03/23/241246) Ambulatory Device: Cane (03/23/241246) Grooming: Independent (03/23/241246) Bathing: Independent (03/23/241246) Dressing: Independent (03/23/241246) Feeding: Independent (03/23/241246) Toileting: Independent (03/23/241246) Meal Prep: Independent (03/23/241246) Homemaking: Independent (03/23/241246) Shopping: Independent (03/23/241246) Medication Management: Independent (03/23/241246) Money Management: Independent (03/23/241246) Driving: Yes (03/23/241246) Durable Medical Equipment at home: Rolling walker;Straight cane;Shower chair (03/23/241246) Pain: No complaints of pain Observations Consciousness: Alert (03/23/241246) Orientation: Oriented times 4 (03/23/241246) Psychosocial: Patient can communicate basic needs;Patient can converse in a social setting (03/23/241246) Sitting posture: Forward head;Rounded shoulders (03/23/241246) Standing posture: Forward head;Rounded shoulders (03/23/241246) Safety awareness: Needs cueing supervision.;The Patient can communicate basic needs. (03/23/241246) Other Findings Endurance: Fair (03/23/241246) Light touch sensation: LUE;RUE;Intact (03/23/241246) Coordination: LUE;RUE;Intact (03/23/241246) Current Functional Status: Bilateral Upper Extremity Range of Motion: WFL (03/23/241246) Self Care Able to provide self care: Yes (03/23/241246) Feeding: Supervision (Please comment) (03/23/241246) Grooming: Supervision (Please comment) (to wash face after setup while seated) (03/23/241246) Dressing Upper Body: Minimal Assistance (to keyla robe seated) (03/23/241246) Lower Body: Supervision (Please comment) (to keyla/doff socks seated) (03/23/241246) Functional Ambulation Assistive Device: Rolling walker (03/23/241246) Distance in feet:: 5 (03/23/241246) Level of Assistance: Minimal Assistance (03/23/241246) Bed Mobility Supine-Sit: Minimal Assistance (03/23/241246) OT Transfers Sit-Stand: Moderate Assistance (of 2 from bed) (03/23/241246) Stand-Sit: Minimal Assistance (to chair) (03/23/241246) Bed-Chair: Minimal Assistance (03/23/241246) Balance Sit (Static): Fair (03/23/241246) Sit (Dynamic): Fair (03/23/241246) Stand (Static): (poor+) (03/23/241246) Stand (Dynamic): (poor+) (03/23/241246) Alarm Status Patient positioned in: Chair (03/23/241246) With: Pressure pad alarm intact and functioning and call parikh in reach (03/23/241246) Patient and Family Goals: to get well and to return home Patient Education Education Topic: Role of OT (03/23/241246) Review of Precautions: Safety;Fall (03/23/241246) Barriers to learning: Medical status;Emotional (03/23/241246) Preferred learning method: Combination (03/23/241246) Treatment Provided: Evaluation Moderate Complexity 20 minutes - 84436: Patient was cooperative and pleasant during treatment session. Moderate complexity evaluation performed and 3-5 activity limitations were identified, including ADL deficit, functional mobility deficit, bed mobility deficit, decreased strength, decreased endurance, and impaired balance. Minimal or moderate modification of the functional task was necessary to complete the evaluation. Deficits Requiring O.T. Treatment: Deficits requiring O.T. treatment needs: ADL/self-care;Balance;Endurance;Functional mobility;Safety;Upper extremity strength;Weakness (03/23/241246) Assessment: Mr. Nair was admitted to [facility] for above dx. He was cooperative and actively participated during this OT evaluation. Mr. Nair reported that prior to admission he was independent with ADLs and IADLs. Currently, he presents with deficits in ADL completion and general mobility secondary to decreased strength, decreased balance, decreased safety, decreased endurance and overall medical condition. Mr. Nair would benefit from continued acute OT services to increase independence in ADLs and general mobility. He may benefit from the use of a shower chair when discharged home. Please consider post-acute care services which may include home health, long-term, outpatient therapy or inpatient rehabilitation. The level of care will be determined in collaboration with patient, family/caregiver and care team members. A portion of this AM-PAC assessment not scored based on functional assessment; rather clinical decision making utilized based on current findings and/or prior level of function. Please refer to future AM-PAC calculations of functional ability as they become available. Following session patient seated OOB in chair with chair alarm activated and cord plugged into callbell system. Goals: Increase BUE strength 1/2 muscle grade Increase safety with ADLs and general mobility. Demonstrates self care at: Grooming: Modified Independent in stance Bathing upper body: Modified Independent Bathing lower body: Modified Independent Upper body dressing: Modified Independent Lower body dressing: Modified Independent Toileting: Modified Independent Demonstrates Bed Mobility with: Supine to Sit: Modified Independent Sit to Supine: Modified Independent Demonstrates Transfers with: Sit to Stand: Modified Independent Stand to Sit: Modified Independent Bed to Chair/Wheelchair: Modified Independent Toilet: Modified Independent Tub: Modified Independent Demonstrates Functional Ambulation: Assistive Device: appropriate device as needed Level of Assistance: Modified Independent Goal Time Frame: 8 visits Treatment Plan: Energy Conservation, Safety, Bed mobility training, Functional Ambulation, Transfertraining, ROM exercises, Upper extremity strengthening, Balance activities, ADL training, Endurance, and Educate on safety with mobility and ADL completion Anticipated Frequency (on eval): 1 to 3 times per week (03/23/241246) AM-PAC Help From Another Person Eating Meals: A little (03/23/241246) Help From Another Person Taking Care of Personal Grooming: A little (03/23/241246) Help From Another Person To Put On/Take Off Upper Body Clothing: A little (03/23/241246) Help From Another Person To Put On/Take Off Lower Body Clothing: A little (03/23/241246) Help From Another Person Toileting: A lot (03/23/241246) Help From Another Person Bathing: A lot (03/23/241246) OT AM-PAC Score: 16 (03/23/241246) OT AM-PAC t-Scale Score: 35.96 (03/23/241246) HLM (Highest Level of Mobility) Goal: Level 6 walk 10 steps or more (03/22/24 1600) * Poornima Briceno, PT - 03/23/2024 12:33 PM EDTAssociated Order(s): ADULT PHYSICAL THERAPY CONSULT IP GENERAL EVALUATION - Physical Therapy [address] [id number] Name: Kamlesh Meza Joanie Da Silva Location: [facility] G218/A Date: 03/23/2024 Time: 1233 Per Chart Review: Kamlesh Nair Jr. is a/an 79 year old male presents for TURP for BPH. Patient Status: SORU (23 hr Surgical Overnight) Insurance: Payor: [facility] Cloud.CM Plan: [facility] Cloud.CM CLASSIC 1 PART D -LD Product Type: *No Product type* Patient Seen: at bedside Patient Identified By: Name, ID Band and Date Diagnosis: acute urinary retention BPH (03/23/241232) Status of treatment: Evaluation completed (03/23/241232) Orders: PT evaluation and treatment;OOB (03/23/241232) Weight Bearing Status: Weight bearing as tolerated;RLE;LLE (03/23/241232) Precautions: Alarms;Falls;Crow;Safety (03/23/241232) Total Treatment Time--free text: 20 (03/23/241232) Subjective: Consulted with RN prior to entering room. Patient received semi- reclined in bed. Patient agreeable to working with PT. Past Medical History: Past Medical History: Diagnosis Date ADHD COPD (chronic obstructive pulmonary disease) (HCC) DM2 (diabetes mellitus, type 2) (HCC) Dyslipidemia Emphysema, unspecified (HCC) GERD (gastroesophageal reflux disease) Past Surgical History: Past Surgical History: Procedure Laterality Date COLONOSCOPY W/ BIOPSY (RECTUM) 06/23/2009 done diverticulosis, one polyp at 20cm proximal to anus PARTIAL AMPUTATION OF TOE Right right middle toe- REMOVAL OF TONSILS, UNDER AGE 14 Social History/Disposition Lives with: Alone (03/23/241246) Assistance available: Yes (limited) (03/23/24 124) Dwelling type: Multi-story home (03/23/241246) Entry steps: 3 (03/23/241246) Inside steps: None (03/23/241246) Bedroom location: 1st floor (03/23/24 124) Bath location: 1st floor full bath (03/23/24 124) Prior Level of Function Reported by: Patient (03/23/24 123) Ambulation: Ambulatory with device (03/23/24 123) Ambulatory Device: Cane (03/23/24 123) Devices at home: Straight cane;Rolling walker (03/23/24 123) Observations Consciousness: Alert (03/23/241232) Orientation: Oriented times 4 (03/23/241232) Psychosocial: Patient can communicate basic needs;Patient can converse in a social setting (03/23/24 123) Other Findings: Yes (03/23/241232) Findings: Light touch sensation (03/23/241232) Light Touch Sensation Results: Intact;LLE;RLE (03/23/241232) Sitting Posture: Forward head;Rounded shoulders;Kyphotic (03/23/241232) Standing Posture: Forward head;Rounded shoulders;Kyphotic (03/23/241232) Pain: No complaints of pain Range of Motion Range of Motion: WFL (03/23/241232) Strength Assessment Strength Assessment: Deficits noted (03/23/241232) WNL, except: LLE;RLE (03/23/241232) LLE: 4-/5 (03/23/241232) RLE: 4-/5 (03/23/241232) P.T. Bed Mobility Supine-Sit: Minimal Assistance (03/23/241232) Transfers Sit-Stand: Moderate Assistance (x2) (03/23/241232) Stand-Sit: Moderate Assistance (x2) (03/23/241232) Ambulation: Distance ambulated (feet): 5' Assistive Device: Rolling walker Assist: Minimal Assistance x1 Balance Sit (Static): Fair (03/23/241232) Sit (Dynamic): Fair (03/23/241232) Stand (Static): Poor (+) (03/23/241232) Stand (Dynamic): Poor (+) (03/23/241232) Patient and or Family Goal(s): to get well Patient Education Review of Precautions: Safety;Fall (03/23/241232) Safety Awareness: Needs cueing supervision (03/23/241232) Preferred learning method: Combination (03/23/241232) Barriers to learning: Medical Status;Hearing (03/23/241232) Method of Education: Verbalized to patient (03/23/241232) Topic of Education: Safety with mobility, Goals/plan of care, and Fall prevention Method of Education: Verbal discussion and explanation provided to pt: demonstrated the exercise and or task with extra cues Treatment Provided: Evaluation Moderate Complexity 20 minutes - [id number]: Patient was cooperative during treatment session. Moderate complexity evaluation performed and 1-2 personal factors or comorbidities were identified that will impact plan of care, including multiple steps at home, lives alone athome, and history of COPD. Patient presents with limitations in strength, bed mobility, transfers, gait, elevations, balance, endurance, and safety, which will impact plan of care. These limitations will be addressed by the goals set for this patient. Alarm Status Patient positioned in: Chair (03/23/241232) With: Pressure pad alarm intact and functioning and call parikh in reach (03/23/241232) Following session patient seated OOB in chair with chair alarm activated and cord plugged into callbell system. Treatment Status: Treatment at bedside (03/23/241232) Time Frame: 10 visits Assessment: Kamlesh Nair Jr. is a/an 79 year old male admitted to [facility] with acute urinary retention BPH. Upon evaluation, pt presents with functional limitations and impairments including, B LE strength deficits, decreased balance, decreased aerobic capacity and decreased activity tolerance. At baseline, pt is modified independent with ambulation and mobility with a single point cane and lives alone in a multi-level home. Today, patient transferred to edge of bed with minAx1, engaged in a sit to stand with modAx2 and ambulated 5' with a rolling walker, minAx1 and increased multi-modal cues for safety and task management. Patient presents at a regression from functional baseline and will benefit from skilled therapy while in-house in order to address decreased functional mobility, activity tolerance and optimize function. Please consider post-acute care services which may include home health, long-term, outpatient therapy or inpatient rehabilitation. The level of care will be determined in collaboration with patient, family/caregiver and care team members. Deficits requiring P.T. treatment needs: Safety;Mobility;Balance;Weakness;Endurance (03/23/241232) Goals: Demonstrate Bed Mobility with: modified independence Demonstrate Sit to/from Stand Transfers with: modified independence Demonstrate bed <> chair transfer with: modified independence Demonstrate Ambulation: modified independence, least restrictive AD, 250' Demonstrate Stairclimbing: modified independence, 10 stairs Increase Strength of: B/L LE by 1/2-1 muscle grade Increase Balance: dynamic standing balance to Fair + Increase Safety: of functional mobility Equipment Needs: Equipment needs: No device (03/23/241232) Treatment Plan: Bed mobility training, Transfer training, Gait training, Elevation training, Strengthening exercises: B LE, Balance activities, and Educate on safety with mobility Anticipated Frequency (on eval): (1-5x/wk) (03/23/241232) AM PAC Score with Stairs: 16 A portion of this AM-PAC assessment not scored based on functional assessment; rather clinical decision making utilized based on current findings and/or prior level of function. Please refer to future AM-PAC calculations of functional ability as they become available. Poornima Briceno, PT, DPT documented in this encounter Nursing Notes * Zenobia Christensen RN - 03/25/2024 8:07 PM EDT Pt @ present in bedside chair alert and oriented times 3,equal joanne chest expansion noted.Nil c/o voiced.Nil IV in situ.Pt exited unit in wheelchair accompany by daughter and another relative.Nil signs of distress noted. * Marcia Diego RN - 03/25/2024 4:00 PM EDT Report called to [facility] [place] * Oz Cerda RN - 03/22/2024 12:36 PM EDT VIRTUAL RN [facility]-[address] [address] Name: Kamlesh Nair Location: [facility] G218/A Date: 03/22/2024 Time: 12:36 PM I completed the Admission Navigator. The patient was in the hospital. I was in a private office space at a [facility] location. After connecting through Admittedlyo, the patient was identified by name and date of and / or wristband checked. Patient (or authorized legal advertising account representative) was then in formed that this was a Virtual Nurse visit and was being conducted confidentially over secure lines. I used a headset and other methods to ensure confidentiality for the patient. Patient acknowledgedconsent and understanding of privacy and security of the Virtual Nurse visit. I presented the opportunity for the patient or authorized legal advertising account representative to ask any questions regarding the visit today. The patient or authorized legal advertising account representative agreed to participate. Kamlesh (call me Jarredanastacia Nair is a 79 y.o.m. admitted w/acute urinary retention, BPH w/obstruction/lower urinary tract symptoms, bladder stone. He is A&Ox4, MAEW, but very NAVAJO, and doesn't wear hearing aids. His daughter, Julianna, is with him for moral support, and answered all the admission questions. She knows all the patients meds, their use and dosing schedule. States she understands everything discussed, and has no questions. Encouraged patient and daughter to ring for assistance if the patient needs to get OOB or has other requirements. They stated that they will do so. Call jl is within reach. * Tosha Newton, RN - 03/22/2024 12:28 PM EDT Dual Licensed Skin Assessment completed by Judy Wood and Jarred Traore. The patient is/has a N/A Skin Breakdown (includes non blanchable erythema): Yes. Wound Type: Moisture associated skin damage/incontinent related skin damage, location sacrum Other, location fungal infection on his feet. Scattered scabs including left arm and back of head. Groin: red/pink Wound Ostomy Nurse Notified: No - wound ostomy not needed at this time Nursing interventions: Bandage on scab on left arm. Notified provider about fungal infection on feet. * Hanna Garcia NA - 03/22/2024 12:20 PM EDT Post Anesthesia Care Unit Transport Note [facility] [address] [facility] [address] Dept. Kamlesh Nair Jr. Transported from PeriOp to : [id number] Time: 1208 Care of patient transferred to: Tosha DIAZ Transported via: Bed Belongings with Patient: YES, 1 bag Pulse : 62 Temp : 35.7 BP : 111/41 Respirations : 14 Pulse Ox : 98 O2 : Room Air SCDS: On but not activated/no machine * Alicia Rubalcava RN - 03/22/2024 9:51 AM EDT PERIOP TO IP HANDOFF COMMUNICATION NOTE [facility]-[address] [address] Name: Kamlesh Nair Jr. AGE: [id number] year old Location: OR [facility]/OR Date: 03/22/2024 Attention to: Lilli Mcguire RN Report from: Chanda Rodas RN Patient arriving via: Bed Time of call: 11:23 AM Phone Ext: [phone] Reason for SBAR (Situation, Background, Assessment, Recommendation) handoff: OR Sending to: [id number] Emotional/Personal Events & Special Needs: NAVAJO Prescriptions in chart: No Code Status: Full Code Safety Concerns: no safety concerns identified Allergies: Alcohol and Milk [lactose intolerance] PMH: Past Medical History: Diagnosis Date ADHD COPD (chronic obstructive pulmonary disease) (HCC) DM2 (diabetes mellitus, type 2) ([facility]) Dyslipidemia Emphysema, unspecified ([facility]) GERD (gastroesophageal reflux disease) PSH: Past Surgical History: Procedure Laterality Date COLONOSCOPY W/ BIOPSY (RECTUM) 06/23/2009 done diverticulosis, one polyp at 20cm proximal to anus 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 Cystoscopy and Transurethral Bipolar Resection of the prostate 2. Removal of the bladder stone 3. Urethrotomy with anthony urethrotome 4. Crow Catheter Placement Type of Anesthesia: General endotracheal anesthesia Block: none IV intake: 550 mL EBL: OR: 100 mL PACU: 0 mL Urine output: OR 450 mL PACU CBI mL IUBC (Crow): Incision location: n/a Dressing location: n/a Time of last skin assessment: 929 Pressure injuries or areas of concern: none Lines: Continuous Bladder Irrigation Triple lumen (Active) Site Assessment Clean;Skin intact 03/22/24929 Securement Method Leg strap 03/22/24929 Catheter secured to leg? Yes 03/22/24929 Catheter bag below bladder? Yes 03/22/24929 IUBC Tubing Disconnected This Shift? No 03/22/24929 Collection Container Standard urine bag 03/22/24929 CBI Irrigation Yes 03/22/24929 Patient Tolerance of Continuous Bladder Irrigation Tolerating 03/22/24929 Irrigant Normal saline 03/22/24929 Urine Description Blood Tinged 03/22/24929 Number of days: 0 Peripheral Line Right 20 Gauge (Active) Status Fluids infusing 03/22/24929 Tubing Changed No 03/22/24929 Phlebitis Scale 0 03/22/24899 Infiltration Scale 0 03/22/24899 Site Description (Other) Without redness, swelling or drainage 03/22/24899 Site Intervention None required 03/22/24899 Dressing Assessment Dressing clean, dry, and intact;Transparent dressing 03/22/24899 Dressing Intervention None required 03/22/24899 Number of days: 0 Vital Signs: BP: 104/48 (03/22/24944) Temp: 35.8 C (96.4 F) (03/22/24929) Pulse: 57 (03/22/24944) Resp: 10 (03/22/24944) SpO2: 94 % (03/22/24944) O2 flow rate: 0 L/MIN (03/22/24944) Glucose (Bedside): 234 (03/22/24909) Time of last pain medication: 0817 Med: 25mcg fentanyl Time of last antibiotic: 45 Med: 2g Ancef Time of last antiemetic: 41 Med: 4mg Zofran BIT GATHERER: no Drips: no Neurological: Speech: Clear (03/22/24929) Level of Consciousness: Responds to voice (03/22/24929) RUE Motor Strength: 5-Active movement with full resistance (03/22/24929) RLE Motor Strength: 5-Active movement with full resistance (03/22/24929) LUE Motor Strength: 5-Active movement with full resistance (03/22/24929) LLE Motor Strength: 5-Active movement with full resistance (03/22/24929) Coma Score: 15 (03/22/24944) Respiratory: Respiratory WNL: WNL- within normal limits (03/22/24929) Oxygen therapy/ Mechanical vent Supplemental O2 Delivery: Room Air, None (03/22/24944) O2 flow rate: 0 L/MIN (03/22/24944) Cardiac: Cardiovascular WNL: X - Exceptions to WNL as documented below (03/22/24929) Rhythm: NSR (03/22/24929) Extremities: +Sensation (03/22/24929) Pulses Right: Dorsalis Pedis + (03/22/24929) Pulses Left: Dorsalis Pedis + (03/22/24929) GI: GI WNL: WNL - within normal limits (03/22/24929) GUC WNL: X - Exceptions to WNL as documented below (03/22/24929) Urine Description: Blood Tinged (03/22/24929) Continuous Bladder Irrigation Triple lumen (Active) Site Assessment Clean;Skin intact (gauze wrapped around penis) 03/22/24929 Securement Method Leg strap 03/22/24929 Catheter secured to leg? Yes 03/22/24929 Catheter bag below bladder? Yes 03/22/24929 IUBC Tubing Disconnected This Shift? No 03/22/24929 Collection Container Standard urine bag 03/22/24929 CBI Irrigation Yes 03/22/24929 Patient Tolerance of Continuous Bladder Irrigation Tolerating 03/22/24929 Irrigant Normal saline 03/22/24929 Urine Description Blood Tinged 03/22/24929 Number of days: 0 Due to Void: CBI w/crow Integumentary:Integumentary WNL: X - Exceptions to WNL as documented below (03/22/24929) Skin Description: Dry;Flaky (b/l feet) (03/22/24929) Skin Variations: Other - Describe (see below) (03/22/24929) Family updated on transfer: yes Additional Assessment Information: Oriented x 4. DARLING. Excoraited groins, dry flaky feet. CBI tolerating * Chanda Rodas RN - 03/22/2024 9:25 AM EDT Dual Licensed Skin Assessment completed by Chanda Cannon and Brenda Dorsey. The patient is/has a N/A Skin Breakdown (includes non blanchable erythema): Yes. Wound Type: Moisture associated skin damage/incontinent related skin damage, location b/l groins, dry flaky feet Wound Ostomy Nurse Notified: No - wound ostomy not needed at this time Nursing interventions: continue skin assessments, q2h repositioning * Rosangela Baltazar RN - 03/22/2024 7:22 AM EDT Dual Licensed Skin Assessment completed by alisha Baltazar RN and zenia Jasso RN. The patient is/has a N/A Skin Breakdown (includes non blanchable erythema): No Scattered bruising, dry flaky skin b/l feet. Pt daughter states he has "fungal issues" and has a cream for it documented in this encounter OR Notes * OR Surgeon - Razia Stack MD - 03/22/2024 9:19 AM EDT UROLOGY OPERATIVE REPORT Operative Note for: Kamlesh Nair JrLc Date: 03/22/2024 Location: [facility] PRE-OP DIAGNOSIS: 1. Benign prostatic hypertrophy with bladder outlet obstruction. 2. Bladder stones 3. Meatal stenosis POST-OP DIAGNOSIS: Same. OPERATION: 1. Cystoscopy and Transurethral Bipolar Resection of the prostate 2. Removal of the bladder stone 3. Urethrotomy with anthony urethrotome 4. Crow Catheter Placement Surgeons: Razia Stack MD and Jonas Gupta MD Assistants: None Case description: clean contaminated Pathology: Prostate Chips sent to pathology and bladder stones for stone analysis ANESTHESIA: LMA IVF: Per anesthesia EBL: 100cc Drains: [address] crow catheter to saline CBI Findings: - narrow meatus and fossa navicularis, bulbar stricture which accepts the 23 resectoscope with visual obturator - bilateral lateral prostate hyperplasia, short prostate gland - 3 subcentimeter bladder stones Complications: None Condition: stable INDICATIONS AND HISTORY: This is a 79 year old male with history of BPH and bladder outlet obstruction DESCRIPTION OF OPERATION: The patient was identified and the procedure verified. He was brought to the Operating Theatre and had time-out taken with Anesthesia/Nursing to confirm the patient's identity and the procedure. He then underwent induction of general endotracheal anesthesia and was preppedand draped in the dorsal lithotomy position. Meatal and fossa navicularis stenosis was addressed with Anthony urethrotome to accept the resectoscope. Then An ACMI 23 Nigerian cystoscope with 30-degree visual obturator was passed per urethra. Mild stricture of the vulvar urethra was navigated by the scope. The prostate was short but there was bilobar prostatic hyperplasia. Inspection of the bladder revealed mild hypertrophy no erythema, or evidence of neoplastic changes. Three subcentimeter bladder stones were noted which was evacuated via the scope. The visual obturator was then exchanged for the resectoscope and bipolar resection of prostate was performed. The resection was started in the left lateral and then right lateral lobes, creating a wide channel while being careful at all times to remain proximal to the verumontanum. Apical tissues as well as anterior tissue were also resected. Allthe prostate chips were removed and sent to pathology. At the end of the procedure while resting the tip of the scope at the verumontanum, a clear channel could be seen to the bladder. There was minimal blood loss during the case, and after removal of the cystoscope a 22 Nigerian 3- way crow catheter was passed per urethra into the bladder and the balloon inflated with 30 cubic centimeters of sterile water. Saline CBI was instituted. The patient tolerated the procedure well, and there were no complications. He was extubated and transferred to the Recovery Unit in stable condition. Dr. Jonas Gupta MD was present at the entire procedure. Plan: 1. Admit to Urology for saline continuous bladder irrigation (CBI) 2. Wean CBI to keep urine light pink 3. Will plan discharge home tomorrow if the CBI clears Razia Stack MD 03/22/2024 9:24 AM Associated attestation - Jonas Gupta MD - 03/22/2024 9:35 AM EDT A procedure was performed. I was present for entire procedure. I agree with the resident/fellow physician note. documented in this encounter Miscellaneous Notes * Ancillary Progress Note - Shahana Ko MSW - 03/25/2024 2:53 PM EDT CARE MANAGEMENT - ADULT DISCHARGE NOTE [facility]-[address] [address] Name: Kamlesh Nair Jr. Location: [facility] G218/A Date: 03/25/2024 Time: 2:54 PM The following coordination of care and discharge plan has been coordinated with the care team, patient, family and/or caregiver according to the patients needs and preferences. Discharge Discharge Second Notice Important Message from Medicare delivered: Yes (03/25/241450) Date Delivered: 03/25/24 (03/25/241450) Was Caregiver/Family/Facility contacted regarding discharge: Yes (03/25/241450) Discharge Transportation: Family/Friends drive (03/25/24 145) Date of scheduled discharge transportation: 03/25/24 (03/25/241450) Time of scheduled discharge transportation: 1929 (03/25/24 145) Patient declined post-hospital transition of care recommendation: N/A (03/25/24 145) Final Discharge Plan (Complete only at time of Discharge): SNF (03/25/24 1453) Destination - Admitted Since 03/22/2024 Service Provider Selected Services Address Phone Fax Patient Preferred Last Updated [facility] [address] [place] [phone] -- Shahana Ko MSW 03/25/2024 1251 Narrative: Per service, pt is medically stable for d/c. Pt and pt's daughter agreeable to [facility]. Auth returned #[id number]. SW coordinated disposition with Carlotta at [facility]. Pt's daughter to provide transportation upon d/c. Discharge destination time-out called during BOOST rounds, all parties agreeable with transition plan of care. * Communication - Michael Ríos MD - 03/25/2024 9:21 AM EDT Chart review only Patient remains with hyperglycemia in the 200-300 range, mildly improved yesterday from the day before. Total daily dose of insulin yesterday was 45. Cr 0.7 Fasting BG 200 A/P T2DM Hyperglycemia - likely stress-induced as well as related to not taking his usual 3 oral diabetes meds Insulin to carb ratio tightened to 1:8 from 1:10 by me Continue high-dose sliding scale Insulin glargine 10 units QHS added by me Continue consistent carb diet Continue holding HAT SIZER metformin, glipizide, Farxiga while inpatient - recommend resuming these 3 meds at HAT SIZER doses at time of discharge Recommend patient keeping blood sugar log at home and following up with PCP Thank you for allowing Hospital Medicine to participate in the care of this patient. Hospital Medicine will continue to follow peripherally but not necessarily see patient every day. Please page [facility] Medicine Consults Hospitalists on [employer] with any questions. * Progress Notes - Post-Op [employer] - Razia Stack MD - 03/25/2024 7:28 AM EDT UROLOGY PROGRESS NOTE [facility]-[address] [address] Name: Kamlesh Nair Location: [address] SUBJECTIVE: Doing well this morning, no acute events overnight. Feeling overwhelmed regarding SNF placement butdoing well overall PHYSICAL EXAMINATION: Most Recent Vital Signs: BP: 128 mmHg/42 mmHg (03/25/24721) Pulse: 73 (03/25/24721) Resp: 18 (03/25/24721) Temp: 36.22 C (03/25/24721) Temp Summary: Temp Min: 35.8 C (96.4 F) Max: 36.5 C (97.7 F) SpO2: 95 % (03/25/24721) O2 flow rate: 0 L/MIN (03/22/24 1100) Supplemental O2 Delivery: Room Air, None (03/25/24721) General: awake, alert and responsive Heart: Regular rate Chest: Normal WOB Abdomen: Soft nontender nondistended Extremities: no deformities : Crow in, draining clear yellow urine, and no clots present LABS: CBC Lab Results Component Value Date/Time WBC 4.38 03/25/2024 04:32 AM WBC 5.94 12/28/2018 10:53 AM HGB 10.8 (L) 03/25/2024 04:32 AM HGB 13.2 (L) 12/28/2018 10:53 AM HCT 34.5 (L) 03/25/2024 04:32 AM HCT 42.6 12/28/2018 10:53 AM PLT 99 (L) 03/25/2024 04:32 AM PLT 162 12/28/2018 10:53 AM BMP Lab Results Component Value Date/Time NA 135 03/25/2024 04:32 AM NA 139 01/14/2020 09:07 AM POTASSIUM 4.0 03/25/2024 04:32 AM POTASSIUM 4.4 01/14/2020 09:07 AM CL 104 03/25/2024 04:32 AM CL 101 01/14/2020 09:07 AM CO2 23 03/25/2024 04:32 AM CO2 23 01/14/2020 09:07 AM BUN 16 03/25/2024 04:32 AM BUN 19 01/14/2020 09:14 AM CREAT 0.7 03/25/2024 04:32 AM CREAT 1.0 01/14/2020 09:14 AM Ca, Mg, Phos Lab Results Component Value Date/Time CA 8.7 03/25/2024 04:32 AM CA 9.7 01/14/2020 09:07 AM MG 1.8 10/18/2022 03:49 PM MG 1.6 09/25/2018 11:45 AM CULTURES: Recent Cultures (2 Weeks) 03/15/2024 3:46 PM QUANT URINE CULTURE GROWTH No significant growth No significant growth ASSESSMENT: 79-year-old male with BPH now POD 3 s/p TURP off CBI and doing well PLAN: - continue discharge planning - Pain control: tylenol ATC, oxycodone 5/10, dilaudid breakthrough - Nausea control: Zofran prn - IV fluids: none - Diet: heart healthy - Crow/drains/lines: Maintain crow - DVT ppx: heparin, SCDs - Bowel regimen: senna - Abx: periop ancef - HAT SIZER meds: reviewed, restarted as appropriate - Encourage IS, OOB and ambulation - Dispo: med/surg Patient to be discussed with Dr. Gupta. Razia Stack MD 03/25/2024 7:29 AM Associated attestation - Jonas Gupta MD - 03/25/2024 11:12 AM EDT I saw and evaluated the patient today. I have reviewed the resident/fellow physician note and agree. * Ancillary Progress Note - Vickie Jolly LSW - 03/24/2024 11:29 AM EDT CARE MANAGEMENT - ADULT TRANSITION NOTE [facility]-[address] [address] Name: Kamlesh Foleydilshad Da Silva Location: [facility] G218/A Date: 03/24/2024 Time: 11:29 AM Risk Stratification Risk Stratification Psycho Social / Medical Concerns Identified: None Identified (03/23/24 1126) Readmission Risk Score: 9.36 (03/24/24 0801) AM-PAC Score With Stairs : 16 (03/23/24 1233) Caregiver Information Patient Contacts Name Relation Home Work Mobile julianna lennon Adult Child [phone] Transition of Care Checklist Narrative: SW met with Pt for SNF choices. Pt provided choices. Referrals pending. Daughter updated. Anticipated Transportation at Discharge: WC Patient/Family Expectations: SNF Transition Planning Transition Planning Transition Plan/Considerations: Needs uncertain at this time - Continue monitoring for needs (03/23/24 1127) Additional Considerations: NA Care Management will continue to monitor and assist with discharge planning needs * Progress Notes - Post-Op [facility] - Mary Brar MD - 03/24/2024 9:08 AM EDT UROLOGY PROGRESS NOTE [facility] [address] Name: Kamlesh Nair Jr. Location: [address] SUBJECTIVE: Doing well this morning, no acute events overnight. Evaluated by PT/OT yesterday. Patient reports he is ready to go home, he will discuss dispo with his daughter as he has also been looking at SNFs with CM. Output: Crow 900 PHYSICAL EXAMINATION: Most Recent Vital Signs: BP: 125 mmHg/49 mmHg (03/24/24727) Pulse: 74 (03/24/24727) Resp: 18 (03/24/24727) Temp: 36.78 C (03/24/24727) Temp Summary: Temp Min: 36.2 C (97.2 F) Max: 37.3 C (99.1 F) SpO2: 94 % (03/24/24727) O2 flow rate: 0 L/MIN (03/22/24 1100) Supplemental O2 Delivery: Room Air, None (03/24/24727) General: awake, alert and responsive Heart: Regular rate Chest: Normal WOB Abdomen: Soft nontender nondistended Extremities: no deformities : Crow in, draining clear yellow urine, and no clots present LABS: CBC Lab Results Component Value Date/Time WBC 4.38 03/24/2024 04:16 AM WBC 5.94 12/28/2018 10:53 AM HGB 10.5 (L) 03/24/2024 04:16 AM HGB 13.2 (L) 12/28/2018 10:53 AM HCT 33.3 (L) 03/24/2024 04:16 AM HCT 42.6 12/28/2018 10:53 AM PLT 106 (L) 03/24/2024 04:16 AM PLT 162 12/28/2018 10:53 AM BMP Lab Results Component Value Date/Time NA 136 03/24/2024 04:15 AM NA 139 01/14/2020 09:07 AM POTASSIUM 3.7 03/24/2024 04:15 AM POTASSIUM 4.4 01/14/2020 09:07 AM CL 105 03/24/2024 04:15 AM CL 101 01/14/2020 09:07 AM CO2 22 03/24/2024 04:15 AM CO2 23 01/14/2020 09:07 AM BUN 14 03/24/2024 04:15 AM BUN 19 01/14/2020 09:14 AM CREAT 0.7 03/24/2024 04:15 AM CREAT 1.0 01/14/2020 09:14 AM Ca, Mg, Phos Lab Results Component Value Date/Time CA 8.5 03/24/2024 04:15 AM CA 9.7 01/14/2020 09:07 AM MG 1.8 10/18/2022 03:49 PM MG 1.6 09/25/2018 11:45 AM CULTURES: Recent Cultures (2 Weeks) 03/15/2024 3:46 PM QUANT URINE CULTURE GROWTH No significant growth No significant growth ASSESSMENT: 79-year-old male with BPH now POD 2 s/p TURP off CBI and doing well PLAN: - medicine consult for hyper glycemia and diabetes management, appreciate recs - plan for discharge today pending dispo - Pain control: tylenol ATC, oxycodone 5/10, dilaudid breakthrough - Nausea control: Zofran prn - IV fluids: NSS@75, isolyte@25 - Diet: heart healthy - Crow/drains/lines: Maintain crow, maintain CBI overnight - DVT ppx: heparin, SCDs - Bowel regimen: senna - Abx: periop ancef - HAT SIZER meds: reviewed, restarted as appropriate - Encourage IS, OOB and ambulation - okay to go home per PT/OT, patient was discussed with his daughter whether he will go home or go to SNF - Dispo: med/surg Patient to be discussed with Dr. Gupta. Mary Brar MD PGY1 | [facility] Urology Associated attestation - Jonas Gupta MD - 03/25/2024 11:12 AM EDT I saw and evaluated the patient 03/24/2024. I have reviewed the resident/fellow physician note and agree. * Care Plan - Lilli Mcguire RN - 03/24/2024 8:39 AM EDT Clinical Goal(s): Patient will have shift from injury (03/24/24 0700) Possible barriers to meeting goal(s)/advancing plan of care: Illness Stability of the patient: Moderately stable - low risk of patient condition declining or worsening Summary regarding today's goal(s): Met: Recommendations: Continue POC * Care Plan - Alexandra Sargent RN - 03/24/2024 2:07 AM EDT Clinical Goal(s): Patient will remain free from fall and injury this shift. (03/23/24 2300) Possible barriers to meeting goal(s)/advancing plan of care: Patient's weakness/ impaired mobility. Stability of the patient: Moderately stable - low risk of patient condition declining or worsening Summary regarding today's goal(s): Met: Patient has remained free from fall and injury this shift. Recommendations: Continue plan of care. Follow fall precautions. Q2h turn and reposition. Problem: Pain & Impaired Comfort Goal: Patient's pain & discomfort is manageable. Outcome: Progressing Problem: Safety & Risk for Injury Goal: Patient will remain free from injury. Outcome: Progressing Problem: Risk for Impaired Physical Mobility Goal: Patient will maintain optimal mobility level. Outcome: Not Progressing * Care Plan - Kaylene Leahy RN - 03/23/2024 7:38 PM EDT Clinical Goal(s): The patient will be free from falls this shift. (03/23/24 0700) Possible barriers to meeting goal(s)/advancing plan of care: Admitting diagnosis, weakness, unfamiliar environment. Stability of the patient: Moderately stable - low risk of patient condition declining or worsening Summary regarding today's goal(s): Met. Recommendations: Maintain hourly rounding, continue fall prevention strategis including bed and chair alarms and placement of call parikh and personal items within reach, use of nonskid socks. * Ancillary Progress Note - Vickie Jolly LSW - 03/23/2024 2:02 PM EDT POST ACUTE CARE CARE MANAGEMENT [address] [address] Name: Kamlesh Nair Location: [facility] G218/A Date: 03/23/2024 Time: 2:02 PM Post-Acute Care Patient General Information Living Quarters: House (03/23/24 112) How many stories is the dwelling?: Two Stories (03/23/241125) Number of steps to enter living quarters:: 3 (03/23/24 112) Location of bathroom(s): Downstairs only (03/23/24 112) Do you have serious difficulty walking or climbing stairs? (5 years old or older): Yes (03/22/24 122) History of falling: Yes (03/22/242229) What was your living situation prior to admission/observation?: Independently;Alone (03/22/24 122) Do you have any children, pets, or other dependents that you are currently caring for?: No (03/22/24 122) AM-PAC Score With Stairs : 16 (03/23/24 1233) Post-Acute Care with AM-PAC < 17.99 Rehab diagnosis: Does not meet criteria (03/23/24 1402) Post-Acute Care AM-PAC >= 17.99 [facility] (SNF) Guidelines For Medical Approval (must select both): Care requires observation, monitoring and evaluation of effectiveness on a daily basis;Care must be provided by an RN/ED CASE MANAGER and cannot be managed at home (03/23/24 1402) Medical Procedures: Does not meet criteria (03/23/241401) SNF guidelines for Rehab Approval (All selections required): Able to participate for at least 1 hour of therapy per day;Requires Training (select at least one);Requires intense care planning with realistic goals as identified by 1 of the following;Established rehabilitative progress;Frequent monitoring and or revision of treatment plan;Frequent re-assessment of established rehabilitative progress;Services required only able to be provided in an inpatient setting;One or more therapy modalities (PT/OT/ST) at least 5 times a week (03/23/241401) SNF Required Training: Gait training;ADL training, with or without adaptive equipment;Transfer Training (03/23/241401) Therapy modalities: Occupational Therapy;Physical Therapy (03/23/241401) Intense Care Plan Goals: Completion of home evaluation, assistance with home modifications;Coordination of multiple community services;Family medication and/or transfer training;Assistance with application for community services (03/23/241401) Approved for [facility]: Approved for [facility] (03/23/241401) SW met with Pt to discuss d/c planning and PT/OT recommendations. SW provided information regardingSNF. SW provided Pt with list/rating of SNF. Pt requested for SW to contact his daughter to review.Pt also wants to think about himself. SW called Pt's daughter but needed to leave a message. CM will follow up with Pt and daughter on final dc planning. 321- SW received phone call from Pt's daughter. Daughter agreeable to placement as well. Daughter will speak with Pt as well to review list. CM will follow up with Pt and daughter. * Ancillary Progress Note - Vickie Jolly LSW - 03/23/2024 11:27 AM EDT CARE MANAGEMENT - ADULT INITIAL SCREENING [facility]-[address] [address] Name: Kamlesh Nair JrLc Location: [facility] G218/A Date: 03/23/2024 Time: 11:27 AM Discussed patient with the interdisciplinary care team. This Vehicle Painter performed a chart review and met with Pt at bedside to complete admission screen and assessed needs for transition planning. The pet care worker role and services were explained and emotional support was provided. Chief Complaint: No chief complaint on file. Prior Living Arrangements What was your living situation prior to admission/observation?: Independently;Alone (03/22/24 1226) Living Quarters: House (03/23/24 112) Number of steps to enter living quarters:: 3 (03/23/24 112) Do you have serious difficulty walking or climbing stairs? (5 years old or older): Yes (03/22/24 1226) History of falling: Yes (03/22/242229) Prior Level of Functioning Describe the patient's ability prior to admission/observation to perform ADLs: Requires assistance (03/22/24 122) Requires assistance with: Dressing;Eating;Grooming (03/22/24 122) Patient uses assistive device: Yes (03/22/24 122) If yes, choose:: Cane (03/22/24 1226) Caregiver Information Patient Contacts Name Relation Home Work Mobile julianna lennon Adult Child [phone] Risk Stratification/Psychosocial/Care Gaps Risk Stratification Psycho Social / Medical Concerns Identified: None Identified (03/23/24 112) Readmission Risk Score: 11.11 (03/23/24 0800) AM-PAC Score With Stairs : 19 (03/22/24 1600) Prior to Admission Services Services Prior to Admission HAT [facility]ER Services (Services received within the last 30 days with exception, Psych within last two years): Durable Medical Equipment (03/23/24 112) [facility] Durable Medical Equipment (DME) in home: Cane;Bedside commode;Shower chair/bench;Walker Rolling(03/23/24 112) [facility] Transportation (Services received within the last 30 days): Family/Friends Personal Vehicle;Patient drives self (03/23/24 112) Outpatient Vehicle Painter: No care steam table attendant to display Patient/Family Expectations: home pending PT/OT For further screening information, please refer to the Care Management flow document. * Progress Notes - Non-Billable - Tessa Alarcon MD - 03/23/2024 9:17 AM EDT UROLOGY POST OP CHECK Name: Kamlesh Nair Jr. Location: [address] SUBJECTIVE: Patient seen this morning, doing well and denies any complaints. Pain is well- controlled. CBI clamped for 2 hrs - fruit punch output and clear. Tolerating PO without n/v. Denies chest pain or shortness of breath. He wants to go home. PT /OT to see today. PHYSICAL EXAMINATION: Most Recent Vital Signs: BP: 125 mmHg/57 mmHg (03/23/24699) Pulse: 75 (03/23/24699) Resp: 18 (03/23/24699) Temp: 36.89 C (03/23/24699) Temp Summary: Temp Min: 35.7 C (96.3 F) Max: 36.9 C (98.4 F) SpO2: 95 % (03/23/24699) O2 flow rate: 0 L/MIN (03/22/24 1100) Supplemental O2 Delivery: Room Air, None (03/23/24699) Intake/Output Summary (Last 24 hours) at 03/23/2024916 Last data filed at 03/23/2024699 Gross per 24 hour Intake 1822.9 ml Output 2800 ml Net -977.1 ml General: awake, alert and responsive Heart: Regular rate Chest: Normal WOB Abdomen: soft NTND Extremities: no deformities : Crow in and draining light pink urine LABS: CBC Lab Results Component Value Date/Time WBC 5.45 03/23/2024 04:10 AM WBC 5.94 12/28/2018 10:53 AM HGB 11.1 (L) 03/23/2024 04:10 AM HGB 13.2 (L) 12/28/2018 10:53 AM HCT 34.4 (L) 03/23/2024 04:10 AM HCT 42.6 12/28/2018 10:53 AM PLT 100 (L) 03/23/2024 04:10 AM PLT 162 12/28/2018 10:53 AM BMP Lab Results Component Value Date/Time NA 137 03/23/2024 04:10 AM NA 139 01/14/2020 09:07 AM POTASSIUM 4.1 03/23/2024 04:10 AM POTASSIUM 4.4 01/14/2020 09:07 AM CL 105 03/23/2024 04:10 AM CL 101 01/14/2020 09:07 AM CO2 23 03/23/2024 04:10 AM CO2 23 01/14/2020 09:07 AM BUN 19 03/23/2024 04:10 AM BUN 19 01/14/2020 09:14 AM CREAT 0.8 03/23/2024 04:10 AM CREAT 1.0 01/14/2020 09:14 AM Ca, Mg, Phos Lab Results Component Value Date/Time CA 8.1 (L) 03/23/2024 04:10 AM CA 9.7 01/14/2020 09:07 AM MG 1.8 10/18/2022 03:49 PM MG 1.6 09/25/2018 11:45 AM CULTURES: Recent Cultures (2 Weeks) 03/15/2024 3:46 PM QUANT URINE CULTURE GROWTH No significant growth No significant growth PLAN: 79-year-old male with BPH now POD1 s/p TURP, clamped CBI PT/OT will see today, dispo pending - Pain control: tylenol ATC, oxycodone 5/10, dilaudid breakthrough - Nausea control: Zofran prn - IV fluids: NSS@75, isolyte@25 - Diet: heart healthy - Crow/drains/lines: Maintain crow, maintain CBI overnight - DVT ppx: heparin, SCDs - Bowel regimen: senna - Abx: periop ancef - HAT SIZER meds: reviewed, restarted as appropriate - Encourage IS, OOB and ambulation - will have PT/OT evaluate, CM aware may potentially need rehab or SNF - Dispo: med/surg Pt seen and with Dr Alonso Alarcon MD 03/23/2024 9:19 AM * Care Plan - Alexandra Sargent RN - 03/23/2024 6:36 AM EDT Problem: Pain & Impaired Comfort Goal: Patient's pain & discomfort is manageable. Outcome: Progressing Problem: Actual & Potential for Impaired Skin Integrity Goal: Patient will maintain skin integrity. Outcome: Progressing Clinical Goal(s): Patient will remain free from fall and injury this shift. (03/22/24 2300) Possible barriers to meeting goal(s)/advancing plan of care: Patient's weakness/ impaired mobility Stability of the patient: Moderately stable - low risk of patient condition declining or worsening Summary regarding today's goal(s): Met: Patient has remained free from fall and injury this shift. Recommendations: Continue plan of care. Follow fall precautions. Turn/ reposition q2h. * Care Plan - Lilli Mcguire RN - 03/22/2024 4:07 PM EDT Clinical Goal(s): patient will have shift free from injury (03/22/24 1500) Possible barriers to meeting goal(s)/advancing plan of care: illness Stability of the patient: Moderately stable - low risk of patient condition declining or worsening Summary regarding today's goal(s): Met: Recommendations: Continue POC * Progress Notes - Non-Billable - Mary Brar MD - 03/22/2024 2:48 PM EDT UROLOGY POST OP CHECK Name: Kamlesh Nair Jr. Location: [address] SUBJECTIVE: Patient seen for postop check, doing well and denies any complaints. Pain is well-controlled. CBI running on moderate drip with light pink urine. Tolerating PO without n/v. Denies chest pain or shortness of breath. Patient's daughter reports that he has not safe to take home as he has fallen several times in the last week. Patient himself reports only 1 fall. PHYSICAL EXAMINATION: Most Recent Vital Signs: BP: 111 mmHg/41 mmHg (03/22/24 1207) Pulse: 73 (03/22/24 1207) Resp: 14 (03/22/24 1207) Temp: 35.72 C (03/22/24 1207) Temp Summary: Temp Min: 35.7 C (96.3 F) Max: 36.2 C (97.2 F) SpO2: 100 % (03/22/24 1207) O2 flow rate: 0 L/MIN (03/22/24 1100) Supplemental O2 Delivery: Room Air, None (03/22/24 1207) Intake/Output Summary (Last 24 hours) at 03/22/2024 1448 Last data filed at 03/22/2024 1100 Gross per 24 hour Intake 790 ml Output 250 ml Net 540 ml General: awake, alert and responsive Heart: Regular rate Chest: Normal WOB Abdomen: soft NTND Extremities: no deformities : Crow in and draining light pink urine LABS: CBC Lab Results Component Value Date/Time WBC 3.79 (L) 03/22/2024 09:35 AM WBC 5.94 12/28/2018 10:53 AM HGB 10.9 (L) 03/22/2024 09:35 AM HGB 13.2 (L) 12/28/2018 10:53 AM HCT 33.6 (L) 03/22/2024 09:35 AM HCT 42.6 12/28/2018 10:53 AM PLT 102 (L) 03/22/2024 09:35 AM PLT 162 12/28/2018 10:53 AM BMP Lab Results Component Value Date/Time NA 138 03/22/2024 09:35 AM NA 139 01/14/2020 09:07 AM POTASSIUM 3.8 03/22/2024 09:35 AM POTASSIUM 4.4 01/14/2020 09:07 AM CL 103 03/22/2024 09:35 AM CL 101 01/14/2020 09:07 AM CO2 25 03/22/2024 09:35 AM CO2 23 01/14/2020 09:07 AM BUN 22 (H) 03/22/2024 09:35 AM BUN 19 01/14/2020 09:14 AM CREAT 0.7 03/22/2024 09:35 AM CREAT 1.0 01/14/2020 09:14 AM Ca, Mg, Phos Lab Results Component Value Date/Time CA 8.3 (L) 03/22/2024 09:35 AM CA 9.7 01/14/2020 09:07 AM MG 1.8 10/18/2022 03:49 PM MG 1.6 09/25/2018 11:45 AM CULTURES: Recent Cultures (2 Weeks) 03/15/2024 3:46 PM QUANT URINE CULTURE GROWTH No significant growth No significant growth PLAN: 79-year-old male with BPH now POD 0 s/p TURP - Pain control: tylenol ATC, oxycodone /, dilaudid breakthrough - Nausea control: Zofran prn - IV fluids: NSS@75, isolyte@25 - Diet: heart healthy - Crow/drains/lines: Maintain crow, maintain CBI overnight - DVT ppx: heparin, SCDs - Bowel regimen: senna - Abx: periop ancef - HAT SIZER meds: reviewed, restarted as appropriate - Encourage IS, OOB and ambulation - will have PT/OT evaluate, CM aware may potentially need rehab or SNF - Dispo: med/surg Mary Brar MD PGY1 | [facility] Urology * Ancillary Progress Note - Marybeth Parker, COAL CAGER - 03/22/2024 2:27 PM EDT PDP RE-EVALUATION NOTE - Respiratory Care Services [address] [address] Name: Kamlesh Nair Location: [facility] G218/A Date: 03/22/2024 Time: 2:27 PM Patient Driven Protocol Summary: Initial evaluation performed. This Treatment Plan and medications will be reviewed by the Primary Care Team for any contraindications. Respiratory Care Treatment Plan Aerosol Therapy Treatment:: Hand Held Nebulizer Tx PRN with Albuterol Sulfate: Unit dose 0.083%. to reduce work of breathing and improve pulmonary gas exchange. Additional Aerosolized Treatments: Inhaler(s) QDAY with Incruse Ellipta (Umeclidinium 62.5 mcg inhalation powder) / 1 inhalation. to reduce work of breathing and improve pulmonary gas exchange. . Pulmonary Volume Expansion Therapy: Incentive Spirometry PRN to prevent or treat alveolar consolidation and atelectasis. . Secretion Management Treatment: Flutter TherapyPRN to enhance mobilization of secretions and prevent or treat alveolar consolidation and atelectasis. .. The patient will be re-evaluated: No re-evaluation needed. Indications for treatment met. The Triage Level is: (Assessment Score = 0 - 5) Level 5. Triage Level Definitions: Level 1 Severe Respiratory/Airway Compromise Level 2 Moderate Respiratory/Airway Compromise or high risk for pulmonary complications Level 3 Mild Respiratory/Airway Compromise or moderate risk for pulmonary complications Level 4 Episodic Respiratory/Airway Compromise or low risk for pulmonary complications Level 5 No Respiratory/Airway Compromise Triage 1 Triage 2 Triage 3 Triage 4 Triage 5 greater than 20 16 - 20 11 - 15 6 - 10 0 - 5 Medical Record Assessment Clinical Findings Pulmonary Status: 3 - Pulm Impairment (acute or chronic) w/o exacerbation, or 1 - 2 rib fractures Surgical Status: 1 - General Surgery Chest X-Ray: 0 - Not Performed or performed greater than 3 days ago Assessment Score: 4 Patient Assessment Clinical Findings Respiratory Pattern: 0 - RR 12 - 20; Patient only gets breathless with strenuous exercise. Breath Sounds: 0 - Clear to auscultation Cough Effectiveness: 0 - Strong non-productive Sputum Production 0 - No sputum production Level of Activity: 1 - Ambulatory with assist O2 needed to keep SpO2 greater than or equal to 92%: 0 - Room Air Assessment Score: 1 Total Assessment Score: 5 Breath Sounds: Inspiratory and expiratory diminished bilaterally.. Cough and Sputum: An effective cough produced no sputum... Vital Signs: Resp: 14 (03/22/24 1207) Pulse: 73 (03/22/24 1207) Temp: 35.7 C (96.3 F) (03/22/24 1207) BP: 111/41 (03/22/24 1207) SpO2: 100 % (03/22/24 1207) PFT: Inspiratory capacity: 2.0L. Primary Service: Urology. Admitting Diagnosis: Acute urinary retention [R33.8] BPH with obstruction/lower urinary tract symptoms [N40.1, N13.8] Bladder stone [N21.0] BPH (benign prostatic hyperplasia) [N40.0] Pulmonary Diagnosis: COPD. documented in this encounter Plan of Treatment Upcoming Encounters Date Type Department Care Team (Late st Contact Info) Description 03/29/2024 10:30 AM EDT Nurse Only Urology, [place] [address] [place] [address] [place] Nurse Urology [facility] [address] 04/03/2024 3:00 PM EDT Office Visit Podiatry [facility] [address] [place] [address] Coreen Gonzales, DPDerrick [address] [place] [address] 05/16/2024 9:00 AM EST Office Visit Urology, [place] [address] [place] [address] Jonas Gupta MD [address] [place] [address] 06/25/2024 3:00 PM EST Nutrition Services Nutrition Services [address] [facility] [address] [place] [address] Mari Parra RDN [address] [place] [address] 06/25/2024 3:40 PM EST Office Visit Family Practice [address] [facility] [address] [place] [phone] Nirmala Jackson DO [address] [place] [address] 10/07/2024 2:00 PM EDT Nurse Only Family Practice [address] [facility] [address] [place] [phone] Betty Hartmann, JOE [address] [place] [address] Pending Results Name Type Priority Associated Diagnoses Date /Time STONE ANALYSIS Lab Routine Acute urinary retention BPH with obstruction/lower urinary tract symptoms Bladder stone 03/22/2024 8:09 AM EDT SURGICAL PATHOLOGY Pathology Routine Acute urinary retention BPH with obstruction/lower urinary tract symptoms Bladder stone 03/22/2024 8:49 AM EDT Scheduled Orders Name Type Priority Associated Diagnoses Orde r Schedule STONE ANALYSIS Lab Routine Acute urinary retention BPH with obstruction/lower urinary tract symptoms Bladder stone Release Upon Ordering for 1 Occurrences starting 03/22/2024 SURGICAL PATHOLOGY Pathology Routine Acute urinary retention BPH with obstruction/lower urinary tract symptoms Bladder stone Release Upon Ordering for 1 Occurrences starting 03/22/2024, 1 completed Scheduled Procedures Name Priority Associated Diagnoses Date/Ti me COLONOSCOPY FLEXIBLE PROXIMA L DIAGNOSTIC Recall Benign neoplasm of colon Health Maintenance Due Date Last Done Comments Alpha-1 Antitrypsin 1963 Colonoscopy 06/23/2014 06/23/2009 Albumin/Creatinine Ratio 07/10/2024 024, 06/09/2022, 04/22/2021, Additional history exists Diabetic Foot Exam 07/10/2024 07/10/2023, 0 06/09/2022, 06/14/2021, Additional history exists HbA1c 09/06/2024 03/08/2024, 10/04, 07/10/2023, Additional history exists Adult Wellness Visit 09/28/2024 09/29/2023, 09/27/19 23 Depression Screening 09/28/2024 09/29/2023, 09/29/19 24 B-12 10/23/2024 10/24/2023, 01/03, 12/15/2021, Additional history exists Diabetic Eye Exam 01/25/2025 01/26/2024, , 2023, Additional history exists O2 ASSESSMENT COMPLETED IN PAST YEAR FOR COPD 03/22/2025 03/22/2024 GFR 03/25/2025 03/26/2024, 03/06, 03/24/2024, Additional history exists DTap/Tdap Vaccines (3 - [...] Procedure Name Priority Date/Time Associated Diagnosis Comments GLUCOSE METER, POINT OF CARE LUCIO 03/25/2024 4:02 PM EDT GLUCOSE METER, POINT OF CARE LUCIO 03/25/2024 12:[address] HEAD/BRAIN WO CONTRAST Routine 03/25/2024 10:51 AM EDT GLUCOSE METER, POINT OF CARE LUCIO 03/25/2024 7:44 AM EDT DIFFERENTIAL, AUTOMATED Routine 03/25/2024 4:32 AM EDT BASIC METABOLIC PANEL Routine 03/25/2024 4:32 AM EDT CBC Routine 03/25/2024 4:32 AM EDT CBC Routine 03/25/2024 4:32 AM EDT GLUCOSE METER, POINT OF CARE LUCIO 03/24/2024 8:10 PM EDT GLUCOSE METER, POINT OF CARE LUCIO 03/24/2024 5:14 PM EDT GLUCOSE METER, POINT OF CARE LUCIO 03/24/2024 10:38 AM EDT GLUCOSE METER, POINT OF CARE LUCIO 03/24/2024 7:34 AM EDT DIFFERENTIAL, AUTOMATED Routine 03/24/2024 4:16 AM EDT CBC Routine 03/24/2024 4:16 AM EDT CBC Routine 03/24/2024 4:16 AM EDT BASIC METABOLIC PANEL Routine 03/24/2024 4:15 AM EDT GLUCOSE METER, POINT OF CARE LUCIO 03/23/2024 8:52 PM EDT GLUCOSE METER, POINT OF CARE LUCIO 03/23/2024 4:33 PM EDT GLUCOSE METER, POINT OF CARE LUCIO 03/23/2024 11:38 AM EDT GLUCOSE METER, POINT OF CARE LUCIO 03/23/2024 7:54 AM EDT DIFFERENTIAL, AUTOMATED Routine 03/23/2024 4:10 AM EDT BASIC METABOLIC PANEL Routine 03/23/2024 4:10 AM EDT CBC Routine 03/23/2024 4:10 AM EDT CBC Routine 03/23/2024 4:10 AM EDT GLUCOSE METER, POINT OF CARE LUCIO 03/22/2024 9:14 PM EDT GLUCOSE METER, POINT OF CARE LUCIO 03/22/2024 4:44 PM EDT GLUCOSE METER, POINT OF CARE LUCIO 03/22/2024 12:54 PM EDT BASIC METABOLIC PANEL STAT 03/22/2024 9:35 AM EDT CBC STAT 03/22/2024 9:35 AM EDT GLUCOSE METER, POINT OF CARE LUCIO 03/22/2024 9:12 AM EDT GLUCOSE METER, POINT OF CARE [facility] 03/22/2024 7:23 AM EDT REMOVE SMALL BLADDER STONE, SIMPLE 03/22/2024 6:50 AM EDT Acute urinary retention BPH with obstruction/lower urinary tract symptoms Bladder stone REMOVAL OF PROSTATE (TURP) 03/22/2024 6:50 AM EDT Acute urinary retention BPH with obstruction/lower urinary tract symptoms Bladder stone documented in this encounter Results * (ABNORMAL) GLUCOSE METER, POINT OF CARE (03/25/2024 4:02 PM EDT) GLUCOSE - POCT 274(H) 70 - 120 mg/dL 03/25/2024 4:05 PM EDT [employer] Blood Whole blood specimen / Unknown 03/25/2024 4:02 PM EDT 03/25/2024 4:04 PM EDT Jonas Gupta MD LAB POINT OF CARE TE ST DOCKED DEVICE UNSOLICITED RESULTS [address] [address] * (ABNORMAL) GLUCOSE METER, POINT OF CARE (03/25/2024 12:20 PM EDT) GLUCOSE - POCT 254(H) 70 - 120 mg/dL 03/25/2024 12:33 PM EDT [employer] Blood Whole blood specimen / Unknown 03/25/2024 12:20 PM EDT 03/25/2024 12:33 PM EDT Jonas Gupta MD LAB POINT OF CARE TE ST DOCKED DEVICE UNSOLICITED RESULTS [facility] [address] [place] [address] * CT HEAD/BRAIN WO CONTRAST (03/25/2024 10:51 AM EDT) Anatomical Region Laterality Modality Head Computed Tomogra phy 03/25/2024 11:0 4 AM EDT Impressions 03/25/2024 11:05 AM EDT IMPRESSION No acute intracranial abnormality. MRI offers greater sensitivity for most intracranial processes and should be considered based on clinical concern and as feasible. Global brain volume loss and white matter lucencies. Although nonspecific, these changes most likely reflect chronic microvascular ischemic disease, further supported by intracranial atherosclerosis. I have personally reviewed this examination and agree with the resident/fellow physician's interpretation. Narrative 03/25/2024 11:[address] HEAD WITHOUT CONTRAST - 03/25/2024 HISTORY 79 y/o M with headache following a recent fall. CT head 10/12/[address] images of the head were obtained without contrast. Coronal and sagittal reconstructions are provided. COMPARISON CT head 10/12/2020 FINDINGS There is no recent territorial transcortical infarct. No acute intracranial hemorrhage, hydrocephalus, downward herniation, midline shift, mass effect or abnormal extra-axial fluid collections are demonstrated. Similar mild scalloping of the biparietal calvarium (series 3, image 18), likely secondary to small underlying arachnoid cysts. Global brain volume loss is again noted, with proportionate ventriculosulcal prominence. Periventricular and deep white matter lucencies are most commonly associated with chronic microvascular ischemic disease. Calcified intracranial atherosclerotic disease is noted. Bilateral lens replacements. The mastoid air cells and paranasal sinuses are clear. Calvarium and visualized craniofacial soft tissues are normal. Procedure Note Christian Salazar MD - 03/25/[address] HEAD WITHOUT CONTRAST - 03/25/2024 HISTORY 79 y/o M with headache following a recent fall. CT head 10/12/[address] images of the head were obtained without contrast. Coronal andsagittal reconstructions are provided. COMPARISON CT head 10/12/2020 FINDINGS There is no recent territorial transcortical infarct. No acuteintracranial hemorrhage, hydrocephalus, downward herniation, midlineshift, mass effect or abnormal extra-axial fluid collections aredemonstrated. Similar mild scalloping of the biparietal calvarium (series3, image 18), likely secondary to small underlying arachnoid cysts. Global brain volume loss is again noted, with proportionateventriculosulcal prominence. Periventricular and deep white matter lucencies are most commonlyassociated with chronic microvascular ischemic disease. Calcifiedintracranial atherosclerotic disease is noted. Bilateral lens replacements. The mastoid air cells and paranasal sinusesare clear. Calvarium and visualized craniofacial soft tissues arenormal. IMPRESSION IMPRESSION No acute intracranial abnormality. MRI offers greater sensitivity formost intracranial processes and should be considered based on clinicalconcern and as feasible. Global brain volume loss and white matter lucencies. Althoughnonspecific, these changes most likely reflect chronic microvascularischemic disease, further supported by intracranial atherosclerosis. I have personally reviewed this examination and agree with the resident/fellow physician's interpretation. Tessa Alarcon MD RAD CT * (ABNORMAL) GLUCOSE METER, POINT OF CARE (03/25/2024 7:44 AM EDT) [facility] GLUCOSE - POCT 202(H) 70 - 120 mg/dL 03/25/2024 7:49 AM EDT [facility] [employer] [facility] Blood Whole blood specimen / Unknown 03/25/2024 7:44 AM EDT 03/25/2024 7:49 AM EDT Jonas Gupta MD LAB POINT OF CARE TE ST DOCKED DEVICE UNSOLICITED RESULTS [facility] [address] [place] [address] * (ABNORMAL) DIFFERENTIAL, AUTOMATED (03/25/2024 4:32 AM EDT) [facility] WBC 4.38 4.00 - 10.80 K/uL 03/25/2024 4:57 AM EDT LABORATORY [facility] Neutrophils % 72.7 40.0 - 75.0 % 03/25/2024 4:57 AM EDT LABORATORY [facility] Lymphocytes % 17.6(L) 18.0 - 42.0 % 03/25/2024 4:57 AM EDT LABORATORY [facility] Monocytes % 7.3 1.0 - 11.0 % 03/25/2024 4:57 AM EDT LABORATORY [facility] Eosinophils % 1.4 0.0 - 6.0 % 03/25/2024 4:57 AM EDT LABORATORY [facility] Basophils % 0.5 0.0 - 2.0 % 03/25/2024 4:57 AM EDT LABORATORY [facility] Immature Granulocytes % 0.5 0.0 - 2.0 % 03/25/2024 4:57 AM EDT LABORATORY [facility] Absolute Neutrophils 3.19 1.80 - 7.70 K/uL 03/25/2024 4:57 AM EDT LABORATORY [facility] Absolute Lymphocytes 0.77(L) 1.00 - 4.80 K/ul 03/25/2024 4:57 AM EDT LABORATORY [facility] Absolute Monocytes 0.32 0.00 - 1.10 K/uL 03/25/2024 4:57 AM EDT LABORATORY [facility] Absolute Eosinophils 0.06 0.00 - 0.70 K/uL 03/25/2024 4:57 AM EDT LABORATORY [facility] Absolute Basophils 0.02 0.00 - 0.20 K/uL 03/25/2024 4:57 AM EDT LABORATORY [facility] Absolute Immature Granulocytes 0.02 0.00 - 0.20 K/uL 03/25/2024 4:57 AM EDT LAB[facility]ATORY [facility] Blood Venous blood specimen / Unknown Venipuncture / Unknown 03/25/2024 4:32 AM EDT 03/25/2024 4:37 AM EDT Razia Stack MD LAB BLOOD ORDERABLES [facility]AT[facility] [address] [place], [place] [id number] * (ABNORMAL) CBC (03/25/2024 4:32 AM EDT) [facility] WBC 4.38 4.00 - 10.80 K/uL 03/25/2024 4:57 AM EDT LABORATORY [facility] RBC 4.03 4.50 - 5.25 M/uL 03/25/2024 4:57 AM EDT LAB[facility]ATORY [facility] HGB 10.8(L) 14.0 - 16.8 g/dL 03/25/2024 4:57 AM EDT LAB[facility]ATORY [facility] HCT 34.5(L) 40.0 - 48.4 % 03/25/2024 4:57 AM EDT LAB[facility]ATORY [facility] MCV 85.6 82.0 - 99.5 fL 03/25/2024 4:57 AM EDT LABORATORY [facility] MCH 26.8 27.0 - 34.0 pg 03/25/2024 4:57 AM EDT LABORATORY [facility] MCHC 31.3 32.0 - 36.0 g/dL 03/25/2024 4:57 AM EDT LABORATORY [facility] RDW 15.0 11.5 - 15.5 % 03/25/2024 4:57 AM EDT LABORATORY [facility] PLT 99(L) 140 - 400 K/uL 03/25/2024 4:57 AM EDT LABORATORY [facility] MPV 9.4 6.6 - 11.1 fL 03/25/2024 4:57 AM EDT LABORATORY [facility] nRBCs 0 <=0 /100 WBCs 03/25/2024 4:57 AM EDT LABORATORY [facility] Blood Venous blood specimen / Unknown Venipuncture / Unknown 03/25/2024 4:32 AM EDT 03/25/2024 4:37 AM EDT Razia Stack MD LAB BLOOD ORDERABLES LABORATORY [facility] [address] [place] [address] * (ABNORMAL) BASIC METABOLIC PANEL (03/25/2024 4:32 AM EDT) BUN 16 6 - 20 mg/dL 03/25/2024 6:15 AM EDT LABORATORY C CREATININE 0.7 0.6 - 1.2 mg/dL 03/25/2024 6:15 AM EDT LABORATORY [facility] EGFR >90 >=60 mL/min 03/25/2024 6:15 AM EDT LABORATORY [facility] Comment:eGFR is calculated b ased on the CKD-EPI 2020 equation. SODIUM 135 135 - 146 mmol/L 03/25/2024 6:15 AM EDT LAB[facility]ATORY [facility] POTASSIUM 4.0 3.5 - 5.1 mmol/L 03/25/2024 6:15 AM EDT LAB[facility]ATORY [facility] CHLORIDE 104 98 - 107 mmol/L 03/25/2024 6:15 AM EDT LAB[facility]ATORY [facility] CO2 23 22 - 32 mmol/L 03/25/2024 6:15 AM EDT LAB[facility]ATORY [facility] ANION GAP 8 7 - 15 mmol/L 03/25/2024 6:15 AM EDT LABORATORY C GLUCOSE 199(H) 70 - 120 mg/dL 03/25/2024 6:15 AM EDT LABORATORY C CALCIUM 8.7 8.4 - 10.2 mg/dL 03/25/2024 6:15 AM EDT LABORATORY [facility] Blood Venous blood specimen / Unknown Venipuncture / Unknown 03/25/2024 4:32 AM EDT 03/25/2024 4:37 AM EDT Razia Stack MD LAB BLOOD ORDERABLES LABORATORY [facility] [address] [place] [address] * (ABNORMAL) GLUCOSE METER, POINT OF CARE (03/24/2024 8:10 PM EDT) GLUCOSE - POCT 301(H) 70 - 120 mg/dL 03/24/2024 8:20 PM EDT [facility] Blood Whole blood specimen / Unknown 03/24/2024 8:10 PM EDT 03/24/2024 8:20 PM EDT Jonas Gupta MD LAB POINT OF CARE TE ST DOCKED DEVICE UNSOLICITED RESULTS Performing Organization Address City/[facility] Co de Phone Number [facility] [address] [place] [address] * (ABNORMAL) GLUCOSE METER, POINT OF CARE (03/24/2024 5:14 PM EDT) GLUCOSE - POCT 257(H) 70 - 120 mg/dL 03/24/2024 5:56 PM EDT [facility] Blood Whole blood specimen / Unknown 03/24/2024 5:14 PM EDT 03/24/2024 5:56 PM EDT Jonas Gupta MD LAB POINT OF CARE TE ST DOCKED DEVICE UNSOLICITED RESULTS [facility] [address] [place] [address] * (ABNORMAL) GLUCOSE METER, POINT OF CARE (03/24/2024 10:38 AM EDT) GLUCOSE - POCT 280(H) 70 - 120 mg/dL 03/24/2024 10:45 AM EDT [facility] Blood Whole blood specimen / Unknown 03/24/2024 10:38 AM EDT 03/24/2024 10:45 AM EDT Jonas Gupta MD LAB POINT OF CARE TE ST DOCKED DEVICE UNSOLICITED RESULTS Performing Organization Address City/[facility]/ZIP Co de Phone Number [facility] [address] [place] [address] * (ABNORMAL) GLUCOSE METER, POINT OF CARE (03/24/2024 7:34 AM EDT) Pathologist [facility] GLUCOSE - POCT 219(H) 70 - 120 mg/dL 03/24/2024 7:57 AM EDT [facility] Blood Whole blood specimen / Unknown 03/24/2024 7:34 AM EDT 03/24/2024 7:57 AM EDT Jonas Gupta MD LAB POINT OF CARE TE ST DOCKED DEVICE UNSOLICITED RESULTS [facility] [address] [place] [address] * (ABNORMAL) DIFFERENTIAL, AUTOMATED (03/24/2024 4:16 AM EDT) WBC 4.38 4.00 - 10.80 K/uL 03/24/2024 4:48 AM EDT LABORATORY [facility] Neutrophils % 75.0 40.0 - 75.0 % 03/24/2024 4:48 AM EDT LABORATORY [facility] Lymphocytes % 16.4(L) 18.0 - 42.0 % 03/24/2024 4:48 AM EDT LABORATORY [facility] Monocytes % 7.1 1.0 - 11.0 % 03/24/2024 4:48 AM EDT LABORATORY [facility] Eosinophils % 1.1 0.0 - 6.0 % 03/24/2024 4:48 AM EDT LABORATORY [facility] Basophils % 0.2 0.0 - 2.0 % 03/24/2024 4:48 AM EDT LABORATORY [facility] Immature Granulocytes % 0.2 0.0 - 2.0 % 03/24/2024 4:48 AM EDT LABORATORY [facility] Absolute Neutrophils 3.28 1.80 - 7.70 K/uL 03/24/2024 4:48 AM EDT LABORATORY [facility] Absolute Lymphocytes 0.72(L) 1.00 - 4.80 K/ul 03/24/2024 4:48 AM EDT LABORATORY [facility] Absolute Monocytes 0.31 0.00 - 1.10 K/uL 03/24/2024 4:48 AM EDT LABORATORY [facility] Absolute Eosinophils 0.05 0.00 - 0.70 K/uL 03/24/2024 4:48 AM EDT LABORATORY [facility] Absolute Basophils 0.01 0.00 - 0.20 K/uL 03/24/2024 4:48 AM EDT LABORATORY [facility] Absolute Immature Granulocytes 0.01 0.00 - 0.20 K/uL 03/24/2024 4:48 AM EDT LAB[facility]ATORY [facility] Blood Venous blood specimen / Unknown Venipuncture / Unknown 03/24/2024 4:16 AM EDT 03/24/2024 4:21 AM EDT Razia Stack MD LAB BLOOD ORDERABLES Performing Organization Address City/State/[facility] Co de Phone Number LABORATORY [facility] [address] [place] [address] * (ABNORMAL) CBC (03/24/2024 4:16 AM EDT) WBC 4.38 4.00 - 10.80 K/uL 03/24/2024 4:48 AM EDT LABORATORY [facility] RBC 3.92 4.50 - 5.25 M/uL 03/24/2024 4:48 AM EDT LABORATORY [facility] HGB 10.5(L) 14.0 - 16.8 g/dL 03/24/2024 4:48 AM EDT LABORATORY [facility] HCT 33.3(L) 40.0 - 48.4 % 03/24/2024 4:48 AM EDT LABORATORY [facility] MCV 84.9 82.0 - 99.5 fL 03/24/2024 4:48 AM EDT LAB[facility]ATORY [facility] MCH 26.8 27.0 - 34.0 pg 03/24/2024 4:48 AM EDT LAB[facility]ATORY [facility] MCHC 31.5 32.0 - 36.0 g/dL 03/24/2024 4:48 AM EDT LABORATORY [facility] RDW 14.9 11.5 - 15.5 % 03/24/2024 4:48 AM EDT LABORATORY [facility] PLT 106(L) 140 - 400 K/uL 03/24/2024 4:48 AM EDT LABORATORY [facility] MPV 10.8 6.6 - 11.1 fL 03/24/2024 4:48 AM EDT LABORATORY [facility] nRBCs 0 <=0 /100 WBCs 03/24/2024 4:48 AM EDT LAB[facility]ATORY [facility] Blood Venous blood specimen / Unknown Venipuncture / Unknown 03/24/2024 4:16 AM EDT 03/24/2024 4:21 AM EDT Razia Stack MD LAB BLOOD ORDERABLES LABORATORY [facility] [address] [place] [address] * (ABNORMAL) BASIC METABOLIC PANEL (03/24/2024 4:15 AM EDT) BUN 14 6 - 20 mg/dL 03/24/2024 4:49 AM EDT LABORATORY [facility] CREATININE 0.7 0.6 - 1.2 mg/dL 03/24/2024 4:49 AM EDT LABORATORY [facility] EGFR >90 >=60 mL/min 03/24/2024 4:49 AM EDT LABORATORY [facility] Comment:eGFR is calculated b ased on the CKD-EPI 2020 equation. SODIUM 136 135 - 146 mmol/L 03/24/2024 4:49 AM EDT LABORATORY [facility] POTASSIUM 3.7 3.5 - 5.1 mmol/L 03/24/2024 4:49 AM EDT LABORATORY [facility] CHLORIDE 105 98 - 107 mmol/L 03/24/2024 4:49 AM EDT LABORATORY [facility] CO2 22 22 - 32 mmol/L 03/24/2024 4:49 AM EDT LABORATORY [facility] ANION GAP 9 7 - 15 mmol/L 03/24/2024 4:49 AM EDT LABORATORY C GLUCOSE 221(H) 70 - 120 mg/dL 03/24/2024 4:49 AM EDT LABORATORY C CALCIUM 8.5 8.4 - 10.2 mg/dL 03/24/2024 4:49 AM EDT LABORATORY C Blood Venous blood specimen / Unknown Venipuncture / Unknown 03/24/2024 4:15 AM EDT 03/24/2024 4:21 AM EDT Razia Stack MD LAB BLOOD ORDERABLES LABORATORY [facility] [address] [place] [address] * (ABNORMAL) GLUCOSE METER, POINT OF CARE (03/23/2024 8:52 PM EDT) GLUCOSE - POCT 332(H) 70 - 120 mg/dL 03/23/2024 8:58 PM EDT [facility] Blood Whole blood specimen / Unknown 03/23/2024 8:52 PM EDT 03/23/2024 8:57 PM EDT Jonas Gupta MD LAB POINT OF CARE TE ST DOCKED DEVICE UNSOLICITED RESULTS [facility] [address] [place] [address] * (ABNORMAL) GLUCOSE METER, POINT OF CARE (03/23/2024 4:33 PM EDT) GLUCOSE - POCT 364(H) 70 - 120 mg/dL 03/23/2024 4:34 PM EDT [facility] Blood Whole blood specimen / Unknown 03/23/2024 4:33 PM EDT 03/23/2024 4:34 PM EDT Jonas Gupta MD LAB POINT OF CARE TE ST DOCKED DEVICE UNSOLICITED RESULTS Performing Organization Address City/[facility]/ZIP Co de Phone Number [facility] [address] [place] [address] * (ABNORMAL) GLUCOSE METER, POINT OF CARE (03/23/2024 11:38 AM EDT) GLUCOSE - POCT 308(H) 70 - 120 mg/dL 03/23/2024 12:04 PM EDT [facility] Blood Whole blood specimen / Unknown 03/23/2024 11:38 AM EDT 03/23/2024 12:04 PM EDT Jonas Gupta MD LAB POINT OF CARE TE ST DOCKED DEVICE UNSOLICITED RESULTS Performing Organization Address [facility] Co de Phone Number [facility] [address] [place] [address] * (ABNORMAL) GLUCOSE METER, POINT OF CARE (03/23/2024 7:54 AM EDT) GLUCOSE - POCT 296(H) 70 - 120 mg/dL 03/23/2024 8:02 AM EDT [facility] Blood Whole blood specimen / Unknown 03/23/2024 7:54 AM EDT 03/23/2024 8:02 AM EDT Jonas Gupta MD LAB POINT OF CARE TE ST DOCKED DEVICE UNSOLICITED RESULTS Performing Organization Address City/[facility]/ZIP Co de Phone Number [facility] [address] [place] [address] * (ABNORMAL) DIFFERENTIAL, AUTOMATED (03/23/2024 4:10 AM EDT) WBC 5.45 4.00 - 10.80 K/uL 03/23/2024 5:05 AM EDT LABORATORY [facility] Neutrophils % 81.0(H) 40.0 - 75.0 % 03/23/2024 5:05 AM EDT LABORATORY [facility] Lymphocytes % 12.1(L) 18.0 - 42.0 % 03/23/2024 5:05 AM EDT LABORATORY [facility] Monocytes % 5.7 1.0 - 11.0 % 03/23/2024 5:05 AM EDT LABORATORY [facility] Eosinophils % 0.6 0.0 - 6.0 % 03/23/2024 5:05 AM EDT LABORATORY [facility] Basophils % 0.2 0.0 - 2.0 % 03/23/2024 5:05 AM EDT LABORATORY [facility] Immature Granulocytes % 0.4 0.0 - 2.0 % 03/23/2024 5:05 AM EDT LABORATORY [facility] Absolute Neutrophils 4.42 1.80 - 7.70 K/uL 03/23/2024 5:05 AM EDT LABORATORY [facility] Absolute Lymphocytes 0.66(L) 1.00 - 4.80 K/ul 03/23/2024 5:05 AM EDT LABORATORY [facility] Absolute Monocytes 0.31 0.00 - 1.10 K/uL 03/23/2024 5:05 AM EDT LABORATORY [facility] Absolute Eosinophils 0.03 0.00 - 0.70 K/uL 03/23/2024 5:05 AM EDT LABORATORY [facility] Absolute Basophils 0.01 0.00 - 0.20 K/uL 03/23/2024 5:05 AM EDT LABORATORY [facility] Absolute Immature Granulocytes 0.02 0.00 - 0.20 K/uL 03/23/2024 5:05 AM EDT LAB[facility]ATORY [facility] Blood Venous blood specimen / Unknown Venipuncture / Unknown 03/23/2024 4:10 AM EDT 03/23/2024 4:37 AM EDT Razia Stack MD LAB BLOOD ORDERABLES LAB[facility]ATORY [facility] [address] [place] [address] * (ABNORMAL) CBC (03/23/2024 4:10 AM EDT) WBC 5.45 4.00 - 10.80 K/uL 03/23/2024 5:05 AM EDT LABORATORY [facility] RBC 4.10 4.50 - 5.25 M/uL 03/23/2024 5:05 AM EDT LABORATORY [facility] HGB 11.1(L) 14.0 - 16.8 g/dL 03/23/2024 5:05 AM EDT LABORATORY [facility] HCT 34.4(L) 40.0 - 48.4 % 03/23/2024 5:05 AM EDT LABORATORY [facility] MCV 83.9 82.0 - 99.5 fL 03/23/2024 5:05 AM EDT LABORATORY [facility] MCH 27.1 27.0 - 34.0 pg 03/23/2024 5:05 AM EDT LABORATORY [facility] MCHC 32.3 32.0 - 36.0 g/dL 03/23/2024 5:05 AM EDT LABORATORY [facility] RDW 15.0 11.5 - 15.5 % 03/23/2024 5:05 AM EDT LABORATORY [facility] PLT 100(L) 140 - 400 K/uL 03/23/2024 5:05 AM EDT LABORATORY [facility] MPV 10.5 6.6 - 11.1 fL 03/23/2024 5:05 AM EDT LABORATORY [facility] nRBCs 0 <=0 /100 WBCs 03/23/2024 5:05 AM EDT LABORATORY [facility] Blood Venous blood specimen / Unknown Venipuncture / Unknown 03/23/2024 4:10 AM EDT 03/23/2024 4:37 AM EDT Razia Stack MD LAB BLOOD ORDERABLES LABORATORY [facility] [address] [place] [address] * (ABNORMAL) BASIC METABOLIC PANEL (03/23/2024 4:10 AM EDT) BUN 19 6 - 20 mg/dL 03/23/2024 5:10 AM EDT LABORATORY [facility] CREATININE 0.8 0.6 - 1.2 mg/dL 03/23/2024 5:10 AM EDT LABORATORY [facility] EGFR >90 >=60 mL/min 03/23/2024 5:10 AM EDT LABORATORY [facility] Comment:eGFR is calculated b ased on the CKD-EPI 2020 equation. SODIUM 137 135 - 146 mmol/L 03/23/2024 5:10 AM EDT LABORATORY [facility] POTASSIUM 4.1 3.5 - 5.1 mmol/L 03/23/2024 5:10 AM EDT LABORATORY [facility] CHLORIDE 105 98 - 107 mmol/L 03/23/2024 5:10 AM EDT LABORATORY [facility] CO2 23 22 - 32 mmol/L 03/23/2024 5:10 AM EDT LABORATORY [facility] ANION GAP 9 7 - 15 mmol/L 03/23/2024 5:10 AM EDT LABORATORY [facility] GLUCOSE 194(H) 70 - 120 mg/dL 03/23/2024 5:10 AM EDT LABORATORY [facility] CALCIUM 8.1(L) 8.4 - 10.2 mg/dL 03/23/2024 5:10 AM EDT LABORATORY C Blood Venous blood specimen / Unknown Venipuncture / Unknown 03/23/2024 4:10 AM EDT 03/23/2024 4:37 AM EDT Razia Stack MD LAB BLOOD ORDERABLES LABORATORY [facility] [address] [place] [address] * (ABNORMAL) GLUCOSE METER, POINT OF CARE (03/22/2024 9:14 PM EDT) Pathologist [facility] GLUCOSE - POCT 322(H) 70 - 120 mg/dL 03/22/2024 9:20 PM EDT [facility] Blood Whole blood specimen / Unknown 03/22/2024 9:14 PM EDT 03/22/2024 9:20 PM EDT Jonas Gupta MD LAB POINT OF CARE TE ST DOCKED DEVICE UNSOLICITED RESULTS [facility] [address] [place] [address] * (ABNORMAL) GLUCOSE METER, POINT OF CARE (03/22/2024 4:44 PM EDT) GLUCOSE - POCT 223(H) 70 - 120 mg/dL 03/22/2024 4:49 PM EDT [facility] Blood Whole blood specimen / Unknown 03/22/2024 4:44 PM EDT 03/22/2024 4:49 PM EDT Jonas Gupta MD LAB POINT OF CARE TE ST DOCKED DEVICE UNSOLICITED RESULTS Performing Organization Address City/[facility]/ZIP Co de Phone Number [facility] [address] [place] [address] * (ABNORMAL) GLUCOSE METER, POINT OF CARE (03/22/2024 12:54 PM EDT) GLUCOSE - POCT 247(H) 70 - 120 mg/dL 03/22/2024 12:59 PM EDT [facility] Blood Whole blood specimen / Unknown 03/22/2024 12:54 PM EDT 03/22/2024 12:59 PM EDT Jonas Gupta MD LAB POINT OF CARE TE ST DOCKED DEVICE UNSOLICITED RESULTS Performing Organization Address City/[facility]/ZIP Co de Phone Number [facility] [address] [place] [address] * (ABNORMAL) BASIC METABOLIC PANEL (03/22/2024 9:35 AM EDT) BUN 22(H) 6 - 20 mg/dL 03/22/2024 10:12 AM EDT LABORATORY [facility] CREATININE 0.7 0.6 - 1.2 mg/dL 03/22/2024 10:12 AM EDT LABORATORY [facility] EGFR >90 >=60 mL/min 03/22/2024 10:12 AM EDT LABORATORY [facility] Comment:eGFR is calculated b ased on the CKD-EPI 2020 equation. SODIUM 138 135 - 146 mmol/L 03/22/2024 10:12 AM EDT LABORATORY [facility] POTASSIUM 3.8 3.5 - 5.1 mmol/L 03/22/2024 10:12 AM EDT LABORATORY [facility] CHLORIDE 103 98 - 107 mmol/L 03/22/2024 10:12 AM EDT LABORATORY [facility] CO2 25 22 - 32 mmol/L 03/22/2024 10:12 AM EDT LABORATORY [facility] ANION GAP 10 7 - 15 mmol/L 03/22/2024 10:12 AM EDT LABORATORY [facility] GLUCOSE 234(H) 70 - 120 mg/dL 03/22/2024 10:12 AM EDT LABORATORY [facility] CALCIUM 8.3(L) 8.4 - 10.2 mg/dL 03/22/2024 10:12 AM EDT LABORATORY [facility] Blood Venous blood specimen / Unknown Venipuncture / Unknown 03/22/2024 9:35 AM EDT 03/22/2024 9:40 AM EDT Razia Stack MD LAB BLOOD ORDERABLES LABORATORY C [address] [place] [address] * (ABNORMAL) CBC (03/22/2024 9:35 AM EDT) WBC 3.79(L) 4.00 - 10.80 K/uL 03/22/2024 9:50 AM EDT LABORATORY [facility] RBC 4.09 4.50 - 5.25 M/uL 03/22/2024 9:50 AM EDT LABORATORY [facility] HGB 10.9(L) 14.0 - 16.8 g/dL 03/22/2024 9:50 AM EDT LABORATORY [facility] HCT 33.6(L) 40.0 - 48.4 % 03/22/2024 9:50 AM EDT LABORATORY [facility] MCV 82.2 82.0 - 99.5 fL 03/22/2024 9:50 AM EDT LABORATORY [facility] MCH 26.7 27.0 - 34.0 pg 03/22/2024 9:50 AM EDT LABORATORY [facility] MCHC 32.4 32.0 - 36.0 g/dL 03/22/2024 9:50 AM EDT LABORATORY [facility] RDW 14.9 11.5 - 15.5 % 03/22/2024 9:50 AM EDT LABORATORY [facility] PLT 102(L) 140 - 400 K/uL 03/22/2024 9:50 AM EDT LABORATORY [facility] MPV 10.2 6.6 - 11.1 fL 03/22/2024 9:50 AM EDT LABORATORY [facility] nRBCs 0 <=0 /100 WBCs 03/22/2024 9:50 AM EDT LABORATORY [facility] Blood Venous blood specimen / Unknown Venipuncture / Unknown 03/22/2024 9:35 AM EDT 03/22/2024 9:40 AM EDT Razia Stack MD LAB BLOOD ORDERABLES LABORATORY [facility] [address] [place] [address] * (ABNORMAL) GLUCOSE METER, POINT OF CARE (03/22/2024 9:12 AM EDT) GLUCOSE - POCT 234(H) 70 - 120 mg/dL 03/22/2024 9:24 AM EDT [facility] Blood Whole blood specimen / Unknown 03/22/2024 9:12 AM EDT 03/22/2024 9:24 AM EDT Jonas Gupta MD LAB POINT OF CARE TE ST DOCKED DEVICE UNSOLICITED RESULTS Performing Organization Address City/[facility] Co de Phone Number [facility] [address] [place] [address] * (ABNORMAL) GLUCOSE METER, POINT OF CARE (03/22/2024 7:23 AM EDT) GLUCOSE - POCT 298(H) 70 - 120 mg/dL 03/22/2024 7:51 AM EDT [facility] Blood Whole blood specimen / Unknown 03/22/2024 7:23 AM EDT 03/22/2024 7:51 AM EDT Jonas Gupta MD LAB POINT OF CARE TE ST DOCKED DEVICE UNSOLICITED RESULTS Performing Organization Address City/[facility]/ZIP Co de Phone Number [facility] [address] [place] [address] documented in this encounter Visit Diagnoses Diagnosis 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 symptoms Hypertrophy of prostate with urinary obstruction and other lower urinary tract symptoms (LUTS) Acute urinary retention Other specified retention of urine Bladder stone Other calculus in bladder Physical deconditioning Debility, unspecified Acute urinary retention Other specified retention of urine Bladder stone Other calculus in bladder Type 2 diabetes mellitus with hyperglycemia, without long-term current use of insulin (HCC) 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 Avoid in patients with severe hepatic impairment or severe active liver disease. Administer 60 minutes prior to OR., Pre-Op Given 03/22/2024 7:15 AM EDT 975 mg Acetaminophen (Tylenol) tab 975 mg 975 mg, Oral, QID(AM/NOON/PM/HS), First dose on Mon03/22/24 at 1200, Until Discontinued, DO NOT PAGE IF PATIENT REFUSES TYLENOL, just document in chart. Given 03/25/2024 6:15 PM EDT 975 mg Given 03/25/2024 1:16 PM EDT 975 mg Given 03/25/2024 7:05 AM EDT 975 mg Albuterol Sulfate (Proventil) (2.5 MG/3ML) 0.083% inhalation solution 2.5 mg 2.5 mg, Nebulizer, Q4H PRN Dyspnea, Starting on Mon03/22/24 at 1431, Until Mon03/26/24 at 0022 aspirin enteric coated tab 81 mg 81 mg, Oral, DAILY NOON, First dose on Mon03/23/24 at 1200, Until Discontinued, This med should NOT be Crushed or Chewed Given 03/25/2024 1:16 PM EDT 81 mg Given 03/24/2024 1:15 PM EDT 81 mg Given 03/23/2024 1:08 PM EDT 81 mg atorvaSTATin (Lipitor) tab 20 mg 20 mg, Oral, Q1700, First dose on Mon03/22/24 at 1700, Until Discontinued Given 03/25/2024 6:15 PM EDT 20 mg Given 03/24/2024 6:50 PM EDT 20 mg Given 03/23/2024 5:37 PM EDT 20 mg ceFAZolin in dextrose (Ancef) ivpb 2 g 2 g, IV Piggyback, Q8H, 3 doses, First dose on Mon03/22/24 at 1400, Last dose on Mon03/23/24 at 0600, Post-op New Bag 03/23/2024 5:35 AM EDT 2 g 100 mL/hr New Bag 03/22/2024 10:59 PM EDT 2 g 100 mL/hr New Bag 03/22/2024 3:30 PM EDT 2 g 100 mL/hr Clotrimazole (Lotrimin) 1 % cream Topical, BID (.AM/PM), First dose on Mon03/22/24 at 2100, Until Discontinued, Apply topically to affected area on both feet Given 03/25/2024 8:32 AM EDT Given 03/24/2024 9:18 PM EDT Given 03/24/2024 1:15 PM EDT dextrose 50% inj 25 mL 25 mL, IV Push, PRN Hypoglycemia, Other, For blood glucose 54 - 69 mg/dL or 70 - 100 mg/dL with symptoms AND patient is unresponsive, NPO, OR unable to swallow, Starting on Mon03/22/24 at 0915, Until Mon03/26/24 at 0022, Administer IV. Recheck blood glucose after 15 minutes. Notify provider. dextrose 50% inj 50 mL 50 mL, IV Push, PRN Hypoglycemia, Other, For blood glucose below 54 mg/dL AND patient unresponsive, NPO, OR unable to swallow, Starting on Mon03/22/24 at 0915, Until Mon03/26/24 at 0022, Administer IV. Recheck blood glucose in 15 minutes. Notify provider. Docusate Sodium (Colace) cap 100 mg 100 mg, Oral, BID (.AM/PM), First dose on Mon03/22/24 at 0945, Until Discontinued, For oral administration ONLY, if route of administration is other than oral and alternative product must be ordered., Post-op Given 03/25/2024 8:3 1 AM EDT 100 mg Given 03/24/2024 7:53 AM EDT 100 mg Given 03/23/2024 9:28 PM EDT 100 mg Finasteride (Proscar) tab 5 mg 5 mg, Oral, Daily(AM), First dose on Mon03/22/24 at 1000, Until Discontinued Given 03/25/2024 8:31 AM EDT 5 mg Given 03/24/2024 7:54 AM EDT 5 mg Given 03/23/2024 8:51 AM EDT 5 mg glucagon (Glucagen) inj 1 mg 1 mg, Intramuscular, PRN Hypoglycemia, Other, If patient is unresponsive, or NPO and has no IV access, Starting on Mon03/22/24 at 0915, Until Mon03/26/24 at 0022, NPO and no IV access with either 1) blood glucose less than 100 mg/dL and symptomatic OR 2) blood glucose less than 70 mg/dL and asymptomatic Glucose (Glutose 15) 40 % gel 15 g of glucose 15 g of glucose, Oral, PRN Hypoglycemia (low sugar), Other, For blood glucose 54 - 69 mg/dL or 70 - 100 mg/dL with symptoms AND patient alert WITH difficulty chewing/swallowing, Starting on Mon03/22/24 at 0915, Until Mon03/26/24 at 0022, Administer gel. Recheck blood glucose after 15 minutes. Notify provider. 37.5 gram tube = 15 grams glucose = 1 each Glucose (Glutose 15) 40 % gel 30 g of glucose 30 g of glucose, Oral, PRN Hypoglycemia (low sugar), Other, For blood glucose below 54 mg/dL AND patient alert WITH difficulty chewing/swallowing, Starting on Mon03/22/24 at 0915, Until Mon03/26/24 at 0022, Administer gel. Recheck blood glucose after 15 minutes. Notify provider. 37.5 gram tube = 15 grams glucose = 1 each glucose chew tab 16 g 16 g, Oral, PRN Hypoglycemia, Other, For blood glucose 54 - 69 mg/dL or 70 - 100 mg/dL with symptoms and patient alert without difficulty chewing/swallowing., Starting on Mon03/22/24 at 0915, Until Mon03/26/24 at 0022 hEParin inj 5,000 Units 5,000 Units, Subcutaneous, Q8H, First dose on Mon03/22/24 at 1400, Until Discontinued, Post-op Given 03/25/2024 1:16 PM EDT 5,000 Units Abdomen Left Lower Given 03/25/2024 7:00 AM EDT 5,000 Units A bdomen Right Upper Given 03/24/2024 8:59 PM EDT 5,000 Units A bdomen Right Lower insulin aspart (NovoLOG) inj 10 Units 10 Units, Subcutaneous, ONCE, 1 dose, On Mon03/22/24 at 0800 Given 03/22/2024 7:29 AM EDT 10 Units Abdomen Right Lower insulin aspart (NovoLOG) inj Subcutaneous, W/MEALS AND HS, First dose on Mon03/22/24 at 1200, Until Discontinued, MEDIUM DOSE (Usual starting dose): Sliding Scale Correctional insulin may be given if the patient is NPO. Dose based on standard build from [employer]. Do not modify insulin doses in administration instructions!, Glucose less than 70 instructions: Obtain STAT lab blood glucose and call covering provider., Glucose 80-150 (units): 0, Glucose 151-200 (units): 2, Glucose 201-250 (units): 4, Glucose 251-300 (units): 6, Glucose greater than 300 (units): 8, Glucose greater than 300 instructions: Give suggested insulin dose and call covering provider. Given 03/23/2024 9:29 PM EDT 8 Units Arm Left Upper Given 03/23/2024 5:36 PM EDT 8 Units Ar m Left Upper Given 03/23/2024 1:08 PM EDT 8 Units Ar m Left Upper insulin aspart (NovoLOG) inj Subcutaneous, W/MEALS AND HS, First dose on Mon03/24/24 at 0800, Until Discontinued, HIGH DOSE (Moderately Insulin Resistance): Sliding Scale Correctional insulin may be given if the patient is NPO. Dose based on standard build from Insulin Calculator. Do not modify insulin doses in administration instructions!, Glucose less than 70 instructions: Obtain STAT lab blood glucose and call covering provider., Glucose 80-150 (units): 0, Glucose 151-200 (units): 3, Glucose 201-250 (units): 6, Glucose 251-300 (units): 9, Glucose greater than 300 (units): 12, Glucose greater than 300 instructions: Give suggested insulin dose and call covering provider. Given 03/25/2024 6:15 PM EDT 9 Units Arm Left Upper Given 03/25/2024 1:16 PM EDT 9 Units Ar m Left Upper Given 03/25/2024 8:32 AM EDT 6 Units Ar m Right Upper insulin aspart (NovoLOG) inj Subcutaneous, WITH MEALS, First dose on Mon03/24/24 at 0800, Until Discontinued, Dose equals 1 unit of insulin per 10 grams of carbohydrate consumed. Hold dose if patient does not eat Given 03/25/2024 8:48 AM EDT 5 Units Arm Right Upper Given 03/24/2024 6:50 PM EDT 4 Units Ab domen Right Upper Given 03/24/2024 1:14 PM EDT 4 Units Ab domen Right Upper insulin aspart (NovoLOG) inj Subcutaneous, WITH MEALS, First dose (after last modification) on 03/25/24 at 1200, Until Discontinued, Dose equals 1 unit of insulin per 8 grams of carbohydrate consumed. Hold dose if patient does not eat Given 03/25/2024 6:15 PM EDT 7 Units Arm Left Upper Given 03/25/2024 1:16 PM EDT 7 Units Ar m Left Upper Insulin Glargine (Lantus) inj 10 Units 10 Units, Subcutaneous, HSINSULIN, First dose on Mon03/25/24 at 2200, Until Discontinued, "IF DOSE IS HELD- NOTIFY COVERING PROVIDER!" isolyte-S pH 7.4 infusion Intravenous, at 25 mL/hr, All Patients EXCEPT Dialysis patients Plasma-LYTE 148, isolyte-S, and isolyte-S pH 7.4 are considered equivalent - including for MAR barcode scanning., CONTINUOUS, Starting on Mon03/22/24 at 0730, Until 03/23/24 at 1207, Pre-Op New Bag 03/22/2024 8:07 AM EDT Continue from Pre-Op 03/22/2024 7:32 AM EDT 25 mL/hr New Bag 03/22/2024 7:26 AM EDT 25 mL/hr 25 mL/hr lidocaine 1 % inj 1 mg 1 mg (0.1 mL), Percutaneous, ONCE PRN Other, Difficult IV starts requiring > 20 guage catheter and/ or by patient request, Starting on Mon03/22/24 at 0651, Until Mon03/26/24 at 0022, For 1 dose, Pre-Op methylPHENIDATE (Ritalin) tab 10 mg 10 mg, Oral, BID (.AM/PM), First dose on Mon03/22/24 at 2100, Until Discontinued Given 03/25/2024 8:31 AM EDT 10 mg Given 03/24/2024 8:59 PM EDT 10 mg Given 03/24/2024 7:54 AM EDT 10 mg NSS infusion 75 mL/hr, Intravenous, CONTINUOUS, Starting on Mon03/22/24 at 0945, Until 03/23/24 at 1207 Rate Verify 03/23/2024 3:55 AM EDT 75 m L/hr New Bag 03/23/2024 3:04 AM EDT 75 mL/hr 75 mL/hr Rate Verify 03/22/2024 11:21 PM EDT 75 mL/hr Nystatin (Nystop) powder Topical, BID (.AM/PM), First dose on Mon03/22/24 at 1000, Until Discontinued, Apply to groin and affected area Given 03/25/2024 8:32 AM EDT Given 03/24/2024 9:18 PM EDT Given 03/24/2024 1:15 PM EDT omeprazole (PriLOSEC) cap 20 mg 20 mg, Oral, Daily(AM), First dose on Mon03/22/24 at 1000, Until Discontinued, This med should NOT be Crushed or Chewed Given 03/25/2024 8:31 AM EDT 20 mg Given 03/24/2024 7:54 AM EDT 20 mg Given 03/23/2024 8:51 AM EDT 20 mg ondansetron (Zofran) inj 4 mg 4 mg, IV Push, Q6H PRN Nausea, Starting on Mon03/22/24 at 0911, Until Mon03/26/24 at 0022 oxybutynin (Ditropan) tab 5 mg 5 mg, Oral, TID PRN Other, Bladder spasms, Starting on Mon03/22/24 at 0911, Until Mon03/26/24 at 0022 oxyCODONE (Oxy IR) tab 10 mg 10 mg, Oral, Q4H PRN Pain, Severe, Starting on Mon03/22/24 at 0911, Until Mon03/26/24 at 0022 oxyCODONE (Oxy IR) tab 5 mg 5 mg, Oral, Q4H PRN Pain, Moderate, Starting on Mon03/22/24 at 0911, Until Mon03/26/24 at 0022 senna (Senokot) 1 Tablet 1 Tablet, Oral, BID (.AM/PM), First dose on Mon03/22/24 at 0945, Until Discontinued Given 03/25/2024 8:31 AM EDT 1 T ablet Given 03/24/2024 7:53 AM EDT 1 Tablet Given 03/23/2024 9:28 PM EDT 1 Tablet Simethicone (Mylicon) chew tab 80 mg 80 mg, Oral, Q6H PRN Gas, Starting on Mon03/22/24 at 0912, Until Mon03/26/24 at 0022, Tablets need to be chewed before swallowing! tamsulosin (Flomax) cap 0.4 mg 0.4 mg, Oral, Daily(AM), First dose on Mon03/22/24 at 1000, Until Discontinued, Administer 30 min after meal. This med should NOT be Crushed or Chewed or opened! ORAL administration only!! Given 03/25/2024 8:31 AM EDT 0.4 mg Given 03/24/2024 7:53 AM EDT 0.4 mg Given 03/23/2024 8:51 AM EDT 0.4 mg umeclidinium [place] (INCRUSE ellipta) 62.5 MCG/ACT inhaler 1 Puff 1 Puff, Inhalation, RESPDAILY, First dose on Mon03/23/24 at 0800, Until Discontinued, NURSING TO FOLLOW PATIENT WITH MDI/DPI ADMINISTRATION Given 03/25/2024 8:31 AM EDT 1 Puff Given 03/24/2024 1:15 PM EDT 1 Puff Given 03/23/2024 8:00 AM EDT 1 Puff documented in this encounter Active and Recently Administered Medications Times are shown in EDT. Scheduled Medication Order 03/23/2024 03/24/2024 03/25/2024 Acetaminophen (Tylenol) tab 975 mg 975 mg, Oral, QID(AM/NOON/PM/HS), First dose on Mon03/22/24 at 1200, Until Discontinued, DO NOT PAGE IF PATIENT REFUSES TYLENOL, just document in chart. 0529 (Not Given - Provider: Alexandra Sargent RN - Reason: Refused-Notify Provider)1308 (Given - Provider: Kaylene Leahy RN)1800 (Not Given - Provider: Kaylene Leahy RN - Reason: Refused-Notify Provider)2128 (Not Given - Provider: Alexandra Sargent RN - Reason: Refused-Notify Provider) 0637 (Not Given - Provider: Alexandra Sargent RN - Reason: Refused-Notify Provider)1200 (Not Given - Provider: Lilli Mcguire RN - Reason: Refused-Notify Provider)1508 (Given - Provider: Lilli Mcguire RN)2059 (Not Given - Provider: Alexandra Sargent RN - Reason: Refused-Notify Provider) 0705 (Given - Provider: Pat Kincaid LPN)1316 (Given - Provider: Marcia Diego RN)1815 (Given - Provider: Marcia Diego RN) aspirin enteric coated tab 81 mg 81 mg, Oral, DAILY NOON, First dose on 03/23/24 at 1200, Until Discontinued, This med should NOT be Crushed or Chewed 1308 (Given - Provider: Kaylene Leahy RN) 1315 (Given - Provider: Lilli Mcguire RN) 1316 (Given - Provider: Marcia Diego RN) atorvaSTATin (Lipitor) tab 20 mg 20 mg, Oral, Q1700, First dose on Mon03/22/24 at 1700, Until Discontinued 1737 (Given - Provider: Kaylene Leahy RN) 1850 (Given - Provider: Lilli Mcguire RN) 1815 (Given - Provider: Marcia Diego RN) ceFAZolin in dextrose (Ancef) ivpb 2 g (COMPLETED) 2 g, IV Piggyback, Q8H, 3 doses, First dose on Mon03/22/24 at 1400, Last dose on 03/23/24 at 0600, Post-op 0535 (New Bag - Provider: Alexandra Sargent RN) Clotrimazole (Lotrimin) 1 % cream Topical, BID (.AM/PM), First dose on Mon03/22/24 at 2100, Until Discontinued, Apply topically to affected area on both feet 0852 (Given - Provider: Mar Robertson RN)2142 (Given - Provider: Alexandra Sargent RN) 1315 (Given - Provider: Lilli Mcguire RN)2118 (Given - Provider: Alexandra Sargent RN) 0832 (Given - Provider: Marcia Diego RN) Docusate Sodium (Colace) cap 100 mg 100 mg, Oral, BID (.AM/PM), First dose on Mon03/22/24 at 0945, Until Discontinued, For oral administration ONLY, if route of administration is other than oral and alternative product must be ordered., Post-op 0851 (Given - Provider: Mar Robertson RN)2128 (Given - Provider: Alexandra Sargent RN) 0753 (Given - Provider: Lilli Mcguire RN)2058 (Not Given - Provider: Alexandra Sargent RN - Reason: Refused-Notify Provider) 0831 (Given - Provider: Marcia Diego RN) Finasteride (Proscar) tab 5 mg 5 mg, Oral, Daily(AM), First dose on Mon03/22/24 at 1000, Until Discontinued 0851 (Given - Provider: Mar Robertson RN) 0754 (Given - Provider: Lilli Mcguire RN) 0831 (Given - Provider: Marcia Diego, JOE) hEParin inj 5,000 Units 5,000 Units, Subcutaneous, Q8H, First dose on Mon03/22/24 at 1400, Until Discontinued, Post-op 0530 (Given - Provider: Alexandra Sargent RN)1458 (Given - Provider: Kaylene Leahy RN)2128 (Given - Provider: Alexandra Sargent RN) 0636 (Given - Provider: Alexandra Sargent RN)1508 (Given - Provider: Lilli Mcguire RN)205 (Given - Provider: Alexandra Sargent RN) 0700 (Given - Provider: Pat Kincaid LPN)1316 (Given - Provider: Marcia Diego RN) insulin aspart (NovoLOG) inj (CANCELED) Subcutaneous, W/MEALS AND HS, First dose on Mon03/22/24 at 1200, Until Discontinued, MEDIUM DOSE (Usual starting dose): Sliding Scale Correctional insulin may be given if the patient is NPO. Dose based on standard build from Insulin Calculator. Do not modify insulin doses in administration instructions!, Glucose less than 70 instructions: Obtain STAT lab blood glucose and call covering provider., Glucose 80-150 (units): 0, Glucose 151-200 (units): 2, Glucose 201-250 (units): 4, Glucose 251-300 (units): 6, Glucose greater than 300 (units): 8, Glucose greater than 300 instructions: Give suggested insulin dose and call covering provider. 0851 (Given - Provider: Mar Robertson RN)1308 (Given - Provider: Kaylene Leahy, RN)1736 (Given - Provider: Kaylene Leahy, JOE)2129 (Given - Provider: Alexandra Sargent, JOE) insulin aspart (NovoLOG) inj Subcutaneous, W/MEALS AND HS, First dose on Mon03/24/24 at 0800, Until Discontinued, HIGH DOSE (Moderately Insulin Resistance): Sliding Scale Correctional insulin may be given if the patient is NPO. Dose based on standard build from Insulin Calculator. Do not modify insulin doses in administration instructions!, Glucose less than 70 instructions: Obtain STAT lab blood glucose and call covering provider., Glucose 80-150 (units): 0, Glucose 151-200 (units): 3, Glucose 201-250 (units): 6, Glucose 251-300 (units): 9, Glucose greater than 300 (units): 12, Glucose greater than 300 instructions: Give suggested insulin dose and call covering provider. 0919 (Given - Provider: Lilli Mcguire RN)1314 (Given - Provider: Lilli Mcguire RN)1851 (Given - Provider: Lilli Mcguire RN)2059 (Given - Provider: Alexandra Sargent, JOE) 0832 (Given - Provider: Marcia Diego, RN)1316 (Given - Provider: Marcia Diego, RN)1815 (Given - Provider: Marcia Diego, RN) insulin aspart (NovoLOG) inj (CANCELED) Subcutaneous, WITH MEALS, First dose on Mon03/24/24 at 0800, Until Discontinued, Dose equals 1 unit of insulin per 10 grams of carbohydrate consumed. Hold dose if patient does not eat 0918 (Given - Provider: Lilli Mcguire RN)1314 (Given - Provider: Lilli Mcguire RN)1850 (Given - Provider: Lilli Mcguire RN) 0848 (Given - Provider: Marcia Diego, RN) insulin aspart (NovoLOG) inj Subcutaneous, WITH MEALS, First dose (after last modification) on Mon03/25/24 at 1200, Until Discontinued, Dose equals 1 unit of insulin per 8 grams of carbohydrate consumed. Hold dose if patient does not eat 1316 (Given - Provider: Marcia Diego RN)1815 (Given - Provider: Marcia Diego RN) Insulin Glargine (Lantus) inj 10 Units 10 Units, Subcutaneous, HSINSULIN, First dose on Mon03/25/24 at 2200, Until Discontinued, "IF DOSE IS HELD- NOTIFY COVERING PROVIDER!" methylPHENIDATE (Ritalin) tab 10 mg 10 mg, Oral, BID (.AM/PM), First dose on Mon03/22/24 at 2100, Until Discontinued 0851 (Given - Provider: Mar Robertson RN)2128 (Given - Provider: Alexandra Sargent RN) 0754 (Given - Provider: Lilli Mcguire RN)205 (Given - Provider: Alexandra Sargent, JOE) 0831 (Given - Provider: Marcia Diego, JOE) Nystatin (Nystop) powder Topical, BID (.AM/PM), First dose on Mon03/22/24 at 1000, Until Discontinued, Apply to groin and affected area 0852 (Given - Provider: Mar Robertson, JOE)2143 (Given - Provider: Alexandra Sargent, JOE) 1315 (Given - Provider: Lilli Mcguire RN)2118 (Given - Provider: Alexandra Sargent, JOE) 0832 (Given - Provider: Marcia Diego, JOE) omeprazole (PriLOSEC) cap 20 mg 20 mg, Oral, Daily(AM), First dose on Mon03/22/24 at 1000, Until Discontinued, This med should NOT be Crushed or Chewed 0851 (Given - Provider: Mar Robertson, JOE) 0754 (Given - Provider: Lilli Mcguire, RN) 0831 (Given - Provider: Marcia Diego, JOE) senna (Senokot) 1 Tablet 1 Tablet, Oral, BID (.AM/PM), First dose on Mon03/22/24 at 0945, Until Discontinued 0851 (Given - Provider: Mar Robertson, JOE)2128 (Given - Provider: Alexandra Sargent, JOE) 0753 (Given - Provider: Lilli Mcguire RN)205 (Not Given - Provider: Alexandra Sargent, JOE - Reason: Refused-Notify Provider) 0831 (Given - Provider: Marcia Diego, JOE) tamsulosin (Flomax) cap 0.4 mg 0.4 mg, Oral, Daily(AM), First dose on Mon03/22/24 at 1000, Until Discontinued, Administer 30 min after meal. This med should NOT be Crushed or Chewed or opened! ORAL administration only!! 0851 (Given - Provider: Mar Robertson RN) 0753 (Given - Provider: Lilli Mcguire, JOE) 0831 (Given - Provider: Marcia Diego, JOE) umeclidinium [place] (INCRUSE ellipta) 62.5 MCG/ACT inhaler 1 Puff 1 Puff, Inhalation, RESPDAILY, First dose on 03/23/24 at 0800, Until Discontinued, NURSING TO FOLLOW PATIENT WITH MDI/DPI ADMINISTRATION 0800 (Given - Provider: Anderson Salcido, COAL CAGER) 1315 (Given - Provider: Lilli Mcguire, JOE) 0831 (Given - Provider: Marcia Diego, JOE) Continuous Medication Order 03/23/2024 03/24/2024 03/25/2024 NSS infusion (CANCELED) 75 mL/hr, Intravenous, CONTINUOUS, Starting on Mon03/22/24 at 0945, Until 03/23/24 at 1207 0302 (Stopped - Provider: Alexandra Sargent, JOE)0304 (New Bag - Provider: Alexandra Sargent, RN)0355 (Rate Verify - Provider: Alexandra Sargent, JOE)1207 (Stopped - Provider: Kaylene Leahy RN) PRN Medication Order 03/23/2024 03/24/2024 03/25/2024 Albuterol Sulfate (Proventil) (2.5 MG/3ML) 0.083% inhalation solution 2.5 mg 2.5 mg, Nebulizer, Q4H PRN Dyspnea, Starting on Mon03/22/24 at 1431, Until Mon03/26/24 at 0022 dextrose 50% inj 25 mL 25 mL, IV Push, PRN Hypoglycemia, Other, For blood glucose 54 - 69 mg/dL or 70 - 100 mg/dL with symptoms AND patient is unresponsive, NPO, OR unable to swallow, Starting on Mon03/22/24 at 0915, Until Mon03/26/24 at 002, Administer IV. Recheck blood glucose after 15 minutes. Notify provider. dextrose 50% inj 50 mL 50 mL, IV Push, PRN Hypoglycemia, Other, For blood glucose below 54 mg/dL AND patient unresponsive, NPO, OR unable to swallow, Starting on Mon03/22/24 at 0915, Until Mon03/26/24 at 002, Administer IV. Recheck blood glucose in 15 minutes. Notify provider. glucagon (Glucagen) inj 1 mg 1 mg, Intramuscular, PRN Hypoglycemia, Other, If patient is unresponsive, or NPO and has no IV access, Starting on Mon03/22/24 at 0915, Until Mon03/26/24 at 002, NPO and no IV access with either 1) blood glucose less than 100 mg/dL and symptomatic OR 2) blood glucose less than 70 mg/dL and asymptomatic Glucose (Glutose 15) 40 % gel 15 g of glucose 15 g of glucose, Oral, PRN Hypoglycemia (low sugar), Other, For blood glucose 54 - 69 mg/dL or 70 - 100 mg/dL with symptoms AND patient alert WITH difficulty chewing/swallowing, Starting on Mon03/22/24 at 0915, Until Mon03/26/24 at 002, Administer gel. Recheck blood glucose after 15 minutes. Notify provider. 37.5 gram tube = 15 grams glucose = 1 each Glucose (Glutose 15) 40 % gel 30 g of glucose 30 g of glucose, Oral, PRN Hypoglycemia (low sugar), Other, For blood glucose below 54 mg/dL AND patient alert WITH difficulty chewing/swallowing, Starting on Mon03/22/24 at 0915, Until Mon03/26/24 at 002, Administer gel. Recheck blood glucose after 15 minutes. Notify provider. 37.5 gram tube = 15 grams glucose = 1 each glucose chew tab 16 g 16 g, Oral, PRN Hypoglycemia, Other, For blood glucose 54 - 69 mg/dL or 70 - 100 mg/dL with symptoms and patient alert without difficulty chewing/swallowing., Starting on Mon03/22/24 at 0915, Until Mon03/26/24 at 21 lidocaine 1 % inj 1 mg 1 mg (0.1 mL), Percutaneous, ONCE PRN Other, Difficult IV starts requiring > 20 guage catheter and/ or by patient request, Starting on Mon03/22/24 at 0651, Until Mon03/26/24 at 002, For 1 dose, Pre-Op ondansetron (Zofran) inj 4 mg 4 mg, IV Push, Q6H PRN Nausea, Starting on Mon03/22/24 at 0911, Until Mon03/26/24 at 002 oxybutynin (Ditropan) tab 5 mg 5 mg, Oral, TID PRN Other, Bladder spasms, Starting on Mon03/22/24 at 0911, Until Mon03/26/24 at 002 oxyCODONE (Oxy IR) tab 10 mg 10 mg, Oral, Q4H PRN Pain, Severe, Starting on Mon03/22/24 at 0911, Until Mon03/26/24 at 002 oxyCODONE (Oxy IR) tab 5 mg 5 mg, Oral, Q4H PRN Pain, Moderate, Starting on Mon03/22/24 at 0911, Until Mon03/26/24 at 0022 Simethicone (Mylicon) chew tab 80 mg 80 mg, Oral, Q6H PRN Gas, Starting on Mon03/22/24 at 0912, Until Mon03/26/24 at 002, Tablets need to be chewed before swallowing! documented in this encounter Advance Directives * [...] Advance Directives occurred with: Patient Care Teams Manager Winter Relationship Specialty Start Date End Date Nirmala Jackson DO [address] [place] [address] PCP - General Family Medicine 01/23/24 documented as of this encounter
--- OUTSIDE RECORDS SUMMARY | 2024-06-16 23:43 | External Medical Summary ---
Author Name Unknown Address Unknown Organization : Laboratory Report Ordering Provider Test Date Status DEION BIRD 03/25/2024 16:02:19 Final Observation Date Value Abnormality Reference (Units ) Status Glucose Point of Care 03/25/2024 16:02:19 274 Above high normal 70-120 (mg/dL) Final Performing Location
--- OUTSIDE RECORDS SUMMARY | 2024-06-16 23:43 | External Medical Summary | Summary of Care ---
Author Name Unknown Organization [facility] Address [address] [place] [address] Phone [phone] Care Team Providers Care Diesel Engine Assembler Name Role Phone Nirmala Alford Primary Care Provider Reason for Visit * Reason Comments Other TOV Encounter Details Date Type Department Care Team (Late st Contact Info) Description 03/29/2024 10:30 AM EDT Nurse Only Urology, [place] [address] [place] [address] [place], Nurse Urology [address] [place] [address] Other (TOV) Allergies Active Allergy Reactions Criticality Noted Date Comments Alcohol 01/19/2023 Sugar Alcohol Lactose Intolerance 12/12/2005 documented as of this encounter (statuses as of 04/12/2024) Medications aspirin enteric coated 81 MG TBEC [...] mouth daily at noon. -- getting through design engineer 04/07/20 23 Active Marion Rose In Vitro Strip (Glucose Blood) USE UP TO 4 TIMES A DAY DIRECTED 400 Strip 3 4 9:55 AM EST 06/01/20 23 Active Incruse Ellipta 62.5 MCG/ACT Inhalation Aerosol Powder Breath Activated (umeclidinium [place])Indicatio ns:Chronic obstructive pulmonary disease, unspecified COPD type [...] both feet twice daily. 30 g 2 07/08/20 24 Active Finasteride 5 MG Oral Tablet [...] before bedtime). 10 Capsule 03/22/20 24 Active Sennosides 8.6 MG Oral Tablet (Senokot) Take 1 Tablet by mouth twice per day (morning, before bedtime) for 10 days. 20 Tablet 03/22/20 24 024 Hospital, Clinic, or Other Facility Administered Medication Ordered Dose Route Frequency Start Date End Date Status sulfamethoxazole-trimethopr im DS (Bactrim DS) 800-160 MG 1 TabletIndications:Acute urinary retention 1 Tablet OR ONCE 03/29/2024 03/29/2024 Ended documented as of this encounter (statuses as of 04/12/2024) Active Problems Patient Care Coordination No te [...] as of this encounter (statuses as of 04/12/2024) Resolved Problems Problem Noted Date Diagnosed Date [...] as of this encounter (statuses as of 04/12/2024) Immunizations Name Administration Dates Next Due COVID-19 [...] (Prevnar) 11/07/2014 Pneumococcal Conjugate Vacci ne, 20-valent ([id number]) 02/20/2024 Pneumococcal Polysaccharide PPV23 (Pneumovax) 09/07/2017,02/25/2010 RSV [...] Sign Reading Time Taken Comments Blood Pressure 115/56 03/29/2024 10:45 AM EDT Pulse 73 03/29/2024 10:45 AM EDT Temperature 36.2 C (97.1 F) 03/29/2024 10:45 AM E DT Respiratory Rate - - Oxygen Saturation - - Inhaled Oxygen Concentration - - Weight - - Height - - Body Mass Index - - documented in this encounter Functional Status * [...] documented in this encounter Progress Notes * Lashonda Fernandez, MED ASSIST - 03/29/2024 1:02 PM EDT Patient presented today to clinic for a trial void. 60 ml was instilled into the patient's bladder.Catheter was then plugged and 50 ml was removed from catheter balloon. The catheter was then removed. Patient was not able to void. Patient was asked to stay and drink fluids and try to void and comeback in an hour. When patient came back he did not void and I scanned his bladder for 79 ml. Patient was referred to nurse. * Maude Barrientos RN - 03/29/2024 12:55 PM EDT 12:55- Patient returned after TOV. PVR 79ml. [facility] is from a senior living. Orders sent to insert catheter of patient has not voided within 8 hours. Encouraged patient to increase his fluid intake. 1 dose of bactrim given. F/u with Dr. Gupta already scheduled documented in this encounter Plan of Treatment Upcoming Encounters Date Type Department Care Team (Late st Contact Info) Description 04/23/2024 1:10 PM EST Pharmacy Family Practice [facility] [address] [facility] [place] [id number] College, Pharmacist [address] [place] [address] 04/23/2024 1:40 PM EST Office Visit Family Practice [facility] [address] [place] [address] Nirmala Alford DO [address] [place] [address] 04/29/2024 1:00 PM EST Office Visit Podiatry [facility] [address] [facility] [place] [address] Coreen Gonzales DPM [address] [facility] [place] [id number] 05/16/2024 9:00 AM EST Office Visit Urology, [place] [address] [place] [address] Jonas Gupta MD [address] [place], [place] [id number] 06/25/2024 3:00 PM EST Nutrition Services Nutrition Services [address] [facility] [address] [place] [address] Mari Parra RDN [address] [place] [address] 06/25/2024 3:40 PM EST Office Visit Family Practice [address] [place] [address] [address] [place] [phone] Nirmala Alford DO [address] [place] [address] 10/07/2024 2:00 PM EDT Nurse Only Family Practice [address] [place] [address] [address] [place] [phone] Betty Hartmann, JOE [address] [place] [phone] Scheduled Procedures Name Priority Associated Diagnoses Date/Ti [...] 03/26/2025 03/26/2024, 03/06, 03/24/2024, Additional history exists DTap/Tdap [...] as of this encounter Visit Diagnoses Diagnosis Retention of urine- Primary Retention of urine, unspecified documented in this encounter Administered Medications Inactive Administered Medications - up to 3 most recent administrations Medication Order MAR Action Action Date Dose Rate Site sulfamethoxazole-trimethoprim DS (Bactrim DS) 800-160 MG 1 Tablet 1 Tablet, Oral, ONCE, On Mon03/29/24 at 1030, For 1 doseIndications:Acute urinary retention Given 03/29/2024 12:52 PM EDT 1 Tablet documented in this encounter Advance Directives * [...] Advance Directives occurred with: Patient Care Teams Diesel Engine Assembler Relationship Specialty Start Date End Date Nirmala Alford DO [address] [place] [address] PCP - General Family Medicine 01/23/24 documented as of this encounter
--- OUTSIDE RECORDS SUMMARY | 2024-06-16 23:43 | External Medical Summary | Summary of Care ---
Author Name Unknown Organization [facility] Address [address] [place] [address] Phone [phone] Care Team Providers Care Electronic Components Assembler Name Role Phone Nirmala Alford DO Primary Care Provider Reason for Visit * Reason Onset Date Comments Hospital Follow-Up 03/27/2024 Encounter Details Date Type Department Care Team (Late st Contact Info) Description 03/27/2024 Telephone Family Practice 65 [facility] [address] [place] [id number] Nirmala Alford DO [address] [place] [address] Hospital Follow-Up Allergies Active Allergy Reactions Criticality Noted Date Comments Alcohol 01/19/2023 Sugar Alcohol Lactose Intolerance 12/12/2005 documented as of this encounter (statuses as of 03/28/2024) Medications Medication Sig Dispensed Refills Start Date [...] mouth daily at noon. -- getting through glove tagger 04/07/2023 Active OneTouch Verio In Vitro Strip (Glucose Blood) USE UP TO 4 TIMES A DAY DIRECTED 400 Strip 3 06/01/2023 Active Incruse Ellipta 62.5 MCG/ACT Inhalation Aerosol Powder Breath Activated (umeclidinium [place])Indications :Chronic obstructive pulmonary disease, unspecified COPD type [...] hemoglobin A1c goal of less than 8.0% ([facility]) TAKE ONE TABLET BY MOUTH THREE TIMES A DAY IN THE MORNING, AT NOON AND BEFORE BEDTIME 300 Tablet 1 03/19/2024 Active oxyBUTYnin Chloride ER 5 MG Oral Tablet Extended Release 24 Hour Take 1 Tablet by mouth in the morning. Take for bladder spasms and stent pain. 30 Tablet 03/22/2024 Active Docusate Sodium 100 MG Oral Capsule (Colace) Take 1 Capsule by mouth twice per day (morning, before bedtime). 10 Capsule 03/22/2024 Active Sennosides 8.6 MG Oral Tablet (Senokot) Take 1 Tablet by mouth twice per day (morning, before bedtime) for 10 days. 20 Tablet 03/22/2024 Active Hospital, Clinic, or Other Facility Administered Medication Ordered Dose Route Frequency Start Date End Date Status sulfamethoxazole-trimethopr im DS (Bactrim DS) 800-160 MG 1 TabletIndications:Acute urinary retention 1 Tablet OR ONCE 03/29/2024 03/29/2024 Active documented as of this encounter (statuses as of 03/28/2024) Active Problems Patient Care Coordination No te [...] as of this encounter (statuses as of 03/28/2024) Resolved Problems Problem Noted Date Diagnosed Date [...] as of this encounter (statuses as of 03/28/2024) Immunizations Name Administration Dates Next Due COVID-19 mRNA, LNP-s, No Pre serve, 2-Dose Series (Moderna) 09/07/2020,08/10/2020 COVID-19, LNP-s, No Preserve , Charlie-sucrose, Ages 12+ (Pfizer) 07/07/2021 COVID-19, MRNA-LNP, 23-24, P F, 30 MCG/0.3 mL, 12 YRS AND ABOVE, IM (PFIZER-Comirnaty) 04/14/2023 COVID-19, MRNA-LNP, 24-25, P R, 30MCG/0.3ML, IM, 12YRS AND ABOVE (Pfizer-Comirnat) 02/20/2024 Covid-19, Mrna, Lnp-s, Pf, B ivalent, 30 Mcg, IM, 12 yrs and above (Pfizer) 08/19/2022 Pneumococcal Conjugate Vacc, 13 Valent (Prevnar) 11/07/2014 Pneumococcal Conjugate Vacci ne, 20-valent ([id number]) 02/20/2024 Pneumococcal Polysaccharide PPV23 (Pneumovax) 09/07/2017,02/25/2010 RSV [...] 04/14/2023 Does the household have a re lar [...] on file documented as of this encounter Functional Status Functional Status Response [...] Yes 03/22/2024 documented as of this encounter Miscellaneous Notes * Telephone Encounter - Betty Hartmann RN - 03/28/2024 2:10 PM EDT Message received that pt is at [facility]. Will follow for when he is discharged. * Telephone Encounter - Betty Hartmann RN - 03/28/2024 1:34 PM EDT Call to pt-no answer-message left to call back at [phone]. * Telephone Encounter - Betty Hartmann RN - 03/27/2024 3:37 PM EDT Attempted DOMINGUEZ call to pt-no answer at home. MyG message sent. documented in this encounter Plan of Treatment Upcoming Encounters Date Type Department Care Team (Late st Contact Info) Description 03/29/2024 10:30 AM EDT Nurse Only Urology, [place] [address] [place] [address] John Nurse Urology [address] [place] [address] 04/03/2024 3:00 PM EDT Office Visit Podiatry [facility] [address] [place] [address] Coreen Gonzales DPM [address] [place] [address] 05/16/2024 9:00 AM EST Office Visit Urology, [place] [address] [place] [address] Jonas Gupta MD [address] [place] [address] 06/25/2024 3:00 PM EST Nutrition Services Nutrition Services 65 [facility] [address] [place] [address] Mari Parra RDN [address] [place] [address] 06/25/2024 3:40 PM EST Office Visit Family Practice [address] [facility] [address] [place] [address] Nirmala Alford DO [address] [place] [address] 10/07/2024 2:00 PM EDT Nurse Only Family Practice [address] [facility] [address] [place] [address] Betty Hartmann, JOE [address] [place] [phone] Scheduled Procedures Name Priority Associated Diagnoses Date/Ti [...] 09/28/2024 09/29/2023, 09/29/19 24 B-12 10/23/2024 10/24/2023, 08, 12/15/2021, Additional history [...] Advance Directives occurred with: Patient Care Teams Electronic Components Assembler Relationship Specialty Start Date End Date Nirmala Alford DO 293 [place] [address] PCP - General Family Medicine 01/23/24 documented as of this encounter
--- OUTSIDE RECORDS SUMMARY | 2024-06-16 23:43 | External Medical Summary | Summary of Care ---
Author Name Unknown Organization [facility] Address [address] [place] [address] Phone [phone] Care Team Providers Care Ceramic Coater Machine Name Role Phone Prashanth Nirmalajorgito Meza DO Primary Care Provider [phone] Reason for Visit * Reason Comments Hospital Follow-Up Encounter Details Date Type Department Care Team (Late st Contact Info) Description 03/27/2024 11:45 AM EDT Nurse Only Family Practice 65 [facility] [address] [place] [id number] Betty Hartmann RN [address] [place] [address] Hospital Follow-Up Allergies Active Allergy Reactions Criticality [...] mouth daily at noon. -- getting through bereavement coordinator 04/07/2023 Active OneTouch Verio In Vitro Strip (Glucose Blood) USE UP TO 4 TIMES A DAY DIRECTED 400 Strip 3 06/01/2023 Active Incruse Ellipta 62.5 MCG/ACT Inhalation Aerosol Powder Breath Activated (umeclidinium [place])Indications :Chronic obstructive pulmonary disease, unspecified COPD type [...] goal of less than 8.0% ([facility]) TAKE ONE TABLET BY MOUTH THREE [...] (Prevnar) 11/07/2014 Pneumococcal Conjugate Vacci ne, 20-valent ([id number]) 02/20/2024 Pneumococcal Polysaccharide PPV23 (Pneumovax) 09/07/2017,02/25/2010 RSV [...] Yes 03/22/2024 documented as of this encounter Progress Notes * Betty Hartmann, RN - 03/27/2024 2:47 PM EDT Phone visit for post hospital d/c [facility]-dx acute urinary retention, BPH with obstruction/lower urinary tract symptoms Dates of stay: 03/22/24-03/25/24 Call to pt-no answer-message left to call back at [phone] documented in this encounter Plan of Treatment Upcoming Encounters Date Type Department Care Team (Late st Contact Info) Description 03/29/2024 10:30 AM EDT Nurse Only Urology, [address] [address] John Nurse Urology [facility] [place] [address] 04/03/2024 3:00 PM EDT Office Visit Podiatry [facility] [address] [facility] [place] [address] Coreen Gonzales DPM 400 [facility] [place] [id number] 05/16/2024 9:00 AM EST Office Visit Urology, [place] [address] [place] [address] Jonas Gupta MD [address] [place] [address] 06/25/2024 3:00 PM EST Nutrition Services Nutrition Services [address] [address] Mari Parra RDN [address] [place] [address] 06/25/2024 3:40 PM EST Office Visit Family Practice [address] [phone] Nirmala Alford DO [address] [place] [address] 10/07/2024 2:00 PM EDT Nurse Only Family Practice [address] [place] [phone] Betty Hartmann, JOE [address] [place] [phone] Scheduled Procedures Name Priority Associated Diagnoses Date/Ti [...] Advance Directives occurred with: Patient Care Teams Ceramic Coater Machine Relationship Specialty Start Date End Date Nirmala Alford DO 293 [facility], [place] [address] PCP - General Family Medicine 01/23/24 documented as of this encounter
--- OUTSIDE RECORDS SUMMARY | 2024-06-16 23:43 | External Medical Summary | Summary of Care ---
Author Name Unknown Organization [facility] Address [address] [place] [address] Phone [phone] Care Team Providers Care Flat Polisher Name Role Phone Prashanth Nirmalajorgito Meza DO Primary Care Provider Encounter Details Date Type Department Care Team (Late st Contact Info) Description 03/26/2024 Orders Only Laboratory, [facility] [address] [place] [address] Mark Portillo MD [facility] [employer] [address] [address] Diabetes mellitus treated with insulin and oral medication (HCC)* Allergies Active Allergy Reactions Criticality Noted Date [...] mouth daily at noon. -- getting through leader assembler 04/07/2023 Active OneTouch Verio In Vitro Strip (Glucose Blood) USE UP TO 4 TIMES A DAY DIRECTED 400 Strip 3 06/01/2023 Active Incruse Ellipta 62.5 MCG/ACT Inhalation Aerosol Powder Breath Activated (umeclidinium [place])Indications :Chronic obstructive pulmonary disease, unspecified COPD type [...] A1c goal of less than 8.0% ([facility]) TAKE ONE TABLET BY MOUTH DAILY 100 [...] P R, 30MCG/0.3ML, IM, 12YRS AND ABOVE (Pfizer-Comirnaty) 02/20/2024 Covid-19, Mrna, Lnp-s, Pf, B ivalent, 30 Mcg, IM, 12 yrs and above (Pfizer) 08/19/2022 Pneumococcal Conjugate Vacc, 13 Valent (Prevnar) 11/07/2014 Pneumococcal Conjugate Vacci ne, 20-valent ([id number]) 02/20/2024 Pneumococcal Polysaccharide PPV23 (Pneumovax) 09/07/2017,02/25/2010 RSV [...] Yes 03/22/2024 documented as of this encounter Plan of Treatment Upcoming Encounters Date Type Department Care Team (Late st Contact Info) Description 03/29/2024 10:30 AM EDT Nurse Only Urology, [place] [address] [place] [address] [place], Nurse Urology [address] [place] [address] 04/03/2024 3:00 PM EDT Office Visit Podiatry [facility] [address] [facility] [place] [address] Coreen Gonzales, BRANDON [address] [place] [address] 05/16/2024 9:00 AM EST Office Visit Urology, [place] [address] [place] [address] Jonas Gupta MD [address] [place] [address] 06/25/2024 3:00 PM EST Nutrition Services Nutrition Services 65 [facility] [address] [place] [address] Mari Parra RDN [address] [place] [address] 06/25/2024 3:40 PM EST Office Visit Family Practice 65 [facility] [address] [place] [address] Nirmala Alford DO [address] [place] [address] 10/07/2024 2:00 PM EDT Nurse Only Family Practice 65 [facility] [place] [address] [place] [address] Betty Hartmann, RN [address] [facility], [place] [address] Scheduled Orders Name Type Priority Associated Diagnoses Orde r Schedule BASIC METABOLIC PANEL Lab Routine Diabetes mellitus treated with insulin and oral medication (HCC) Expected: 03/26/2024, Expires: 03/26/2025 CBC Lab Routine Diabetes mellitus treated with insulin and oral medication (HCC) Expected: 03/26/2024, Expires: 03/26/2025 HEMOGLOBIN A1C Lab Routine Diabetes mellitus treated with insulin and oral medication ([facility]) Expected: 03/26/2024, Expires: 03/26/2025 Scheduled Procedures Name Priority Associated Diagnoses Date/Ti [...] YEAR FOR COPD 03/22/2025 03/22/2024 GFR 03/25/2025 03/25/2024, 03/06, 03/23/2024, Additional history exists DTap/Tdap Vaccines (3 - [...] as of this encounter Visit Diagnoses Diagnosis Diabetes mellitus treated with insulin and oral medication (HCC)- Primary DM type 2 with diabetic peripheral neuropathy (HCC)- Primary Type II or unspecified type diabetes mellitus with neurological manifestations, not stated as uncontrolled Onychomycosis Dermatophytosis of nail documented in this encounter Advance Directives * [...] Advance Directives occurred with: Patient Care Teams Flat Polisher Relationship Specialty Start Date End Date Nirmala Alford DO [address] [place] [address] PCP - General Family Medicine 01/23/24 documented as of this encounter
--- OUTSIDE RECORDS SUMMARY | 2024-06-16 23:43 | External Medical Summary | Summary of Care ---
Author Name Unknown Organization [facility] Address [address] [place] [address] Phone [phone] Care Team Providers Care Motorboat Operator Name Role Phone JessicaFelicia zieglerjorgito Meza DO Primary Care Provider [phone] Encounter Details Date Type Department Care Team (Late st Contact Info) Description 04/19/2024 1:30 PM EST Scheduled Telephone Care Coordination and Integration [address] [place] [address] [facility] Aerial Photogrammetrist [address] [place] [address] Allergies Active Allergy Reactions Criticality Noted Date [...] mouth daily at noon. -- getting through edge molder 04/07/20 23 Active [place] Rose In Vitro Strip (Glucose Blood) USE UP TO 4 TIMES A DAY DIRECTED 400 Strip 3 4 9:55 AM EST 06/01/20 23 Active Incruse Ellipta 62.5 MCG/ACT Inhalation Aerosol Powder Breath Activated (umeclidinium [place])Indicatio ns:Chronic obstructive pulmonary disease, unspecified COPD type [...] CG/0.3 mL, 12 YRS AND ABOVE, IM ([facility]ER[facility] Institute[facility]) 02/20/2024,04/14/2023 Covid-19, Mrna, Lnp-s, Pf, B ivalent, 30 Mcg, IM, 12 yrs and above (Pfizer) 08/19/2022 Pneumococcal Conjugate Vacc, 13 Valent (Prevnar) 11/07/2014 Pneumococcal Conjugate Vacci ne, 20-valent ([id number]) 02/20/2024 Pneumococcal Polysaccharide PPV23 (Pneumovax) 09/07/2017,02/25/2010 RSV [...] Progress Notes * [facility] Aerial Photogrammetrist - 04/19/2024 1:10 PM EST Telemedicine visit: No [facility] Aerial Photogrammetrist (KATINA) documentation: CHW week 1 DOMINGUEZ follow up call per Imelda Hidalgo RNCM Pt is no longer at the temporary phone number. CHW called the pt's house phone and got no answer. CHW left message on the machine for pt to return the call. documented in this encounter Plan of Treatment Upcoming Encounters Date Type Department Care Team (Late st Contact Info) Description 04/23/2024 1:10 PM EST Pharmacy Family Practice [address] [place] [address] [address] [place] [address] College, Pharmacist [address] [place] [address], [place] [address] 04/23/2024 1:40 PM EST Office Visit Family Practice 65 [facility] [address] [place] [address] Nirmala Alford, DO [address] [place] [address] 05/10/2024 2:00 PM EST Office Visit Podiatry [facility] [address] [facility] [place] [address] Coreen Gonzales, DPDerrick [address] [place] [address] 05/16/2024 9:00 AM EST Office Visit Urology, [place] [address] [place] [address] Jonas Gupta MD [address] [place] [address] 06/25/2024 3:00 PM EST Nutrition Services Nutrition Services 65 [facility] [address] [place] [address] Mari Parra RDN [address] [place] [address] 06/25/2024 3:40 PM EST Office Visit Family Practice 65 [facility] [address] [place] [address] Nirmala Alford, DO 293 [place] [address] 10/07/2024 2:00 PM EDT Nurse Only Family Practice 65 [facility] 293 [place] [address] Betty Hartmann, JOE [address] [place] [address] Scheduled Procedures Name Priority Associated Diagnoses Date/Ti [...] Advance Directives occurred with: Patient Care Teams Motorboat Operator Relationship Specialty Start Date End Date Nirmala Alford DO 293 [place] [address] PCP - General Family Medicine 01/23/24 documented as of this encounter
--- OUTSIDE RECORDS SUMMARY | 2024-06-16 23:43 | External Medical Summary ---
Author Name Unknown Address Unknown Organization : Laboratory Report Ordering Provider Test Date Status DEION BIRD 03/25/2024 12:20:51 Final Observation Date Value Abnormality Reference (Units ) Status Glucose Point of Care 03/25/2024 12:20:51 254 Above high normal 70-120 (mg/dL) Final Performing Location
--- OUTSIDE RECORDS SUMMARY | 2024-06-16 23:43 | External Medical Summary ---
Author Name Unknown Address Unknown Organization K01:[facility] - [address] [facility] [address] [facility] [address] Laboratory Report Ordering Provider Test Date Status SONALTORRES 03/26/2024 06:33:00 Final Observation Date Value Abnormality Reference (Units ) Status HbA1C 03/26/2024 06:33:00 8.7 Above high normal 4. 0-5.6 (%) Final The use of HbA1c to monitor glycemic status is based on normal hemoglobin and HbA composition. This test should not be used in patients with abnormal hemoglobin that affects the half life of the red blood cell or the in vivo glycation rates. Glucose, estimated average 03/26/2024 06:33:00 203 Above high normal <126 (mg/dL) Ilir ngo Performing Location [facility] - [address] [facility] [address]
--- OUTSIDE RECORDS SUMMARY | 2024-06-16 23:43 | External Medical Summary | Summary of Care ---
Author Name Unknown Organization [facility] Address [address] [place] [address] Phone [phone] Care Team Providers Care Chief Nurse Executive Name Role Phone JessicaNirmala ziegler Primary Care Provider [phone] Reason for Visit * Reason Onset Date Comments Advice 04/16/2024 Encounter Details Date Type Department Care Team (Late st Contact Info) Description 04/16/2024 Telephone Urology, [place] [address] [place] [address] Maude Barrientos, emt paramedic Allergies Active Allergy Reactions Criticality Noted Date Comments Alcohol 01/19/2023 Sugar Alcohol Lactose Intolerance 12/12/2005 documented as of this encounter (statuses as of 04/16/2024) Medications aspirin enteric coated 81 MG TBEC [...] mouth daily at noon. -- getting through dark room attendant 04/07/20 23 Active [place] Rose In Vitro Strip (Glucose Blood) USE UP TO 4 TIMES A DAY DIRECTED 400 Strip 3 4 9:55 AM EST 06/01/20 23 Active Incruse Ellipta 62.5 MCG/ACT Inhalation Aerosol Powder Breath Activated (umeclidinium [place])Indicatio ns:Chronic obstructive pulmonary disease, unspecified COPD type [...] as of this encounter (statuses as of 04/16/2024) Active Problems Patient Care Coordination No te [...] as of this encounter (statuses as of 04/16/2024) Resolved Problems Problem Noted Date Diagnosed Date [...] as of this encounter (statuses as of 04/16/2024) Immunizations Name Administration Dates Next Due COVID-19 [...] (Prevnar) 11/07/2014 Pneumococcal Conjugate Vacci ne, 20-valent ([id number]) 02/20/2024 Pneumococcal Polysaccharide PPV23 (Pneumovax) 09/07/2017,02/25/2010 RSV [...] 12:26 PM EDT Oz Rosario, JOE * Do you have serious difficulty walking [...] encounter Miscellaneous Notes * Telephone Encounter - Maude Barrientos RN - 04/16/2024 3:58 PM EST S/w patient's daughter. He is still having some hematuria. This is normal after prostate surgery. He needs to increase his fluids. Per the daughter he is not on a fluid restricted diet. She just needs to monitor for signs of retention. His f/u is scheduled with Dr. Gupta documented in this encounter Plan of Treatment Upcoming Encounters Date Type Department Care Team (Late st Contact Info) Description 04/23/2024 1:10 PM EST Pharmacy Family Practice 65 [facility] [address] [place] [address] College, Pharmacist [address] [place], [place] [address] [address] 04/23/2024 1:40 PM EST Office Visit Family Practice 65 [facility] [address] [facility] [address] Nirmala Alford, DO [address] [place] [address] 04/29/2024 1:00 PM EST Office Visit Podiatry [facility] [address] [place] [address] Coreen Gonzales, BRANDON [address] [place] [address] 05/16/2024 9:00 AM EST Office Visit Urology, [place] [address] [place] [address] Jonas Gupta MD [address] [place] [address] 06/25/2024 3:00 PM EST Nutrition Services Nutrition Services 65 [facility] [address] [place] [address] Mari Parra RDN [address] [place] [address] 06/25/2024 3:40 PM EST Office Visit Family Practice 65 [facility] [address] [place] [phone] Nirmala Alford, DO [address] [place] [address] 10/07/2024 2:00 PM EDT Nurse Only Family Practice 65 [facility] [address] [place] [phone] Betty Hartmann, JOE [address] [place] [phone] Scheduled Procedures Name Priority Associated Diagnoses Date/Ti [...] Advance Directives occurred with: Patient Care Teams Chief Nurse Executive Relationship Specialty Start Date End Date Nirmala Alford DO 293 [place] [address] PCP - General Family Medicine 01/23/24 documented as of this encounter
--- OUTSIDE RECORDS SUMMARY | 2024-06-16 23:43 | External Medical Summary ---
Author Name Unknown Address Unknown Organization K1G:[facility]ATORY [facility] - [address] [place] [address] Laboratory Report Ordering Provider Test Date Status MELISSA PRUITT 03/26/2024 06:33:00 Final Observation Date Value Abnormality Reference (Units ) Status BUN 03/26/2024 06:33:00 13 6-20 (mg/dL) Final Creatinine 03/26/2024 06:33:00 0.6 0.6-1.2 (mg/dL) Final Glomerular filtration rate/1.73 sq M.predicted [Volume Rate/Area] in Serum, Plasma or Blood by Creatinine-based formula (CKD-EPI) 03/26/2024 06:33:00 >90 >=60 (mL/min) Final eGFR is calculated based on the CKD-EPI 2020 equation. Sodium 03/26/2024 06:33:00 138 135-146 (m mol/L) Final Potassium 03/26/2024 06:33:00 3.8 3.5-5.1 (m mol/L) Final Cl 03/26/2024 06:33:00 103 98-107 (mm ol/L) Final CO2 03/26/2024 06:33:00 27 22-32 (mmo l/L) Final Anion gap 03/26/2024 06:33:00 8 7-15 (mmol /L) Final Glucose 03/26/2024 06:33:00 215 Above high normal 70 -120 (mg/dL) Final Calcium 03/26/2024 06:33:00 8.5 8.4-10.2 ( mg/dL) Final Performing Location [facility] - [address] [facility] [place] [address]
--- OUTSIDE RECORDS SUMMARY | 2024-06-16 23:43 | External Medical Summary | Summary of Care ---
Author Name Unknown Organization [facility] Address [address] [place] [address] Phone [phone] Care Team Providers Care Residential Door Unit Installer Name Role Phone JessicaFelicia zieglerjorgito Meza DO Primary Care Provider Reason for Visit * Reason Comments Outpatient Testing Encounter Details Date Type Department Care Team (Late st Contact Info) Description 03/26/2024 3:45 AM EDT Laboratory Lab Mobile Phlebotomy [facility] [address] [place] [address] [facility] [address] [place] [address] Diabetes mellitus treated with insulin and oral medication (HCC) Allergies Active Allergy Reactions Criticality Noted Date [...] mouth daily at noon. -- getting through e business specialist 04/07/2023 Active OneTouch Verio In Vitro Strip (Glucose Blood) USE UP TO 4 TIMES A DAY DIRECTED 400 Strip 3 06/01/2023 Active Incruse Ellipta 62.5 MCG/ACT Inhalation Aerosol Powder Breath Activated (umeclidinium [place])Indications :Chronic obstructive pulmonary disease, unspecified COPD type [...] MCG/0.3 mL, 12 YRS AND ABOVE, IM ([employer]-Comirnaty) 04/14/2023 COVID-19, MRNA-LNP, 24-25, P R, 30MCG/0.3ML, IM, 12YRS AND ABOVE ([employer]-Comirnaty) 02/20/2024 Covid-19, Mrna, Lnp-s, Pf, B ivalent, 30 Mcg, IM, 12 yrs and above (Pfizer) 08/19/2022 Pneumococcal Conjugate Vacc, 13 Valent (Prevnar) 11/07/2014 Pneumococcal Conjugate Vacci ne, 20-valent ([id number]) 02/20/2024 Pneumococcal Polysaccharide PPV23 (Pneumovax) 09/07/2017,02/25/2010 RSV [...] 03/29/2024 10:30 AM EDT Nurse Only Urology, [facility] [address] [place] [address] [facility] [address] [place] [address] 04/03/2024 3:00 PM EDT Office Visit Podiatry [facility] [address] [place] [address] Coreen Gonzales, BRANDON [address] [place] [address] 05/16/2024 9:00 AM EST Office Visit Urology, [facility] [address] [place] [address] Jonas Gupta MD [address] [place] [address] 06/25/2024 3:00 PM EST Nutrition Services Nutrition Services 65 [facility] [address] [place] [address] Mari Parra RDN [address] [place] [address] 06/25/2024 3:40 PM EST Office Visit Family Practice 65 [facility] [address] [place] [address] Nirmala Alford DO [address] [place] [address] 10/07/2024 2:00 PM EDT Nurse Only Family Practice 65 [facility] [place] [address] [place] [address] Betty Hartmann, RN [address] [place] [address] Scheduled Procedures Name Priority Associated Diagnoses [...] treated with insulin and oral medication (HCC) DM type 2 with diabetic peripheral [...] Advance Directives occurred with: Patient Care Teams Residential Door Unit Installer Relationship Specialty Start Date End Date Nirmala Alford DO [address] [place] [address] PCP - General Family Medicine 01/23/24 documented as of this encounter
--- OUTSIDE RECORDS SUMMARY | 2024-06-16 23:44 | External Medical Summary ---
Author Name Unknown Address Unknown Organization [id number]:[place] [facility] [place] [address] [place] [address] Laboratory Report Ordering Provider Test Date Status BUBBA CHISHOLM 03/25/2024 04:32:00 Final Observation Date Value Abnormality Reference (Units ) Status BUN 03/25/2024 04:32:00 16 6-20 (mg/dL) Final Creatinine 03/25/2024 04:32:00 0.7 0.6-1.2 (mg/dL) Final Glomerular filtration rate/1.73 sq M.predicted [Volume Rate/Area] in Serum, Plasma or Blood by Creatinine-based formula (CKD-EPI) 03/25/2024 04:32:00 >90 >=60 (mL/min) Final eGFR is calculated based on the CKD-EPI 2020 equation. Sodium 03/25/2024 04:32:00 135 135-146 (m mol/L) Final Potassium 03/25/2024 04:32:00 4.0 3.5-5.1 (m mol/L) Final Cl 03/25/2024 04:32:00 104 98-107 (mm ol/L) Final CO2 03/25/2024 04:32:00 23 22-32 (mmo l/L) Final Anion gap 03/25/2024 04:32:00 8 7-15 (mmol /L) Final Glucose 03/25/2024 04:32:00 199 Above high normal 70 -120 (mg/dL) Final Calcium 03/25/2024 04:32:00 8.7 8.4-10.2 ( mg/dL) Final Performing Location [place] [facility] [place] [address] [place] [address]
--- OUTSIDE RECORDS SUMMARY | 2024-06-16 23:44 | External Medical Summary ---
Author Name Unknown Address Unknown Organization : Laboratory Report Ordering Provider Test Date Status DEION BIRD 03/22/2024 16:44:28 Final Observation Date Value Abnormality Reference (Units ) Status Glucose Point of Care 03/22/2024 16:44:28 223 Above high normal 70-120 (mg/dL) Final Performing Location
--- OUTSIDE RECORDS SUMMARY | 2024-06-16 23:44 | External Medical Summary ---
Author Name Unknown Address Unknown Organization [id number]:[place] [facility] [place] 100 [facility] [place] [address] Laboratory Report Ordering Provider Test Date Status BUBBA CHISHOLM 03/24/2024 04:16:00 Final Observation Date Value Abnormality Reference (Units ) Status SYNC LEUKOCYTES IN BLOOD BY AUTOMATED COUNT 03/24/2024 04:16:00 4.38 4.00-10.80 (K/uL) Final Segs 03/24/2024 04:16:00 75.0 40.0-75.0 (%) Final Lymphs % 03/24/2024 04:16:00 16.4 Below low normal 18.0-42.0 (%) Final Monos 03/24/2024 04:16:00 7.1 1.0-11.0 (%) Final Eosinophils 03/24/2024 04:16:00 1.1 0.0-6.0 (%) Final Basos 03/24/2024 04:16:00 0.2 0.0-2.0 (%) Final Immature Granulocyte, Percent 03/24/2024 04:16:00 0.2 0.0-2.0 (%) Final Absolute Segs 03/24/2024 04:16:00 3.28 1.80-7.70 (K/uL) Final Lymphs, absolute 03/24/2024 04:16:00 0.72 Below low normal 1.00-4.80 (K/ul) Final Monos, Abs 03/24/2024 04:16:00 0.31 0.00-1.10 (K/uL) Final Eos, Abs 03/24/2024 04:16:00 0.05 0.00-0.70 (K/uL) Final Basos, Abs 03/24/2024 04:16:00 0.01 0.00-0.20 (K/uL) Final Immature Granulocytes, Number 03/24/2024 04:16:00 0.01 0.00-0.20 (K/uL) Final Performing Location [facility] [facility] [place] [facility] [place] [address]
--- OUTSIDE RECORDS SUMMARY | 2024-06-16 23:44 | External Medical Summary ---
Author Name Unknown Address Unknown Organization : Laboratory Report Ordering Provider Test Date Status DEION BIRD 03/24/2024 17:14:41 Final Observation Date Value Abnormality Reference (Units ) Status Glucose Point of Care 03/24/2024 17:14:41 257 Above high normal 70-120 (mg/dL) Final Performing Location
--- OUTSIDE RECORDS SUMMARY | 2024-06-16 23:44 | External Medical Summary | Summary of Care ---
Author Name Unknown Organization [facility] Address [address] [place] [address] Phone [phone] Care Team Providers Care Dental Treatment Coordinator Name Role Phone Jessicatoney Nirmalajorgito Meza DO Primary Care Provider Reason for Visit * Reason Comments Outpatient Testing Encounter Details Date Type Department Care Team (Late st Contact Info) Description 03/15/2024 1:50 PM EDT Laboratory Laboratory, [place] [address] [place] [phone] [facility] [address] [place] [address] Acute urinary retention; BPH with obstruction/lower urinary tract symptoms; Bladder stone Allergies Active Allergy Reactions Criticality Noted Date Comments Alcohol 01/19/2023 Sugar Alcohol Lactose Intolerance 12/12/2005 documented as of this encounter (statuses as of 03/15/2024) Medications Medication Sig Dispensed Refills Start Date [...] mouth daily at noon. 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 operator 04/07/2023 Active [employer] CanadaToPreo Verio In Vitro Strip (Glucose Blood) USE UP TO 4 TIMES A DAY DIRECTED 400 Strip 3 06/01/2023 Active Incruse Ellipta 62.5 MCG/ACT Inhalation Aerosol Powder Breath Activated (umeclidinium [place])Indications :Chronic obstructive pulmonary disease, unspecified COPD type [...] BURN 100 Capsule 3 07/31/2023 5 Active metFORMIN HCl 850 MG Oral Tablet (Glucophage)Indicat ions:Type 2 diabetes mellitus with hemoglobin A1c goal of less than 8.0% (HCC) TAKE ONE TABLET BY MOUTH THREE TIMES A DAY IN THE MORNING, AT NOON AND BEFORE BEDTIME 300 Tablet 1 08/31/2023 Active Tamsulosin HCl 0.4 MG Oral Capsule [...] IN THE MORNING 90 Tablet 6 12/18/2023 Active Methylphenidate HCl 10 MG Oral Tablet (Ritalin)Indication s:Attention deficit hyperactivity disorder (ADHD), predominantly inattentive type Take 1 Tablet by mouth 2 times a day. 60 Tablet 02/15/2024 Active documented as of this encounter (statuses as of 03/15/2024) Active Problems Patient Care Coordination No te Formatting of this note migh t be different from the original. Problem Noted Date Diagnosed Date Acute urinary retention 01/04/2024 BPH with obstruction/lower [...] as of this encounter (statuses as of 03/15/2024) Resolved Problems Problem Noted Date Diagnosed Date [...] as of this encounter (statuses as of 03/15/2024) Immunizations Name Administration Dates Next Due COVID-19 mRNA, LNP-s, No Pre serve, 2-Dose Series (Moderna) 09/07/2020,08/10/2020 COVID-19, LNP-s, No Preserve , Charlie-sucrose, Ages 12+ ([employer]) 07/07/2021 COVID-19, MRNA-LNP, 23-24, P F, 30 MCG/0.3 mL, 12 YRS AND ABOVE, IM ([employer]-ComirnatCrestHire) 04/14/2023 COVID-19, MRNA-LNP, 24-25, P R, 30MCG/0.3ML, IM, 12YRS AND ABOVE ([employer]-ComirnatCrestHire) 02/20/2024 Covid-19, Mrna, Lnp-s, Pf, B ivalent, 30 Mcg, IM, 12 yrs and above (Pfizer) 08/19/2022 Pneumococcal Conjugate Vacc, 13 Valent (Prevnar) 11/07/2014 Pneumococcal Conjugate Vacci ne, 20-valent ([id number]) 02/20/2024 Pneumococcal Polysaccharide PPV23 (Pneumovax) 09/07/2017,02/25/2010 RSV [...] on file documented as of this encounter Plan of Treatment Upcoming Encounters Date Type Department Care Team (Latest Contact Info) Description 03/22/2024 7:30 AM EDT Hospital En[place] [facility] [place] [facility] [address] [place] [address] Jonas Gupta MD [address] [place] [address] 03/22/2024 7:30 AM EDT Anesthesia Event [place] [facility] [address] [place] [facility] [place] [address] Shorty Luna CRNP [address] [place] [facility] [place] [address] 03/22/2024 7:30 AM EDT - 03/22/2024 10:00 AM EDT Surgery [place] [facility] [address] [place] [facility] [place] [address] Jonas Gupta MD [address] [place] [address] TRANSURETHRAL RESECTION PROSTATE ELECTROSURGICAL 03/29/2024 10:30 AM EDT Nurse Only Urology, [place] [address] [place] [address] [place] [address] [place] [address] 04/03/2024 3:00 PM EDT Office Visit Podiatry [facility] [address] [place] [address] Coreen Gonzales DPM [address] [place] [address] 05/16/2024 9:00 AM EST Office Visit Urology, [place] [address] [place] [address] Jonas Gupta MD [address] [place] [address] 06/25/2024 3:00 PM EST Nutrition Services Nutrition Services 65 [facility] 293 [place] [address] Mari Parra RDN [address] [place], [place] [phone] 06/25/2024 3:40 PM EST Office Visit Family Practice 65 [facility] [address] [place] [phone] Nirmala Alford DO [address] [place] [address] 10/07/2024 2:00 PM EDT Nurse Only Family Practice 65 [facility] [address] [place] [phone] Betty Hartmann RN 293 [place] [address] Pending Results Name Type Priority Associated Diagnoses Date /Time CULTURE, URINE, QUANTITATIVE Lab Routine Acute urinary retention BPH with obstruction/lower urinary tract symptoms Bladder stone 03/15/2024 3:46 PM EDT CULTURE, URINE, QUANTITATIVE Lab Routine BPH with obstruction/lower urinary tract symptoms 03/15/2024 3:46 PM EDT Scheduled Procedures Name Priority Associated Diagnoses Date/Ti me TRANSURETHRAL RESECTION PROSTATE ELECTROSURGICAL Acute urinary retention BPH with obstruction/lower urinary tract symptoms Bladder stone 03/22/2024 7:30 AM EDT LITHOLAPAXY SIMPLE Acute urinary retention BPH with obstruction/lower urinary tract symptoms Bladder stone 03/22/2024 7:30 AM EDT COLONOSCOPY FLEXIBLE PROXIMA L DIAGNOSTIC Recall Benign [...] 01/25/2025 01/26/2024, , 2023, Additional history exists GFR 03/08/2025 03/08/2024, 10/04, 07/10/2023, Additional history exists O2 ASSESSMENT COMPLETED IN PAST YEAR FOR COPD 03/08/2025 03/08/2024 DTap/Tdap Vaccines (3 - Td or Tdap) [...] as of this encounter Visit Diagnoses Diagnosis Acute urinary retention Other specified retention of urine BPH with obstruction/lower urinary tract symptoms Hypertrophy of prostate with urinary obstruction and other lower urinary tract symptoms (LUTS) Bladder stone Other calculus in bladder Acute urinary retention Other specified retention of urine BPH with obstruction/lower urinary tract symptoms Hypertrophy of prostate with urinary obstruction and other lower urinary tract symptoms (LUTS) Bladder stone Other calculus in bladder Acute urinary retention Other specified retention of urine BPH with obstruction/lower urinary tract symptoms Hypertrophy of prostate with urinary obstruction and other lower urinary tract symptoms (LUTS) Bladder stone Other calculus in bladder documented in this encounter Care Teams Dental Treatment Coordinator Relationship Specialty Start Date End Date Nirmala Alford DO [address] [place] [address] PCP - General Family Medicine 01/23/24 documented as of this encounter
--- OUTSIDE RECORDS SUMMARY | 2024-06-16 23:44 | External Medical Summary ---
Author Name Unknown Address Unknown Organization : Laboratory Report Ordering Provider Test Date Status DEION BIRD 03/23/2024 07:54:53 Final Observation Date Value Abnormality Reference (Units ) Status Glucose Point of Care 03/23/2024 07:54:53 296 Above high normal 70-120 (mg/dL) Final Performing Location
--- OUTSIDE RECORDS SUMMARY | 2024-06-16 23:44 | External Medical Summary ---
Author Name Unknown Address Unknown Organization K01:[facility]ATORY [facility] [place] [address] [facility] [address] Laboratory Report Ordering Provider Test Date Status BUBBA CHISHOLM 03/25/2024 04:32:00 Final Observation Date Value Abnormality Reference (Units ) Status WBC, Total 03/25/2024 04:32:00 4.38 4.00-10.80 (K/uL) Final RBC 03/25/2024 04:32:00 4.03 4.50-5.25 (M/uL) Final Hemoglobin 03/25/2024 04:32:00 10.8 Below low normal 14.0-16.8 (g/dL) Final HCT 03/25/2024 04:32:00 34.5 Below low normal 40.0-48.4 (%) Final MCV 03/25/2024 04:32:00 85.6 82.0-99.5 (fL) Final MCH 03/25/2024 04:32:00 26.8 27.0-34.0 (pg) Final MCHC 03/25/2024 04:32:00 31.3 32.0-36.0 (g/dL) Final RDW 03/25/2024 04:32:00 15.0 11.5-15.5 (%) Final Platelets 03/25/2024 04:32:00 99 Below low normal 140-400 (K/uL) Final MPV 03/25/2024 04:32:00 9.4 6.6-11.1 (fL) Final Nucleated erythrocytes/100 leukocytes [Ratio] in Blood by Automated count 03/25/2024 04:32:00 0 <=0 (/100 WBCs) Final Performing Location LABORATORY [facility] [place] - [address] [place] [address]
--- OUTSIDE RECORDS SUMMARY | 2024-06-16 23:44 | External Medical Summary ---
Author Name Unknown Address Unknown Organization K01:[place] [facility] [place] [address] [place] [id number] Laboratory Report Ordering Provider Test Date Status SAURAV MOTT 03/15/2024 15:46:38 Final Observation Date Value Abnormality Reference (Units) Status Bacteria identified in Specimen by Culture 03/15/2024 15:46:38 No significant growth Final Test: Culture, Urine, Quanti tative
Specimen Source: Urine, Clean Catch
Specimen Type: Urine
Specimen Date: 03/15/2024 1546
Result Date: 03/16/2024 1806
Result Status: Final result
Resulting Lab: [place] [facility] [place]
[address]
[facility] [address]

CULTURE

No significant growth

null Performing Location [place] [facility] [place] [address] [facility] [address]
--- OUTSIDE RECORDS SUMMARY | 2024-06-16 23:44 | External Medical Summary ---
Author Name Unknown Address Unknown Organization : Laboratory Report Ordering Provider Test Date Status DEION BIRD 03/22/2024 07:23:24 Final Observation Date Value Abnormality Reference (Units ) Status Glucose Point of Care 03/22/2024 07:23:24 298 Above high normal 70-120 (mg/dL) Final Performing Location
--- OUTSIDE RECORDS SUMMARY | 2024-06-16 23:44 | External Medical Summary ---
Author Name Unknown Address Unknown Organization K01[place] [facility] [place] [address] [place] [id number] Laboratory Report Ordering Provider Test Date Status EITAN BIRDMER 03/15/2024 15:46:38 Final Observation Date Value Abnormality Reference (Units) Status Bacteria identified in Specimen by Culture 03/15/2024 15:46:38 No significant growth Final Test: Culture, Urine, Quanti tative
Specimen Source: Urine, Clean Catch
Specimen Type: Urine
Specimen Date: 03/15/2024 1546
Result Date: 03/16/2024 1806
Result Status: Final result
Resulting Lab: [place] [facility] [place]
[address]
[facility] [address]

CULTURE

No significant growth

null Performing Location [place] [facility] [place] [address] [facility] [address]
--- OUTSIDE RECORDS SUMMARY | 2024-06-16 23:44 | External Medical Summary ---
Author Name Unknown Address Unknown Organization : Laboratory Report Ordering Provider Test Date Status DEION BIRD 03/24/2024 20:10:17 Final Observation Date Value Abnormality Reference (Units ) Status Glucose Point of Care 03/24/2024 20:10:17 301 Above high normal 70-120 (mg/dL) Final Performing Location
--- OUTSIDE RECORDS SUMMARY | 2024-06-16 23:44 | External Medical Summary ---
Author Name Unknown Address Unknown Organization : Laboratory Report Ordering Provider Test Date Status DEION BIRD 03/22/2024 12:54:36 Final Observation Date Value Abnormality Reference (Units ) Status Glucose Point of Care 03/22/2024 12:54:36 247 Above high normal 70-120 (mg/dL) Final Performing Location
--- OUTSIDE RECORDS SUMMARY | 2024-06-16 23:44 | External Medical Summary | Summary of Care ---
Author Name Unknown Organization [facility] Address [address] [place] [address] Phone [phone] Care Team Providers Care Information Technology Account Manager Name Role Phone Jessicatoney Nirmalajorgito Meza DO Primary Care Provider Reason for Visit * Reason Comments Outpatient Testing Encounter Details Date Type Department Care Team (Late st Contact Info) Description 03/15/2024 1:50 PM EDT Laboratory Laboratory, [place] [address] [place] [phone] [facility] [address] [place] [address] Acute urinary retention; BPH with obstruction/lower urinary [...] mouth daily at noon. 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 04/07/2023 Active [employer] [facility] Verio In Vitro Strip (Glucose Blood) USE UP TO 4 TIMES A DAY DIRECTED 400 Strip 3 06/01/2023 Active Incruse Ellipta 62.5 MCG/ACT Inhalation Aerosol Powder Breath Activated (umeclidinium [place])Indications :Chronic obstructive pulmonary disease, unspecified COPD type [...] LNP-s, No Preserve , Charlie-sucrose, Ages 12+ ([employer]) 07/07/2021 COVID-19, MRNA-LNP, 23-24, P F, 30 MCG/0.3 mL, 12 YRS AND ABOVE, IM ([employer]-ComirnatStartupxplore) 04/14/2023 COVID-19, MRNA-LNP, 24-25, P R, 30MCG/0.3ML, IM, 12YRS AND ABOVE ([employer]-ComirnatStartupxplore) 02/20/2024 Covid-19, Mrna, Lnp-s, Pf, B ivalent, 30 Mcg, IM, 12 yrs and above (Pfizer) 08/19/2022 Pneumococcal Conjugate Vacc, 13 Valent (Prevnar) 11/07/2014 Pneumococcal Conjugate Vacci ne, 20-valent ([id number]) 02/20/2024 Pneumococcal Polysaccharide PPV23 (Pneumovax) 09/07/2017,02/25/2010 RSV [...] 03/22/2024 7:30 AM EDT Hospital Encounter [place] [facility] [place] [facility] [place] [address] [place] [address] Jonas Gupta MD [address] [place] [address] 03/22/2024 7:30 AM EDT Anesthesia Event [place] [facility] [place] [facility] [facility] [address] [place] [facility] [place] [address] Shorty Luna CRNP [address] [place] [facility] [place] [address] 03/22/2024 7:30 AM EDT - 03/22/2024 10:00 AM EDT Surgery OR [facility] [place] [facility] [facility] [address] [place] [facility] [place] [address] Jonas Gupta MD [address] [place] [address] TRANSURETHRAL RESECTION PROSTATE ELECTROSURGICAL 03/29/2024 10:30 AM EDT Nurse Only Urology, [place] [address] [place] [address] [place] U[facility] [address] [place] [address] 04/03/2024 3:00 PM EDT Office Visit Podiatry [facility] [address] [place] [address] Coreen Gonzales DPM [address] [place] [address] 05/16/2024 9:00 AM EST Office Visit Urology, [place] [address] [place] [address] Jonas Gupta MD [address] [place] [address] 06/25/2024 3:00 PM EST Nutrition Services Nutrition Services 65 [facility] [address] [place] [address] Mari Parra RDN [address] [place], [place] [phone] 06/25/2024 3:40 PM EST Office Visit Family Practice 65 [facility] [address] [place] [phone] Nirmala Alford DO [address] [place] [address] 10/07/2024 2:00 PM EDT Nurse Only Family Practice 65 [facility] [address] [place] [phone] Betty Hartmann RN 293 [place] [address] Scheduled Procedures Name Priority Associated Diagnoses Date/Ti [...] 09/28/2024 09/29/2023, 09/29/19 24 B-12 10/23/2024 10/24/2023, 08/, 12/15/2021, Additional history [...] bladder documented in this encounter Care Teams Information Technology Account Manager Relationship Specialty Start Date End Date Nirmala Alford DO [address] [place] [address] PCP - General Family Medicine 01/23/24 documented as of this encounter
--- OUTSIDE RECORDS SUMMARY | 2024-06-16 23:44 | External Medical Summary ---
Author Name Unknown Address Unknown Organization : Laboratory Report Ordering Provider Test Date Status DEION BIRD 03/22/2024 08:09:00 Final Observation Date Value Abnormality Reference (Units ) Status SPECIMEN SOURCE 03/22/2024 08:09:00 STONE Final COMPONENT 1 03/22/2024 08:09:00 SEE BELOW Final Calcium Oxalate Monohydrate ([place]) 95%
Carbonate Apatite ([place]) 5% COMPONENT 2 03/22/2024 08:09:00 DNR Final STONE WEIGHT 03/22/2024 08:09:00 0.137 (g) Final This test was developed and its analytical
performance characteristics have been determined
by [facility] [place]. It has not been cleared or
approved by FDA. This assay has been validated
pursuant to the CLIA regulations and is used for
clinical purposes.
Test performed by [facility]
[address],
[place] [address]

Suture Winder Hand: Reyna Smith MD,PHD,KEILY
Test Reported by [facility],
[facility],
[address] [place], [place]
Ruben Rizzo M.D., Ph.D., Director of Laboratories
, CLIA [id number] Performing Location
--- OUTSIDE RECORDS SUMMARY | 2024-06-16 23:44 | External Medical Summary ---
Author Name Unknown Address Unknown Organization : Laboratory Report Ordering Provider Test Date Status DEION BIRD 03/23/2024 16:33:02 Final Observation Date Value Abnormality Reference (Units ) Status Glucose Point of Care 03/23/2024 16:33:02 364 Above high normal 70-120 (mg/dL) Final Performing Location
--- OUTSIDE RECORDS SUMMARY | 2024-06-16 23:44 | External Medical Summary | Summary of Care ---
Author Name Unknown Organization [facility] Address [address] [place] [address] Phone [phone] Care Team Providers Care Hot Man Name Role Phone Jessicatoney Nirmalajorgito Meza DO Primary Care Provider Reason for Visit * Reason Comments Outpatient Testing Encounter Details Date Type Department Care Team (Late st Contact Info) Description 03/15/2024 1:50 PM EDT Laboratory Laboratory, [place] [address] [place] [phone] [facility] [address] [place] [address] Acute urinary retention; BPH with obstruction/lower urinary [...] mouth daily at noon. -- getting through edi programmer 04/07/2023 Active PusherToInterneer Verio In Vitro Strip (Glucose Blood) USE UP TO 4 TIMES A DAY DIRECTED 400 Strip 3 06/01/2023 Active Incruse Ellipta 62.5 MCG/ACT Inhalation Aerosol Powder Breath Activated (umeclidinium Marmora)Indications :Chronic obstructive pulmonary disease, unspecified COPD type [...] LNP-s, No Preserve , Charlie-sucrose, Ages 12+ ([employer]) 07/07/2021 COVID-19, MRNA-LNP, 23-24, P F, 30 MCG/0.3 mL, 12 YRS AND ABOVE, IM ([employer]) 04/14/2023 COVID-19, MRNA-LNP, 24-25, P R, 30MCG/0.3ML, IM, 12YRS AND ABOVE ([employer]) 02/20/2024 Covid-19, Mrna, Lnp-s, Pf, B ivalent, 30 Mcg, IM, 12 yrs and above (Pfizer) 08/19/2022 Pneumococcal Conjugate Vacc, 13 Valent (Prevnar) 11/07/2014 Pneumococcal Conjugate Vacci ne, 20-valent ([id number]) 02/20/2024 Pneumococcal Polysaccharide PPV23 (Pneumovax) 09/07/2017,02/25/2010 RSV [...] 03/22/2024 7:30 AM EDT Hospital Encounter [place] [facility] [address] [place] [address] Jonas Gupta MD [address] [place] [address] 03/22/2024 7:30 AM EDT Anesthesia Event OR [facility] [address] [place] [facility] [place] [phone] Shorty Luna CRNP [address] [place] [facility] [place] [address] 03/22/2024 7:30 AM EDT - 03/22/2024 10:00 AM EDT Surgery OR [facility] [address] [place] [facility] [place] [address] Jonas Gupta MD [address] [place] [address] TRANSURETHRAL RESECTION PROSTATE ELECTROSURGICAL 03/29/2024 10:30 AM EDT Nurse Only Urology, Driver [address] [place] [address] Driver, Nurse Urology [address] [place] [address] 04/03/2024 3:00 PM EDT Office Visit Podiatry [facility] [address] [place] [address] Coreen Gonzales DPM [address] [place] [address] 05/16/2024 9:00 AM EST Office Visit Urology, [place] [address] [place] [address] Jonas Gupta MD [address] [place] [address] 06/25/2024 3:00 PM EST Nutrition Services Nutrition Services [address] [facility] 293 [place] [address] Mari Parra RDN [address] [place], [place] [phone] 06/25/2024 3:40 PM EST Office Visit Family Practice [facility] 293 [place] [phone] Nirmala Alford DO [address] [place] [address] 10/07/2024 2:00 PM EDT Nurse Only Family Practice 65 [facility] 293 [place] [phone] Betty Hartmann RN 293 [place] [phone] Pending Results Name Type Priority Associated Diagnoses Date /Time CULTURE, URINE, QUANTITATIVE Lab Routine Acute urinary retention BPH with obstruction/lower urinary tract symptoms Bladder stone 03/15/2024 1:19 PM EDT CULTURE, URINE, QUANTITATIVE Lab Routine BPH with obstruction/lower urinary tract symptoms 03/15/2024 1:19 PM EDT Scheduled Procedures Name Priority Associated [...] bladder documented in this encounter Care Teams Hot Man Relationship Specialty Start Date End Date Nirmala Alford DO [address] [place] [address] PCP - General Family Medicine 01/23/24 documented as of this encounter
--- OUTSIDE RECORDS SUMMARY | 2024-06-16 23:44 | External Medical Summary | Summary of Care ---
Author Name Unknown Organization [facility] Address [address] [place] [address] Phone [phone] Care Team Providers Care Changeover Operator Name Role Phone Jessicatoney Nirmalajorgito Meza DO Primary Care Provider Reason for Visit * Reason Comments Outpatient Testing Encounter Details Date Type Department Care Team (Late st Contact Info) Description 03/15/2024 1:50 PM EDT Laboratory Laboratory, [place] [address] [place] [phone] [facility] [address] [place] [address] Acute urinary retention; BPH with obstruction/lower urinary [...] mouth daily at noon. 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 Verio In Vitro Strip (Glucose Blood) USE UP TO 4 TIMES A DAY DIRECTED 400 Strip 3 06/01/2023 Active Incruse Ellipta 62.5 MCG/ACT Inhalation Aerosol Powder Breath Activated (umeclidinium Kimball)Indications :Chronic obstructive pulmonary disease, unspecified COPD type [...] LNP-s, No Preserve , Charlie-sucrose, Ages 12+ ([employer]x) 07/07/2021 COVID-19, MRNA-LNP, 23-24, P F, 30 MCG/0.3 mL, 12 YRS AND ABOVE, IM ([employer]ir[employer]) 04/14/2023 COVID-19, MRNA-LNP, 24-25, P R, 30MCG/0.3ML, IM, 12YRS AND ABOVE ([employer]irnat[employer]On) 02/20/2024 Covid-19, Mrna, Lnp-s, Pf, B ivalent, 30 Mcg, IM, 12 yrs and above (Pfizer) 08/19/2022 Pneumococcal Conjugate Vacc, 13 Valent (Prevnar) 11/07/2014 Pneumococcal Conjugate Vacci ne, 20-valent ([id number]) 02/20/2024 Pneumococcal Polysaccharide PPV23 (Pneumovax) 09/07/2017,02/25/2010 RSV [...] 03/22/2024 7:30 AM EDT Hospital Encounter [place] [facility] [facility] [address] [place] [address] Jonas Gupta MD [address] [place] [address] 03/22/2024 7:30 AM EDT Anesthesia Event [place] [facility] [facility] [address] [place] [facility] [place] [address] Shorty Luna CRNP [address] [place] [facility] [place] [address] 03/22/2024 7:30 AM EDT - 03/22/2024 10:00 AM EDT Surgery [place] [facility] [address] [place] [facility] [place] [facility] [place] [address] Jonas Gupta MD [address] [place] [address] TRANSURETHRAL RESECTION PROSTATE ELECTROSURGICAL 03/29/2024 10:30 AM EDT Nurse Only Urology, [place] [address] [place] [address] [place], Nurse Urology [address] [place] [address] 04/03/2024 3:00 PM EDT Office Visit Podiatry [facility] [address] [place] [address] Coreen Gonzales DPM [address] [place] [address] 05/16/2024 9:00 AM EST Office Visit Urology, [place] [address] [place] [address] Jonas Gupta MD [address] [place] [address] 06/25/2024 3:00 PM EST Nutrition Services Nutrition Services [facility] 293 [facility] [address] Mari Parra RDN [address] [place], [place] [phone] 06/25/2024 3:40 PM EST Office Visit Family Practice [facility] 293 [facility] [phone] Nirmala Alford DO [address] [place] [address] 10/07/2024 2:00 PM EDT Nurse Only Family Practice [facility] 293 [facility] [phone] Betty Hartmann RN 293 [place] [address] Pending Results Name Type Priority Associated Diagnoses Date /Time CULTURE, URINE, QUANTITATIVE Lab Routine BPH with [...] bladder documented in this encounter Care Teams Changeover Operator Relationship Specialty Start Date End Date Nirmala Alford DO [address] [place] [address] PCP - General Family Medicine 01/23/24 documented as of this encounter
--- OUTSIDE RECORDS SUMMARY | 2024-06-16 23:44 | External Medical Summary ---
Author Name Unknown Address Unknown Organization [id number]:LABORATORY [facility] [place] [address] [facility] [address] [facility] [address] Laboratory Report Ordering Provider Test Date Status BUBBA CHISHOLM 03/23/2024 04:10:00 Final Observation Date Value Abnormality Reference (Units ) Status WBC, Total 03/23/2024 04:10:00 5.45 4.00-10.80 (K/uL) Final RBC 03/23/2024 04:10:00 4.10 4.50-5.25 (M/uL) Final Hemoglobin 03/23/2024 04:10:00 11.1 Below low normal 14.0-16.8 (g/dL) Final HCT 03/23/2024 04:10:00 34.4 Below low normal 40.0-48.4 (%) Final MCV 03/23/2024 04:10:00 83.9 82.0-99.5 (fL) Final MCH 03/23/2024 04:10:00 27.1 27.0-34.0 (pg) Final MCHC 03/23/2024 04:10:00 32.3 32.0-36.0 (g/dL) Final RDW 03/23/2024 04:10:00 15.0 11.5-15.5 (%) Final Platelets 03/23/2024 04:10:00 100 Below low normal 140-400 (K/uL) Final MPV 03/23/2024 04:10:00 10.5 6.6-11.1 (fL) Final Nucleated erythrocytes/100 leukocytes [Ratio] in Blood by Automated count 03/23/2024 04:10:00 0 <=0 (/100 WBCs) Final Performing Location LABORATORY [facility] - [address] [place] [address]
--- OUTSIDE RECORDS SUMMARY | 2024-06-16 23:44 | External Medical Summary ---
Author Name Unknown Address Unknown Organization : Laboratory Report Ordering Provider Test Date Status DEION BIRD 03/23/2024 11:38:32 Final Observation Date Value Abnormality Reference (Units ) Status Glucose Point of Care 03/23/2024 11:38:32 308 Above high normal 70-120 (mg/dL) Final Performing Location
--- OUTSIDE RECORDS SUMMARY | 2024-06-16 23:44 | External Medical Summary ---
Author Name Unknown Address Unknown Organization [id number]:LABORATORY [facility] [place] - [address] [address] [place] [address] Laboratory Report Ordering Provider Test Date Status BUBBA CHISHOLM 03/22/2024 09:35:00 Final Observation Date Value Abnormality Reference (Units ) Status WBC, Total 03/22/2024 09:35:00 3.79 Below low normal 4.00-10.80 (K/uL) Final RBC 03/22/2024 09:35:00 4.09 4.50-5.25 (M/uL) Final Hemoglobin 03/22/2024 09:35:00 10.9 Below low normal 14.0-16.8 (g/dL) Final HCT 03/22/2024 09:35:00 33.6 Below low normal 40.0-48.4 (%) Final MCV 03/22/2024 09:35:00 82.2 82.0-99.5 (fL) Final MCH 03/22/2024 09:35:00 26.7 27.0-34.0 (pg) Final MCHC 03/22/2024 09:35:00 32.4 32.0-36.0 (g/dL) Final RDW 03/22/2024 09:35:00 14.9 11.5-15.5 (%) Final Platelets 03/22/2024 09:35:00 102 Below low normal 140-400 (K/uL) Final MPV 03/22/2024 09:35:00 10.2 6.6-11.1 (fL) Final Nucleated erythrocytes/100 leukocytes [Ratio] in Blood by Automated count 03/22/2024 09:35:00 0 <=0 (/100 WBCs) Final Performing Location LABORATORY [facility] [place] - [address] [place] [address]
--- OUTSIDE RECORDS SUMMARY | 2024-06-16 23:44 | External Medical Summary | Summary of Care ---
Author Name Unknown Organization [facility] Address [address] [place] [address] Phone [phone] Care Team Providers Care Collection Correspondent Name Role Phone Nirmala Jackson DO Primary Care Provider Reason for Visit * Reason Comments Medication Refill Encounter Details Date Type Department Care Team (Late st Contact Info) Description 03/18/2024 Refill Family Practice [address] [place] [address] [place] [address] Nirmala Jackson DO [address] [place] [address] Type 2 diabetes mellitus with hemoglobin A1c goal of less than 8.0% ([facility]) Allergies Active Allergy Reactions Criticality Noted Date Comments Alcohol 01/19/2023 Sugar Alcohol Lactose Intolerance 12/12/2005 documented as of this encounter (statuses as of 03/19/2024) Medications Medication Sig Dispensed Refills Start Date End Date Status aspirin enteric coated 81 MG TBEC Take 1 Tablet by mouth daily at noon. 100 Tab 3 7 Active Multiple Vitamins-Minerals (MULTIVITAMIN ADULT) TABS Take 1 Tablet by mouth daily at noon. Active ONETOUCH ULTRASOFT LANCETS MISC Use as directed 4 times a day as needed for Hyperglycemia (high sugar) or Hypoglycemia (low sugar). E11.9 1 Box Dosing Unit 11 9 Active OneTouch Verio w/Device Kit Use to test blood sugars daily E11.9 1 Kit 1 Active Magnesium Oxide 400 MG Oral Tablet Take 1 Tablet by mouth daily. 100 Tablet 3 3 Active Farxiga 10 MG Oral Tablet (Dapagliflozin Propanediol) Take 1 Tablet by mouth daily at noon. 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 air personality 3 Active Makara VeruShare In Vitro Strip (Glucose Blood) USE UP TO 4 TIMES A DAY DIRECTED 400 Strip 3 3 Active Incruse Ellipta 62.5 MCG/ACT Inhalation Aerosol Powder Breath Activated (umeclidinium Gardiner)Indication s:Chronic obstructive pulmonary disease, unspecified COPD type (HCC) INHALE ONE PUFF BY MOUTH EVERY MORNING 90 Each 3 4 06/16/19 25 Active glipiZIDE 10 MG Oral Tablet (Glucotrol)Indicat ions:Type 2 diabetes mellitus with hemoglobin A1c goal of less than 8.0% (HCC) TAKE ONE TABLET BY MOUTH TWICE A DAY 30 MINUTES BEFORE MORNING AND EVENING MEALS 200 Tablet 3 4 07/08/19 25 Active Atorvastatin Calcium 20 MG Oral Tablet (Lipitor)Indicatio ns:Type 2 diabetes mellitus with hemoglobin A1c goal of less than 8.0% (HCC) TAKE ONE TABLET BY MOUTH DAILY 100 Tablet 3 4 07/30/19 25 Active Omeprazole 20 MG Oral Capsule Delayed Release (PriLOSEC)Indicati ons:Gastroesophage al reflux disease without esophagitis TAKE ONE CAPSULE BY MOUTH EVERY MORNING 1 HOUR BEFORE THE FIRST MEAL OF THE DAY FOR HEART BURN 100 Capsule 3 4 07/30/19 25 Active Tamsulosin HCl 0.4 MG Oral Capsule (Flomax)Indication s:BPH with obstruction/lower urinary tract symptoms TAKE TWO CAPSULES BY MOUTH EVERY DAY IN THE MORNING 180 Capsule 3 4 09/22/19 25 Active Dexcom G7 Sensor Use as directed. 4 Active Ketoconazole 2 % External Cream Apply topically to affected area on both feet twice daily. 30 g 2 4 Active Finasteride 5 MG Oral Tablet (Proscar) TAKE ONE TABLET BY MOUTH EVERY DAY IN THE MORNING 90 Tablet 6 4 12/18/19 25 Active Methylphenidate HCl 10 MG Oral Tablet (Ritalin)Indicatio ns:Attention deficit hyperactivity disorder (ADHD), predominantly inattentive type Take 1 Tablet by mouth 2 times a day. 60 Tablet 4 Active metFORMIN HCl 850 MG Oral Tablet (Glucophage)Indica tions:Type 2 diabetes mellitus with hemoglobin A1c goal of less than 8.0% (HCC) TAKE ONE TABLET BY MOUTH THREE TIMES A DAY IN THE MORNING, AT NOON AND BEFORE BEDTIME 300 Tablet 1 4 Active metFORMIN HCl 850 MG Oral Tablet (Glucophage)Indica tions:Type 2 diabetes mellitus with hemoglobin A1c goal of less than 8.0% (HCC) TAKE ONE TABLET BY MOUTH THREE TIMES A DAY IN THE MORNING, AT NOON AND BEFORE BEDTIME 300 Tablet 1 4 03/18/20 24 Discontinu ed(Refill) documented as of this encounter (statuses as of 03/19/2024) Active Problems Patient Care Coordination No te [...] as of this encounter (statuses as of 03/19/2024) Resolved Problems Problem Noted Date Diagnosed Date [...] as of this encounter (statuses as of 03/19/2024) Immunizations Name Administration Dates Next Due COVID-19 mRNA, LNP-s, No Pre serve, 2-Dose Series (Moderna) 09/07/2020,08/10/2020 COVID-19, LNP-s, No Preserve , Charlie-sucrose, Ages 12+ (Pfizer) 07/07/2021 COVID-19, MRNA-LNP, 23-24, P F, 30 MCG/0.3 mL, 12 YRS AND ABOVE, IM (P[employer]ZER-ComirnatStockezy) 04/14/2023 COVID-19, MRNA-LNP, 24-25, P R, 30MCG/0.3ML, IM, 12YRS AND ABOVE (Dweho-Comirnaty) 02/20/2024 Covid-19, Mrna, Lnp-s, Pf, B ivalent, 30 Mcg, IM, 12 yrs and above (Pfizer) 08/19/2022 Pneumococcal Conjugate Vacc, 13 Valent (Prevnar) 11/07/2014 Pneumococcal Conjugate Vacci ne, 20-valent ([id number]) 02/20/2024 Pneumococcal Polysaccharide PPV23 (Pneumovax) 09/07/2017,02/25/2010 RSV [...] No 04/14/2023 Does the household have a aspirus [facility] hospital[facility] source of income? (Household - for [...] on file documented as of this encounter Miscellaneous Notes * Telephone Encounter - [place] [facility] [facility] - 03/19/2024 12:21 PM EDT Signed Prescriptions: Disp Refills metFORMIN HCl 850 MG Oral Tablet (Glucopha*300 Ta*1 Sig: TAKE ONE TABLET BY MOUTH THREE TIMES A DAY IN THE MORNING, AT NOON AND BEFORE BEDTIMEAuthorizing Provider: NIRMALA JACKSON User: [facility] documented in this encounter Plan of Treatment Upcoming Encounters Date Type Department Care Team (Latest Contact Info) Description 03/22/2024 7:30 AM EDT Hospital Encounter [place] [facility] [place] [address] [place] [phone] Jonas Gupta MD [address] [place], [place] [phone] 03/22/2024 7:30 AM EDT Anesthesia Event [place] [facility] [address] [place] [phone] Shorty Luna CRNP [address] [place], [place] [phone] 03/22/2024 7:30 AM EDT - 03/22/2024 10:00 AM EDT Surgery [facility] [address] [place] [phone] Jonas Gupta MD [address] [place], [place] [phone] TRANSURETHRAL RESECTION PROSTATE ELECTROSURGICAL 03/29/2024 10:30 AM EDT Nurse Only Urology, [place] [address] [place], [place] [phone] [place], Nurse Urology [address] [place], [place] [phone] 04/03/2024 3:00 PM EDT Office Visit Podiatry [facility] [address] [facility] [place] [address] Coreen Gonzales DPM [address] [facility] [place] [address] 05/16/2024 9:00 AM EST Office Visit Urology, [place] [address] [place] [address] Jonas Gupta MD [address] [place] [address] 06/25/2024 3:00 PM EST Nutrition Services Nutrition Services 65 [facility] [address] [place] [address] Mari Parra RDN [address] [place] [address] 06/25/2024 3:40 PM EST Office Visit Family Practice [address] [place] [address] [address] [place] [address] Nirmala Jackson DO [address] [place] [address] 10/07/2024 2:00 PM EDT Nurse Only Family Practice [address] [place] [address] [address] [place] [phone] Betty Hartmann, JOE [address] [place] [address] Scheduled Procedures Name Priority Associated Diagnoses Date/Ti nd TRANSURETHRAL RESECTION PROSTATE ELECTROSURGICAL Acute urinary retention [...] (LUTS) Bladder stone Other calculus in bladder Type 2 diabetes mellitus with hemoglobin A1c goal of less than 8.0% (HCC) Acute urinary retention Other specified retention of urine BPH with obstruction/lower urinary tract symptoms Hypertrophy of prostate with urinary obstruction and other lower urinary tract symptoms (LUTS) Bladder stone Other calculus in bladder documented in this encounter Care Teams Collection Correspondent Relationship Specialty Start Date End Date Nirmala Jackson DO [address] [place] [address] PCP - General Family Medicine 01/23/24 documented as of this encounter
--- OUTSIDE RECORDS SUMMARY | 2024-06-16 23:44 | External Medical Summary ---
Author Name Unknown Address Unknown Organization : Laboratory Report Ordering Provider Test Date Status DEION BIRD 03/23/2024 20:52:16 Final Observation Date Value Abnormality Reference (Units ) Status Glucose Point of Care 03/23/2024 20:52:16 332 Above high normal 70-120 (mg/dL) Final Performing Location
--- OUTSIDE RECORDS SUMMARY | 2024-06-16 23:44 | External Medical Summary ---
Author Name Unknown Address Unknown Organization [id number]:LABORATORY [facility] [place] - [address] [facility] [address] Laboratory Report Ordering Provider Test Date Status BUBBA CHISHOLM 03/24/2024 04:16:00 Final Observation Date Value Abnormality Reference (Units ) Status WBC, Total 03/24/2024 04:16:00 4.38 4.00-10.80 (K/uL) Final RBC 03/24/2024 04:16:00 3.92 4.50-5.25 (M/uL) Final Hemoglobin 03/24/2024 04:16:00 10.5 Below low normal 14.0-16.8 (g/dL) Final HCT 03/24/2024 04:16:00 33.3 Below low normal 40.0-48.4 (%) Final MCV 03/24/2024 04:16:00 84.9 82.0-99.5 (fL) Final MCH 03/24/2024 04:16:00 26.8 27.0-34.0 (pg) Final MCHC 03/24/2024 04:16:00 31.5 32.0-36.0 (g/dL) Final RDW 03/24/2024 04:16:00 14.9 11.5-15.5 (%) Final Platelets 03/24/2024 04:16:00 106 Below low normal 140-400 (K/uL) Final MPV 03/24/2024 04:16:00 10.8 6.6-11.1 (fL) Final Nucleated erythrocytes/100 leukocytes [Ratio] in Blood by Automated count 03/24/2024 04:16:00 0 <=0 (/100 WBCs) Final Performing Location LABORATORY [facility] - [address] [place] [address]
--- OUTSIDE RECORDS SUMMARY | 2024-06-16 23:44 | External Medical Summary ---
Author Name Unknown Address Unknown Organization K01:LABORATORY [facility] [place] [address] [place] [address] Laboratory Report Ordering Provider Test Date Status BUBBA CHISHOLM 03/22/2024 09:35:00 Final Observation Date Value Abnormality Reference (Units ) Status BUN 03/22/2024 09:35:00 22 Above high normal 6-20 (mg/dL) Final Creatinine 03/22/2024 09:35:00 0.7 0.6-1.2 (mg/dL) Final Glomerular filtration rate/1.73 sq M.predicted [Volume Rate/Area] in Serum, Plasma or Blood by Creatinine-based formula (CKD-EPI) 03/22/2024 09:35:00 >90 >=60 (mL/min) Final eGFR is calculated based on the CKD-EPI 2020 equation. Sodium 03/22/2024 09:35:00 138 135-146 (m mol/L) Final Potassium 03/22/2024 09:35:00 3.8 3.5-5.1 (m mol/L) Final Cl 03/22/2024 09:35:00 103 98-107 (mm ol/L) Final CO2 03/22/2024 09:35:00 25 22-32 (mmo l/L) Final Anion gap 03/22/2024 09:35:00 10 7-15 (mmol /L) Final Glucose 03/22/2024 09:35:00 234 Above high normal 70 -120 (mg/dL) Final Calcium 03/22/2024 09:35:00 8.3 Below low normal 8.4 -10.2 (mg/dL) Final Performing Location LABORATORY [facility] [place] [address] [place] [address]
--- OUTSIDE RECORDS SUMMARY | 2024-06-16 23:44 | External Medical Summary ---
Author Name Unknown Address Unknown Organization K01:[place]ORY [facility] [place] [address] [facility] [place] [address] Laboratory Report Ordering Provider Test Date Status BUBBA CHISHOLM 03/25/2024 04:32:00 Final Observation Date Value Abnormality Reference (Units ) Status SYNC LEUKOCYTES IN BLOOD BY AUTOMATED COUNT 03/25/2024 04:32:00 4.38 4.00-10.80 (K/uL) Final Segs 03/25/2024 04:32:00 72.7 40.0-75.0 (%) Final Lymphs % 03/25/2024 04:32:00 17.6 Below low normal 18.0-42.0 (%) Final Monos 03/25/2024 04:32:00 7.3 1.0-11.0 (%) Final Eosinophils 03/25/2024 04:32:00 1.4 0.0-6.0 (%) Final Basos 03/25/2024 04:32:00 0.5 0.0-2.0 (%) Final Immature Granulocyte, Percent 03/25/2024 04:32:00 0.5 0.0-2.0 (%) Final Absolute Segs 03/25/2024 04:32:00 3.19 1.80-7.70 (K/uL) Final Lymphs, absolute 03/25/2024 04:32:00 0.77 Below low normal 1.00-4.80 (K/ul) Final Monos, Abs 03/25/2024 04:32:00 0.32 0.00-1.10 (K/uL) Final Eos, Abs 03/25/2024 04:32:00 0.06 0.00-0.70 (K/uL) Final Basos, Abs 03/25/2024 04:32:00 0.02 0.00-0.20 (K/uL) Final Immature Granulocytes, Number 03/25/2024 04:32:00 0.02 0.00-0.20 (K/uL) Final Performing Location LAB[facility]ORY [facility] [place] [facility] [place] [address]
--- OUTSIDE RECORDS SUMMARY | 2024-06-16 23:44 | External Medical Summary ---
Author Name Unknown Address Unknown Organization : Laboratory Report Ordering Provider Test Date Status DEION BIRD 03/24/2024 07:34:22 Final Observation Date Value Abnormality Reference (Units ) Status Glucose Point of Care 03/24/2024 07:34:22 219 Above high normal 70-120 (mg/dL) Final Performing Location
--- OUTSIDE RECORDS SUMMARY | 2024-06-16 23:44 | External Medical Summary ---
Author Name Unknown Address Unknown Organization [id number]:[facility] [place] [address] [place] [address] Laboratory Report Ordering Provider Test Date Status BUBBA CHISHOLM 03/24/2024 04:15:00 Final Observation Date Value Abnormality Reference (Units ) Status BUN 03/24/2024 04:15:00 14 6-20 (mg/dL) Final Creatinine 03/24/2024 04:15:00 0.7 0.6-1.2 (mg/dL) Final Glomerular filtration rate/1.73 sq M.predicted [Volume Rate/Area] in Serum, Plasma or Blood by Creatinine-based formula (CKD-EPI) 03/24/2024 04:15:00 >90 >=60 (mL/min) Final eGFR is calculated based on the CKD-EPI 2020 equation. Sodium 03/24/2024 04:15:00 136 135-146 (m mol/L) Final Potassium 03/24/2024 04:15:00 3.7 3.5-5.1 (m mol/L) Final Cl 03/24/2024 04:15:00 105 98-107 (mm ol/L) Final CO2 03/24/2024 04:15:00 22 22-32 (mmo l/L) Final Anion gap 03/24/2024 04:15:00 9 7-15 (mmol /L) Final Glucose 03/24/2024 04:15:00 221 Above high normal 70 -120 (mg/dL) Final Calcium 03/24/2024 04:15:00 8.5 8.4-10.2 ( mg/dL) Final Performing Location [facility] [place] [address] [place] [address]
--- OUTSIDE RECORDS SUMMARY | 2024-06-16 23:44 | External Medical Summary ---
Author Name Unknown Address Unknown Organization : Laboratory Report Ordering Provider Test Date Status DEION BIRD 03/24/2024 10:38:53 Final Observation Date Value Abnormality Reference (Units ) Status Glucose Point of Care 03/24/2024 10:38:53 280 Above high normal 70-120 (mg/dL) Final Performing Location
--- OUTSIDE RECORDS SUMMARY | 2024-06-16 23:44 | External Medical Summary ---
Author Name Unknown Address Unknown Organization : Laboratory Report Ordering Provider Test Date Status DEION BIRD 03/22/2024 09:12:41 Final Observation Date Value Abnormality Reference (Units ) Status Glucose Point of Care 03/22/2024 09:12:41 234 Above high normal 70-120 (mg/dL) Final Performing Location
--- OUTSIDE RECORDS SUMMARY | 2024-06-16 23:44 | External Medical Summary | Summary of Care ---
Author Name Unknown Organization [facility] Address [address] [place] [address] Phone [phone] Care Team Providers Care Newspaper Carrier Name Role Phone JessicaNirmala ziegler Derrick LOCO Primary Care Provider Reason for Visit * Reason Onset Date Comments Outpatient Testing 03/13/2024 Encounter Details Date Type Department Care Team (Late st Contact Info) Description 03/13/2024 Telephone Urology, [place] [address] [place] [address] Maude Barrientos, JOE Outpatient Testing Allergies Active Allergy Reactions Criticality Noted Date Comments Alcohol 01/19/2023 Sugar Alcohol Lactose Intolerance 12/12/2005 documented as of this encounter (statuses as of 03/13/2024) Medications Medication Sig Dispensed Refills Start Date [...] mouth daily at noon. 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 04/07/2023 Active OneTouch Verio In Vitro Strip (Glucose Blood) USE UP TO 4 TIMES A DAY DIRECTED 400 Strip 3 06/01/2023 Active Incruse Ellipta 62.5 MCG/ACT Inhalation Aerosol Powder Breath Activated (umeclidinium [place])Indications :Chronic obstructive pulmonary disease, unspecified COPD type [...] as of this encounter (statuses as of 03/13/2024) Active Problems Patient Care Coordination No te [...] as of this encounter (statuses as of 03/13/2024) Resolved Problems Problem Noted Date Diagnosed Date [...] as of this encounter (statuses as of 03/13/2024) Immunizations Name Administration Dates Next Due COVID-19 mRNA, LNP-s, No Pre serve, 2-Dose Series (Moderna) 09/07/2020,08/10/2020 COVID-19, LNP-s, No Preserve , Charlie-sucrose, Ages 12+ ([employer]) 07/07/2021 COVID-19, MRNA-LNP, 23-24, P F, 30 MCG/0.3 mL, 12 YRS AND ABOVE, IM ([employer]-ComirnatC2C Link) 04/14/2023 COVID-19, MRNA-LNP, 24-25, P R, 30MCG/0.3ML, IM, 12YRS AND ABOVE ([employer]-Comirnat[employer] Link) 02/20/2024 Covid-19, Mrna, Lnp-s, Pf, B ivalent, 30 Mcg, IM, 12 yrs and above (Pfizer) 08/19/2022 Pneumococcal Conjugate Vacc, 13 Valent (Prevnar) 11/07/2014 Pneumococcal Conjugate Vacci ne, 20-valent (Cqsizoj25) 02/20/2024 Pneumococcal Polysaccharide PPV23 (Pneumovax) 09/07/2017,02/25/2010 RSV [...] Telephone Encounter - Maude Barrientos RN - 03/13/2024 9:26 AM EDT S/w patient. He will have a urine culture done this week for his upcoming surgery with Dr. Gupta on 03/22 documented in this encounter Plan of Treatment Upcoming Encounters Date Type Department Care Team (Latest Contact Info) Description 03/22/2024 7:30 AM EDT Hospital Encounter OR C, OPERATING ROOM [facility] [address] [place] [address] Jonas Gupta MD [address] [place] [address] 03/22/2024 7:30 AM EDT Anesthesia Event OR [facility], OPERATING ROOM [facility] [address] [place] [address] Shorty Luna CRNP [address] [place] [address] 03/22/2024 7:30 AM EDT - 03/22/2024 10:20 AM EDT Surgery OR [facility], OPERATING ROOM [facility], [facility] [address] [place] [address] Jonas Gupta MD [address] [place] [address] TRANSURETHRAL RESECTION PROSTATE ELECTROSURGICAL 03/29/2024 10:30 AM EDT Nurse Only Urology, [place] [address] [place] [address] [place], Nurse Urology [address] [place] [address] 04/03/2024 3:00 PM EDT Office Visit Podiatry [facility] [address] [place] [address] Coreen Gonzales DPM [address] [place] [id number] 05/16/2024 9:00 AM EST Office Visit Urology, [place] [address] [place] [address] Jonas Gupta MD [address] [place] [address] 06/25/2024 3:00 PM EST Nutrition Services Nutrition Services [address] [facility] [address] [place] [address] Mari Parra RDN [address] [place] [address] 06/25/2024 3:40 PM EST Office Visit Family Practice [address] [facility] [address] [place] [address] Nirmala Alford DO [address] [place] [address] 10/07/2024 2:00 PM EDT Nurse Only Family Practice [address] [place] [address] [place] [address] Betty Hartmann, RN [address] [place] [address] Scheduled Procedures Name Priority Associated Diagnoses [...] Not on filedocumented as of this encounter Care Teams Newspaper Carrier Relationship Specialty Start Date End Date Nirmala Alford DO [address] [place] [address] PCP - General Family Medicine 01/23/24 documented as of this encounter
--- OUTSIDE RECORDS SUMMARY | 2024-06-16 23:44 | External Medical Summary ---
Author Name Unknown Address Unknown Organization [id number]:[facility] [place] [address] [place] [address] Laboratory Report Ordering Provider Test Date Status BUBBA CHISHOML 03/23/2024 04:10:00 Final Observation Date Value Abnormality Reference (Units ) Status SYNC LEUKOCYTES IN BLOOD BY AUTOMATED COUNT 03/23/2024 04:10:00 5.45 4.00-10.80 (K/uL) Final Segs 03/23/2024 04:10:00 81.0 Above high normal 40.0-75.0 (%) Final Lymphs % 03/23/2024 04:10:00 12.1 Below low normal 18.0-42.0 (%) Final Monos 03/23/2024 04:10:00 5.7 1.0-11.0 (%) Final Eosinophils 03/23/2024 04:10:00 0.6 0.0-6.0 (%) Final Basos 03/23/2024 04:10:00 0.2 0.0-2.0 (%) Final Immature Granulocyte, Percent 03/23/2024 04:10:00 0.4 0.0-2.0 (%) Final Absolute Segs 03/23/2024 04:10:00 4.42 1.80-7.70 (K/uL) Final Lymphs, absolute 03/23/2024 04:10:00 0.66 Below low normal 1.00-4.80 (K/ul) Final Monos, Abs 03/23/2024 04:10:00 0.31 0.00-1.10 (K/uL) Final Eos, Abs 03/23/2024 04:10:00 0.03 0.00-0.70 (K/uL) Final Basos, Abs 03/23/2024 04:10:00 0.01 0.00-0.20 (K/uL) Final Immature Granulocytes, Number 03/23/2024 04:10:00 0.02 0.00-0.20 (K/uL) Final Performing Location [facility] [place] - [facility] [place] [address]
--- OUTSIDE RECORDS SUMMARY | 2024-06-16 23:44 | External Medical Summary ---
Author Name Unknown Address Unknown Organization : Laboratory Report Ordering Provider Test Date Status DEION BIRD 03/25/2024 07:44:51 Final Observation Date Value Abnormality Reference (Units ) Status Glucose Point of Care 03/25/2024 07:44:51 202 Above high normal 70-120 (mg/dL) Final Performing Location
--- OUTSIDE RECORDS SUMMARY | 2024-06-16 23:44 | External Medical Summary ---
Author Name Unknown Address Unknown Organization : Laboratory Report Ordering Provider Test Date Status DEION BIRD 03/22/2024 21:14:16 Final Observation Date Value Abnormality Reference (Units ) Status Glucose Point of Care 03/22/2024 21:14:16 322 Above high normal 70-120 (mg/dL) Final Performing Location
--- OUTSIDE RECORDS SUMMARY | 2024-06-16 23:44 | External Medical Summary ---
Author Name Unknown Address Unknown Organization K01:[facility] [place] [address] [place] [address] Laboratory Report Ordering Provider Test Date Status BUBBA CHISHOLM 03/23/2024 04:10:00 Final Observation Date Value Abnormality Reference (Units ) Status BUN 03/23/2024 04:10:00 19 6-20 (mg/dL) Final Creatinine 03/23/2024 04:10:00 0.8 0.6-1.2 (mg/dL) Final Glomerular filtration rate/1.73 sq M.predicted [Volume Rate/Area] in Serum, Plasma or Blood by Creatinine-based formula (CKD-EPI) 03/23/2024 04:10:00 >90 >=60 (mL/min) Final eGFR is calculated based on the CKD-EPI 2020 equation. Sodium 03/23/2024 04:10:00 137 135-146 (m mol/L) Final Potassium 03/23/2024 04:10:00 4.1 3.5-5.1 (m mol/L) Final Cl 03/23/2024 04:10:00 105 98-107 (mm ol/L) Final CO2 03/23/2024 04:10:00 23 22-32 (mmo l/L) Final Anion gap 03/23/2024 04:10:00 9 7-15 (mmol /L) Final Glucose 03/23/2024 04:10:00 194 Above high normal 70 -120 (mg/dL) Final Calcium 03/23/2024 04:10:00 8.1 Below low normal 8.4 -10.2 (mg/dL) Final Performing Location LABORATORY [facility] - [address] [place] [address]
--- OUTSIDE RECORDS SUMMARY | 2024-06-16 23:45 | External Medical Summary ---
Author Name Unknown Address Unknown Organization K01:[facility] [place] - [address] [place] [address] Laboratory Report Ordering Provider Test Date Status RENETTA SOLOMON 03/08/2024 08:55:17 Final Observation Date Value Abnormality Reference (Units ) Status SYNC LEUKOCYTES IN BLOOD BY AUTOMATED COUNT 03/08/2024 08:55:17 6.29 4.00-10.80 (K/uL) Final Segs 03/08/2024 08:55:17 75.4 Above high normal 40.0-75.0 (%) Final Lymphs % 03/08/2024 08:55:17 17.2 Below low normal 18.0-42.0 (%) Final Monos 03/08/2024 08:55:17 5.9 1.0-11.0 (%) Final Eosinophils 03/08/2024 08:55:17 1.0 0.0-6.0 (%) Final Basos 03/08/2024 08:55:17 0.2 0.0-2.0 (%) Final Immature Granulocyte, Percent 03/08/2024 08:55:17 0.3 0.0-2.0 (%) Final Absolute Segs 03/08/2024 08:55:17 4.75 1.80-7.70 (K/uL) Final Lymphs, absolute 03/08/2024 08:55:17 1.08 1.00-4.80 (K/ul) Final Monos, Abs 03/08/2024 08:55:17 0.37 0.00-1.10 (K/uL) Final Eos, Abs 03/08/2024 08:55:17 0.06 0.00-0.70 (K/uL) Final Basos, Abs 03/08/2024 08:55:17 0.01 0.00-0.20 (K/uL) Final Immature Granulocytes, Number 03/08/2024 08:55:17 0.02 0.00-0.20 (K/uL) Final Performing Location [facility] [place] - [facility] [address] [facility] [address]
--- OUTSIDE RECORDS SUMMARY | 2024-06-16 23:45 | External Medical Summary | Summary of Care ---
Author Name Unknown Organization [facility] Address [address] [place] [address] Phone [phone] Care Team Providers Care Ski Lift Operator Name Role Phone Nirmala Alford DO Primary Care Provider Reason for Visit * Reason Comments Follow Up Encounter Details Date Type Department Care Team (Late st Contact Info) Description 02/20/2024 4:20 PM EDT Office Visit Family Practice [facility] [address] [place] [address] Nirmala Alford DO [address] [place] [address] Type 2 diabetes mellitus with hemoglobin A1c goal of less than 8.0% ([facility])*; BPH with obstruction/lower urinary tract symptoms; Mild depression; Risk and functional assessment Allergies Active Allergy Reactions Criticality Noted Date Comments Alcohol 01/19/2023 Sugar Alcohol Lactose Intolerance 12/12/2005 documented as of this encounter (statuses as of 02/21/2024) Medications Medication Sig Dispensed Refills Start Date [...] 1 Box Dosing Unit 11 09/17/2018 Active Flower OrthopedicsTo[employer] Watch Verio w/Device Kit Use to test blood sugars daily E11.9 1 Kit 02/18/2021 Active Magnesium Oxide 400 MG Oral Tablet Take 1 Tablet by mouth daily. 100 Tablet 3 07/04/2022 Active Farxiga 10 MG Oral Tablet (Dapagliflozin Propanediol) Take 1 Tablet by mouth daily at noon. -- getting through stripper and taper 04/07/2023 Active ASCENDANT MDX Verio In Vitro Strip (Glucose Blood) USE UP TO 4 TIMES A DAY DIRECTED 400 Strip 3 06/01/2023 Active Incruse Ellipta 62.5 MCG/ACT Inhalation Aerosol Powder Breath Activated (umeclidinium [place])Indications :Chronic obstructive pulmonary disease, unspecified COPD type [...] as of this encounter (statuses as of 02/21/2024) Active Problems Patient Care Coordination No te [...] See letter from Dr Mclean on 01/18/2022 Attention deficit hyperactiv ity disorder (ADHD), predominantly inattentive type 06/14/2021 Gastroesophageal reflux disease without esophagi tis 11/23/2020 Esophageal thickening 11/23/2020 Acquired absence of other right toe(s) 1 Type 2 diabetes mellitus with diabetic cataract 07/26/2019 Attention-deficit hyperactivity disorder, unspec ified type 07/26/2019 Pulmonary emphysema 12/28/2018 History of tobacco abuse 03/09/2018 Dyslipidemia 03/09/2018 Type 2 diabetes mellitus wit h hemoglobin A1c goal of less than 8.0% 11/28/2017 documented as of this encounter (statuses as of 02/21/2024) Resolved Problems Problem Noted Date Diagnosed Date [...] as of this encounter (statuses as of 02/21/2024) Immunizations Name Administration Dates Next Due COVID-19 mRNA, LNP-s, No Pre serve, 2-Dose Series (Moderna) 09/07/2020,08/10/2020 COVID-19, LNP-s, No Preserve , Charlie-sucrose, Ages 12+ (Pfizer) 07/07/2021 COVID-19, MRNA-LNP, 23-24, P F, 30 MCG/0.3 mL, 12 YRS AND ABOVE, IM (Signal-ComirnatEasyProperty) 04/14/2023 COVID-19, MRNA-LNP, 24-25, P R, 30MCG/0.3ML, IM, 12YRS AND ABOVE (Optisense-ComirnatEasyProperty) 02/20/2024 Covid-19, Mrna, Lnp-s, Pf, B ivalent, 30 Mcg, IM, 12 yrs and above (Pfizer) 08/19/2022 Pneumococcal Conjugate Vacc, 13 Valent (Prevnar) 11/07/2014 Pneumococcal Conjugate Vacci ne, 20-valent ([id number]) 02/20/2024 Pneumococcal Polysaccharide PPV23 (Pneumovax) 09/07/2017,02/25/2010 RSV Vac., Bivalent, Perfusio n F, Pf,0.5 Ml (Abrysvo) 04/14/2023 Seasonal Influenza, High Dos e, Trivalent, PF, IM (Fluzone HD) 02/20/2024 Seasonal Influenza, PF, 6 M & above, IM , (FluLaval or Fluzone) 05/08/2020,03/09/2019,03/05/2018,03/24 Seasonal Influenza, Quadriva lent Hd (Fluzone Hd) 04/14/2023,04/22/2021 Seasonal Influenza, Quadriva lent Hd, 65+ Yrs 06/02/2022 Seasonal Influenza, Trivalen t, (IIV3), PF, (Fluzone) 02/22/2012,03/14/2011,03/23/2009 Seasonal Influenza, Trivalen t, (IIV3), with Preserv, (Fluzone) 02/18/2016,02/25/2015,03/05/2014,03/05,02/18/2012,02/25/2010 TD, Preservative Free 2020 TDAP, Age 7 [...] Sign Reading Time Taken Comments Blood Pressure 104/58 02/20/2024 4:26 PM EDT Pulse 83 02/20/2024 4:26 PM EDT Temperature 35.7 C (96.3 F) 02/20/2024 4:26 PM ED T Respiratory Rate 14 02/20/2024 4:26 PM EDT Oxygen Saturation 95% 02/20/2024 4:26 PM EDT Inhaled Oxygen Concentration - - Weight 79.7 kg (175 lb 11.2 oz) 02/20/2024 4:26 PM EDT Height 175.3 cm (5' 9") 02/20/2024 4:26 PM EDT Body Mass Index 25.95 02/20/2024 4:26 PM EDT documented in this encounter Patient Instructions * Patient Instructions* Alicia Oconnell LPN - 02/20/2024 4:24 PM EDT Patient Instructions - Fall Prevention (This education is for all patients over 65 regardless of symptoms) Remember to take your current medications as prescribed. In order to prevent falls, you are encouraged to: Exercise Utilize assistive/adaptive devices Avoid multifocal lenses when walking Avoid hazards in home Maintain a regular toileting schedule Any questions please contact our office. Preventing Falls in the Home (This education is for all patients over 65 regardless of symptoms) As you get older, falls are more likely. Thats because your reaction time slows. Your muscles and joints may also get stiffer, making them less flexible. Illness, medications, and vision changes can also affect your balance. A fall could leave you unable to live on your own. To make your home safer, follow these tips: Floors Put nonskid pads under area rugs Remove throw rugs Replace worn floor coverings Tack carpets firmly to each step on carpeted stairs. Put nonskid strips on the edges of uncarpeted stairs Keep floors and stairs free of clutter and cords Arrange furniture so there are clear pathways Clean up any spills right away Bathrooms Install grab bars in the tub or shower Apply nonskid strips or put a nonskid rubber mat in the tub or shower Sit on a bath chair to bathe Use bathmats with nonskid backing Lighting Keep a flashlight in each room Put a nightlight along the pathway between the bedroom and the bathroom [facility] Patient Education Copyright 2008 - 2010 [facility] except where otherwise noted Preventing Falls: Exercises to Improve Balance, Flexibility, Strength, and Staying Power (This education is for all patients over 65 regardless of symptoms) Certain types of exercises may help make you less likely to fall. Try the ones below. Or do other exercises that your healthcare provider suggests. Depending on your health, you may need to start slowly. Dont let that stop you. Even small amounts of exercise can help you. Be sure to talk to yourhealthcare provider before starting any exercise program. Improve Balance Many types of exercise can help improve balance. Markus chi and yoga are good examples. Heres another one to try. You can do it anytime and almost anywhere. Stand next to a counter or solid support. Push yourself up onto your tiptoes. Hold for 5 seconds. If you start to lose your balance, hold on to the counter. Rest and repeat 5 times. Work up to holding for 20 to 30 seconds, if you can. Increase Flexibility Being more flexible makes it easier for you to move around safely. Try exercises like the seated hamstring stretch. Sit in a chair and put one foot on a stool. Straighten your leg and reach with both hands down either side of your leg. Reach as far down your leg as you can. Hold for about 20 seconds. Go back to the starting position. Then repeat 5 times. Switch legs. Build Strength Resistance exercises help build strength. You can do them without equipment. Or you can use weights, elastic bands, or special machines. One such exercise is called the biceps curl. You can hold a 1 pound weight or even a can of soup. Do this exercise at least 3 times a week. Strive for everyday. Sit up straight in a chair. Keep your elbow close to your body and your wrist straight. Bend your arm, moving your hand up to your shoulder. Then slowly lower your arm. Repeat 5 times. Switch to the other arm. Build Your Staying Power Aerobic exercises make your heart and lungs stronger so you can keep moving longer. Walking and swimming are two of the best types of exercises you can do. Using a stationary bike is great, too. Find an aerobic exercise that you enjoy. Start slowly and build up. Even 5 minutes is helpful. Aimfor a goal of 30 minutes, at least 3 times a week. You dont have to do 30 minutes in one session. Break it up and walk a little throughout the day. More Helpful Tips Start easy. Slowly work up to doing more. Talk with your healthcare provider about the best exercises for you. Call senior centers or health clubs about exercise programs. If needed, have a family member watch you walk every so often to check your stability. Exercise with a friend. Choose an activity you both enjoy. Try exercises that you can do anytime, anywhere. Here are two examples. Have someone with you when you first try these: Practice walking by placing one foot right in front of the other. Stand up and sit down 10 times. Repeat this throughout the day. [facility] Patient Education Copyright 2008 - 2010 [facility] except where otherwise noted. Preventing Falls: Moving Safely Using a Cane or Walker (This education is for all patients over 65 regardless of symptoms) Keep the cane away from your feet so you dont trip. A walking aid, such as a cane or walker, can help you stay more independent and avoid falls. Remember to keep your walking aid within easy reach when youre in a chair or in bed. And learn how to use it safely so you dont injure yourself. Using a Cane If you have a stronger side, hold the cane on that side. Get your balance. Move the cane and your weaker leg forward. Support your weight on both the cane and your weaker side. Step with your stronger leg. Start again from step 1. If youre using a folding walker, be sure you know how to lock it open. Check that its locked open before each use. Using a Walker Roll the walker (or lift it, if youre using one without wheels) forward about 12 inches. Step forward with your weaker leg first. Use the walker to help keep your balance. Bring your other foot forward to the center of the walker. Start again from step 1. Helpful Tips Check with your healthcare provider about the right walking aid to use. Ask about a walker with a seat attached. Check the tips of your cane or walker to make sure they have nonskid covers. Move slowly from room to room. Dont argueta. Sit down to get dressed. Use a saumya pack or backpack to keep your hands free. Get help for jobs that mean climbing, even on a stepstool. [facility] Patient Education Copyright 2008 - 2010 [facility] except where otherwise noted. Treating Urinary Incontinence in Men (This education is for all patients over 65 regardless of symptoms) You can't always control the release of urine. You may leak urine. Or you may not be able to hold your urine until you can get to a bathroom. This is called urinary incontinence. The problem can be managed. Talk to your doctor about your treatment options. Taking Medications Prescription medications may help you. They may: Help the sphincter to work better. (This is the muscle that closes to keep urine from leaking out of the bladder.) Help stop the bladder from samantha too often to push urine out. Help the bladder muscles contract with more force. Help relax the sphincter muscle and allow urine to flow more freely. Making Changes to Your Routine Certain changes in your daily routine may help. These include: Avoiding caffeine and alcohol. Using timed voiding. This is following a schedule for drinking fluids and urinating. Doing Kegel exercises daily. These exercises involve tightening the muscles in your sphincter and around your bladder to help strengthen them. Your doctor can explain how to do them. Using a Catheter A catheter is a narrow tube that is inserted through the urethra into the bladder. It drains urine.A condom catheter covers the penis. It channels urine into a collection bag. It is worn most of thetime. Intermittent catheterization means inserting a catheter to drain the bladder, then removing it. This is done on a regular schedule. Having Surgery If other options don't work, surgery may be recommended. If surgery is an option, your healthcare provider can discuss it with you and explain its risks and benefits. Healing After Prostate Surgery Surgery on the prostate gland can cause incontinence. Most often, the incontinence is only for a short time. It clears up when healing is complete. Very rarely, prostate surgery can result in permanent incontinence. documented in this encounter Progress Notes * Nirmala Alford, - 02/20/2024 4:36 PM EDT SUBJECTIVE: Chief Complaint Patient presents with Follow Up HPI: Kamlesh Nair Jr. is a 79 year old male who presents today for regular return. Pt notes that he is getting older an he does not like it. He admits he is depressed but feels that this is expected. Still working on getting into a tiny home on his daughter's property. Pt notes that his sugars were ok this morning. It was 111. He feels that it is working in the rightdirection. He is still tolerating his medications ok. He will have prostate surgery next month. He is hoping that this helps with his incontinence issues. Pt states that he has been trying to lose weight. He is down about 10lbs from last visit. He has been decreasing portion size. He notes that his taste isn't great so that is some of it too. He stateshe is happier at this weight. 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 100 Tab 3 Multiple Vitamins-Minerals (MULTIVITAMIN ADULT) TABS Take 1 Tablet by mouth daily at noon. Magnesium Oxide 400 MG Oral Tablet Take 1 Tablet by mouth daily. 100 Tablet 3 Farxiga 10 MG Oral Tablet (Dapagliflozin Propanediol) Take 1 Tablet by mouth daily at noon. -- getting through stripper and taper Incruse Ellipta 62.5 MCG/ACT Inhalation Aerosol Powder Breath Activated (umeclidinium [place]) INHALE ONE PUFF BY MOUTH EVERY MORNING [...] DAY FOR HEART BURN 100 Capsule 3 metFORMIN HCl 850 MG Oral Tablet (Glucophage) TAKE ONE TABLET BY MOUTH THREE TIMES A DAY IN THE MORNING, AT NOON AND BEFORE BEDTIME 300 Tablet 1 Tamsulosin HCl 0.4 MG Oral Capsule (Flomax) TAKE TWO CAPSULES BY MOUTH EVERY DAY IN THE MORNING 180Capsule 3 Ketoconazole 2 % External Cream Apply topically to affected area on both feet twice daily. 30 g 2 Finasteride 5 MG Oral Tablet (Proscar) TAKE ONE TABLET BY MOUTH EVERY DAY IN THE MORNING 90 Tablet 6 Methylphenidate HCl 10 MG Oral Tablet (Ritalin) Take 1 Tablet by mouth 2 times a day. 60 Tablet [address] [facility] Use as directed 4 times a day as needed for Hyperglycemia (high sugar) or Hypoglycemia (low sugar). E11.9 1 Box Dosing Unit 11 Flower OrthopedicsTouch Verio w/Device Kit Use to test blood sugars daily E11.9 1 Kit 0 Flower OrthopedicsTouch Verio In Vitro Strip (Glucose Blood) USE UP TO 4 TIMES A DAY DIRECTED 400 Strip 3 Dexcom G7 Sensor Use as directed. (Patient not taking: Reported on 02/20/2024) No current facility-administered medications for this visit. Past Medical History: Diagnosis Date ADHD COPD (chronic obstructive pulmonary disease) (HCC) DM2 (diabetes mellitus, type 2) ([facility]) Dyslipidemia Emphysema, unspecified (HCC) GERD (gastroesophageal reflux disease) Past Surgical History: Procedure Laterality Date COLONOSCOPY W/ BIOPSY (RECTUM) 06/23/2009 done diverticulosis, one polyp at 20cm proximal to anus PARTIAL AMPUTATION OF TOE Right right middle toe- REMOVAL OF TONSILS, UNDER AGE 14 Review of patient's allergies indicates: Allergen Reactions [...] date: 11/19/1987 Quit date: 11/18/2017 Years since quittin.2 Passive exposure: Past Smokeless tobacco: Never Substance [...] color change, pallor and rash. OBJECTIVE: BP 104/58 (BP Site: Left Arm, BP Position: Sitting, BP Cuff Size: Regular) | Pulse 83 | Temp 35.7 C (96.3 F) (Tympanic) | Resp 14 | Ht 1.753 m (5' 9") | Wt 79.7 kg (175 lb 11.2 oz) | SpO2 95% | BMI 25.95 kg/m | BSA 1.97 m PHYSICAL EXAM: Physical Exam Constitutional: General: [...] oriented to person, place, and time. ASSESSMENT/PLAN: (E11.9) Type 2 diabetes mellitus with hemoglobin A1c goal of less than 8.0% ([facility]) (primary encounter diagnosis) Plan: A1C ok. He notes that sugars are heading in the right direction. Will likely need lab studiesprior to surgery. I have placed additional orders. (N40.1, N13.8) BPH with obstruction/lower urinary tract symptoms Plan: pt has pre op visit in [place]. Keep this appt. F/u per urology. (F32.A) Mild depression Plan: discussed treatment. He declines. Reviewed concerning signs and symptoms for which to monitor. (Z13.9) Risk and functional assessment Plan: See nursing note. Follow-up: 3 months Total time today including reviewing chart before the visit, pertinent labs, imaging reports, face to face time, and documentation time was 33 minutes. Nrimala Alford DO * Alicia Oconnell LPN - 02/20/2024 4:24 PM EDT Fall Risk Plan of Care Documentation: - Current medications reconciled Patient encouraged to: - Exercise - Provide education materials for Core strengthening - Utilize assistive/adaptive devices - Provide education materials - Avoid multifocal lenses when walking - Avoid hazards in home - Provide education materials - Maintain a regular toileting schedule Alicia Oconnell LPN 02/20/2024 Urinary Incontinence Plan of Care Documentation: (This education is for all patients over 65 regardless of symptoms) Current medications reconciled. Patient encouraged to: Practice kegal exercises Provide education materials Use the restroom every 2 hours throughout the day Limit caffeine, alcohol, spicy foods and acidic foods Keep a bladder diary Limit fluid intake 3-4 hours before bed Lose weight Prevent constipation Take fluid pills at a time when you can get to the bathroom quickly Control sugar better if diabetic Limit fluid intake to 60 oz. per day Wear support stockings (TEDs)if you have edema Alicia Oconnell LPN 02/20/2024 documented in this encounter Nursing Notes * Alicia Oconnell LPN - 02/20/2024 4:25 PM EDT Patient here for routine follow up visit. Pt reports he has a cologuard kit at home and will do it. documented in this encounter Plan of Treatment Upcoming Encounters Date Type Department Care Team (Latest Contact Info) Description 03/08/2024 9:00 AM EDT Pre-Admission Testing Pre Surgery [facility] [address] [place] [address] [facility] [address] [place] [address] 03/08/2024 10:00 AM EDT Office Visit General Internal Medicine, [facility] [address] [place] [address] Mariusz Bolden, [address] [place] [address] 03/13/2024 3:00 PM EDT Office Visit Podiatry [address] [place] [address] Coreen Gonzales DPM [address] [place], [place] [address] [address] 03/22/2024 7:30 AM EDT Hospital Encounter [place] [facility], OPERATING ROOM [facility], [place] [address] [place] [address] Jonas Gupta MD [address] [place] [address] 03/22/2024 7:30 AM EDT - 03/22/2024 10:20 AM EDT Surgery OR [facility], OPERATING ROOM [facility], [place] [address] [place] [address] Jonas Gupta MD [address] [place] [address] TRANSURETHRAL RESECTION PROSTATE ELECTROSURGICAL 03/29/2024 10:30 AM EDT Nurse Only Urology, [place] [address] [place] [address] [place], Nurse [facility] [address] [place] [address] 05/01/2024 1:15 PM EST Office Visit Urology, [place] [address] [place] [address] Jonas Gupta MD [address] [place] [address] 06/25/2024 3:00 PM EST Nutrition Services Nutrition Services [address] [address] Mari Parra RDN [address] [place] [address] 06/25/2024 3:40 PM EST Office Visit Family Practice [address] [phone] Nirmala Alford DO [address] [place] [address] 10/07/2024 2:00 PM EDT Nurse Only Ancillary [address] [place] [address] [facility] [place] [address] College, Nurse Annual Wellness Visit [address] [facility] [address] [facility] [place] [address] Scheduled Orders Name Type Priority Associated Diagnoses Orde r Schedule HEMOGLOBIN A1C Lab Routine Type 2 diabetes mellitus with hemoglobin A1c goal of less than 8.0% (HCC) Expected: 02/21/2024 (Approximate), Expires: 02/20/2025 BASIC METABOLIC PANEL Lab Routine Type 2 diabetes mellitus with hemoglobin A1c goal of less than 8.0% (HCC) Expected: 02/21/2024 (Approximate), Expires: 02/20/2025 CBC WITH WBC DIFFERENTIAL Lab Routine BPH with obstruction/lower urinary tract symptoms Expected: 02/21/2024 (Approximate), Expires: 02/20/2025 Scheduled Procedures Name Priority Associated Diagnoses Date/Ti [...] Comments Alpha-1 Antitrypsin 1963 Colonoscopy 06/23/2014 06/23/2009 Diabetic Eye Exam 03/21/2024 2023, , 2023, Additional history exists Postponed from 01/25/2024 (Other) HbA1c 04/25/2024 10/24/2023, 02/0 10/2023, 01/12/2023, Additional history exists Albumin/Creatinine Ratio 07/10/2024 024, 06/09/2022, 04/22/2021, Additional history exists Diabetic Foot Exam 07/10/2024 07/10/2023, 0 06/09/2022, 06/14/2021, Additional history exists Adult Wellness Visit 09/28/2024 09/29/2023, 09/27/19 23 Depression Screening 09/28/2024 09/29/2023, 09/29/19 24 B-12 10/23/2024 10/24/2023, 01/03, 12/15/2021, Additional history exists GFR 10/23/2024 10/24/2023, 10/2023, 01/12/2023, Additional history exists O2 ASSESSMENT COMPLETED IN PAST YEAR FOR COPD 02/19/2025 02/20/2024 DTap/Tdap Vaccines (3 - Td or Tdap) [...] hemoglobin A1c goal of less than 8.0% (HCC)- Primary BPH with obstruction/lower urinary tract symptoms Hypertrophy of prostate with urinary obstruction and other lower urinary tract symptoms (LUTS) Mild depression Depressive disorder, not elsewhere classified Risk and functional assessment Screening for unspecified condition Acute urinary retention Other specified retention of urine BPH with obstruction/lower urinary tract symptoms Hypertrophy of prostate with urinary obstruction and other lower urinary tract symptoms (LUTS) Bladder stone Other calculus in bladder documented in this encounter Care Teams Ski Lift Operator Relationship Specialty Start Date End Date Nirmala Alford DO [address] [place] [address] PCP - General Family Medicine 01/23/24 documented as of this encounter
--- OUTSIDE RECORDS SUMMARY | 2024-06-16 23:45 | External Medical Summary | Summary of Care ---
Author Name Unknown Organization [facility] Address [address] [place] [address] Phone [phone] Care Team Providers Care Steel Pourer Name Role Phone JessicaFelicia zieglerjorgito Meza DO Primary Care Provider [phone] Reason for Visit * Reason Onset Date Comments Pre-Op Testing 03/08/2024 Encounter Details Date Type Department Care Team (Latest Contact Info) Description 03/08/2024 9:00 AM EDT Pre-Admission Testing Pre Surgery [place] [place] [address], [place] [id number] [facility] [address], [place] [id number] Pre-operative examination*; Type 2 diabetes mellitus with hemoglobin A1c goal of less than 8.0% (HCC); BPH with obstruction/lower urinary tract symptoms Allergies Active Allergy Reactions Criticality Noted Date Comments Alcohol 01/19/2023 Sugar Alcohol Lactose Intolerance 12/12/2005 documented as of this encounter (statuses as of 03/08/2024) Medications Medication Sig Dispensed Refills Start Date [...] 1 Box Dosing Unit 11 09/17/2018 Active Kindfulio w/Device Kit Use to test blood sugars daily E11.9 1 Kit 02/18/2021 Active Magnesium Oxide 400 MG Oral Tablet Take 1 Tablet by mouth daily. 100 Tablet 3 07/04/2022 Active Farxiga 10 MG Oral Tablet (Dapagliflozin Propanediol) Take 1 Tablet by mouth daily at noon. 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 04/07/2023 Active Wolf Minerals In Vitro Strip (Glucose Blood) USE UP TO 4 TIMES A DAY DIRECTED 400 Strip 3 06/01/2023 Active Incruse Ellipta 62.5 MCG/ACT Inhalation Aerosol Powder Breath Activated (umeclidinium [place])Indications :Chronic obstructive pulmonary disease, unspecified COPD type [...] as of this encounter (statuses as of 03/08/2024) Active Problems Patient Care Coordination No te [...] as of this encounter (statuses as of 03/08/2024) Resolved Problems Problem Noted Date Diagnosed Date [...] as of this encounter (statuses as of 03/08/2024) Immunizations Name Administration Dates Next Due COVID-19 mRNA, LNP-s, No Pre serve, 2-Dose Series (Moderna) 09/07/2020,08/10/2020 COVID-19, LNP-s, No Preserve , Charlie-sucrose, Ages 12+ (NOZA) 07/07/2021 COVID-19, MRNA-LNP, 23-24, P F, 30 MCG/0.3 mL, 12 YRS AND ABOVE, IM (Seer-ComirnatSamanage) 04/14/2023 COVID-19, MRNA-LNP, 24-25, P R, 30MCG/0.3ML, IM, 12YRS AND ABOVE (NOZA-Comirnaty) 02/20/2024 Covid-19, Mrna, Lnp-s, Pf, B ivalent, 30 Mcg, IM, 12 yrs and above (Pfizer) 08/19/2022 Pneumococcal Conjugate Vacc, 13 Valent (Prevnar) 11/07/2014 Pneumococcal Conjugate Vacci ne, 20-valent (Fpkteaf39) 02/20/2024 Pneumococcal Polysaccharide PPV23 (Pneumovax) 09/07/2017,02/25/2010 RSV [...] 08/19/2022 ,06/09/2022 documented as of this encounter Anesthesia Record Procedure Summary Procedure Name Responsible Anesthesiologist Anesthesia Start Time Anesthesia Stop Time TRANSURETHRAL RESECTION PROSTATE ELECTROSURGICAL Events No events on file. Meds * Agents No agents on file. * Blood No blood administrations on file. Lines, Drains, and Airways Type Details Placement Removal Alteration in Skin Integrity Placement Date: 01/16/23; Time: 1423; Orientation/Laterality: Right, 4th; Specific Location: [place] 01/16/23 1424 by Afia Garcia RN documented in this encounter Social History Tobacco Use Types [...] Sign Reading Time Taken Comments Blood Pressure 123/71 03/08/2024 8:41 AM EDT Pulse 87 03/08/2024 8:41 AM EDT Temperature - - Respiratory Rate - - Oxygen Saturation 98% 03/08/2024 8:41 AM EDT Inhaled Oxygen Concentration - - Weight - - Height - - Body Mass Index - - documented in this encounter Patient Instructions * Patient Instructions* Shorty Luna CRNP - 03/08/2024 8:56 AM EDT [facility]: Contact # [phone] Directions to Surgical Suite in from the [facility] Entrance The Surgical Waiting Room can be found in the Lobby of [facility] [place]. Enter through Main Lobby Entrance and the Waiting Room is directly in front of you. Proceed to check in and give them your name. Directions to Surgical Suite from the East Entrance Enter the East entrance and follow the hallway to the J elevator. Take the J elevator up to Level 1. Continue down the long hallway to the main [facility] Lobby. The Surgical Waiting Room will be on your Right. Proceed to check in and give them your Name. Directions to Surgical Suite from the Parking Garage Enter the [facility] lobby and proceed down the melgoza to the left. At the end of the melgoza, turn right. Continue down the long hallway to the main [facility] Lobby. The Surgical Waiting Room will be on your Right. Proceed to check in and give them your Name. THANK YOU FOR CHOOSING [facility]! PRE-OP PATIENT INFORMATION AND EDUCATION: MEDICATION INSTRUCTIONS: The day of surgery/procedure, you may TAKE the following medications with a sip of water up to 2 hours prior to your arrival time: -Lipitor -Incruse -Ritalin -Prilosec AVOID / DO NOT TAKE the following medications the morning of surgery/procedure: -Proscar -Flomax AVOID / DO NOT TAKE the following medications the evening prior to and morning of surgery/procedure: -Metformin -Glipizide STOP taking the following medications the noted number of days prior to surgery/procedure unless otherwise specified by your surgeon: -STOP taking your Aspirin per your surgeon's instructions. -STOP taking your Magnesium, Multivitamin, 10 days prior to surgery. -STOP taking your Farxiga 3 days prior to surgery. Please continue to carefully monitor your blood sugar levels at home after discontinuation of this agent and contact the prescriber to determine: 1)how to manage high blood sugar levels (hyperglycemia) and 2) if you need any bridging medication. Please follow surgeon's instructions regarding use of Aspirin, Coumadin, Plavix, Eliquis, and any other blood thinner including NSAIDs (non-steroidal anti- inflammatory drugs, eg, Advil, Ibuprofen, Motrin, Aleve, Naproxen); if you have any questions regarding your anticoagulation therapy please contact your surgeon's clinic. Please verify any proposed stoppage of your anticoagulation therapy with the agent's prescribing provider. 10 days prior to surgery/procedure Stop all Herbal supplements, Green Tea, Turmeric, Melatonin, CBD, THC, etc. Stop all Vitamins (including Vitamin E) 24 hours prior to surgery/procedure DO NOT consume any alcohol. DO NOT use medical marijuana. DO NOT smoke or use tobacco products of any kind after midnight prior to surgery. *Using any of these products may increase your risks of procedural complications. IF IT IS LESS THAN RECOMMENDED STOPPAGE TIME PLEASE STOP AT TIME OF NOTIFICATION. FASTING RECOMMENDATIONS: To reduce risk, it is important for all elective surgery patients to follow the specific fasting guidelines listed below. If you have received more stringent guidelines, please follow the MOST RESTRICTIVE guidelines that you have been provided. DO NOT EAT after midnight on the night prior to your surgery date. You are allowed to drink clear liquids up to two hours prior to arrival time to the hospital or surgery center. Examples of clear liquids include water, clear fruit juice without pulp, clear carbonated beverages, clear tea, and black coffee. Any drinks given by your surgical service take as directed. THE DAY BEFORE YOUR SURGERY: -Drink plenty of fluid the day before your surgery. Contact your surgeon's office if you develop any of the following within 2 weeks of surgery: A cold Infection Fever Shingles Chicken pox or exposure to chicken pox Open areas such as scrapes, cuts, telles or other skin conditions Rashes GENERAL INSTRUCTIONS FOR PREPARING FOR SURGERY: BATHING INSTRUCTIONS: Bathe the evening prior to and the morning of surgery/procedure. Cleanse your body using ONLY anti-bacterial soap (eg, Dial, Safeguard) or any specific soap/cleansers and instructions provided by your surgeon (eg, Chlorhexidine). -You should brush your teeth the morning of surgery. Do NOT apply any lotions, powders, sprays, creams, oils, make-up, or deodorants after bathing. No hairspray, or nail prydeinig on fingers or toes. Day of surgery/procedure do not use tampons. If you wear contacts wear your eyeglasses if available otherwise bring your contact supplies with you to remove them prior to your surgery/procedure. If you wear glasses or dentures, please bring cases in which you can store them during your surgery. Please remove all piercings and jewelry and leave them at home. Wear comfortable and loose clothing. -Please leave all valuables at home. -If you use a CPAP and are staying overnight, please bring your mask. -If you use an assistive mobility device (walker, cane, etc), please label it with your name and bring to hospital. -An escort retail delivery driver is required if you are being discharged the same day of the surgery. You should have a responsible adult over the age of 18 [address] you home. This person should be present with youin the hospital at the time of discharge and for the first 24 hours after the surgery to support your needs. If you are taking a taxi home, you must have your responsible green party accompany you in the taxi ride home at the time of discharge. OR times subject to change. Please check voicemail messages the day/evening before your surgery forany updates. PRE-OP: You will be taken to the pre-op area where your vital signs (blood pressure, pulse and temperature)will be taken. Any preparations that need to be done will be done there. When it is time for your surgery, you will be taken to the operating room. PARENTS OF PEDIATRIC PATIENTS WILL BE ALLOWED TO STAY WITH THEIR CHILDREN UNTIL THEY ARE ESCORTED TO THE OPERATING ROOM OUTPATIENT SURGERY PATIENTS: After your surgery you will be taken to the Same Day Surgery Unit when you are awake and will go home from there. You will get instructions about your home care before you leave. Arrange to have someone drive you home from the hospital. You may not drive for 24 hours after anesthesia. You must havean adult stay with you at home for 24 hours after your operation. This is very important. If you are not able to comply with these guidelines, your Short Stay surgery cannot be done. ADMISSION PATIENTS: After your stay in the recovery area, you will be taken to your room. Your family may visit you in your room based on current visitation policy. If a next day discharge is expected, it is important to make arrangements for a retail delivery driver to take you home. Please be aware our visitation policies are subject to change Professionals, attendants, caregivers or family members are allowable visitors for patients with intellectual, developmental or cognitive disabilities, communication barriers or behavioral concerns. Because patients' and families' needs vary, they will be taken into account when applying visitation restrictions. ANESTHESIA INFORMATION This information has been prepared to help you and your family better understand the process of anesthesia, so that you may help make well-informed decisions about your care. This information is alsoprovided to guide your completion of the [facility] anesthesia consent form which addresses real, but infrequent, problems associated with anesthesia. IMPORTANT INFORMATION TO PREVENT YOUR SURGERY FROM BEING CANCELLED/ RESCHEDULED: --You are required to have a retail delivery driver to take you home whether you are admitted to the hospital following your surgery or not --You are required to have a responsible adult with you for the first 24 hours after surgery to support your needs Types of Anesthesia: Local Anesthesia Local anesthetic drugs (numbing drugs) are usually injected into the tissues to numb just the specific location of your body requiring minor surgery, such as an area of your hand or foot. Regional Anesthesia -Regional anesthesia involves the use of local anesthetics (numbing drugs) to numb larger areas of your body by blocking nerves to those areas. This is commonly referred to as a nerve block. Another way of performing regional anesthesia is by blocking nerves of the spinal cord by injecting numbing m edicines with great exactness around those nerves. This is called spinal or epidural anesthesia depending on exactly where the medication is injected. The type of regional anesthesia selected dependson the type of surgery and whether regional anesthesia is being done to help with pain after surgery or as a part of the anesthesia for surgery. You may remain awake, be sedated, or be given a general anesthetic depending on the type of surgery and the type of regional anesthesia performed Monitored Anesthesia Care (MAC) -Describes a range of sedation that can be given to a patient undergoing a procedure. The level of sedation usually depends on what is needed for the procedure being performed. A patient could be awake and aware of the procedure being performed but be relaxed and able to follow instructions as needed or may be unaware of what is happening and only rouse to significant stimulation. A patient may be able to speak, hear things around them, and answer questions and follow commands but is not in pain or anxious. A patient may experience varying depths of sedation during the procedure. The use of general anesthesia could result if this type of anesthesia is ineffective. General Anesthesia - Occurs by using a combination of medications to put a patient into a deep, sleep-like, unresponsive state for surgery. This is required for many surgical procedures. Under general anesthesia, a patient does not feel pain and is unaware of what is happening during the procedure. Systems in the body may not function normally while a patient is under general anesthesia. They are monitored by the anesthesia provider and may need to be assisted while a patient is under general anesthesia. For example, a breathing device may need to be placed in the airway to assist breathing and medications may need to be given to ensure that your blood pressure and heart rate remain normal. Risks of Anesthesia: Regional/Local/Nerve Blocks -Include but are not limited to, , cardiac or respiratory arrest, permanent complete paralysis, permanent nerve injury, seizure, spinal headache, backache, pain in buttocks and legs, infection, bleeding, leakage of spinal fluid, inadequate pain relief, bowel or bladder dysfunction, prolonged numbness or pain, temporary drop in blood pressure, or allergic reaction to the medications. Monitored Anesthesia Care (MAC) -Common risks include temporary dizziness, light-headedness, nausea and/or vomiting, and leakage ofintravenous fluid into the tissues with swelling or discoloration of the area or residual pain. Less common risks include, but are not limited to, , heart attack, permanent brain damage, stroke,pneumonia, blood clots, awareness, nerve stretch injury of your arm, neck or leg, permanent liver damage and allergic reaction to the medications. General Anesthesia -More common risks include temporary sore throat, pain in the neck or other muscles, dizziness, light-headedness, nausea and/or vomiting, and leakage of intravenous fluid into the tissues with swelling or discoloration of the area or residual pain. Less common risks include, but are not limited to,, heart attack, permanent brain damage, stroke, pneumonia, blood clots, irritation of the cornea of your eye, vision loss, loosened or broken teeth, or other oral injuries, awareness, nerve stretch injury of the arm, neck or leg, hoarseness, laryngospasm, permanent liver damage and allergic reaction to the medications. History of anesthesia complications: If you or a family member have had a complication related to anesthesia such as difficulty with placement of a breathing tube or a serious reaction to a medication administered for anesthesia, pleasetell your anesthesia provider. Having this information will help keep you safe while under anesthesia Nausea: A common side effect of anesthesia is nausea, but some patients do experience both nausea and vomiting. If you have experienced nausea or vomiting after anesthesia in the past, be sure to tell your anesthesia provider so medication can be given to help prevent it from happening again. Patient safety/consenting process: All surgical procedures and anesthetics have some small risks. They are dependent upon many factorsincluding the type of surgery and your medical condition. That is why it is important to know aboutany underlying medical problems, how they are treated and how they can be managed to reduce the risks of anesthesia and surgery. Thus, it is important for your anesthesia provider to ask detailed questions about your medical history, and to know what prescription medications you are taking, including dosages and schedules, as well as any over the counter or herbal medicines and supplements. You must notify the doctor of any of the following: -if you are or possibly -if you have any sensitivity to medications -present mental and physical condition -if recently consumed alcohol or non-clear liquids -if you are presently on psychiatric mood-altering drugs or other medications If you are a female of child-bearing age and you use any form of hormone-based contraception, please continue to use it and, in addition, use an alternative form of contraception, such as condoms andspermicide for a month after discharge from the hospital. This is because during the hospitalization you might receive one or more medications that may render hormone-based contraceptives ineffective for several days or weeks. The affected contraceptives include, but are not limited to, the usual contraceptive pills, most types of intrauterine devices, Depo-Provera shots, hormonal patches, and hormonal vaginal rings. If you are not sure, contact your primary care physician, your rocket test fire worker, or your surgeon to check if this warning applies to you. You may need to have invasive monitoring, which includes the insertion of catheters into your veinsand arteries. This is done to measure pressures, to take blood samples, and may be used in emergentsituations for intravenous access. This monitoring has risks including, but not limited to, injury to your arteries, lung collapse, bleeding, nerve injury as well as the risks related to anesthesia. An esophageal probe may be used to monitor your heart, this monitor has risks which include sore throat, hoarseness, difficulty with swallowing, loosened or broken teeth and esophageal injury. Major complications are rare but could include , respiratory distress, an abnormal heartbeat, infection, and bleeding. As part of the consent to administer anesthesia authorization you will discuss the following with the anesthesia doctor and his/her associates: -your present condition and diagnosis as it pertains to anesthesia or sedation administration -a description of the proposed anesthetic/sedation technique or procedure to be used -significant risks and benefits of the proposed anesthetic/sedation technique or procedure -any applicable alternatives, including their risks and benefits -if applicable, use of back-up method of contraception for 30 days after discharge -if applicable, the option of having no treatment and the potential results of this -if your procedure is in an outpatient surgery setting-the risk associated with having this procedure in this type of setting should be discussed as well as the potential need for transfer to the hospital if necessary Please be sure to have all questions that you have answered prior to signing the consent to administer anesthesia. You can make your care safer by being an active, informed patient. It is important that you are involved in your health care. Being a good patient does not mean being a silent one. If you have questions, problems, safety concerns or unmet needs, please let us know if you would like further clarification of the "Patient Rights and Responsibilities" as they pertain to you, or would like more information regarding our complaint and for grievance process, please call the site where you receive care and request to speak withthe patient advocate line. documented in this encounter Nursing Notes * Mareila Fajardo CCMA - 03/08/2024 9:02 AM EDT Patient identified by: name/birthdate Current Lab work: Lab work drawn from left arm and median antecubital vein. Previous Lab work: N/A EKG obtained: done today - 03/08/2024 Other Studies: N/A Call parikh in reach. Patient was instructed to not get up on the exam table/exam chair until directed and assisted by their provider; patient is to remain seated in the chair/ wheelchair/ exam table/ exam chair for fall prevention and safety reasons. Patient is aware to have assistance to step down off exam table/exam chair with personnel. Patient voiced full comprehension of instructions. * Shorty Luna CRNP - 03/08/2024 8:56 AM EDT [facility]: Contact # [phone] Directions to Surgical Suite in from the [facility] Entrance The Surgical Waiting Room can be found in the Lobby of [facility] [place]. Enter through Main Lobby Entrance and the Waiting Room is directly in front of you. Proceed to check in and give them your name. Directions to Surgical Suite from the East Entrance Enter the East entrance and follow the hallway to the J elevator. Take the J elevator up to Level 1. Continue down the long hallway to the main [facility] Lobby. The Surgical Waiting Room will be on your Right. Proceed to check in and give them your Name. Directions to Surgical Suite from the Parking Garage Enter the [facility] lobby and proceed down the melgoza to the left. At the end of the melgoza, turn right. Continue down the long hallway to the main [facility] Lobby. The Surgical Waiting Room will be on your Right. Proceed to check in and give them your Name. THANK YOU FOR CHOOSING [facility]! PRE-OP PATIENT INFORMATION AND EDUCATION: MEDICATION INSTRUCTIONS: The day of surgery/procedure, you may TAKE the following medications with a sip of water up to 2 hours prior to your arrival time: -Lipitor -Incruse -Ritalin -Prilosec AVOID / DO NOT TAKE the following medications the morning of surgery/procedure: -Proscar -Flomax AVOID / DO NOT TAKE the following medications the evening prior to and morning of surgery/procedure: -Metformin -Glipizide STOP taking the following medications the noted number of days prior to surgery/procedure unless otherwise specified by your surgeon: -STOP taking your Aspirin per your surgeon's instructions. -STOP taking your Magnesium, Multivitamin, 10 days prior to surgery. -STOP taking your Farxiga 3 days prior to surgery. Please continue to carefully monitor your blood sugar levels at home after discontinuation of this agent and contact the prescriber to determine: 1)how to manage high blood sugar levels (hyperglycemia) and 2) if you need any bridging medication. Please follow surgeon's instructions regarding use of Aspirin, Coumadin, Plavix, Eliquis, and any other blood thinner including NSAIDs (non-steroidal anti- inflammatory drugs, eg, Advil, Ibuprofen, Motrin, Aleve, Naproxen); if you have any questions regarding your anticoagulation therapy please contact your surgeon's clinic. Please verify any proposed stoppage of your anticoagulation therapy with the agent's prescribing provider. 10 days prior to surgery/procedure Stop all Herbal supplements, Green Tea, Turmeric, Melatonin, CBD, THC, etc. Stop all Vitamins (including Vitamin E) 24 hours prior to surgery/procedure DO NOT consume any alcohol. DO NOT use medical marijuana. DO NOT smoke or use tobacco products of any kind after midnight prior to surgery. *Using any of these products may increase your risks of procedural complications. IF IT IS LESS THAN RECOMMENDED STOPPAGE TIME PLEASE STOP AT TIME OF NOTIFICATION. FASTING RECOMMENDATIONS: To reduce risk, it is important for all elective surgery patients to follow the specific fasting guidelines listed below. If you have received more stringent guidelines, please follow the MOST RESTRICTIVE guidelines that you have been provided. DO NOT EAT after midnight on the night prior to your surgery date. You are allowed to drink clear liquids up to two hours prior to arrival time to the hospital or surgery center. Examples of clear liquids include water, clear fruit juice without pulp, clear carbonated beverages, clear tea, and black coffee. Any drinks given by your surgical service take as directed. THE DAY BEFORE YOUR SURGERY: -Drink plenty of fluid the day before your surgery. Contact your surgeon's office if you develop any of the following within 2 weeks of surgery: A cold Infection Fever Shingles Chicken pox or exposure to chicken pox Open areas such as scrapes, cuts, telles or other skin conditions Rashes GENERAL INSTRUCTIONS FOR PREPARING FOR SURGERY: BATHING INSTRUCTIONS: Bathe the evening prior to and the morning of surgery/procedure. Cleanse your body using ONLY anti-bacterial soap (eg, Dial, Safeguard) or any specific soap/cleansers and instructions provided by your surgeon (eg, Chlorhexidine). -You should brush your teeth the morning of surgery. Do NOT apply any lotions, powders, sprays, creams, oils, make-up, or deodorants after bathing. No hairspray, or nail prydeinig on fingers or toes. Day of surgery/procedure do not use tampons. If you wear contacts wear your eyeglasses if available otherwise bring your contact supplies with you to remove them prior to your surgery/procedure. If you wear glasses or dentures, please bring cases in which you can store them during your surgery. Please remove all piercings and jewelry and leave them at home. Wear comfortable and loose clothing. -Please leave all valuables at home. -If you use a CPAP and are staying overnight, please bring your mask. -If you use an assistive mobility device (walker, cane, etc), please label it with your name and bring to hospital. -An escort retail delivery driver is required if you are being discharged the same day of the surgery. You should have a responsible adult over the age of 18 [address] you home. This person should be present with youin the hospital at the time of discharge and for the first 24 hours after the surgery to support your needs. If you are taking a taxi home, you must have your responsible green party accompany you in the taxi ride home at the time of discharge. OR times subject to change. Please check voicemail messages the day/evening before your surgery forany updates. PRE-OP: You will be taken to the pre-op area where your vital signs (blood pressure, pulse and temperature)will be taken. Any preparations that need to be done will be done there. When it is time for your surgery, you will be taken to the operating room. PARENTS OF PEDIATRIC PATIENTS WILL BE ALLOWED TO STAY WITH THEIR CHILDREN UNTIL THEY ARE ESCORTED TO THE OPERATING ROOM OUTPATIENT SURGERY PATIENTS: After your surgery you will be taken to the Same Day Surgery Unit when you are awake and will go home from there. You will get instructions about your home care before you leave. Arrange to have someone drive you home from the hospital. You may not drive for 24 hours after anesthesia. You must havean adult stay with you at home for 24 hours after your operation. This is very important. If you are not able to comply with these guidelines, your Short Stay surgery cannot be done. ADMISSION PATIENTS: After your stay in the recovery area, you will be taken to your room. Your family may visit you in your room based on current visitation policy. If a next day discharge is expected, it is important to make arrangements for a retail delivery driver to take you home. Please be aware our visitation policies are subject to change Professionals, attendants, caregivers or family members are allowable visitors for patients with intellectual, developmental or cognitive disabilities, communication barriers or behavioral concerns. Because patients' and families' needs vary, they will be taken into account when applying visitation restrictions. ~SEE ANESTHESIA EVENT FOR PRE-OP ANESTHESIA ASSESSMENT~ ~~~~~~~~~~~~~~~~~~~~~~~~~~~~~~~~~~~~~~~~~~~~~~~~~~~~ Patient identified by name/birthdate Optime case procedure confirmed with patient/parent/guardian - no consent signed. Laterality confirmed as N/a Surgery date at time of Pre-Surgery Center Encounter: 03/22/2024 What procedure is patient having? Cystourethroscopy with TURP, laser litholapaxy for acute urinary retention, BPH with obstruction/LUTS, bladder stone Anesthesia Consent pool notified: N/A In an emergency, is patient willing to accept blood products or blood transfusion? Yes Does Blood Bank order need placed? No. Anesthesia evaluation requested per case documentation. No Preop Eval Requested? Yes, patient is scheduled for GIM Optimization today with Dr. Bolden (03/08/2024). PATIENT EDUCATION SCREENING Education Screening: Patient Preoperative bathing instructions were reviewed with patient. Motivation Level: Asks Questions and Eager to Learn Language Barrier: No Physical Barrier: N/A Patient Preferred Learning Methods: Reading and Lecture LEARNING NEED: Printed Patient Education Given: Preop Information: Adult Persons present for education: Patient METHOD: One to One OUTCOME: State / Describe / Explain PATIENT INSTRUCTIONS GIVEN: General Preoperative Instructions Reviewed Medication Instructions Reviewed NPO Instructions Reviewed Verbalizes understanding of education: Yes COVID-19/Coronavirus Screening: Informant: Patient Have you been experiencing any symptoms of viral infection of the upper respiratory system (fever, cough, shortness of breath, myalgia, fatigue) in the last 16 days? No Symptoms started N/a Symptoms include none Symptom severity is N/a Additional details include: N/A In the last month, have you been in contact with someone who was confirmed or suspected to have Coronavirus/ COVID-19? No In the last month, have you been in contact with someone who was experiencing upper respiratory symptoms of viral infection? No Have you been diagnosed with COVID-19/Coronavirus? No If so, when were you given this diagnosis? N/a Are you currently experiencing any residual symptoms? When did your symptoms resolve? No, N/a Has patient undergone Infectious Disease consultation for Coronavirus/ COVID-19? No Does patient require Infectious Disease consultation/referral? No Pre-Anesthesia Review of Systems, Health History and Education completed Signature: MANJIT Borjas 03/08/2024 documented in this encounter Plan of Treatment Upcoming Encounters Date Type Department Care Team (Latest Contact Info) Description 03/08/2024 10:00 AM EDT Office Visit General Internal Medicine, [facility] [address] [place] [address] Mariusz Bolden, [address] [place] [address] Arrived 03/13/2024 3:00 PM EDT Office Visit Podiatry [facility] [address] [place] [address] Coreen Gonzales, DPM [address] [place] [address] 03/22/2024 7:30 AM EDT Hospital Encounter OR [facility], OPERATING ROOM [facility], [facility] [address] [place] [phone] Jnoas Gupta MD [address], [place] [id number] 03/22/2024 7:30 AM EDT Anesthesia Event OR [facility], OPERATING ROOM [facility], [facility] [address] [place] [phone] Shorty Luna CRNP [address] [place] [address] 03/22/2024 7:30 AM EDT - 03/22/2024 10:20 AM EDT Surgery OR [facility], OPERATING ROOM [facility], [facility] [address] [place] [phone] Jonas Gupta MD [address], [place] [id number] TRANSURETHRAL RESECTION PROSTATE ELECTROSURGICAL 03/29/2024 10:30 AM EDT Nurse Only Urology, [facility] [address] [place] [address] [facility] [address] [place] [address] 05/16/2024 9:00 AM EST Office Visit Urology, [facility] [address] [place] [address] Jonas Gupta MD [address] [place] [address] 06/25/2024 3:00 PM EST Nutrition Services Nutrition Services [facility] [address] [place] [address] Mari Parra RDN [address] [place] [address] 06/25/2024 3:40 PM EST Office Visit Family Practice [facility] [address] [place] [phone] Nirmala Alford DO [address] [place] [address] 10/07/2024 2:00 PM EDT Nurse Only Family Practice [facility] [address] [place] [phone] Betty Hartmann, JOE [address] [place] [phone] Pending Results Name Type Priority Associated Diagnoses Date /Time HEMOGLOBIN A1C Lab Routine Type 2 diabetes mellitus with hemoglobin A1c goal of less than 8.0% ([facility]) 03/08/2024 8:55 AM EDT BASIC METABOLIC PANEL Lab Routine Type 2 diabetes mellitus with hemoglobin A1c goal of less than 8.0% ([facility]) 03/08/2024 8:55 AM EDT Scheduled Orders Name Type Priority Associated Diagnoses Orde r Schedule EKG EKG Routine Pre-operative examination Expected: 03/08/2024, Expires: 04/08/2025 Scheduled Procedures Name Priority Associated Diagnoses Date/Ti [...] Comments Alpha-1 Antitrypsin 1963 Colonoscopy 06/23/2014 06/23/2009 HbA1c 04/25/2024 10/24/2023, 02/0 10/2023, 01/12/2023, Additional history exists Albumin/Creatinine Ratio 07/10/2024 024, 06/09/2022, 04/22/2021, Additional history exists Diabetic Foot Exam 07/10/2024 07/10/2023, 0 06/09/2022, 06/14/2021, Additional history exists Adult Wellness Visit 09/28/2024 09/29/2023, 09/27/19 23 Depression Screening 09/28/2024 09/29/2023, 09/29/19 24 B-12 10/23/2024 10/24/2023, 08/, 12/15/2021, Additional history exists GFR 10/23/2024 10/24/2023, 02/0 10/2023, 01/12/2023, Additional history exists Diabetic Eye Exam 01/25/2025 [...] Date/Time Associated Diagnosis Comments DIFFERENTIAL, AUTOMATED Routine 03/08/2024 8:55 AM EDT BPH with obstruction/lower urinary tract symptoms CBC Routine 03/08/2024 8:55 AM EDT BPH with obstruction/lower urinary tract symptoms CBC Routine 03/08/2024 8:55 AM EDT BPH with obstruction/lower urinary tract symptoms documented in this encounter Results * (ABNORMAL) DIFFERENTIAL, AUTOMATED (03/08/2024 8:55 AM EDT) WBC 6.29 4.00 - 10.80 K/uL 03/08/2024 9:23 AM EDT [facility] Neutrophils % 75.4(H) 40.0 - 75.0 % 03/08/2024 9:23 AM EDT [facility] Lymphocytes % 17.2(L) 18.0 - 42.0 % 03/08/2024 9:23 AM EDT [facility] Monocytes % 5.9 1.0 - 11.0 % 03/08/2024 9:23 AM EDT [facility] Eosinophils % 1.0 0.0 - 6.0 % 03/08/2024 9:23 AM EDT [facility] Basophils % 0.2 0.0 - 2.0 % 03/08/2024 9:23 AM EDT [facility] Immature Granulocytes % 0.3 0.0 - 2.0 % 03/08/2024 9:23 AM EDT [facility] Absolute Neutrophils 4.75 1.80 - 7.70 K/uL 03/08/2024 9:23 AM EDT [facility] Absolute Lymphocytes 1.08 1.00 - 4.80 K/ul 03/08/2024 9:23 AM EDT [facility] Absolute Monocytes 0.37 0.00 - 1.10 K/uL 03/08/2024 9:23 AM EDT [facility] Absolute Eosinophils 0.06 0.00 - 0.70 K/uL 03/08/2024 9:23 AM EDT [facility] Absolute Basophils 0.01 0.00 - 0.20 K/uL 03/08/2024 9:23 AM EDT [facility] Absolute Immature Granulocytes 0.02 0.00 - 0.20 K/uL 03/08/2024 9:23 AM EDT [facility] Blood Venous blood specimen / Unknown Venipuncture / Unknown 03/08/2024 8:55 AM EDT 03/08/2024 9:10 AM EDT Nirmala Alford DO LAB BLOOD ORDERABLES [facility] [address] [place] [address] * (ABNORMAL) CBC (03/08/2024 8:55 AM EDT) WBC 6.29 4.00 - 10.80 K/uL 03/08/2024 9:23 AM EDT [facility] RBC 4.79 4.50 - 5.25 M/uL 03/08/2024 9:23 AM EDT [facility] HGB 12.6(L) 14.0 - 16.8 g/dL 03/08/2024 9:23 AM EDT [facility] HCT 41.6 40.0 - 48.4 % 03/08/2024 9:23 AM EDT [facility] MCV 86.8 82.0 - 99.5 fL 03/08/2024 9:23 AM EDT [facility] MCH 26.3 27.0 - 34.0 pg 03/08/2024 9:23 AM EDT [facility] MCHC 30.3 32.0 - 36.0 g/dL 03/08/2024 9:23 AM EDT [facility] RDW 15.2 11.5 - 15.5 % 03/08/2024 9:23 AM EDT [facility] PLT 138(L) 140 - 400 K/uL 03/08/2024 9:23 AM EDT [facility] MPV 10.0 6.6 - 11.1 fL 03/08/2024 9:23 AM EDT [facility] nRBCs 0 <=0 /100 WBCs 03/08/2024 9:23 AM EDT [facility] Blood Venous blood specimen / Unknown Venipuncture / Unknown 03/08/2024 8:55 AM EDT 03/08/2024 9:10 AM EDT Nirmala Alford DO LAB BLOOD ORDERABLES [facility] [address] [place] [address] documented in this encounter Visit Diagnoses Diagnosis Acute urinary retention Other specified retention of urine BPH with obstruction/lower urinary tract symptoms Hypertrophy of prostate with urinary obstruction and other lower urinary tract symptoms (LUTS) Bladder stone Other calculus in bladder Pre-operative examination- Primary Preoperative examination, unspecified Type 2 diabetes mellitus with hemoglobin A1c goal of less than 8.0% (HCC) BPH with obstruction/lower urinary tract symptoms Hypertrophy of prostate with urinary obstruction and other lower urinary tract symptoms (LUTS) Acute urinary retention Other specified retention of urine BPH with obstruction/lower urinary tract symptoms Hypertrophy of prostate with urinary obstruction and other lower urinary tract symptoms (LUTS) Bladder stone Other calculus in bladder documented in this encounter Care Teams Steel Pourer Relationship Specialty Start Date End Date Nirmala Alford DO [address] [place] [address] PCP - General Family Medicine 01/23/24 documented as of this encounter
--- OUTSIDE RECORDS SUMMARY | 2024-06-16 23:45 | External Medical Summary ---
Author Name Unknown Address Unknown Organization K01:[place] [place] [address] [place] [address] Laboratory Report Ordering Provider Test Date Status RENETTA SOLOMON 03/08/2024 08:55:17 Final Observation Date Value Abnormality Reference (Units ) Status BUN 03/08/2024 08:55:17 22 Above high normal 6-20 (mg/dL) Final Creatinine 03/08/2024 08:55:17 0.8 0.6-1.2 (mg/dL) Final Glomerular filtration rate/1.73 sq M.predicted [Volume Rate/Area] in Serum, Plasma or Blood by Creatinine-based formula (CKD-EPI) 03/08/2024 08:55:17 >90 >=60 (mL/min) Final eGFR is calculated based on the CKD-EPI 2020 equation. Sodium 03/08/2024 08:55:17 137 135-146 (m mol/L) Final Potassium 03/08/2024 08:55:17 4.3 3.5-5.1 (m mol/L) Final Cl 03/08/2024 08:55:17 101 98-107 (mm ol/L) Final CO2 03/08/2024 08:55:17 25 22-32 (mmo l/L) Final Anion gap 03/08/2024 08:55:17 11 7-15 (mmol /L) Final Glucose 03/08/2024 08:55:17 172 Above high normal 70 -120 (mg/dL) Final Calcium 03/08/2024 08:55:17 9.9 8.4-10.2 ( mg/dL) Final Performing Location [facility] [place] [address] [place] [address]
--- OUTSIDE RECORDS SUMMARY | 2024-06-16 23:45 | External Medical Summary | Summary of Care ---
Author Name Unknown Organization [facility] Address [address] [place] [address] Phone [phone] Care Team Providers Care Prefabricated Houses Trimmer Name Role Phone Nirmala Alford DO Primary Care Provider [phone] Reason for Visit * Reason Onset Date Comments Dosage Adjustment In Person (Anticoag Clinic) Diabetes Follow-Up Medication Administration 02/20/2024 Flu an d/or Pneumo Inj Encounter Details Date Type Department Care Team (Late st Contact Info) Description 02/20/2024 4:00 PM EDT Office Visit Family Practice 65 [facility] [address] [place] [phone] [place], Pharmacist [address] [address] Type 2 diabetes mellitus with hemoglobin A1c goal of less than 8.0% ([facility])*; Type 2 diabetes mellitus with diabetic cataract, unspecified whether buttermaker continuous churn insulin use ([facility]); Need for prophylactic vaccination and inoculation against influenza; Need for COVID-19 vaccine; Need for pneumococcal vaccination Allergies Active Allergy Reactions Criticality Noted Date Comments Alcohol 01/19/2023 Sugar Alcohol Lactose Intolerance 12/12/2005 documented as of this encounter (statuses as of 02/25/2024) Medications Medication Sig Dispensed Refills Start Date End Date Status aspirin enteric coated 81 MG TBEC Take 1 Tablet by mouth daily at noon. 100 Tab 3 12/26/2016 Active Multiple Vitamins-Minerals (MULTIVITAMIN ADULT) TABS Take 1 Tablet by mouth daily at noon. Active [employer] ULTRASOFT LANCETS MISC Use as directed 4 times a day as needed for Hyperglycemia (high sugar) or Hypoglycemia (low sugar). E11.9 1 Box Dosing Unit 11 09/17/2018 Active Loccit (ML4D)Touch Verio w/Device Kit Use to test blood sugars daily E11.9 1 Kit 02/18/2021 Active Magnesium Oxide 400 MG Oral Tablet Take 1 Tablet by mouth daily. 100 Tablet 3 07/04/2022 Active Farxiga 10 MG Oral Tablet (Dapagliflozin Propanediol) Take 1 Tablet by mouth daily at noon. -- getting through irrigator 04/07/2023 Active Letsdecco Verio In Vitro Strip (Glucose Blood) USE UP TO 4 TIMES A DAY DIRECTED 400 Strip 3 06/01/2023 Active Incruse Ellipta 62.5 MCG/ACT Inhalation Aerosol Powder Breath Activated (umeclidinium [place])Indications :Chronic obstructive pulmonary disease, unspecified COPD type [...] as of this encounter (statuses as of 02/25/2024) Active Problems Patient Care Coordination No te [...] as of this encounter (statuses as of 02/25/2024) Resolved Problems Problem Noted Date Diagnosed Date [...] as of this encounter (statuses as of 02/25/2024) Immunizations Name Administration Dates Next Due COVID-19 [...] (Prevnar) 11/07/2014 Pneumococcal Conjugate Vacci ne, 20-valent ([id number]) 02/20/2024 Pneumococcal Polysaccharide PPV23 (Pneumovax) 09/07/2017,02/25/2010 RSV [...] No 04/14/2023 Does the household have a [facility] source of income? (Household - for [...] on file documented as of this encounter Patient Instructions * Patient Instructions* Marybeth Kapadia RPh - 02/20/2024 4:13 PM EDT ~~PATIENT INSTRUCTIONS FOR FLU SHOT~~ Possible side effects of influenza vaccine, (flu shot), are usually mild and include: 1. Soreness or redness at injection site 2. Low grade fever 3. Body aches You may use Tylenol/Acetaminophen as needed for these symptoms. LET YOUR DOCTOR KNOW IMMEDIATELY IF YOU HAVE DIFFICULTY BREATHING OR SWALLOWING, EXPERIENCE ITCHINGOF FEET OR HANDS, HAVE SWELLING OF EYES, FACE OR INSIDE OF NOSE. documented in this encounter Progress Notes * Marybeth Kapadia [facility] - 02/20/2024 4:07 PM EDT Medication Therapy Disease Management Clinic - Diabetes Management Progress Note Kamlesh Nair Jr., identified by name and date of , is a 79 year old male being seen for diabetes management/education. Patient presents for return diabetic visit. DIABETES: Current diabetic medications: Farxiga 10mg daily Glipizide 10mg twice daily with noon and 6pm meals Adjust Metformin 850mg - 2 tablets with breakfast/lunch and 1 tablet with dinner Medication Injection Site: N/A Lifestyle: Diet: unchanged Glucose Review/SMBG: Readings per patient memory/recall: Patient is currently testing 1 times a day. Reports BG of 112 today. Range of 80-240 Hypoglycemia: Does your blood sugar go below 70 mg/dL? No Hyperglycemia symptoms present: none Recent Labs Units 10/24/23 1502 07/10/23 1532 01/12/23 1559 HEMOGLOBIN A1C - [facility] % 8.3* 9.0* 7.8* Recent Labs Units 10/24/23 1502 07/10/23 1532 01/12/23 1559 ESTIMATED GLOMERULAR FILTRATION RATE - [facility] mL/min 90 >90 >90 CREATININE - [facility] mg/dL 0.9 0.8 0.8 HYPERTENSION: Patient on ACEi/ARB: no, not indicated BP Readings from Last 3 Encounters: 01/04/24 101/78 10/24/23 128/56 09/29/23 104/60 Blood pressure at goal: yes HYPERLIPIDEMIA: Recent Labs Units 07/10/23 1532 LDL CHOLESTEROL (CALCULATED) - [facility] mg/dL 41 Does patient have clinical ASCVD? No, is patient LDL less than 70mg/dL? Yes HEALTH MAINTENANCE REVIEW: Health Maintenance Due Topic Date Due Alpha-1 Antitrypsin Never done Colonoscopy 06/23/2014 Diabetic Eye Exam 01/25/2024 Influenza Vaccine (FLU shot) (1) 02/04/2024 COVID-19 Vaccine ( season) 2024 ASSESSMENT & PLAN: ICD-10-CM 1. Type 2 diabetes mellitus with hemoglobin A1c goal of less than 8.0% (HCC) E11.9 2. Type 2 diabetes mellitus with diabetic cataract, unspecified whether buttermaker continuous churn insulin use (HCC)E11.36 BG Readings - Blood sugars not available. A1c today. Medications - Reviewed current regimen, patient is adherent to regimen. Continue current regimen and follow up after A1c. Diet, Exercise, Lifestyle - No significant lifestyle changes since last visit. Discussed with patient - he also met with Mari. Patient is agreeable to SMBG 1 time(s) daily. Patient aware to contact clinic if any hypoglycemia before next visit. MEDICATION CHANGES: no change Diabetic Medications: Farxiga 10mg daily Glipizide 10mg twice daily with noon and 6pm meals Adjust Metformin 850mg - 2 tablets with breakfast/lunch and 1 tablet with dinner HEALTH MAINTENANCE INTERVENTIONS: Labs: Ordered & Scheduled: HgA1c Immunizations: Facilitated Administration Of: Influenza, Pneumonia, and COVID Foot Exam: Up to Date Eye Exam: Up to Date Annual Wellness Visit: Up to Date FOLLOW UP: Return to clinic in 8 weeks 02/20/2024 I spent a total of 20-29 minutes (exact time 22 mins) on the date of service in preparation, delivery, and documentation of the care provided to Kamlesh Nair JrLc excluding any time spent in the performance of separately billed services. Marybeth Pendleton RPh Clinical Pharmacist - Glass[facility] Medication Therapy Management [facility] 02/20/2024, 4:07 PM PRE - ADMINISTRATION DOCUMENTATION Are you experiencing any cold symptoms or fever? No Have you had Guillain-[place] Syndrome (an illness that causes paralysis) within the last 6 weeks? No Have you had the flu shot in the past? YES Have you ever had a reaction to the flu shot? No Marybeth Pendleton RPh, 02/20/2024 4:13 PM Immunization Administration Documentation Time Out Procedure Performed: Yes Patient Identified (Ask Name/Date of ): Yes Does the patient have a fever greater than 101 degrees today? No Patient allergic to latex? No VFC Stock: No Immunization(s) verified: Yes, Immunization Name: Flu, Prevnar 20 (PCV20), and COVID, VIS Sheet(s) given: Yes Verified Side and Site: Yes Verified Shot(s) with Parent(s)/Patient: Yes documented in this encounter Plan of Treatment Upcoming Encounters Date Type Department Care Team (Latest Contact Info) Description 03/08/2024 9:00 AM EDT Pre-Admission Testing Pre [facility], [place] [address] [place], [place] [phone] [facility] [address] [place], [place] [phone] 03/08/2024 10:00 AM EDT Office Visit General Internal Medicine, [facility] [address] [place] [address] Mariusz Bolden, [address] [place] [address] 03/13/2024 3:00 PM EDT Office Visit Podiatry [facility] [address] [place] [address] Coreen Gonzales, DPDerrick [address] [place] [id number] 03/22/2024 7:30 AM EDT Hospital Encounter OR [facility] [place] [place], OPERATING ROOM [facility] [place] [place], [facility] [address] [place] [phone] Jonas Gupta MD [address] [place] [address] 03/22/2024 7:30 AM EDT - 03/22/2024 10:20 AM EDT Surgery OR [facility] [place] [place], OPERATING ROOM [facility] [place] [place], [facility] [address] [place] [address] Jonas Gupta MD [address] [place], [place] [phone] TRANSURETHRAL RESECTION PROSTATE ELECTROSURGICAL 03/29/2024 10:30 AM EDT Nurse Only Urology, [place] [address] [place], [place] [phone] John, Nurse Urology [address] [place] [address] 05/16/2024 9:00 AM EST Office Visit Urology, [place] [address] [place] [address] Jonas Gupta MD [address] [place] [address] 06/25/2024 3:00 PM EST Nutrition Services Nutrition Services [address] [address] Mari Parra RDN [address] [place] [address] 06/25/2024 3:40 PM EST Office Visit Family Practice [address] [phone] Nirmala Alford DO [address] [place] [address] 10/07/2024 2:00 PM EDT Nurse Only Ancillary [address] [address] [employer], Nurse Annual Wellness Visit [address] [address] Scheduled Procedures Name Priority Associated Diagnoses Date/Ti [...] 10/23/2024 10/24/2023, 08, 12/15/2021, Additional history exists GFR 10/23/2024 10/24/2023, 02/0 10/2023, 01/12/2023, Additional history exists O2 ASSESSMENT [...] goal of less than 8.0% (HCC)- Primary Type 2 diabetes mellitus with diabetic cataract, unspecified whether buttermaker continuous churn insulin use (HCC) Need for prophylactic vaccination and inoculation against influenza Need for COVID-19 vaccine Need for pneumococcal vaccination Need for prophylactic vaccination against streptococcus pneumoniae (pneumococcus) Acute urinary retention Other specified retention of urine BPH with obstruction/lower urinary tract symptoms Hypertrophy of prostate with urinary obstruction and other lower urinary tract symptoms (LUTS) Bladder stone Other calculus in bladder documented in this encounter Care Teams Prefabricated Houses Trimmer Relationship Specialty Start Date End Date Nirmala Alford DO [address] [place] [address] PCP - General Family Medicine 01/23/24 documented as of this encounter
--- OUTSIDE RECORDS SUMMARY | 2024-06-16 23:45 | External Medical Summary ---
Author Name Unknown Address Unknown Organization [id number]:[facility] [address] [facility] [address] [facility] Report Ordering Provider Test Date Status RENETTA SOLOMON 03/08/2024 08:55:17 Final Observation Date Value Abnormality Reference (Units ) Status WBC, Total 03/08/2024 08:55:17 6.29 4.00-10.80 (K/uL) Final RBC 03/08/2024 08:55:17 4.79 4.50-5.25 (M/uL) Final Hemoglobin 03/08/2024 08:55:17 12.6 Below low normal 14.0-16.8 (g/dL) Final HCT 03/08/2024 08:55:17 41.6 40.0-48.4 (%) Final MCV 03/08/2024 08:55:17 86.8 82.0-99.5 (fL) Final MCH 03/08/2024 08:55:17 26.3 27.0-34.0 (pg) Final MCHC 03/08/2024 08:55:17 30.3 32.0-36.0 (g/dL) Final RDW 03/08/2024 08:55:17 15.2 11.5-15.5 (%) Final Platelets 03/08/2024 08:55:17 138 Below low normal 140-400 (K/uL) Final MPV 03/08/2024 08:55:17 10.0 6.6-11.1 (fL) Final Nucleated erythrocytes/100 leukocytes [Ratio] in Blood by Automated count 03/08/2024 08:55:17 0 <=0 (/100 WBCs) Final Performing Location LABORATORY C - [address] [facility] [address]
--- OUTSIDE RECORDS SUMMARY | 2024-06-16 23:45 | External Medical Summary | Summary of Care ---
Author Name Unknown Organization [facility] Address [address] [place] [address] Phone [phone] Care Team Providers Care Pipe Or Steam Fitter Furnace Installer Name Role Phone Nirmala Alford DO Primary Care Provider Reason for Visit * Reason Onset Date Comments Test Results 11/01/202310/31, 11/01; 11/02 , 11/05 Encounter Details Date Type Department Care Team (Late st Contact Info) Description 11/01/2023 Telephone Family Practice [address] [place] [address] [place] [phone] Nirmala Alford DO [address] [place] [address] Test Results (10/31, 11/01; 11/02, 11/05) Allergies Active Allergy Reactions Criticality Noted Date Comments Alcohol 01/19/2023 Sugar Alcohol Lactose Intolerance 12/12/2005 documented as of this encounter (statuses as of 01/31/2024) Medications Medication Sig Dispensed Refills Start Date [...] 1 Box Dosing Unit 11 9 Active UniconToOilAndGasRecruiter Verio w/Device Kit Use to test blood sugars daily E11.9 1 Kit 1 Active Magnesium Oxide 400 MG Oral Tablet Take 1 Tablet by mouth daily. 100 Tablet 3 3 Active Farxiga 10 MG Oral Tablet (Dapagliflozin Propanediol) Take 1 Tablet by mouth daily at noon. -- getting through terrazzo roller 3 Active UniconToOilAnd[employer]Recruiter Verio In Vitro Strip (Glucose Blood) USE UP TO 4 TIMES A DAY DIRECTED 400 Strip 3 3 Active Incruse Ellipta 62.5 MCG/ACT Inhalation Aerosol Powder Breath Activated (umeclidinium [place])Indication s:Chronic obstructive pulmonary disease, unspecified COPD type [...] 100 Capsule 3 4 07/30/19 25 Active metFORMIN HCl 850 MG Oral Tablet (Glucophage)Indica tions:Type 2 diabetes mellitus with hemoglobin A1c goal of less than 8.0% (HCC) TAKE ONE TABLET BY MOUTH THREE TIMES A DAY IN THE MORNING, AT NOON AND BEFORE BEDTIME 300 Tablet 1 4 Active Tamsulosin HCl 0.4 MG Oral Capsule (Flomax)Indication s:BPH with obstruction/lower urinary tract symptoms TAKE TWO CAPSULES BY MOUTH EVERY DAY IN THE MORNING 180 Capsule 3 4 09/22/19 25 Active Dexcom G7 Sensor Use as directed. 4 Active Finasteride 5 MG Oral Tablet (Proscar) TAKE ONE TABLET BY MOUTH EVERY DAY IN THE MORNING 90 Tablet 6 3 12/17/19 24 Discontinu ed(Refill) Methylphenidate HCl 10 MG Oral Tablet (Ritalin)Indicatio ns:Attention deficit hyperactivity disorder (ADHD), predominantly inattentive type Take 1 Tablet by mouth 2 times a day. 60 Tablet 4 11/10/19 24 Discontinu ed(Refill) documented as of this encounter (statuses as of 01/31/2024) Active Problems Patient Care Coordination No te [...] ity disorder (ADHD), predominantly inattentive type 06/14/2021 Other emphysema 11/23/2020 Gastroesophageal reflux disease without esophagi tis 11/23/2020 [...] as of this encounter (statuses as of 01/31/2024) Resolved Problems Problem Noted Date Diagnosed Date [...] as of this encounter (statuses as of 01/31/2024) Immunizations Name Administration Dates Next Due COVID-19 mRNA, LNP-s, No Pre serve, 2-Dose Series (Moderna) 09/07/2020,08/10/2020 COVID-19, LNP-s, No Preserve , Charlie-sucrose, Ages 12+ (Pfizer) 07/07/2021 COVID-19, MRNA-LNP, 23-24, P F, 30 MCG/0.3 mL, 12 YRS AND ABOVE, IM ([facility] 04/14/2023 Covid-19, Mrna, Lnp-s, Pf, B ivalent, 30 Mcg, IM, 12 yrs and above (Pfizer) 08/19/2022 Pneumococcal Conjugate Vacc, 13 Valent (Prevnar) 11/07/2014 Pneumococcal Polysaccharide PPV23 (Pneumovax) 09/07/2017,02/25/2010 RSV Vac., Bivalent, Perfusio n F, Pf,0.5 Ml (Abrysvo) 04/14/2023 Seasonal Influenza, PF, 6 M & above, IM , (FluLaval or Fluzone) 05/08/2020,03/09/2019,03/05/2018,03/24 Seasonal Influenza, Quadriva lent Hd (Fluzone Hd) 04/14/2023,04/22/2021 Seasonal Influenza, Quadriva lent Hd, 65+ Yrs 06/02/2022 Seasonal Influenza, Split, I IV3, No Preserve, Inj 02/22/2012,03/14/2011,03/23/2009 Seasonal Influenza, Split, I IV3, With Preserve, Inj 02/18/2016,02/25/2015,03/05/2014,03/05,02/18/2012,02/25/2010 TD, Preservative Free 2020 TDAP, Age [...] Telephone Encounter - Betty Butts LPN - 11/06/2023 3:59 PM EDT Patient is aware and will comply. Thank you * Telephone Encounter - Marybeth Kapadia RPh - 11/06/2023 3:57 PM EDT Sensor was just for 10 days since patient didn't have readings with him at last few appointments. Medicare will only pay for sensors if patient is on insulin. I will follow up with him tomorrow regarding Dexcom download and medication adjustments. * Telephone Encounter - Constanza Kong OSA - 11/06/2023 3:50 PM EDT Daughter julianna return call * Telephone Encounter - Betty Butts LPN - 11/06/2023 3:24 PM EDT Patient is aware and will comply. Is wearing dexcom. States he got a message on his phone that the "sensor has " and needs new sensor. Thank you * Telephone Encounter - Constanza Kong OSA - 11/06/2023 3:10 PM EDT Returned call * Telephone Encounter - Betty Butts LPN - 11/06/2023 1:28 PM EDT Called, left message on both numbers to return call. Sent my [email or web address] message. Thank you * Telephone Encounter - Alicia Oconnell LPN - 11/03/2023 10:05 AM EDT Call placed to patient - no answer. Message left to return call to [phone]. * Telephone Encounter - Betty Butts LPN - 11/02/2023 12:05 PM EDT Called, left message for patient to return call. Thank you * Telephone Encounter - Alicia Oconnell LPN - 11/01/2023 3:17 PM EDT Call placed to patient - no answer. Message left to return call to [phone]. * Telephone Encounter - Nirmala Alford DO - 11/01/2023 2:52 PM EDT Please let pt know: His lab studies looked ok. His sugars did improve. There is still some room for improvement but overall better. Good job there! His vascular studies of his legs were normal. Pain may be due to deconditioning as we discussed. Ifthings are persistent, he should let us know. documented in this encounter Plan of Treatment Upcoming Encounters Date Type Department Care Team (Latest Contact Info) Description 02/20/2024 3:30 PM EDT Nutrition Services Nutrition Services 65 [facility] [address] [place] [address] Mari Parra RDN [address] [facility] [address] 02/20/2024 4:20 PM EDT Office Visit Family Practice 65 [facility] [address] [place] [address] Nirmala Alford DO [address] [place] [address] 03/08/2024 9:00 AM EDT Pre-Admission Testing Pre [facility], [place] [address] [place] [address] [facility] [address] [place] [address] 03/08/2024 10:00 AM EDT Office Visit General Internal Medicine, [facility] [address] [place] [address] Mariusz Bolden, DO [address] [place] [address] 03/13/2024 3:00 PM EDT Office Visit Podiatry [facility] [address] [facility] [place] [address] Coreen Gonzales DPM [address] [facility] [place] [address] 03/22/2024 7:30 AM EDT Hospital Encounter [place] [facility] [place] [address] [place] [phone] Jonas Gupta MD [address] [place] [address] 03/22/2024 7:30 AM EDT - 03/22/2024 10:20 AM EDT Surgery [place] [facility] [place] [address] [place] [phone] Jonas Gupta MD [address] [place], [place] [phone] TRANSURETHRAL RESECTION PROSTATE ELECTROSURGICAL 03/29/2024 10:30 AM EDT Nurse Only Urology, [place] [address] [place] [address] [place] [facility] [address] [place] [address] 05/01/2024 1:15 PM EST Office Visit Urology, [place] [address] [place], [place] [phone] Jonas Gupta MD [address] [place], [place] [phone] 10/07/2024 2:00 PM EDT Nurse Only Ancillary 65 [facility] [address] [place] [address] [employer], Nurse Annual Wellness Visit [address] [address] Scheduled Procedures Name Priority Associated Diagnoses Date/Ti [...] Comments Alpha-1 Antitrypsin 1963 Colonoscopy 06/23/2014 06/23/2009 COVID-19 Vaccine (2022- season) 2023 04/14/2023, 08/19/2022, 07/07/2021, Additional history exists Diabetic Eye Exam 01/25/2024 2023, , 2023, Additional history exists Influenza Vaccine (FLU shot) (#1) 2024 04/14/2023, 06/02/2022, 04/22/2021, Additional history exists HbA1c 04/25/2024 10/24/2023, 02/0 10/2023, 01/12/2023, Additional [...] ASSESSMENT COMPLETED IN PAST YEAR FOR COPD 10/23/2024 10/24/2023 DTap/Tdap Vaccines (3 - Td or Tdap) 01/23/2030 2020, 04/08/2009 RETIRED - COLONOSCOPY-EVERY 5 YRS AGES 18-100 Discontinued 06/23/2009 Pneumococcal Vaccine: 65+ Years Completed 09/07/2017, 11/07/2014, 02/25/2010 Zoster Vaccines Completed 08/19/2022, 06/09/2022 HPV (Gardasil) Vaccine Aged Out No lo [...] as of this encounter Visit Diagnoses Diagnosis Type 2 diabetes mellitus with diabetic cataract, unspecified whether skilled nursing insulin use (HCC) Acute urinary retention Other specified retention [...] bladder documented in this encounter Care Teams Pipe Or Steam Fitter Furnace Installer Relationship Specialty Start Date End Date Nirmala Alford DO [address] [place] [address] PCP - General Family Medicine 01/23/24 documented as of this encounter
--- OUTSIDE RECORDS SUMMARY | 2024-06-16 23:45 | External Medical Summary | Summary of Care ---
Author Name Unknown Organization [facility] Address [address] [place] [address] Phone [phone] Care Team Providers Care Wwe Wrestler Name Role Phone JessicaNirmala ziegler Derrick LOCO Primary Care Provider Reason for Visit * Reason Comments Other Med Op Encounter Details Date Type Department Care Team (Latest Contact Info) Description 03/08/2024 10:00 AM EDT Office Visit General Internal Medicine, [facility] [address] [place] [address] Mariusz Bolden DO [address] [place] [address] Preoperative general physical examination*; BPH with obstruction/lower urinary tract symptoms; Type 2 diabetes mellitus with hemoglobin A1c goal of less than 8.0% ([facility]); COPD, group B, by GOLD 2017 classification ([facility]); Gastroesophageal reflux disease without esophagitis Allergies Active Allergy Reactions Criticality Noted Date [...] 1 Box Dosing Unit 11 09/17/2018 Active ISI Life SciencesTouch Verio w/Device Kit Use to test blood sugars daily E11.9 1 Kit 02/18/2021 Active Magnesium Oxide 400 MG Oral Tablet Take 1 Tablet by mouth daily. 100 Tablet 3 07/04/2022 Active Farxiga 10 MG Oral Tablet (Dapagliflozin Propanediol) Take 1 Tablet by mouth daily at noon. -- getting through color specialist 04/07/2023 Active ISI Life SciencesTouch Verio In Vitro Strip (Glucose Blood) USE UP TO 4 TIMES A DAY DIRECTED 400 Strip 3 06/01/2023 Active Incruse Ellipta 62.5 MCG/ACT Inhalation Aerosol Powder Breath Activated (umeclidinium [place])Indications :Chronic obstructive pulmonary disease, unspecified COPD type [...] MCG/0.3 mL, 12 YRS AND ABOVE, IM (Commutable-ComirnatAkira Mobile) 04/14/2023 COVID-19, MRNA-LNP, 24-25, P R, 30MCG/0.3ML, IM, 12YRS AND ABOVE (PressConnect-ComirnatAkira Mobile) 02/20/2024 Covid-19, Mrna, Lnp-s, Pf, B ivalent, 30 Mcg, IM, 12 yrs and above (Pfizer) 08/19/2022 Pneumococcal Conjugate Vacc, 13 Valent (Prevnar) 11/07/2014 Pneumococcal Conjugate Vacci ne, 20-valent ([id number]) 02/20/2024 Pneumococcal Polysaccharide PPV23 (Pneumovax) 09/07/2017,02/25/2010 RSV [...] Sign Reading Time Taken Comments Blood Pressure 120/70 03/08/2024 10:02 AM EDT Pulse 88 03/08/2024 10:02 AM EDT Temperature 35.6 C (96 F) 03/08/2024 10:02 AM EDT Respiratory Rate 16 03/08/2024 10:02 AM EDT Oxygen Saturation 97% 03/08/2024 10:02 AM EDT Inhaled Oxygen Concentration - - Weight 78.5 kg (173 lb 1.6 oz) 03/08/2024 10:02 AM EDT Height - - Body Mass Index 25.56 02/20/2024 4:26 PM EDT documented in this encounter Patient Instructions * Patient Instructions* Mariusz Bolden, DO - 03/08/2024 10:15 AM EDT Take ONLY atorvastatin, finasteride, omeprazole, with a sip of water, on the morning of surgery. Take your Incruse normally. HOLD the Farxiga for 3 days prior to surgery. HOLD aspirin for one week prior to surgery. documented in this encounter Progress Notes * Mariusz Bolden DO - 03/08/2024 10:07 AM EDT Preoperative Medical Optimization and Risk Assessment General Internal Medicine Kamlesh Nair Jr. [id number] 03/08/2024 Being seen in consultation at the request of: Jonas Gupta MD PCP: NIRMALA JACKSON Pre-operative evaluation for: TURP Date of procedure: 03/22/2024 Surgeon: Dr. Alonso MD Assessment and Recommendations: He is medically optimized and I recommend proceeding with surgery. 1. Cardiovascular Risk Assessment: Does patient have Coronary artery disease? No Has patient had a coronary stent inserted in the past year? No The patient's functional status is adequate (equal to 4 METS). The patient is scheduled for elective TURP which is an intermediate risk surgical procedure. The patient's Revised cardiac risk index(RCRI) score is 0/6, with a 3.9% 30-day risk of , NC, or cardiac arrest (2.8-5.4%, 95% CI) The patient's risk is acceptable and he should proceed to surgery without further testing. 2. Pulmonary Risk Assessment Screening for obstructive sleep apnea: negative. He has COPD. 3. Pain control Pain management to be determined by surgical service. There are no significant recommendations for this specific patient. 4. Venous Thromboembolism (VTE) Prophylaxis Selection of VTE prophylaxis is at the discretion of the surgeon. If the patient is to receive coumadin, he should receive low molecular weight heparin for VTE prophylaxis until they have reached a therapeutic INR for 48 hours. 5. Adrenal Insufficiency Risk Stratification: Steroid exposure in past year includes: none Risk of iatrogenic adrenal insufficiency is low: no treatment necessary. If additional corticosteroids are indicated, dosing should be based on surgical stress. Patient should take usual morning dose of steroids. Surgical stress is not applicable: patient does not require additional corticosteroids. 6. Diabetes: Is patient treated with insulin? No While hospitalized it is recommended that the patient receive: a diabetic diet and continue oral medications 7. Hypertension: BP is controlled 8. History of problems with anesthesia: none 9. History of surgical complications: none 10. Instructions for medications on the morning of surgery: Take ONLY atorvastatin, finasteride, omeprazole, with a sip of water, on the morning of surgery. Condition for which surgery is to be performed: BPH. 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 100 Tab 3 Multiple Vitamins-Minerals (MULTIVITAMIN ADULT) TABS Take 1 Tablet by mouth daily at noon. Verisante TechnologyUCH ULTRASOFT LANCETS MISC Use as directed 4 times a day as needed for Hyperglycemia (high sugar) or Hypoglycemia (low sugar). E11.9 1 Box Dosing Unit 11 ISI Life SciencesTouch Verio w/Device Kit Use to test blood sugars daily E11.9 1 Kit 0 Magnesium Oxide 400 MG Oral Tablet Take 1 Tablet by mouth daily. 100 Tablet 3 Farxiga 10 MG Oral Tablet (Dapagliflozin Propanediol) Take 1 Tablet by mouth daily at noon. -- getting through color specialist Presentigo Verio In Vitro Strip (Glucose Blood) USE UP TO 4 TIMES A DAY DIRECTED 400 Strip 3 Incruse Ellipta 62.5 MCG/ACT Inhalation Aerosol Powder Breath Activated (umeclidinium [place]) INHALE ONE PUFF BY MOUTH EVERY MORNING [...] 2 times a day. 60 Tablet 0 No current facility-administered medications for this visit. Review of patient's allergies indicates: Allergen Reactions Alcohol Sugar Alcohol Milk [Lactose Intolerance] Family history is non-contributory. Social History Tobacco Use Smoking status: Former Current packs/day: 0.00 Average packs/day: 0.5 packs/day for 30.0 years (15.0 ttl pk-yrs) Types: Cigarettes Start date: 11/19/1987 Quit date: 11/18/2017 Years since quittin.3 Passive exposure: Past Smokeless tobacco: Never Substance Use Topics Alcohol use: No Comment: rarely Vaping/E-Cigarette Use Vaping/E-Cigarette Use Never User Vaping/E-Cigarette Substances Vaping/E-Cigarette Devices ROS: No F/C No PARKER, visual changes No palpitations, chest pain No SOB, wheezing, cough No N/V/D/C + urinary frequency No ext pain or swelling Physical exam: BP 120/70 (BP Site: Right Arm, BP Position: Sitting, BP Cuff Size: Regular) | Pulse 88 | Temp 35.6 C (96 F) (Tympanic) | Resp 16 | Wt 78.5 kg (173 lb 1.6 oz) | SpO2 97% | BMI 25.56 kg/m | BSA 1.96 m Body mass index is 25.56 kg/m. Physical Exam Vitals and nursing note reviewed. Constitutional: General: He is not in acute distress. Appearance: Normal appearance. He is not ill-appearing. HENT: Head: Normocephalic and atraumatic. Cardiovascular: Rate and Rhythm: Normal rate and regular rhythm. Pulses: Normal pulses. Heart sounds: Normal heart sounds. No murmur heard. Pulmonary: Effort: Pulmonary effort is normal. Breath sounds: Normal breath sounds. No wheezing, rhonchi or rales. Abdominal: General: Bowel sounds are normal. Musculoskeletal: General: Normal range of motion. Right lower leg: No edema. Left lower leg: No edema. Neurological: General: No focal deficit present. Mental Status: He is alert and oriented to person, place, and time. Labs are significant for: Cr - 0.9 Hb - 12.6 A1C -7.8 EKG by my review is significant for: SR, no acute STT changes, no change from prior IMPRESSIONS: ICD-10-CM 1. Preoperative general physical examination Z01.818 2. BPH with obstruction/lower urinary tract symptoms N40.1 N13.8 3. Type 2 diabetes mellitus with hemoglobin A1c goal of less than 8.0% ([facility]) E11.9 4. COPD, group B, by GOLD 2017 classification ([facility]) J44.9 5. Gastroesophageal reflux disease without esophagitis K21.9 Pt is a very pleasant 79 yo male, here for preoperative evaluation. He is scheduled ofr upcoming TURP. He is without major complaints. He denies chest pain or SOB. His exercise tolerance is limited by gait. His EKG is without acute changes and his BP is controlled. He is stable to proceed to OR as above. Mariusz Bolden DO 03/08/2024 10:07 AM I spent a total of 30-39 minutes (exact time 31 mins) on the date of service in preparation, delivery, and documentation of the care provided to Kamlesh Nair . excluding any time spent in the performance of separately billed services or time spent by another provider/QHP. documented in this encounter Plan of Treatment Upcoming Encounters Date Type Department Care Team (Latest Contact Info) Description 03/13/2024 3:00 PM EDT Office Visit Podiatry [facility] [address] [facility] [place] [address] Coreen Gonzales, DPM [address] [facility] [place] [address] 03/22/2024 7:30 AM EDT Hospital En[place] [facility] [place] [facility] [place] [facility] [address] [place] [phone] Jonas Gupta MD [address] [place] [address] 03/22/2024 7:30 AM EDT Anesthesia Event [place] [facility] [place] [address] [facility] [place] [phone] Shorty Luna CRNP [address], [place] [id number] 03/22/2024 7:30 AM EDT - 03/22/2024 10:20 AM EDT Surgery [place] [facility] [place] [place] [address] [place] [id number] Jonas Gupta MD [address] [place] [address] TRANSURETHRAL RESECTION PROSTATE ELECTROSURGICAL 03/29/2024 10:30 AM EDT Nurse Only Urology, [place] [address] [facility] [place] [address] John Nurse Urology [address] [facility], [place] [id number] 05/16/2024 9:00 AM EST [facility] [address] [facility] [place] [address] Jonas Gupta MD [address] [place] [address] 06/25/2024 3:00 PM EST Nutrition Services Nutrition Services [address] [facility] [address] [place] [address] Mari Parra RDN [address] [place] [address] 06/25/2024 3:40 PM EST Office Visit Family Practice [address] [facility] [address] [place] [address] Nirmala Jackson DO [address] [place] [address] 10/07/2024 2:00 PM EDT Nurse Only Family Practice [address] [facility] [address] [place] [address] Betty Hartmann, JOE [address] [place] [address] Scheduled Procedures Name Priority Associated [...] 06/14/2021, Additional history exists HbA1c 09/06/2024 03/08/2024, 05/2 06/2023, 07/10/2023, Additional history exists Adult Wellness Visit [...] (LUTS) Bladder stone Other calculus in bladder Preoperative general physical examination- Primary Other specified pre-operative examination BPH with obstruction/lower urinary tract symptoms Hypertrophy of prostate with urinary obstruction and other lower urinary tract symptoms (LUTS) Type 2 diabetes mellitus with hemoglobin A1c goal of less than 8.0% ([facility]) COPD, group B, by GOLD 2017 classification (H[facility]) Gastroesophageal reflux disease without esophagitis Esophageal reflux Acute urinary retention Other specified retention of urine BPH with obstruction/lower urinary tract symptoms Hypertrophy of prostate with urinary obstruction and other lower urinary tract symptoms (LUTS) Bladder stone Other calculus in bladder documented in this encounter Care Teams Wwe Wrestler Relationship Specialty Start Date End Date Nirmala Jackson DO [address] [place] [address] PCP - General Family Medicine 01/23/24 documented as of this encounter"
--- OUTSIDE RECORDS SUMMARY | 2024-06-16 23:45 | External Medical Summary | Summary of Care ---
Author Name Unknown Organization [facility] Address [address] [place] [address] Phone [phone] Care Team Providers Care Slag Motor Operator Name Role Phone Nirmala Alford DO Primary Care Provider Reason for Visit * Reason Comments Medical Nutrition Therapy Encounter Details Date Type Department Care Team (Latest Contact Info) Description 02/20/2024 3:30 PM EDT Nutrition Services Nutrition Services 65 [facility] [address] [place] [address] Mari Parra RDN 106 [facility] [place] [address] Type 2 diabetes mellitus with hemoglobin A1c goal of less than 8.0% ([facility])*; Dyslipidemia Allergies Active Allergy Reactions Criticality Noted Date Comments Alcohol 01/19/2023 Sugar Alcohol Lactose Intolerance 12/12/2005 documented as of this encounter (statuses as of 02/20/2024) Medications Medication Sig Dispensed Refills Start Date [...] 1 Box Dosing Unit 11 09/17/2018 Active Applix w/Device Kit Use to test blood sugars daily E11.9 1 Kit 02/18/2021 Active Magnesium Oxide 400 MG Oral Tablet Take 1 Tablet by mouth daily. 100 Tablet 3 07/04/2022 Active Farxiga 10 MG Oral Tablet (Dapagliflozin Propanediol) Take 1 Tablet by mouth daily at noon. -- getting through wafer abrading machine tender 04/07/2023 Active Applix In Vitro Strip (Glucose Blood) USE UP TO 4 TIMES A DAY DIRECTED 400 Strip 3 06/01/2023 Active Incruse Ellipta 62.5 MCG/ACT Inhalation Aerosol Powder Breath Activated (umeclidinium Alcova)Indications :Chronic obstructive pulmonary disease, unspecified COPD type (HCC) INHALE ONE PUFF BY MOUTH EVERY MORNING 90 Each 3 06/17/2023 5 Active Additional Information Patient not taking.Reported on 02/20/2024 glipiZIDE 10 MG Oral Tablet (Glucotrol)Indicati ons:Type [...] as of this encounter (statuses as of 02/20/2024) Active Problems Patient Care Coordination No te [...] as of this encounter (statuses as of 02/20/2024) Resolved Problems Problem Noted Date Diagnosed Date [...] as of this encounter (statuses as of 02/20/2024) Immunizations Name Administration Dates Next Due COVID-19 mRNA, LNP-s, No Pre serve, 2-Dose Series (Moderna) 09/07/2020,08/10/2020 COVID-19, LNP-s, No Preserve , Charlie-sucrose, Ages 12+ (Koality) 07/07/2021 COVID-19, MRNA-LNP, 23-24, P F, 30 MCG/0.3 mL, 12 YRS AND ABOVE, IM ([employer]) 04/14/2023 COVID-19, MRNA-LNP, 24-25, P R, 30MCG/0.3ML, IM, 12YRS AND ABOVE (Koality[employer]) 02/20/2024 Covid-19, Mrna, Lnp-s, Pf, B ivalent, 30 Mcg, IM, 12 yrs and above (Pfizer) 08/19/2022 Pneumococcal Conjugate Vacc, 13 Valent (Prevnar) 11/07/2014 Pneumococcal Conjugate Vacci ne, 20-valent ([id number]) 02/20/2024 Pneumococcal Polysaccharide PPV23 (Pneumovax) 09/07/2017,02/25/2010 RSV [...] Sign Reading Time Taken Comments Blood Pressure - - Pulse - - Temperature - - Respiratory Rate - - Oxygen Saturation - - Inhaled Oxygen Concentration - - Weight 79.7 kg (175 lb 11.2 oz) 02/20/2024 3:38 PM EDT Height - - Body Mass Index 25.95 09/29/2023 2:41 PM EDT documented in this encounter Patient Instructions * Patient Instructions* Mari Parra RDN - 02/20/2024 4:03 PM EDT Current Goals: Discussed the following goals with patient who agrees to the following: Continue to take medications as ordered daily Check blood sugar daily documented in this encounter Progress Notes * Mari Parra RDN - 02/20/2024 3:31 PM EDT NUTRITION FOLLOW-UP NOTE - [address] [place] [address] Name: Kamlesh Nair Jr. Location: NUTRITION SERVICES [address] [place] [address] Date: 02/20/2024 Time: 3:31 PM Patient location: [address] [place] [address]. Patient was seen [id number] in the clinic. Patient was verified with two unique identifiers. Reason for Nutrition Follow-up: Type 2 Diabetes NUTRITION ASSESSMENT: Client History Patient reports he has been trying to lose weight. He has been eating 2 meals/day. He has also beentaking his medications as ordered. He reports he has been on a better schedule over the past coupleof weeks. Patient has made good progress towards the following goals: Choose to discuss a CGM with pharmacist before next visit Choose a lean protein at all meals and snacks Support System: Self, Daughter, lives nearby Barriers to Learning: Hard of hearing, decreased memory Special Education Needs: None Food/Nutrition-Related History Describes typical diet history/24 hr recall Breakfast/lunch: leftover vegetable pie (eggs, vegetables); Gatorade zero Lunch: skipped yesterday because of a late breakfast; diet soda Supper/Dinner: vegetable pie Snack: 1/2 cantaloupe Drinks: Gatorade zero, juice, sugar free beverages; Glucerna about 1 drink every other day Restaurant meals: at least once a month Alcohol: None Diet Recall/Food Logs Indicate: AREAS FOR IMPROVEMENT: Poor meal distribution Inconsistent protein intake POSITIVE: Portion control Food and Nutrient Intake and other pertinent information: N/a Physical Activity: Sedentary; no falls; has increased pain in legs Medications Changes/Updates: Current Outpatient Medications Medication Sig Dispense Refill aspirin enteric coated 81 MG TBEC Take 1 Tablet by mouth daily at noon. 100 Tab 3 Multiple Vitamins-Minerals (MULTIVITAMIN ADULT) TABS Take 1 Tablet by mouth daily at noon. ONETOUCH ULTRASOFT LANCETS MISC Use as directed 4 times a day as needed for Hyperglycemia (high sugar) or Hypoglycemia (low sugar). E11.9 1 Box Dosing Unit 11 Exit GamesTouch Verio w/Device Kit Use to test blood sugars daily E11.9 1 Kit 0 Magnesium Oxide 400 MG Oral Tablet Take 1 Tablet by mouth daily. 100 Tablet 3 Farxiga 10 MG Oral Tablet (Dapagliflozin Propanediol) Take 1 Tablet by mouth daily at noon. -- getting through wafer abrading machine tender Exit GamesTouch Verio In Vitro Strip (Glucose Blood) USE UP TO 4 TIMES A DAY DIRECTED 400 Strip 3 Incruse Ellipta 62.5 MCG/ACT Inhalation Aerosol Powder Breath Activated (umeclidinium Alcova) INHALE ONE PUFF BY MOUTH EVERY MORNING (Patient not taking: Reported on 02/20/2024) 90 Each 3 glipiZIDE 10 MG Oral [...] 3 Dexcom G7 Sensor Use as directed. Ketoconazole 2 % External Cream Apply topically to affected area on both feet twice daily. 30 g 2 Finasteride 5 MG Oral Tablet (Proscar) TAKE ONE TABLET BY MOUTH EVERY DAY IN THE MORNING 90 Tablet 6 Methylphenidate HCl 10 MG Oral Tablet (Ritalin) Take 1 Tablet by mouth 2 times a day. 60 Tablet 0 No current facility-administered medications for this visit. Nutrition-Focused Physical Findings Overall appearance: WNWD Fluid accumulation: Fluid Assessment: Normal Fluid Location: N/A Fluid Description: N/A Digestive system: No issues, Appetite: fair, Diarrhea---sometimes he thinks it may be from the yogurt Nerves and cognition: Awake, alert and Oriented Anthropometric Measurements Current Weight: Wt Readings from Last 1 Encounters: 02/20/24 79.7 kg (175 lb 11.2 oz) Wt Readings from Last 4 Encounters: 02/20/24 79.7 kg (175 lb 11.2 oz) 10/24/23 83.9 kg (184 lb 14.4 oz) 10/24/23 83.9 kg (184 lb 14.4 oz) 09/29/23 84.8 kg (186 lb 14.4 oz) Weight Change: decreased by 9 pounds in the past 4 months BMI Readings from Last 1 Encounters: 02/20/24 25.95 kg/m Biochemical Data, Medical Tests, and Procedures No current pertinent labs since last visit. Self-Monitoring Blood Glucose Source of Information: Participant verbally reviewed from memory Frequency of tests: once daily Typically when he wakes up Summary: 111 this AM; has been lower for the past couple of weeks; prior to that sugars were 170-180 Hypoglycemia?: had an 82 in the past couple of weeks---does not remember if he treated it Hemoglobin AIC Results: Lab Results Component Value Date/Time HEMOGLOBIN A1C - [facility] 8.3 (H) 10/24/2023 03:02 PM HEMOGLOBIN A1C - [facility] 9.0 (H) 07/10/2023 03:32 PM HEMOGLOBIN A1C - [facility] 7.8 (H) 01/12/2023 03:59 PM HEMOGLOBIN A1C - [facility] 8.0 (H) 01/14/2020 09:07 AM HEMOGLOBIN A1C - [facility] 7.5 (H) 12/28/2018 10:53 AM HEMOGLOBIN A1C - [facility] 8.6 (H) 09/25/2018 11:45 AM Previous Nutrition Diagnosis: Imbalance of nutrients related to Inconsistent carbohydrate intake, inconsistent protein intake, asevidenced by Reported diet and/or activity recall. CURRENT NUTRITION DIAGNOSIS Imbalance of nutrients related to Poor meal distribution, inconsistent protein intake as evidenced by Reported diet and/or activity recall NUTRITION INTERVENTION: NUTRITION EDUCATION Comprehensive nutrition education NUTRITION COUNSELING Strategies Motivational Interviewing Diabetes Standards of Care: Care Gaps have been addressed with other members of [facility] Care Team Nutrition Prescription: Diet: 2000 mg Sodium Consistent Carbohydrate Heart Healthy Low Fat/Low Cholesterol Daily Calorie Needs: [phone] Kcals Daily Protein Needs: 68-86 Grams protein Current Goals: Discussed the following goals with patient who agrees to the following: Continue to take medications as ordered daily Check blood sugar daily Dietitian Action: Discussed importance of testing blood sugars daily Reviewed pairing a protein with starchy carbohydrates/ Recommendations to Ordering Provider: Continue current plan of nutrition care. NUTRITION MONITORING AND EVALUATION: The following will be monitored and evaluated at the next visit: Monitor weight. Monitor labs. Monitor goals and progress. Plan: Patient scheduled to return in about 4 months; dietitian phone # given for future reference. 30 minutes Medical Nutrition Therapy Time In: 1532 (02/20/24 1621) Time Out: 1605 (02/20/24 1622) 15 min (8-22 min) 30 min (23-37 min) 45 min (38-52 min) 60 min (53-67 min) 75 min (68-82 min) 90 min (83-97 min) 105 min (98-113 min) Mari Parra RDN 02/20/2024 3:31 PM NUTRITION SERVICES [address] [place] [address] documented in this encounter Plan of Treatment Upcoming Encounters Date Type Department Care Team (Latest Contact Info) Description 03/08/2024 9:00 AM EDT Pre-Admission Testing Pre Surgery [facility] [address] [place] [address] [facility] [address] [place] [address] 03/08/2024 10:00 AM EDT Office Visit General Internal Medicine, [facility] [address] [place] [address] Mariusz Bolden DO [address] [place] [address] 03/13/2024 3:00 PM EDT Office Visit Podiatry [facility] [address] [facility] [place] [address] Coreen Gonzales DPM 400 [facility] [place] [address] 03/22/2024 7:30 AM EDT Hospital Encounter [facility], OPERATING ROOM [facility] [address] [place] [address] Jonas Gupta MD [address] [place] [address] 03/22/2024 7:30 AM EDT - 03/22/2024 10:20 AM EDT Surgery OR [facility], OPERATING ROOM [facility], [facility] [address] [place] [phone] Jonas Gupta MD [address] [place] [address] TRANSURETHRAL RESECTION PROSTATE ELECTROSURGICAL 03/29/2024 10:30 AM EDT Nurse Only Urology [facility] [address] [place] [address] [facility] Nurse Urology [address] [place] [address] 05/01/2024 1:15 PM EST Office Visit Urology [facility] [address] [place] [address] Jonas Gupta MD [address] [place] [address] 10/07/2024 2:00 PM EDT Nurse Only Ancillary [address] [address] College, Nurse Annual Wellness Visit [address] [address] Scheduled Procedures Name Priority Associated Diagnoses Date/Ti nc TRANSURETHRAL RESECTION PROSTATE ELECTROSURGICAL Acute urinary retention [...] goal of less than 8.0% (HCC)- Primary Dyslipidemia Other and unspecified hyperlipidemia Acute urinary retention Other specified retention of urine BPH with obstruction/lower urinary tract symptoms Hypertrophy of prostate with urinary obstruction and other lower urinary tract symptoms (LUTS) Bladder stone Other calculus in bladder documented in this encounter Care Teams Slag Motor Operator Relationship Specialty Start Date End Date Nirmala Alford DO [address] [place] [address] PCP - General Family Medicine 01/23/24 documented as of this encounter
--- OUTSIDE RECORDS SUMMARY | 2024-06-16 23:45 | External Medical Summary ---
Author Name Unknown Address Unknown Organization [id number]:LABORATORY [facility] - [address] [facility] [address] Laboratory Report Ordering Provider Test Date Status RENETTA SOLOMON 03/08/2024 08:55:17 Final Observation Date Value Abnormality Reference (Units ) Status HbA1C 03/08/2024 08:55:17 7.8 Above high normal 4. 0-5.6 (%) Final The use of HbA1c to monitor glycemic status is based on normal hemoglobin and HbA composition. This test should not be used in patients with abnormal hemoglobin that affects the half life of the red blood cell or the in vivo glycation rates. Glucose, estimated average 03/08/2024 08:55:17 177 Above high normal <126 (mg/dL) Ilir ngo Performing Location LABORATORY [facility] - [address] [facility] [address]
--- OUTSIDE RECORDS SUMMARY | 2024-06-16 23:45 | External Medical Summary | Summary of Care ---
Author Name Unknown Organization [facility] Address [address] [place] [address] Phone [phone] Care Team Providers Care Boiler Shop Mechanic Name Role Phone Nirmala Alford DO Primary Care Provider Reason for Visit * Reason Comments Follow Up Encounter Details Date Type Department Care Team (Late st Contact Info) Description 02/20/2024 4:20 PM EDT Office Visit [facility] [address] [place] [address] Nirmala Alford DO [address] [place] [address] Type 2 diabetes mellitus with hemoglobin A1c goal of less than 8.0% ([facility])*; BPH with obstruction/lower urinary tract symptoms; Mild depression; Risk and functional assessment Allergies Active Allergy Reactions Criticality Noted Date Comments Alcohol 01/19/2023 Sugar Alcohol Lactose Intolerance 12/12/2005 documented as of this encounter (statuses as of 02/22/2024) Medications Medication Sig Dispensed Refills Start Date [...] 1 Box Dosing Unit 11 09/17/2018 Active [employer] Verio w/Device Kit Use to test blood sugars daily E11.9 1 Kit 02/18/2021 Active Magnesium Oxide 400 MG Oral Tablet Take 1 Tablet by mouth daily. 100 Tablet 3 07/04/2022 Active Farxiga 10 MG Oral Tablet (Dapagliflozin Propanediol) Take 1 Tablet by mouth daily at noon. -- getting through flight operations specialist 04/07/2023 Active [employer] Verio In Vitro Strip (Glucose Blood) USE UP TO 4 TIMES A DAY DIRECTED 400 Strip 3 06/01/2023 Active Incruse Ellipta 62.5 MCG/ACT Inhalation Aerosol Powder Breath Activated (umeclidinium Britt)Indications :Chronic obstructive pulmonary disease, unspecified COPD type [...] as of this encounter (statuses as of 02/22/2024) Active Problems Patient Care Coordination No te [...] as of this encounter (statuses as of 02/22/2024) Resolved Problems Problem Noted Date Diagnosed Date [...] as of this encounter (statuses as of 02/22/2024) Immunizations Name Administration Dates Next Due COVID-19 mRNA, LNP-s, No Pre serve, 2-Dose Series (Moderna) 09/07/2020,08/10/2020 COVID-19, LNP-s, No Preserve , Charlie-sucrose, Ages 12+ (Pfizer) 07/07/2021 COVID-19, MRNA-LNP, 23-24, P F, 30 MCG/0.3 mL, 12 YRS AND ABOVE, IM ([employer]) 04/14/2023 COVID-19, MRNA-LNP, 24-25, P R, 30MCG/0.3ML, IM, 12YRS AND ABOVE ([employer]) 02/20/2024 Covid-19, Mrna, Lnp-s, Pf, B ivalent, 30 Mcg, IM, 12 yrs and above (Pfizer) 08/19/2022 Pneumococcal Conjugate Vacc, 13 Valent (Prevnar) 11/07/2014 Pneumococcal Conjugate Vacci ne, 20-valent ([id number]) 02/20/2024 Pneumococcal Polysaccharide PPV23 (Pneumovax) 09/07/2017,02/25/2010 RSV [...] type Acquired absence of other right toe(s) ([facility]) Gastroesophageal reflux disease without esophagitis Esophageal thickening Attention deficit hyperactivity disorder (ADHD), 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 -- getting through flight operations specialist Incruse Ellipta 62.5 MCG/ACT Inhalation Aerosol Powder Breath Activated (umeclidinium Britt) INHALE ONE PUFF BY MOUTH EVERY MORNING [...] day. 60 Tablet 0 ONETOUCH ULTRASOFT LANCETS [facility] Use as directed 4 times a day as needed for Hyperglycemia (high sugar) or Hypoglycemia (low sugar). E11.9 1 Box Dosing Unit 11 FortisphereTouch Verio w/Device Kit Use to test blood sugars daily E11.9 1 Kit 0 FortisphereTouch Verio In Vitro Strip (Glucose Blood) USE UP TO 4 TIMES A DAY DIRECTED 400 Strip 3 Dexcom G7 Sensor Use as directed. (Patient not taking: Reported on 02/20/2024) No current facility-administered medications for this visit. Past Medical History: Diagnosis Date ADHD COPD (chronic obstructive pulmonary disease) (HCC) DM2 (diabetes mellitus, type 2) ([facility]) Dyslipidemia Emphysema, unspecified (HCC) GERD (gastroesophageal reflux [...] hemoglobin A1c goal of less than 8.0% ([facility]) (primary encounter diagnosis) Plan: A1C ok. He notes that sugars are heading in the right direction. Will likely need lab studiesprior to surgery. I have placed additional orders. (N40.1, N13.8) BPH with obstruction/lower urinary tract symptoms Plan: pt has pre op visit in [place]. Keep this appt. F/u per urology. (F32.A) Mild depression Plan: discussed treatment. He declines. Reviewed concerning signs and symptoms for which to monitor. (Z13.9) Risk and functional assessment Plan: See nursing note. Follow-up: 3 months Total time today including reviewing chart before the visit, pertinent labs, imaging reports, face to face time, and documentation time was 33 minutes. Nirmala Alford DO * Alicia Oconnell LPN - [...] 9:00 AM EDT Pre-Admission Testing Pre Surgery [facility] [address] [place] [address] [facility] [address] [place] [address] 03/08/2024 10:00 AM EDT Office Visit General Internal Medicine, [facility] [address] [place] [address] Mariusz Bolden, [address] [place] [address] 03/13/2024 3:00 PM EDT Office Visit Podiatry [address] [place] [address] Coreen Gonzales DPM [address] [place], [place] [address] [address] 03/22/2024 7:30 AM EDT Hospital Encounter OR [facility], OPERATING ROOM [facility], [facility] [address] [place] [address] Jonas Gupta MD [address] [place] [address] 03/22/2024 7:30 AM EDT - 03/22/2024 10:20 AM EDT Surgery OR [facility], OPERATING ROOM [facility], [facility] [address] [place] [address] Jonas Gupta MD [address] [place] [address] TRANSURETHRAL RESECTION PROSTATE ELECTROSURGICAL 03/29/2024 10:30 AM EDT Nurse Only Urology, [place] [address] [place] [address] [place], Nurse Urology [address] [place] [address] 05/16/2024 9:00 AM EST Office Visit Urology, [place] [address] [place] [address] Jonas Gupta MD [address] [place] [address] 06/25/2024 3:00 PM EST Nutrition Services Nutrition Services [address] [address] Mari Parra RDN [address] [place] [address] 06/25/2024 3:40 PM EST Office Visit Family Practice [address] [address] Nirmala Alford DO [address] [place] [address] 10/07/2024 2:00 PM EDT Nurse Only Ancillary [facility] [place] [address] [place] [address] College, Nurse Annual Wellness Visit [facility] [address] [place] [address] Scheduled Orders Name Type Priority Associated Diagnoses [...] bladder documented in this encounter Care Teams Boiler Shop Mechanic Relationship Specialty Start Date End Date Nirmala Alford DO [address] [facility] [place] [address] PCP - General Family Medicine 01/23/24 documented as of this encounter
--- OUTSIDE RECORDS SUMMARY | 2024-06-16 23:45 | External Medical Summary | Summary of Care ---
Author Name Unknown Organization [facility] Address [address] [place] [address] Phone [phone] Care Team Providers Care Rn Physician Office Name Role Phone JessicaFelicia zieglerjorgito Meza DO Primary Care Provider Reason for Visit * Reason Onset Date Comments Pre-Op Testing 03/08/2024 Encounter Details Date Type Department Care Team (Latest Contact Info) Description 03/08/2024 9:00 AM EDT Pre-Admission Testing Pre Surgery [place], [place] [address] [place], [place] [id number] [facility] [address] [place], [place] [id number] Pre-operative examination*; Type 2 diabetes mellitus with [...] 1 Box Dosing Unit 11 09/17/2018 Active Ischemixio w/Device Kit Use to test blood sugars daily E11.9 1 Kit 02/18/2021 Active Magnesium Oxide 400 MG Oral Tablet Take 1 Tablet by mouth daily. 100 Tablet 3 07/04/2022 Active Farxiga 10 MG Oral Tablet (Dapagliflozin Propanediol) Take 1 Tablet by mouth daily at noon. -- getting through arcade games mechanic 04/07/2023 Active Bioservo Technologies In Vitro Strip (Glucose Blood) USE UP TO 4 TIMES A DAY DIRECTED 400 Strip 3 06/01/2023 Active Incruse Ellipta 62.5 MCG/ACT Inhalation Aerosol Powder Breath Activated (umeclidinium [place])Indications :Chronic obstructive pulmonary disease, unspecified COPD type [...] LNP-s, No Preserve , Charlie-sucrose, Ages 12+ (Stringbike) 07/07/2021 COVID-19, MRNA-LNP, 23-24, P F, 30 MCG/0.3 mL, 12 YRS AND ABOVE, IM ([employer]-ComirnatCelsias) 04/14/2023 COVID-19, MRNA-LNP, 24-25, P R, 30MCG/0.3ML, IM, 12YRS AND ABOVE (Stringbike-Comirnaty) 02/20/2024 Covid-19, Mrna, Lnp-s, Pf, B ivalent, 30 Mcg, IM, 12 yrs and above (Pfizer) 08/19/2022 Pneumococcal Conjugate Vacc, 13 Valent (Prevnar) 11/07/2014 Pneumococcal Conjugate Vacci ne, 20-valent ([id number]) 02/20/2024 Pneumococcal Polysaccharide PPV23 (Pneumovax) 09/07/2017,02/25/2010 RSV [...] Luna CRNP - 03/08/2024 8:56 AM EDT [facility]: Contact # [phone] Directions to Surgical Suite in from the [place] Entrance The Surgical Waiting Room can be found in the Lobby of [place]. Enter through Main Lobby Entrance and the Waiting Room is directly in front of you. Proceed to check in and give them your name. Directions to Surgical Suite from the East Entrance Enter the East entrance and follow the hallway to the J elevator. Take the J elevator up to Level 1. Continue down the long hallway to the main [facility] Lobby. The Surgical Waiting Room will be on your Right. Proceed to check in and give them your Name. Directions to Surgical Suite from the Parking Garage Enter the [facility] lobby and proceed down the melgoza to the left. At the end of the melgoza, turn right. Continue down the long hallway to the main [facility] Lobby. The Surgical Waiting Room will be on your Right. Proceed to check in and give them your Name. THANK YOU FOR CHOOSING [facility]! PRE-OP PATIENT INFORMATION AND EDUCATION: MEDICATION [...] deodorants after bathing. No hairspray, or nail albanian on fingers or toes. Day of surgery/procedure [...] name and bring to hospital. -An escort semi driver is required if you are being [...] taxi home, you must have your responsible alliance party accompany you in the taxi ride [...] is important to make arrangements for a semi driver to take you home. Please be [...] alsoprovided to guide your completion of the [facility] anesthesia consent form which addresses real, but infrequent, problems associated with anesthesia. IMPORTANT INFORMATION TO PREVENT YOUR SURGERY FROM BEING CANCELLED/ RESCHEDULED: --You are required to have a semi driver to take you home whether you [...] sure, contact your primary care physician, your dish person, or your surgeon to check if this [...] documented in this encounter Nursing Notes * Mariela Fajardo CCMA - 03/08/2024 9:02 AM EDT [...] Luna CRNP - 03/08/2024 8:56 AM EDT [facility]: Contact # [phone] Directions to Surgical Suite in from the [place] Entrance The Surgical Waiting Room can be found in the Lobby of [place]. Enter through Main Lobby Entrance and the Waiting Room is directly in front of you. Proceed to check in and give them your name. Directions to Surgical Suite from the East Entrance Enter the East entrance and follow the hallway to the J elevator. Take the J elevator up to Level 1. Continue down the long hallway to the main [facility] Lobby. The Surgical Waiting Room will be on your Right. Proceed to check in and give them your Name. Directions to Surgical Suite from the Parking Garage Enter the [facility] lobby and proceed down the melgoza to the left. At the end of the melgoza, turn right. Continue down the long hallway to the main [facility] Lobby. The Surgical Waiting Room will be on your Right. Proceed to check in and give them your Name. THANK YOU FOR CHOOSING [facility]! PRE-OP PATIENT INFORMATION AND EDUCATION: MEDICATION INSTRUCTIONS: [...] deodorants after bathing. No hairspray, or nail albanian on fingers or toes. Day of surgery/procedure [...] name and bring to hospital. -An escort semi driver is required if you are being [...] taxi home, you must have your responsible alliance party accompany you in the taxi ride [...] is important to make arrangements for a semi driver to take you home. Please be [...] 03/13/2024 3:00 PM EDT Office Visit Podiatry [facility] [address] [place] [address] Coreen Gonzales, BRANDON [address] [place] [address] 03/22/2024 7:30 AM EDT Hospital Encounter [facility], OPERATING ROOM [facility] [address] [place] [phone] Jonas Gupta MD [address] [place], [place] [phone] 03/22/2024 7:30 AM EDT Anesthesia Event OR [facility], OPERATING ROOM [facility] [address] [place] [address] Shorty Luna CRNP [address] [place] [address] 03/22/2024 7:30 AM EDT - 03/22/2024 10:20 AM EDT Surgery OR [facility], OPERATING ROOM [facility] [address] [place] [address] Jonas Gupta MD [address] [place] [address] TRANSURETHRAL RESECTION PROSTATE ELECTROSURGICAL 03/29/2024 10:30 AM EDT Nurse Only UrologyJohn [address] [place], [place] [phone] [facility] [address] [place], [place] [phone] 05/16/2024 9:00 AM EST Office Visit Urology, [place] [address] [place] [address] Jonas Gupta MD [address] [place] [address] 06/25/2024 3:00 PM EST Nutrition Services Nutrition Services [address] [facility] [address] [place] [address] Mari Parra RDN [address] [place] [address] 06/25/2024 3:40 PM EST Office Visit Family Practice [address] [place] [phone] Nirmala Alford DO [address] [place] [address] 10/07/2024 2:00 PM EDT Nurse Only Family Practice [address] [place] [address] [address] [place] [phone] Betty Hartmann, JOE [address] [place] [phone] Scheduled Orders Name Type Priority Associated Diagnoses [...] EDT BPH with obstruction/lower urinary tract symptoms HEMOGLOBIN A1C Routine 03/08/2024 8:55 AM EDT Type 2 diabetes mellitus with hemoglobin A1c goal of less than 8.0% (HCC) BASIC METABOLIC PANEL Routine 03/08/2024 8:55 AM EDT Type 2 diabetes mellitus with hemoglobin A1c goal of less than 8.0% (HCC) CBC Routine 03/08/2024 8:55 AM EDT BPH [...] LAB BLOOD ORDERABLES [facility] [address] [place] [address] * (ABNORMAL) CBC (03/08/2024 8:55 AM EDT) [...] 11.1 fL 03/08/2024 9:23 AM EDT LABORATORY C nRBCs 0 <=0 /100 WBCs 03/08/2024 9:23 AM EDT [facility] Blood Venous blood specimen / Unknown Venipuncture / Unknown 03/08/2024 8:55 AM EDT 03/08/2024 9:10 AM EDT Nirmala Alford DO LAB BLOOD ORDERABLES LABORATORY C [address] [place] [address] * (ABNORMAL) BASIC METABOLIC PANEL (03/08/2024 8:55 AM EDT) BUN 22(H) 6 - 20 mg/dL 03/08/2024 10:19 AM EDT [facility] CREATININE 0.8 0.6 - 1.2 mg/dL 03/08/2024 10:19 AM EDT LABORATORY C EGFR >90 >=60 mL/min 03/08/2024 10:19 AM EDT LABORATORY C Comment:eGFR is calculated b ased on the CKD-EPI 2020 equation. SODIUM 137 135 - 146 mmol/L 03/08/2024 10:19 AM EDT [facility] POTASSIUM 4.3 3.5 - 5.1 mmol/L 03/08/2024 10:19 AM EDT LABORATORY C CHLORIDE 101 98 - 107 mmol/L 03/08/2024 10:19 AM EDT [facility] CO2 25 22 - 32 mmol/L 03/08/2024 10:19 AM EDT [facility] ANION GAP 11 7 - 15 mmol/L 03/08/2024 10:19 AM EDT [facility] GLUCOSE 172(H) 70 - 120 mg/dL 03/08/2024 10:19 AM EDT [facility] CALCIUM 9.9 8.4 - 10.2 mg/dL 03/08/2024 10:19 AM EDT LABORATORY [facility] Blood Venous blood specimen / Unknown Venipuncture / Unknown 03/08/2024 8:55 AM EDT 03/08/2024 9:11 AM EDT Nirmala Lopeztoney LAB BLOOD ORDERABLES Performing Organization Address [facility] Co de Phone Number LABORATORY [facility] [address] [place] [address] * (ABNORMAL) HEMOGLOBIN A1C (03/08/2024 8:55 AM EDT) Hemoglobin A1C 7.8(H) 4.0 - 5.6 % 03/08/2024 9:43 AM EDT [facility] Comment:The use of HbA1c to monitor glycemic status is based on normal hemoglobin and HbA composition. This test should not be used in patients with abnormal hemoglobin that affects the half life of the red blood cell or the in vivo glycation rates. Estimated Average Glucose 177(H) <126 mg/dL 03/08/2024 9:43 AM EDT LABORATORY [facility] Blood Venous blood specimen / Unknown Venipuncture / Unknown 03/08/2024 8:55 AM EDT 03/08/2024 9:10 AM EDT Nirmala Alford LAB BLOOD ORDERABLES Performing Organization Address [facility] de Phone Number LABORATORY [facility] [address] [place] [address] documented in this encounter Visit Diagnoses Diagnosis [...] bladder documented in this encounter Care Teams Rn Physician Office Relationship Specialty Start Date End Date Nirmala Alford DO [address] [place] [address] PCP - General Family Medicine 01/23/24 documented as of this encounter
--- OUTSIDE RECORDS SUMMARY | 2024-06-16 23:45 | External Medical Summary | Summary of Care ---
Author Name Unknown Organization [facility] Address [address] [place] [address] Phone [phone] Care Team Providers Care Creative Services Director Name Role Phone Nirmala Jackson DO Primary Care Provider Reason for Visit * Reason Onset Date Comments Medication Refill 02/13/2024 Encounter Details Date Type Department Care Team (Late st Contact Info) Description 02/13/2024 Refill Family Practice [address] [place] [address] [place] [address] Nirmala Jackson DO [address] [place] [address] Attention deficit hyperactivity disorder (ADHD), predominantly inattentive type Allergies Active Allergy Reactions Criticality Noted Date Comments Alcohol 01/19/2023 Sugar Alcohol Lactose Intolerance 12/12/2005 documented as of this encounter (statuses as of 02/15/2024) Medications Medication Sig Dispensed Refills Start Date [...] mouth daily at noon. -- getting through pharmaceutical analyst 3 Active [employer] Ver[employer]PP In Vitro Strip (Glucose Blood) USE UP TO 4 TIMES A DAY DIRECTED 400 Strip 3 3 Active Incruse Ellipta 62.5 MCG/ACT Inhalation Aerosol Powder Breath Activated (umeclidinium [place])Indication s:Chronic obstructive pulmonary disease, unspecified COPD type [...] times a day. 60 Tablet 4 Active Methylphenidate HCl 20 MG Oral Tablet (Ritalin)Indicatio ns:Attention deficit hyperactivity disorder (ADHD), predominantly inattentive type Take 0.5 Tablets by mouth 2 times a day. 30 Tablet 4 02/13/20 24 Discontinu ed(Refill) documented as of this encounter (statuses as of 02/15/2024) Active Problems Patient Care Coordination No te [...] as of this encounter (statuses as of 02/15/2024) Resolved Problems Problem Noted Date Diagnosed Date [...] as of this encounter (statuses as of 02/15/2024) Immunizations Name Administration Dates Next Due COVID-19 mRNA, LNP-s, No Pre serve, 2-Dose Series (Moderna) 09/07/2020,08/10/2020 COVID-19, LNP-s, No Preserve , Charlie-sucrose, Ages 12+ (Pfizer) 07/07/2021 COVID-19, MRNA-LNP, 23-24, P F, 30 MCG/0.3 mL, 12 YRS AND ABOVE, IM (PFIZER-Comirnaty) 04/14/2023 Covid-19, Mrna, Lnp-s, Pf, B ivalent, [...] Miscellaneous Notes * Telephone Encounter - Nirmala Jackson DO - 02/15/2024 9:05 AM EDTSigned Prescriptions: Disp Refills Methylphenidate HCl 10 MG Oral Tablet (Rit*60 Tab*0 Sig: Take 1Tablet by mouth 2 times a day.Authorizing Provider: NIRMALA JACKSON * Telephone Encounter - Nirmala Jackson DO - 02/15/2024 9:05 AM EDT Rx sent. * Telephone Encounter - Mariusz Cadet [facility] - 02/14/2024 5:15 PM EDTPending Prescriptions: Disp Refills Methylphenidate HCl 10 MG Oral Tablet (Rit*60 Tab*0 Sig: Take 1 Tablet by mouth 2 times a day. * Telephone Encounter - Mariusz Cadet [facility] - 02/14/2024 5:14 PM EDT I have reviewed the patients controlled substance dispensing history in the Prescription Drug Monitoring Program in compliance with the [facility] regulations before prescribing a controlled substance. PDMP checked on 02/14/2024. Pending Prescriptions: Disp Refills Methylphenidate HCl 10 MG Oral Tablet (Ri*60 Tab*0 Sig: Take 1 Tablet by mouth 2 times a day. Last Visit: 10/24/2023 (in office), 11/07/2023 (telemedicine) Next Visit: 02/20/2024 Date medication was last filled: 01-02-24 Date medication is due for refill: 01-31-24 Pharmacy: [id number] Is this request for a controlled substance? Yes and Urine Drug Screen Not completed Toxicology results: No results found for this or any previous visit. Please approve if appropriate. Mariusz Cadet, [place].Ph. Clinical Pharmacist [facility]) [address] [place] [address], [address]: [phone] 02/14/2024,5:14 PM * Telephone Encounter - Alicia Brand CPhT - 02/13/2024 8:31 AM EDT Pt calling in to request a dose change on their Methylphenidate. Current dose: 20 to cut in half Requested dose: 10 mg Reason for request: too hard to cut [id number] [address] Patient unwilling to speak with pharmacist at this time. Routing to pharmacist pool to advise. Thank you, Alicia Brand CPhT Mechanist [facility] ([facility]) 02/13/2024,8:32 AM documented in this encounter Plan of Treatment Upcoming Encounters Date Type Department Care Team (Latest Contact Info) Description 02/20/2024 3:30 PM EDT Nutrition Services Nutrition Services [address] [place] [address] [address] [place] [address] Mari Parra RDN [address] [place] [address] 02/20/2024 4:20 PM EDT Office Visit Family Practice [address] [place] [address] [address] [place] [address] Nirmala Jackson, [address] [place] [address] 03/08/2024 9:00 AM EDT Pre-Admission Testing Pre Surgery [place], [place] [address] [place] [address] [place] [address] [place] [address] 03/08/2024 10:00 AM EDT Office Visit General Internal Medicine, [place] [facility] [address] [place] [address] Mariusz Bolden DO [address] [place] [address] 03/13/2024 3:00 PM EDT Office Visit Podiatry [facility] [place] [address] Coreen Gonzales, DPM [address] [place] [address] 03/22/2024 7:30 AM EDT Hospital Encounter OR [facility], OPERATING ROOM [facility], [facility] [address] [place] [address] Jonas Gupta MD [address] [place] [address] 03/22/2024 7:30 AM EDT - 03/22/2024 10:20 AM EDT Surgery OR [facility], OPERATING ROOM [facility], [facility] [address] [place] [phone] Jonas Gupta MD [address] [place] [address] TRANSURETHRAL RESECTION PROSTATE ELECTROSURGICAL 03/29/2024 10:30 AM EDT Nurse Only Urology, [place] [address] [place] [address] Nurse [facility] [address] [place] [address] 05/01/2024 1:15 PM EST Office Visit Urology, [place] [address] [place] [address] Jonas Gupta MD [address] [place] [address] 10/07/2024 2:00 PM EDT Nurse Only Ancillary 65 [facility] [address] [place] [address] College, Nurse Annual Wellness Visit [facility] [address] [place] [address] Scheduled Procedures Name Priority Associated Diagnoses Date/Ti oh TRANSURETHRAL RESECTION PROSTATE ELECTROSURGICAL Acute urinary retention BPH with obstruction/lower urinary tract symptoms Bladder stone 03/22/2024 7:30 AM EDT LITHOLAPAXY SIMPLE Acute urinary retention BPH with obstruction/lower urinary tract symptoms Bladder stone 03/22/2024 7:30 AM EDT COLONOSCOPY FLEXIBLE PROXIMA L DIAGNOSTIC Recall Benign neoplasm of colon Health Maintenance Due Date Last Done Comments Alpha-1 Antitrypsin 1963 Colonoscopy 06/23/2014 06/23/2009 Diabetic Eye Exam 01/25/2024 2023, , 2023, Additional history exists COVID-19 Vaccine ( season) 2024 04/14/2023, 08/19/2022, 07/07/2021, Additional history exists Influenza Vaccine (FLU shot) [...] (LUTS) Bladder stone Other calculus in bladder Attention deficit hyperactivity disorder (ADHD), predominantly inattentive type Acute urinary retention Other specified retention of urine BPH with obstruction/lower urinary tract symptoms Hypertrophy of prostate with urinary obstruction and other lower urinary tract symptoms (LUTS) Bladder stone Other calculus in bladder documented in this encounter Care Teams Creative Services Director Relationship Specialty Start Date End Date Nirmala Jackson DO [address] [place] [address] PCP - General Family Medicine 01/23/24 documented as of this encounter
--- OUTSIDE RECORDS SUMMARY | 2024-06-16 23:46 | External Medical Summary | Summary of Care ---
Author Name Unknown Organization [facility] Address [address] [facility] [address] Phone [phone] Care Team Providers Care Wildlife Policy Professional Name Role Phone Nirmala Alford DO Primary Care Provider Encounter Details Date Type Department Care Team (Late st Contact Info) Description 01/06/2024 Orders Only PATIENT PORTAL DO NOT DELETE THIS DEPT USED BY [place] [id number] Allergies Active Allergy Reactions Criticality Noted Date Comments Alcohol 01/19/2023 Sugar Alcohol Lactose Intolerance 12/12/2005 documented as of this encounter (statuses as of 01/06/2024) Medications Medication Sig Dispensed Refills Start Date [...] mouth daily at noon. -- getting through district plant supervisor 04/07/2023 Active OneTouch [employer] In Vitro Strip (Glucose Blood) USE UP TO 4 TIMES A DAY DIRECTED 400 Strip 3 06/01/2023 Active Incruse Ellipta 62.5 MCG/ACT Inhalation Aerosol Powder Breath Activated (umeclidinium [place])Indications :Chronic obstructive pulmonary disease, unspecified COPD type [...] Tablet 6 12/18/2023 5 Active Methylphenidate HCl 20 MG Oral Tablet (Ritalin)Indication s:Attention deficit hyperactivity disorder (ADHD), predominantly inattentive type Take 0.5 Tablets by mouth 2 times a day. 30 Tablet 01/02/2024 Active documented as of this encounter (statuses as of 01/06/2024) Active Problems Problem Noted Date Diagnosed Date Acute urinary [...] as of this encounter (statuses as of 01/06/2024) Resolved Problems Problem Noted Date Diagnosed Date [...] as of this encounter (statuses as of 01/06/2024) Immunizations Name Administration Dates Next Due COVID-19 mRNA, LNP-s, No Pre serve, 2-Dose Series (Moderna) 09/07/2020,08/10/2020 COVID-19, LNP-s, No Preserve , Charlie-sucrose, Ages 12+ (Pfizer) 07/07/2021 COVID-19, MRNA-LNP, 23-24, P F, 30 MCG/0.3 mL, 12 YRS AND ABOVE, IM (PFIZER-Comirnat) 04/14/2023 Covid-19, Mrna, Lnp-s, Pf, B ivalent, [...] Department Care Team (Latest Contact Info) Description 01/23/2024 1:30 PM EDT Nutrition Services Nutrition Services 65 [facility] [address] [place] [address] Mari Parra RDN [facility] [address] 01/23/2024 2:20 PM EDT Office Visit Family Practice 65 [facility] [address] [place] [address] Nirmala Alford, DO [address] [place] [address] 03/08/2024 9:00 AM EDT Pre-Admission Testing Pre [facility], [place] [address] [place] [address] [facility] [address] [place] [address] 03/08/2024 10:00 AM EDT Office Visit General Internal Medicine, [facility] [address] [place] [address] Mariusz Bolden, DO [address] [place] [address] 03/13/2024 3:00 PM EDT Office Visit Podiatry [facility] 132 [facility] [place] [address] Coreen Gonzales DPM [address] [place], [place] [address] [address] 03/22/2024 7:30 AM EDT Hospital Encounter OR [facility], OPERATING ROOM [facility], [facility] [address] [place] [address] Jonas Gupta MD [address] [place] [address] 03/22/2024 7:30 AM EDT - 03/22/2024 10:20 AM EDT Surgery OR [facility] [address] [place] [phone] Jonas Gupta MD [address] [place], [place] [phone] TRANSURETHRAL RESECTION PROSTATE ELECTROSURGICAL 03/29/2024 10:30 AM EDT Nurse Only Urology, [place] [address] [place] [address] [facility] [address] [place] [address] 05/01/2024 1:15 PM EST Office Visit Urology [place] [address] [place], [place] [phone] Jonas Gupta MD [address] [place], [place] [phone] 10/07/2024 2:00 PM EDT Nurse Only Ancillary 65 [facility] [address] [place] [address] College, Nurse Annual Wellness Visit [address] [address] Scheduled Procedures Name Priority Associated Diagnoses Date/Ti [...] Antitrypsin 1963 Colonoscopy 06/23/2014 06/23/2009 COVID-19 Vaccine (2022-24 season) 2023 04/14/2023, 08/19/2022, 07/07/2021, Additional history exists Diabetic Eye Exam 01/25/2024 2023, , 2023, Additional history exists Influenza Vaccine (FLU shot) (#1) 2024 04/14/2023, 06/02/2022, 04/22/2021, Additional history exists HbA1c 04/25/2024 10/24/2023, 02/0 10/2023, 01/12/2023, Additional history exists Albumin/Creatinine Ratio 07/10/2024 024, 06/09/2022, 04/22/2021, Additional history exists Diabetic Foot Exam 07/10/2024 07/10/2023, 0 06/09/2022, 06/14/2021, Additional history exists Depression Screening 09/28/2024 09/29/2023, 09/29/19 24 B-12 10/23/2024 10/24/2023, 08/, 12/15/2021, Additional history exists GFR 10/23/2024 10/24/2023, 02/0 10/2023, 01/12/2023, Additional history exists O2 ASSESSMENT COMPLETED IN PAST YEAR FOR COPD 10/23/2024 10/24/2023 DTaP,Tdap,and Td Vaccines (3 - Td or Tdap) 01/23/2030 [...] filedocumented as of this encounter Care Teams Wildlife Policy Professional Relationship Specialty Start Date End Date Nirmala Alford DO PCP - General Family Medicine 06/09/22 documented as of this encounter
--- OUTSIDE RECORDS SUMMARY | 2024-06-16 23:46 | External Medical Summary | Summary of Care ---
Author Name Unknown Organization [facility] Address [address] [place] [address] Phone [phone] Care Team Providers Care Mate Relief Name Role Phone Nirmala Jackson DO Primary Care Provider Reason for Visit * Reason Onset Date Comments Medication Refill 01/01/2024 Encounter Details Date Type Department Care Team (Late st Contact Info) Description 01/01/2024 Refill Family Practice [address] [place] [address] [place] [address] Nirmala Jackson DO [address] [place] [address] Attention deficit hyperactivity disorder (ADHD), predominantly inattentive type Allergies Active Allergy Reactions Criticality Noted Date Comments Alcohol 01/19/2023 Sugar Alcohol Lactose Intolerance 12/12/2005 documented as of this encounter (statuses as of 01/02/2024) Medications Medication Sig Dispensed Refills Start Date [...] mouth daily at noon. -- getting through dinkey operator slag 3 Active [employer] In Vitro Strip (Glucose Blood) USE UP TO 4 TIMES A DAY DIRECTED 400 Strip 3 3 Active Incruse Ellipta 62.5 MCG/ACT Inhalation Aerosol Powder Breath Activated (umeclidinium [place])Indication s:Chronic obstructive pulmonary disease, unspecified COPD type [...] 6 4 12/18/19 25 Active Methylphenidate HCl 20 MG Oral Tablet (Ritalin)Indicatio ns:Attention deficit hyperactivity disorder (ADHD), predominantly inattentive type Take 0.5 Tablets by mouth 2 times a day. 30 Tablet 4 Active Methylphenidate HCl 20 MG Oral Tablet (Ritalin)Indicatio ns:Attention deficit hyperactivity disorder (ADHD), predominantly inattentive type Take 0.5 Tablets by mouth 2 times a day. 30 Tablet 4 01/01/20 24 Discontinu ed(Refill) documented as of this encounter (statuses as of 01/02/2024) Active Problems Problem Noted Date Diagnosed Date COPD, group B, by GOLD 2017 classification [...] as of this encounter (statuses as of 01/02/2024) Resolved Problems Problem Noted Date Diagnosed Date [...] as of this encounter (statuses as of 01/02/2024) Immunizations Name Administration Dates Next Due COVID-19 mRNA, LNP-s, No Pre serve, 2-Dose Series (Moderna) 09/07/2020,08/10/2020 COVID-19, LNP-s, No Preserve , Charlie-sucrose, Ages 12+ (Pfizer) 07/07/2021 COVID-19, MRNA-LNP, 23-24, P F, 30 MCG/0.3 mL, 12 YRS AND ABOVE, IM (Giveit100-Comirnaty) 04/14/2023 Covid-19, Mrna, Lnp-s, Pf, B ivalent, [...] Telephone Encounter - Nirmala Jackson DO - 01/02/2024 10:39 AM EDTSigned Prescriptions: Disp Refills Methylphenidate HCl 20 MG Oral Tablet (Rit*30 Tab*0 Sig: Take 0.5 Tablets by mouth 2 times a day.Authorizing Provider: NIRMALA JACKSON * Telephone Encounter - Nirmala Jackson DO - 01/02/2024 10:39 AM EDT Rx sent. I have reviewed the patients controlled substance dispensing history in the Prescription Drug Monitoring Program in compliance with the [facility] regulations before prescribing a controlled substance. Last Tox Screen Results: No results found for this or any previous visit. * Telephone Encounter - Merari Groves [facility] - 01/01/2024 4:11 PM EDT Pending Prescriptions: Disp Refills Methylphenidate HCl 20 MG Oral Tablet (Rit*30 Tab*0 Sig: Take 0.5 Tablets by mouth 2 times a day. * Telephone Encounter - Merari Groves [facility] - 01/01/2024 4:11 PM EDT I have reviewed the patients controlled substance dispensing history in the Prescription Drug Monitoring Program in compliance with the [facility] regulations before prescribing a controlled substance. PDMP checked on 01/01/2024. Pending Prescriptions: Disp Refills Methylphenidate HCl 20 MG Oral Tablet (Ri*30 Tab*0 Sig: Take 0.5 Tablets by mouth 2 times a day. Last Visit: 10/24/2023 (in office), 11/07/2023 (telemedicine) Next Visit: 01/23/2024 Date medication was last filled: 11/14/23 Date medication is due for refill: 12/12/23 [id number] [address] Is this request for a controlled substance? Yes and Urine Drug Screen Not completed Toxicology results: No results found for this or any previous visit. Please approve if appropriate. Thanks, Merari Groves [facility] Clinical Pharmacist [facility] ([facility]) [phone] * Telephone Encounter - [facility] - 01/01/2024 4:04 PM EDT Pt is out of medication. Did you pend patient's preferred pharmacy and medication before forwarding?yes Pharmacy: [id number] [address] Pending Prescriptions: Disp Refills Methylphenidate HCl 20 MG Oral Tablet (Ri*30 Tab*0 Sig: Take 0.5 Tablets by mouth 2 times a day. Last Visit: 10/24/2023 (in office), 11/07/2023 (telemedicine) Next Visit: 01/23/2024 If no future appointments scheduled, and last appointment is greater than a year ago, please schedule patient for a follow-up appointment Last date the medication was ordered: 11/14/2023 Is this request for a controlled substance?Yes, What was the last refill date 11/14/2023 w/ and dosage 20 MG and Urine Drug Screen Not completed Urine Drug Screen:No results found for this or any previous visit. Patient Phone Numbers Labs: Lab Results Component Value Date/Time CREAT 0.9 10/24/2023 03:02 PM CREAT 1.0 01/14/2020 09:14 AM POTASSIUM 4.6 10/24/2023 03:02 PM POTASSIUM 4.4 01/14/2020 09:07 AM TSH 1.94 04/08/2009 12:08 PM LDLCALC 41 07/10/2023 03:32 PM LDLCALC 57 01/14/2020 09:07 AM LDLDIRECT 60 12/15/2021 04:06 PM LDLDIRECT NOT APPLICABLE 09/05/2016 08:30 AM ALT 19 07/10/2023 03:32 PM ALT 23 01/14/2020 09:07 AM HGBA1C 8.3 (H) 10/24/2023 03:02 PM HGBA1C 8.0 (A) 05/24/2022 12:00 AM HGBA1C 8.0 (H) 01/14/2020 09:07 AM documented in this encounter Plan of Treatment Upcoming Encounters Date Type Department Care Team (Late st Contact Info) Description 01/04/2024 9:30 AM EDT Procedure Only Urology, [place] [address] [place] [facility] [place] [address] [facility] Gu[facility] [address] [facility] [address] 01/23/2024 1:30 PM EDT Nutrition Services Nutrition Services 65 [facility] [address] [place] [address] Mari Parra RDN [address] [place] [address] 01/23/2024 2:20 PM EDT Office Visit Family Practice 65 [facility] [address] [place] [phone] Nirmala Jackson DO [address] [place] [address] 03/13/2024 3:00 PM EDT Office Visit Podiatry [facility] [address] [place] [address] Coreen Gonzales, DPM [address] [place] [address] 10/07/2024 2:00 PM EDT Nurse Only Ancillary 65 [facility] [address] [place] [address] College, Nurse Annual Wellness Visit [address] [address] Scheduled Procedures Name Priority Associated Diagnoses Date/Ti me COLONOSCOPY FLEXIBLE PROXIMA L DIAGNOSTIC Recall Benign neoplasm of colon Health Maintenance Due Date Last Done Comments Alpha-1 Antitrypsin 1963 Colonoscopy 06/23/2014 06/23/2009 COVID-19 Vaccine ( season) 2023 04/14/2023, 08/19/2022, 07/07/2021, Additional history exists *CXR OR CT FOR COPD EVER 12/17/2023 Diabetic Eye Exam 01/25/2024 2023, , 2023, [...] 12/15/2021, Additional history exists GFR 10/23/2024 10/24/2023, 020 10/2023, 01/12/2023, Additional history exists O2 ASSESSMENT COMPLETED IN PAST YEAR FOR COPD 10/23/2024 10/24/2023 DTaP,Tdap,and Td Vaccines (3 - Td or Tdap) 01/23/2030 2020, 04/08/2009 RETIRED - COLONOSCOPY-EVERY 5 YRS AGES 18-100 Discontinued 06/23/2009 Pneumococcal Vaccine: 65+ Years Completed 09/07/2017, 11/07/2014, 02/25/2010 Hepatitis C Screening Completed 09/25/2018 Zoster Vaccines Completed 08/19/2022, 06/09/2022 HPV (Gardasil) [...] as of this encounter Visit Diagnoses Diagnosis Attention deficit hyperactivity disorder (ADHD), predominantly inattentive type documented in this encounter Care Teams Mate Relief Relationship Specialty Start Date End Date Nirmala Jackson DO PCP - General Family Medicine 06/09/22 documented as of this encounter
--- OUTSIDE RECORDS SUMMARY | 2024-06-16 23:46 | External Medical Summary | Summary of Care ---
Author Name Unknown Organization [facility] Address [address] [place] [address] Phone [phone] Care Team Providers Care Reporter Anchor Name Role Phone Nirmala Alford Derrick LOCO Primary Care Provider [phone] Reason for Visit * Reason Comments Urology Procedure Encounter Details Date Type Department Care Team (Latest Contact Info) Description 01/04/2024 9:30 AM EDT Procedure Only Urology, [place] [address] [place], [place] [phone] Jonas Gupta MD [address] [place], [place] [phone] Acute urinary retention*; BPH with obstruction/lower urinary tract symptoms; Bladder stone Allergies Active Allergy Reactions Criticality Noted Date Comments Alcohol 01/19/2023 Sugar Alcohol Lactose Intolerance 12/12/2005 documented as of this encounter (statuses as of 01/04/2024) Medications Medication Sig Dispensed Refills Start Date [...] mouth daily at noon. -- getting through customer care manager 04/07/2023 Active OneTouch Verio In Vitro Strip (Glucose Blood) USE UP TO 4 TIMES A DAY DIRECTED 400 Strip 3 06/01/2023 Active Incruse Ellipta 62.5 MCG/ACT Inhalation Aerosol Powder Breath Activated (umeclidinium [place])Indications :Chronic obstructive pulmonary disease, unspecified COPD type [...] 90 Tablet 6 12/18/2023 Active Methylphenidate HCl 20 MG Oral Tablet (Ritalin)Indication s:Attention deficit hyperactivity disorder (ADHD), predominantly inattentive type Take 0.5 Tablets by mouth 2 times a day. 30 Tablet 01/02/2024 Active Hospital, Clinic, or Other Facility Administered Medication Ordered Dose Route Frequency Start Date End Date Status sulfamethoxazole-trimethopr im DS (Bactrim DS) 800-160 MG 1 TabletIndications:Acute urinary retention,BPH with obstruction/lower urinary tract symptoms 1 Tablet OR ONCE 01/04/2024 01/04/2024 Active sulfamethoxazole-trimethopr im DS (Bactrim DS) 800-160 MG 1 TabletIndications:BPH with obstruction/lower urinary tract symptoms 1 Tablet OR ONCE 01/04/2024 01/04/2024 En ded documented as of this encounter (statuses as of 01/04/2024) Active Problems Problem Noted Date Diagnosed Date [...] as of this encounter (statuses as of 01/04/2024) Resolved Problems Problem Noted Date Diagnosed Date [...] as of this encounter (statuses as of 01/04/2024) Immunizations Name Administration Dates Next Due COVID-19 [...] Sign Reading Time Taken Comments Blood Pressure 101/78 01/04/2024 9:17 AM EDT Pulse 83 01/04/2024 9:17 AM EDT Temperature 35.5 C (95.9 F) 01/04/2024 9:17 AM ED T Respiratory Rate - - Oxygen Saturation - - Inhaled Oxygen Concentration - - Weight - - Height - - Body Mass Index - - documented in this encounter Nursing Notes * Aiyana Guevara RN - 01/04/2024 10:33 AM EDT Urine specimen obtained via 14 fr coude catheter. Pt was unable to void on own at time of appointment. * Aiyana Guevara RN - 01/04/2024 9:19 AM EDT Pt is not sure about his medication, reports he frequently forgets or is unsure of "where I am withthe pills". Will send not to PCP. documented in this encounter Plan of Treatment Upcoming Encounters Date Type Department Care Team (Late st Contact Info) Description 01/23/2024 1:30 PM EDT Nutrition Services Nutrition Services 65 [facility] [address] [place] [address] Mari Parra RDN [address] [place] [address] 01/23/2024 2:20 PM EDT Office Visit Family Practice 65 [facility] [address] [place] [address] Nirmala Alford, DO [address] [place] [address] 03/08/2024 9:00 AM EDT Pre-Admission Testing Pre [facility] Center, [place] [address] [place] [address] [facility] [address] [place] [address] 03/08/2024 10:00 AM EDT Office Visit General Internal Medicine, On License Of [facility] [address] [place] [address] Mariusz Bolden, [address] [place], [place] [phone] 03/13/2024 3:00 PM EDT Office Visit Podiatry [facility] [address] [facility] [place] [address] Coreen Gonzales DPM [facility] [place] [id number] 03/29/2024 10:30 AM EDT Nurse Only Urology, [place] [address] [place] [address] [place], [facility] [address] [place] [address] 05/01/2024 1:15 PM EST Office Visit Urology, [place] [address] [place] [address] Jonas Gupta MD [address] [place] [address] 10/07/2024 2:00 PM EDT Nurse Only Ancillary 65 [facility] [address] [place] [address] College, Nurse Annual Wellness Visit [address] [address] Scheduled Orders Name Type Priority Associated Diagnoses Orde r Schedule CYTOLOGY Pathology Routine BPH with obstruction/lower urinary tract symptoms Expected: 01/04/2024, Expires: 02/03/2025 CULTURE, URINE, QUANTITATIVE Lab Routine Acute urinary retention BPH with obstruction/lower urinary tract symptoms Bladder stone Expected: 01/04/2024, Expires: 01/03/2025 Scheduled Procedures Name Priority Associated Diagnoses Date/Ti ms TRANSURETHRAL RESECTION PROS JUAN ELECTROSURGICAL Acute urinary retention BPH with obstruction/lower urinary tract symptoms Bladder stone LITHOLAPAXY SIMPLE Acute urinary retention BPH with obstruction/lower urinary tract symptoms Bladder stone COLONOSCOPY FLEXIBLE PROXIMA L DIAGNOSTIC Recall Benign [...] Procedure Name Priority Date/Time Associated Diagnosis Comments URINALYSIS, POINT OF CARE LUCIO 01/04/2024 10:19 AM EDT documented in this encounter Results * (ABNORMAL) URINALYSIS, POINT OF CARE (01/04/2024 10:19 AM EDT) Color, Urine Dark Yellow(A) Light Yellow, Yellow 01/04/2024 10:21 AM EDT [employer] Clarity, Urine Clear Clear 01/04/2024 10:21 AM EDT [employer] Glucose, Urine 500(A) Negative mg/dL 01/04/2024 10:21 AM EDT [employer] Bilirubin, Urine Negative Negative 01/04/2024 10:21 AM EDT [facility] Ketone, Urine Trace(A) Negative mg/dL 01/04/2024 10:21 AM EDT [facility] Specific [place], Urine 1.010 1.003 - 1.030 01/04/2024 10:21 AM EDT [facility] Blood, Urine Negative Negative 01/04/2024 10:21 AM EDT [facility] pH, Urine 5.5 5.0, 5.5, 6.0, 6.5, 7.0, 7.5 units 01/04/2024 10:21 AM EDT [facility] Protein, Urine Negative Negative mg/dL 01/04/2024 10:21 AM EDT [facility] Urobilinogen, Urine 0.2 0.2, 1.0 mg/dL 01/04/2024 10:21 AM EDT [facility] Nitrite, Urine Negative Negative 01/04/2024 10:21 AM EDT [facility] Esterase, Urine Negative Negative 01/04/2024 10:21 AM EDT [facility] Urine 01/04/2024 10:1 9 AM EDT 01/04/2024 10:21 AM EDT Jonas Gupta MD LAB POINT OF CARE TE ST DOCKED DEVICE UNSOLICITED RESULTS 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
--- OUTSIDE RECORDS SUMMARY | 2024-06-16 23:46 | External Medical Summary | Summary of Care ---
Author Name Unknown Organization [facility] Address [address] [place] [address] Phone [phone] Care Team Providers Care Carbon Paper Machine Operator Name Role Phone Nirmala Alford DO Primary Care Provider Reason for Visit * Reason Onset Date Comments No Show 01/23/2024 Appt Encounter Details Date Type Department Care Team (Late st Contact Info) Description 01/23/2024 Telephone Family Practice 65 [facility] [address] [place] [address] Nirmala Alford DO [address] [place] [address] No Show (Appt) Allergies Active Allergy Reactions Criticality Noted Date Comments Alcohol 01/19/2023 Sugar Alcohol Lactose Intolerance 12/12/2005 documented as of this encounter (statuses as of 01/23/2024) Medications Medication Sig Dispensed Refills Start Date [...] mouth daily at noon. -- getting through news internship 04/07/2023 Active JenniferTouch Verio In Vitro Strip (Glucose Blood) USE UP TO 4 TIMES A DAY DIRECTED 400 Strip 3 06/01/2023 Active Incruse Ellipta 62.5 MCG/ACT Inhalation Aerosol Powder Breath Activated (umeclidinium [place])Indications :Chronic obstructive pulmonary disease, unspecified COPD type [...] as of this encounter (statuses as of 01/23/2024) Active Problems Patient Care Coordination No te [...] as of this encounter (statuses as of 01/23/2024) Resolved Problems Problem Noted Date Diagnosed Date [...] as of this encounter (statuses as of 01/23/2024) Immunizations Name Administration Dates Next Due COVID-19 [...] encounter Miscellaneous Notes * Telephone Encounter - Constanza Kong OSA - 01/23/2024 3:12 PM EDT Patient fell asleep and missed appt Patient is rescheduled for both appointments Patient aware documented in this encounter Plan of Treatment Upcoming Encounters Date Type Department Care Team (Latest Contact Info) Description 02/20/2024 3:30 PM EDT Nutrition Services Nutrition Services 65 [facility] [address] [place] [address] Mari Parra RDN [address] [place] [address] 02/20/2024 4:20 PM EDT Office Visit Family Practice 65 [facility] [address] [place] [address] Nirmala Alford DO [address] [place] [address] 03/08/2024 9:00 AM EDT Pre-Admission Testing [facility] [place], [address] [address] 03/08/2024 10:00 AM EDT Office Visit General Internal Medicine, [facility] [address] [place], [place] [phone] Mariusz Bolden DO [address] [place] [address] 03/13/2024 3:00 PM EDT Office Visit Podiatry [facility] [address] [place] [address] Coreen Gonzales, BRANDON [address] [place] [address] 03/22/2024 7:30 AM EDT Hospital Encounter OR [facility], OPERATING ROOM [facility], [facility] [address] [place] [phone] Jonas Gupta MD [address] [place] [address] 03/22/2024 7:30 AM EDT - 03/22/2024 10:20 AM EDT Surgery OR [facility], OPERATING ROOM [facility], [facility] [address] [place] [phone] Jonas Gupta MD [address] [place] [address] TRANSURETHRAL RESECTION PROSTATE ELECTROSURGICAL 03/29/2024 10:30 AM EDT Nurse Only Urology, [place] [address] [place] [address] John, Nurse Urology [address] [place] [address] 05/01/2024 1:15 PM EST Office Visit Urology, [place] [address] [place], [place] [phone] Jonas Gupta MD [address] [place] [address] 10/07/2024 2:00 PM EDT Nurse Only Ancillary 65 [facility] 293 [place] [address] College, Nurse Annual Wellness Visit 65 [facility] 293 [place] [address] Scheduled Procedures Name Priority Associated Diagnoses Date/Ti [...] 09/28/2024 09/29/2023, 09/29/19 24 B-12 10/23/2024 10/24/2023, 08/1 , 12/15/2021, Additional history exists GFR 10/23/2024 10/24/2023, [...] filedocumented as of this encounter Care Teams Carbon Paper Machine Operator Relationship Specialty Start Date End Date Nirmala Alford DO [address] [place] [address] PCP - General Family Medicine 01/23/24 documented as of this encounter
--- OUTSIDE RECORDS SUMMARY | 2024-06-16 23:46 | External Medical Summary | Summary of Care ---
Author Name Unknown Organization [facility] Address [address] [place] [address] Phone [phone] Care Team Providers Care Research Director Name Role Phone Nirmala Alford Derrick LOCO Primary Care Provider Reason for Visit * Reason Comments Urology Procedure Encounter Details Date Type Department Care Team (Latest Contact Info) Description 01/04/2024 9:30 AM EDT Procedure Only Urology, [place] [address] [place], [place] [phone] Jonas Gupta MD [address] [place], [place] [phone] Acute urinary retention*; BPH with obstruction/lower urinary [...] mouth daily at noon. -- getting through fiscal agent 04/07/2023 Active OneTouch Verio In Vitro Strip (Glucose Blood) USE UP TO 4 TIMES A DAY DIRECTED 400 Strip 3 06/01/2023 Active Incruse Ellipta 62.5 MCG/ACT Inhalation Aerosol Powder Breath Activated (umeclidinium [place])Indications :Chronic obstructive pulmonary disease, unspecified COPD type [...] PM EDT Nutrition Services Nutrition Services 65 [facility] [address] [place] [address] Mari Parra RDN 106 [facility] [place] [address] 01/23/2024 2:20 PM EDT Office Visit Family Practice 65 [facility] [address] [place] [address] Nirmala Alford, DO [address] [place] [address] 03/08/2024 9:00 AM EDT Pre-Admission Testing Pre Surgery Center, [place] [address] [place] [address] [facility] [address] [place] [address] 03/08/2024 10:00 AM EDT Office Visit General Internal Medicine, [facility] [address] [place] [address] Mariusz Bolden, [address] [place], [place] [phone] 03/13/2024 3:00 PM EDT Office Visit Podiatry [facility] 132 [facility] [place] [address] Coreen Gonzales DPM [address] [facility] [place] [id number] 03/29/2024 10:30 AM EDT Nurse Only Urology, [place] [address] [place] [address] [place], Nurse Urology [address] [place] [address] 05/01/2024 1:15 PM EST Office Visit Urology, [place] [address] [place] [address] Jonas Gupta MD [address] [place] [address] 10/07/2024 2:00 PM EDT Nurse Only Ancillary 65 [facility] [address] [place] [address] College, Nurse Annual Wellness Visit [address] [address] Scheduled Orders Name Type Priority Associated Diagnoses Orde r Schedule CYTOLOGY Pathology Routine BPH with obstruction/lower urinary tract symptoms Expected: 01/04/2024, Expires: 02/03/2025 CULTURE, URINE, QUANTITATIVE Lab Routine Acute urinary retention BPH with obstruction/lower urinary tract symptoms Bladder stone Expected: 01/04/2024, Expires: 01/03/2025 Scheduled Procedures Name Priority Associated Diagnoses Date/Ti fl TRANSURETHRAL RESECTION PROS JUAN ELECTROSURGICAL Acute urinary [...] Light Yellow, Yellow 01/04/2024 10:21 AM EDT [email or web address] Clarity, Urine Clear Clear 01/04/2024 10:21 AM EDT [email or web address] Glucose, Urine 500(A) Negative mg/dL 01/04/2024 10:21 AM EDT [email or web address] Bilirubin, Urine Negative Negative 01/04/2024 10:21 AM EDT [facility] Ketone, Urine Trace(A) Negative mg/dL 01/04/2024 10:21 AM EDT [facility] Specific [place], Urine 1.010 1.003 - 1.030 01/04/2024 10:21 AM EDT [facility] Blood, Urine Negative Negative 01/04/2024 10:21 AM EDT [facility] pH, Urine 5.5 5.0, 5.5, 6.0, 6.5, 7.0, 7.5 units 01/04/2024 10:21 AM EDT [facility] Protein, Urine Negative Negative mg/dL 01/04/2024 10:21 AM EDT [facility] Urobilinogen, Urine 0.2 0.2, 1.0 mg/dL 01/04/2024 10:21 AM EDT [facility] Nitrite, Urine Negative Negative 01/04/2024 10:21 AM EDT [facility] Esterase, Urine Negative Negative 01/04/2024 10:21 AM EDT [facility] Urine 01/04/2024 10:1 9 AM EDT 01/04/2024 10:21 AM EDT Jonas Gupta MD LAB POINT OF CARE TE ST DOCKED DEVICE UNSOLICITED RESULTS [facility] [address] [place] [address] documented in this encounter Visit Diagnoses Diagnosis [...] Tablet documented in this encounter Care Teams Research Director Relationship Specialty Start Date End Date Nirmala Alford DO PCP - General Family Medicine 06/09/22 documented as of this encounter
--- OUTSIDE RECORDS SUMMARY | 2024-06-16 23:46 | External Medical Summary ---
Author Name Unknown Address Unknown Organization : Laboratory Report Ordering Provider Test Date Status DEION BIRD 01/04/2024 10:19:00 Final Observation Date Value Abnormality Reference (Units ) Status Color of Urine by Auto 01/04/2024 10:19:00 Dark Yellow Abnormal Light Yellow, Yellow Final Clarity, Urine 01/04/2024 10:19:00 Clear Clear Final Glucose [Mass/volume] in Urine by Automated test strip 01/04/2024 10:19:00 500 Abnormal Negative (mg/dL) Final Bilirubin.total [Presence] in Urine by Automated test strip 01/04/2024 10:19:00 Negative Negative Final Ketones [Mass/volume] in Urine by Automated test strip 01/04/2024 10:19:00 Trace Abnormal Negative (mg/dL) Final Specific gravity, Urine 01/04/2024 10:19:00 1.010 1.003-1.030 Final Hemoglobin [Presence] in Urine by Automated test strip 01/04/2024 10:19:00 Negative Negative Final pH, Urine 01/04/2024 10:19:00 5.5 5.0, 5.5, 6.0, 6.5, 7.0, 7.5 (units) Final Protein [Mass/volume] in Urine by Automated test strip 01/04/2024 10:19:00 Negative Negative (mg/dL) Final Urobilinogen, Urine 01/04/2024 10:19:00 0.2 0.2, 1.0 (mg/dL) Final Nitrite [Presence] in Urine by Automated test strip 01/04/2024 10:19:00 Negative Negative Final Leukocyte esterase [Presence] in Urine by Automated test strip 01/04/2024 10:19:00 Negative Negative Final Performing Location
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
[2024-06-17 00:21] LABS: iSTAT Hemoglobin 10.9 g/dl (14.0-18.0); iSTAT Ionized Calcium 1.12 mmol/l (1.12-1.32); iSTAT Potassium 3.8 mmol/L (3.3-5.0)
[2024-06-17 00:25] LABS: Basophils # (auto) 0.01 K/uL (0.00-0.20); Basophils % (auto) 0.1 %; Hematocrit (blood only) 33.5 % (42.0-52.0); Hemoglobin 10.6 g/dl (14.0-18.0); Immature Granulocytes # (auto) 0.07 K/uL (0.01-0.20); Immature Granulocytes % (auto) 0.9 %; Lymphocytes # (auto) 0.32 K/uL (1.20-3.40); Lymphocytes % (auto) 4.3 %; Mean Corpuscular Hemoglobin 24.8 pg (25.0-34.0); Mean Corpuscular Hgb Conc 31.6 g/dL (32.0-36.0); Mean Corpuscular Volume 78.5 fL (80.0-100.0); Mean Platelet Volume 9.8 fL (9.4-12.4); Monocytes # (auto) 0.49 K/uL (0.11-0.59); Monocytes % (auto) 6.6 %; Neutrophils % (auto) 88.1 %; Platelet Count 216 K/uL (130-400); RDW Coefficient of Variation 15.4 % (11.5-14.5); RDW Standard Deviation 43.8 fL (36.4-46.3); Red Blood Count 4.27 M/uL (4.70-6.10); White Blood Count 7.39 K/ul (4.8-10.8)
[2024-06-17 00:41] LABS: Alanine Aminotransferase 12 U/L (7-52); Albumin Level 3.6 gm/dl (3.4-5.0); Alkaline Phosphatase 39 U/L (34-104); Anion Gap 10 (3-11); Aspartate Aminotransferase 16 U/L (13-39); BUN Creatinine Ratio 24.2 (10-20); Bilirubin Direct 0.3 mg/dl (0-0.2); Bilirubin,Total 0.7 mg/dl (0.2-1.0); Blood Urea Nitrogen 23 mg/dl (6-23); Calcium 8.9 mg/dl (8.6-10.3); Carbon Dioxide 26 mmol/L (21-32); Chloride 102 mmol/L (98-107); Glucose 245 mg/dl (70-99(Fasting)); Magnesium 1.5 mg/dl (1.7-2.4); Potassium 3.8 mmol/L (3.5-5.1); Sodium 138 mmol/L (136-145)
[2024-06-17 00:47] LABS: Troponin I High Sensitivity 9.1 pg/ml (0-20)
[2024-06-17 00:51] LABS: Appearance Urine Cloudy (Clear); Bacteria Urine Automated 4+ (None Seen); Bilirubin Urine Negative (Negative); Blood Urine 1+ (Negative); Color Urine Yellow; Epithelial Cell Urine Auto 0-2 /hpf (0-2); Glucose Urine UA 3+ (Negative); Ketones Urine 1+ (Negative); Leukocyte Esterase Urine 2+ (Negative); Nitrite Urine Negative (Negative); Protein Urine 1+ (Negative); Specific Gravity Urine 1.029 (1.000-1.030); Urobilinogen Urine Negative (Negative); WBC Urine Automated >50 /hpf (0-5); pH Urine 7.5 (4.5-7.5)
[2024-06-17] MEDS: SODIUM CHLORIDE 0.9% 1,000 ML IV ONE ×2 (01:02→03:57)
[2024-06-17] MEDS: cefTRIAXone SODIUM 2,000 MG/50 ML BAG IV STA (01:03)
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
[2024-06-17] MEDS ORDERED: Patient's HEIGHT &/or WEIGHT Needed STA (01:37)
[2024-06-17] MEDS: MAGNESIUM SULFATE / D5W 1 GM/100 ML BAG IV SCH (01:44)
[2024-06-17] MEDS: AZITHROMYCIN 250 MG TAB PO ONE (01:45)
[2024-06-17 02:15] LABS: Adenovirus PCR Not Detected (NotDetected); Bordetella parapertussis PCR Not Detected (NotDetected); Bordetella pertussis PCR Not Detected (NotDetected); Chlamydia pneumoniae PCR Not Detected (NotDetected); Coronavirus 229E PCR Not Detected (NotDetected); Coronavirus CoV-2 (COVID19)PCR Not Detected (NotDetected); Coronavirus HKU1 PCR Not Detected (NotDetected); Coronavirus NL63 PCR Not Detected (NotDetected); Coronavirus OC43PCR Not Detected (NotDetected); Human Metapneumovirus PCR Not Detected (NotDetected); Influenza A (H3) PCR DETECTED (NotDetected); Influenza B PCR Not Detected (NotDetected); Mycoplasma pneumoniae PCR Not Detected (NotDetected); Parainfluenza Virus 1 PCR Not Detected (NotDetected); Parainfluenza Virus 2 PCR Not Detected (NotDetected); Parainfluenza Virus 3 PCR Not Detected (NotDetected); Parainfluenza Virus 4 PCR Not Detected (NotDetected); Respiratory Syncytial VirusPCR Not Detected (NotDetected); Rhinovirus/Enterovirus PCR Not Detected (NotDetected)
[2024-06-17] MEDS ORDERED: PROMETHAZINE 6.25 MG/50.25 ML BAG IV PRN (02:17)
[2024-06-17] MEDS ORDERED: oxyCODONE HCL IR 5 MG TAB (IMMEDIATE RELEASE) PO PRN (02:54)
[2024-06-17] MEDS: OSELTAMIVIR PHOSPHATE 75 MG CAP PO STA (03:04)
[2024-06-17] MEDS: ALBUT/IPRATROP 3MG/0.5MG NEB 3 ML VIAL NEB STA (03:04)
--- NOTE | 2024-06-17 03:17 | CT Scan Report ---
EXAM: CT abd pelvis wo con CLINICAL HISTORY: RIGHT FLANK PAIN TECHNIQUE: Contiguous axial images were obtained from the level of the diaphragm to the pubic symphysis without intravenous or oral contrast. Coronal and sagittal reconstructions were likewise performed and indicated to increase the sensitivity for detecting clinically relevant pathology. CT scan was performed according to ALARA (as low as reasonable achievable). COMPARISON: None. FINDINGS: The visualized lung bases are clear. Evaluation of the abdominal and pelvic visceral organs is limited without intravenous contrast. The unenhanced liver, spleen, pancreas, and adrenal glands are grossly unremarkable. The gallbladder is removed. The kidneys are normal in size and attenuation without obvious calcification. Right kidney shows mild hydroureteronephrosis due to an obstructing calculus of size 14 mm involving right pelviureteric junction. Left kidney shows mild hydronephrosis and hydroureter up to an obstructing calculus of size 10 mm involving left lower ureter just proximal to vesicoureteric junction. Few tiny gravels are noted involving left kidney. No adenopathy or fluid collections are seen. No evidence of focal or diffuse bowel wall thickening or evidence of bowel obstruction is seen. The appendix is visualized in the right lower quadrant and appears within normal limits. The aorta is normal in caliber. The urinary bladder is normal in contour. Pelvic viscera are grossly unremarkable. No aggressive appearing osseous lesions are identified. 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 IMPRESSION: Right kidney shows mild hydroureteronephrosis due to an obstructing calculus of size 14 mm involving right pelviureteric junction. Left kidney shows mild hydronephrosis and hydroureter up to an obstructing calculus of size 10 mm involving left lower ureter just proximal to vesicoureteric junction. Few tiny gravels are noted involving left kidney. 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 Electronically signed by José Miguel Ritchie 06-17-2024 03:16 AM
[2024-06-17] MEDS ORDERED: GLUCOSE 40% GEL 15 GM TUBE PO PRN (03:41)
[2024-06-17] MEDS ORDERED: DEXTROSE 50% 50 ML SYRINGE IV PRN (03:41)
[2024-06-17] MEDS ORDERED: CARBOHYDRATES FOR HYPOGLYCEMIA PO PRN (03:41)
[2024-06-17] MEDS ORDERED: GLUCAGON FOR INJ 1 MG VIAL SQ PRN (03:41)
[2024-06-17] MEDS ORDERED: GLUCOSE 10 TAB/TUBE PO PRN (03:41)
[2024-06-17] MEDS: CEFEPIME 2000MG 2,000 MG/20 ML SYR IV STA (03:56)
[2024-06-17] MEDS: ACETAMINOPHEN 325 MG TAB PO PRN (03:56)
[2024-06-17] MEDS: TAMSULOSIN HCL 0.4 MG CAP PO STA (03:56)
[2024-06-17] MEDS: INSULIN ASPART PER UNIT CHARGE SC SCH ×2 (04:13→22:01)
[2024-06-17] MEDS: Patient's HEIGHT &/or WEIGHT Needed STA (04:14)
[2024-06-17] MEDS: PANTOprazole 40 MG TAB PO SCH (07:54)
[2024-06-17] MEDS: MULTIVITAMIN TAB PO SCH (08:10)
[2024-06-17] MEDS: ASPIRIN 81 MG ECTAB PO SCH (08:10)
[2024-06-17] MEDS: ATORVASTATIN 20 MG TAB PO SCH (08:10)
[2024-06-17] MEDS ORDERED: TAMSULOSIN HCL 0.4 MG CAP PO SCH (09:00)
[2024-06-17] MEDS ORDERED: ENOXAPARIN INJ 40 MG/0.4 ML SYR SQ SCH (09:00)
[2024-06-17] MEDS: OSELTAMIVIR PHOSPHATE 75 MG CAP PO SCH (09:47)
[2024-06-17] MEDS: LANTUS PER UNIT CHARGE SQ SCH (09:47)
[2024-06-17] MEDS: MAGNESIUM OXIDE 400 MG TAB PO SCH (09:47)
[2024-06-17] MEDS: UMECLIDINIUM BROMIDE 62.5MCG/BLISTER 7 PUFFS/INHALER INH SCH (09:56)
[2024-06-17] MEDS: CEFEPIME 2000MG 2,000 MG/20 ML SYR IV SCH (12:05)
--- NOTE | 2024-06-17 13:37 | Hospitalist Progress Note ---
<Statement entered by Keith Reyes DO - 06/17/24 14:54> I have seen and examined the patient and have discussed the case with the provider above. I have reviewed the advanced practitioner's documentation, and I agree with, and take responsibility for that plan of care. Patient seen and evaluated while still in ED. Extremely sleepy and fatigued from his night in the emergency department. Updated by urology further review of imaging no definitive ureteral stone. Patient with symptomatic influenza and concomitant UTI infections. Agree with plan of care as outlined below Date of Service June 17, 2024 Assessment & Plan (1) Hypotension: Plan: This is a 79 yr old M who has a significant PMH of T2DM, HLD, COPD, GERD, BPH, hx of tobacco use, ADHD who presented to ED in the late evening hours on 06/16/23 due to complaints of right flank pain that has been persistent for 7 days. Daughter at bedside also noted increased confusion and more weak that usual. Complicated UTI Influenza A + pt currently admitted to [facility] continue IV Cefepime for complicated UTI Continue Tamiflu for influenza A - currently on room air He does not meet sepsis criteria, await urine and blood cultures Initial CT abd/pelvis concerning for obstructing calculus; however after evaluation of imaging with urology who also discussed with radiology it was determined that this was not a stone and more likely R iliac calcification CXR: ill defined haziness in Left costophrenic region, possible pneumonia, likely viral Given no urologic stone identified urology will no longer be consulted on the case Hypomagnesemia: replaced, repeat in a.m. COPD/Hx of tobacco use: continue home inhalers, no acute exac T2DM: lantus/novolog per protocol, hold glipizide, metformin, farxiga - given UTI farxiga should be discontinued in favor of another agent Chronic Anemia: hgb at baseline, monitor HLD: chronic, stable continue statin ADHD: previously on ritalin DVT ppx: SQ Lovenox FULL CODE PCP: Dr. Alford Dispo: not yet medically stable for discharge, await cultures, PT/OT Patient daughter requesting updates from providers. Spoke to pt daughter Julianna Lennon, contact #[phone] and provided update. This note does not reflect a billable service as pt was admitted after 00:00 on 06/17/24. Admission and Anticipated Discharge Date Admission Date: June 17, 2024 Subjective Pt was seen and examined in ED as a hold in room A12. He wishes to sleep as he is very tired. He offers no acute concerns and denies pain. Review of Systems Review of Systems: All systems reviewed & are unremarkable except as noted in HPI & below Physical Exam Physical Exam: Gen: WD/WN, elderly, M, NAD, drowsy, A&O x3 HEENT: Normocephalic, atraumatic, conjunctivae moist, sclerae anicteric, mucous membranes moist. Lung: Clear to Auscultation bilaterally, no wheezes/rales/rhonchi Heart: Regular rate, regular rhythm, no murmurs, rubs, or gallops Abdomen: Soft, NT, ND +BS x 4 Extremities: No edema Skin: Warm, no rash, negative turgor. Results & Data Results & Data Vital Signs (Past 12 Hours) Vital Signs Temp Pulse Pulse Resp BP BP Pulse Ox 06/17/24 12:03 36.6 C 65 19 120/55 L 95 06/17/24 11:00 64 20 111/53 L 95 06/17/24 08:49 66 18 138/66 94 06/17/24 06:57 68 06/17/24 06:48 67 20 109/56 L 98 06/17/24 04:05 06/17/24 04:05 36.9 C 96 H 20 97 06/17/24 02:11 74 06/17/24 02:00 75 17 127/64 98 Pulse Ox O2 Del Method O2 Del Method 06/17/24 12:03 Room Air 06/17/24 11:00 Room Air 06/17/24 08:49 Room Air 06/17/24 06:57 06/17/24 06:48 Room Air 06/17/24 04:05 97 Room Air 06/17/24 04:05 Room Air 06/17/24 02:11 06/17/24 02:00 Room Air Medications Administered Current Inpatient Medications Acetaminophen (Acetaminophen 325 Mg Tab) 650 mg PO QID PRN PRN Reason: pain/fever Stop: 07/17/24 02:16 Last Admin: 06/17/24 08:10 Dose: 650 mg Aspirin (Aspirin 81 Mg Ectab) 81 mg PO [facility] Stop: 07/17/24 08:59 Last Admin: 06/17/24 08:10 Dose: 81 mg Atorvastatin Calcium (Atorvastatin 20 Mg Tab) 20 mg PO QAM ERINN Stop: 07/17/24 08:59 Last Admin: 06/17/24 08:10 Dose: 20 mg Dextrose (Dextrose 50% 50 Ml Syringe) 25 - 50 ml IV UD PRN; Protocol PRN Reason: Hypoglycemia Protocol Stop: 07/17/24 03:40 Glucagon (Glucagon For Inj 1 Mg Vial) 1 mg SQ UD PRN; Protocol PRN Reason: Hypoglycemia Protocol Stop: 07/17/24 03:40 Glucose (Glucose 40% Gel 15 Gm Tube) 15 - 30 gm PO UD PRN; Protocol PRN Reason: Hypoglycemia Protocol Stop: 07/17/24 03:40 Glucose (Glucose 10 Tab/Tube) 4 - 8 tab PO UD PRN; Protocol PRN Reason: Hypoglycemia Protocol Stop: 07/17/24 03:40 Promethazine HCl (Phenergan) 6.25 mg in 50.25 mls @ 201 mls/hr IV Q6H PRN PRN Reason: Nausea And Vomiting Stop: 07/17/24 02:16 Cefepime HCl (Maxipime 2000mg) 2,000 mg in 20 mls @ 5 mls/min IV Q8H ERINN; Protocol Stop: 06/27/24 11:59 Last Admin: 06/17/24 12:05 Dose: 5 mls/min Sodium Chloride (Nss) 1,000 mls @ 60 mls/hr IV .[id number] ONE Stop: 06/17/24 20:10 Last Infusion: 06/17/24 12:06 Dose: 60 mls/hr Insulin Aspart (Insulin Aspart Per Unit Charge) 0 units SC Q6 ERINN Stop: 07/17/24 03:59 Last Admin: 06/17/24 12:19 Dose: Not Given Insulin Glargine (Lantus Per Unit Charge) 5 units SQ DAILY ERINN Stop: 07/17/24 08:59 Last Admin: 06/17/24 09:47 Dose: 5 units Magnesium Oxide (Magnesium Oxide 400 Mg Tab) 400 mg PO DAILY [facility] Stop: 07/17/24 08:59 Last Admin: 06/17/24 09:47 Dose: 400 mg Miscellaneous (Carbohydrates For Hypoglycemia ) 15 - 30 gm PO UD PRN PRN Reason: Hypoglycemia Protocol Stop: 07/17/24 03:40 Multivitamins (Multivitamin Tab) 1 tab PO QAM [facility] Stop: 07/17/24 08:59 Last Admin: 06/17/24 08:10 Dose: 1 tab Oseltamivir Phosphate (Oseltamivir Phosphate 75 Mg Cap) 75 mg PO BID [facility]; Protocol Stop: 06/22/24 08:59 Last Admin: 06/17/24 09:47 Dose: 75 mg Oxycodone HCl (Oxycodone Hcl Ir 5 Mg Tab (Immediate Release)) 5 mg PO Q4H PRN PRN Reason: Pain Stop: 07/01/24 02:53 Pantoprazole Sodium (Pantoprazole 40 Mg Tab) 40 mg PO DAILYBB [facility] Stop: 07/17/24 06:29 Last Admin: 06/17/24 07:54 Dose: 40 mg Tamsulosin HCl (Tamsulosin Hcl 0.4 Mg Cap) 0.8 mg PO QAM [facility] Stop: 07/18/24 08:59 Umeclidinium [place] (Umeclidinium [place] 62.5mcg/Blister 7 Puffs/Inhaler) 1 puffs INH DAILY [facility] Stop: 07/17/24 08:59 Last Admin: 06/17/24 09:56 Dose: 1 puffs
[2024-06-17] MEDS: SODIUM CHLORIDE 0.9% 500 ML IV ONE (14:14)
[2024-06-17] MEDS ORDERED: Nursing to Pharmacy Communication SCH (19:15)
[2024-06-17] MEDS: ENOXAPARIN INJ 40 MG/0.4 ML SYR SQ SCH (22:01)
[2024-06-18] MEDS: TAMSULOSIN HCL 0.4 MG CAP PO SCH (08:13)
[2024-06-18 09:55] LABS: Basophils # (auto) 0.03 K/uL (0.00-0.20); Basophils % (auto) 0.5 %; Eosinophils # (auto) 0.04 K/uL (0.00-0.50); Eosinophils % (auto) 0.6 %; Hematocrit (blood only) 33.6 % (42.0-52.0); Hemoglobin 10.5 g/dl (14.0-18.0); Immature Granulocytes # (auto) 0.04 K/uL (0.01-0.20); Immature Granulocytes % (auto) 0.6 %; Lymphocytes # (auto) 0.59 K/uL (1.20-3.40); Lymphocytes % (auto) 9.4 %; Mean Corpuscular Hemoglobin 24.9 pg (25.0-34.0); Mean Corpuscular Hgb Conc 31.3 g/dL (32.0-36.0); Mean Corpuscular Volume 79.6 fL (80.0-100.0); Mean Platelet Volume 9.9 fL (9.4-12.4); Monocytes % (auto) 6.4 %; Neutrophils # (auto) 5.19 K/uL (1.40-6.50); Neutrophils % (auto) 82.5 %; Platelet Count 225 K/uL (130-400); RDW Coefficient of Variation 15.5 % (11.5-14.5); RDW Standard Deviation 44.7 fL (36.4-46.3); Red Blood Count 4.22 M/uL (4.70-6.10); White Blood Count 6.29 K/ul (4.8-10.8)
[2024-06-18] MEDS ORDERED: levoFLOXacin/D5W 750 MG/150 ML BAG IV SCH (10:00)
[2024-06-18 10:12] LABS: BUN Creatinine Ratio 22.8 (10-20); Calcium 8.4 mg/dl (8.6-10.3); Creatinine Clr Calc Pharmacy 80.9 ml/min; Magnesium 1.8 mg/dl (1.7-2.4); Potassium 3.6 mmol/L (3.5-5.1)
--- NOTE | 2024-06-18 11:23 | Hospitalist Progress Note ---
Date of Service June 18, 2024 Assessment & Plan (1) Hypotension: Plan: This is a 79 yr old M who has a significant PMH of T2DM, HLD, COPD, GERD, BPH, hx of tobacco use, ADHD who presented to ED in the late evening hours on 06/16/23 due to complaints of right flank pain that has been persistent for 7 days. Daughter at bedside also noted increased confusion and more weak that usual. Complicated UTI Influenza A + pt currently admitted to [facility] tele continue IV Cefepime for complicated UTI Continue Tamiflu for influenza A - currently on room air Urine culture: > 100k Proteus, await final Blood Culture: NGTD Initial CT abd/pelvis concerning for obstructing calculus; however after evaluation of imaging with urology who also discussed with radiology it was determined that this was not a stone and more likely R iliac calcification CXR: ill defined haziness in Left costophrenic region, possible pneumonia, likely viral Given no urologic stone identified urology will no longer be consulted on the case Hypomagnesemia: replaced and normalized Low/Normal blood pressure: per outpt chart review pt BP tends to run on the lower side, low 100s-120 systolic, monitor closely, not on any antihypertensives COPD/Hx of tobacco use: continue home inhalers, no acute exac T2DM: lantus/novolog per protocol, hold glipizide, metformin, farxiga - given UTI farxiga should be discontinued in favor of another agent, await a1c result Chronic Anemia: baseline hgb 10-11, remains stable, recommend updated anemia panel as an outpt HLD: chronic, stable continue statin ADHD: previously on ritalin DVT ppx: SQ Lovenox FULL CODE PCP: Dr. Alford Dispo: not yet medically stable for discharge, await cultures, PT/OT, will downgrade to medical as no longer requiring telemetry services Patient daughter requesting updates from providers. Attempted to contact daughter Julianna Lennon, contact #[phone], no answer, will try back later I spent a total of 50 minutes reviewing notes, outpatient records, labs, medication, coordinating, documenting and providing care for this patient excluding time spent in the performance of separately billed services. Admission and Anticipated Discharge Date Admission Date: June 17, 2024 Subjective Pt states he feels fine this morning. He has a productive cough. Denies f/c/s, chest pain, sob, n/v/d. He denies any dysuria, increased urinary urg/freq. Review of Systems Review of Systems: All systems reviewed & are unremarkable except as noted in HPI & below Physical Exam Physical Exam: Gen: WD/WN, elderly, M, NAD, drowsy, A&O x3 HEENT: Normocephalic, atraumatic, conjunctivae moist, sclerae anicteric, mucous membranes moist. Lung: Clear to Auscultation bilaterally, no wheezes/rales/rhonchi Heart: Regular rate, regular rhythm,nml S1/S2 Abdomen: Soft, NT, ND +BS x 4 Extremities: No edema Skin: Warm, no rash, negative turgor. Results & Data Results & Data Vital Signs (Past 12 Hours) Vital Signs Temp Pulse Pulse Resp BP Pulse Ox O2 Del Method 06/18/24 09:14 Room Air 06/18/24 07:32 36.4 C L 68 18 97/58 L 93 Room Air 06/18/24 07:26 60 06/18/24 03:19 36.4 C L 64 18 113/64 93 Room Air 06/17/24 23:57 36.6 C 79 18 103/54 L 93 Room Air Laboratory Results I have independently reviewed and interpreted patient's cbc, bmp, mag Short CBC 06/18/24 Range/Units 09:08 WBC 6.29 (4.8-10.8) K/ul Hgb 10.5 L (14.0-18.0) g/dl Hct 33.6 L (42.0-52.0) % Plt Count 225 (130-400) K/uL BMP 06/18/24 09:08 Sodium 138 Potassium 3.6 Chloride 106 Carbon Dioxide 25 BUN 18 Creatinine 0.79 Glucose 189 H Calcium 8.4 L Medications Administered Current Inpatient Medications Acetaminophen (Acetaminophen 325 Mg Tab) 650 mg PO QID PRN PRN Reason: pain/fever Stop: 07/17/24 02:16 Last Admin: 06/18/24 01:46 Dose: 650 mg Aspirin (Aspirin 81 Mg Ectab) 81 mg PO [facility] Stop: 07/17/24 08:59 Last Admin: 06/18/24 08:13 Dose: 81 mg Atorvastatin Calcium (Atorvastatin 20 Mg Tab) 20 mg PO [facility] Stop: 07/17/24 08:59 Last Admin: 06/18/24 08:13 Dose: 20 mg Dextrose (Dextrose 50% 50 Ml Syringe) 25 - 50 ml IV UD PRN; Protocol PRN Reason: Hypoglycemia Protocol Stop: 07/17/24 03:40 Enoxaparin Sodium (Enoxaparin Inj 40 Mg/0.4 Ml Syr) 40 mg SQ HS [facility] Stop: 07/17/24 20:59 Last Admin: 06/17/24 22:01 Dose: 40 mg Glucagon (Glucagon For Inj 1 Mg Vial) 1 mg SQ UD PRN; Protocol PRN Reason: Hypoglycemia Protocol Stop: 07/17/24 03:40 Glucose (Glucose 40% Gel 15 Gm Tube) 15 - 30 gm PO UD PRN; Protocol PRN Reason: Hypoglycemia Protocol Stop: 07/17/24 03:40 Glucose (Glucose 10 Tab/Tube) 4 - 8 tab PO UD PRN; Protocol PRN Reason: Hypoglycemia Protocol Stop: 07/17/24 03:40 Promethazine HCl (Phenergan) 6.25 mg in 50.25 mls @ 201 mls/hr IV Q6H PRN PRN Reason: Nausea And Vomiting Stop: 07/17/24 02:16 Cefepime HCl (Maxipime 2000mg) 2,000 mg in 20 mls @ 5 mls/min IV Q8H ERINN; Protocol Stop: 06/27/24 11:59 Last Admin: 06/18/24 03:59 Dose: 5 mls/min Insulin Aspart (Insulin Aspart Per Unit Charge) 0 units SC ACHS [facility] Stop: 07/17/24 03:59 Last Admin: 06/18/24 08:47 Dose: 4 units Insulin Glargine (Lantus Per Unit Charge) 5 units SQ DAILY [facility] Stop: 07/17/24 08:59 Last Admin: 06/18/24 08:48 Dose: 5 units Magnesium Oxide (Magnesium Oxide 400 Mg Tab) 400 mg PO DAILY [facility] Stop: 07/17/24 08:59 Last Admin: 06/18/24 09:06 Dose: 400 mg Miscellaneous (Carbohydrates For Hypoglycemia ) 15 - 30 gm PO UD PRN PRN Reason: Hypoglycemia Protocol Stop: 07/17/24 03:40 Multivitamins (Multivitamin Tab) 1 tab PO QAM [facility] Stop: 07/17/24 08:59 Last Admin: 06/18/24 08:13 Dose: 1 tab Oseltamivir Phosphate (Oseltamivir Phosphate 75 Mg Cap) 75 mg PO BID [facility]; Protocol Stop: 06/22/24 08:59 Last Admin: 06/18/24 08:13 Dose: 75 mg Oxycodone HCl (Oxycodone Hcl Ir 5 Mg Tab (Immediate Release)) 5 mg PO Q4H PRN PRN Reason: Pain Stop: 07/01/24 02:53 Pantoprazole Sodium (Pantoprazole 40 Mg Tab) 40 mg PO DAILYBB [facility] Stop: 07/17/24 06:29 Last Admin: 06/18/24 06:17 Dose: 40 mg Tamsulosin HCl (Tamsulosin Hcl 0.4 Mg Cap) 0.8 mg PO QAM [facility] Stop: 07/18/24 08:59 Last Admin: 06/18/24 08:13 Dose: 0.8 mg Umeclidinium [place] (Umeclidinium [place] 62.5mcg/Blister 7 Puffs/Inhaler) 1 puffs INH DAILY [facility] Stop: 07/17/24 08:59 Last Admin: 06/18/24 08:13 Dose: 1 puffs
[2024-06-18 13:52] LABS: Estimated Average Glucose 163 mg/dl; Hemoglobin A1C 7.3 % (4.5-5.6)
--- NOTE | 2024-06-19 05:38 | Electrocardiogram Report ---
Test Reason : Blood Pressure : */* mmHG Vent. Rate : 75 BPM Atrial Rate : 75 BPM P-R Int : 170 ms QRS Dur : 88 ms QT Int : 374 ms P-R-T Axes : 64 52 66 degrees QTcB Int : 417 ms Normal sinus rhythm Normal ECG When compared with ECG of 23-May-2022 19:12, Premature ventricular complexes are no longer Present Confirmed by Adam Otero ([id number]) on 06/19/2024 5:38:46 AM Referred By: REFERRED SELF Confirmed By: Adam Otero
--- NOTE | 2024-06-19 10:18 | Hospitalist Progress Note ---
Date of Service June 19, 2024 Assessment & Plan (1) Hypotension: Plan: This is a 79 yr old M who has a significant PMH of T2DM, HLD, COPD, GERD, BPH, hx of tobacco use, ADHD who presented to ED in the late evening hours on 06/16/23 due to complaints of right flank pain that has been persistent for 7 days. Daughter at bedside also noted increased confusion and more weak that usual. Complicated UTI Influenza A + pt currently admitted to [facility] tele Continue Tamiflu for influenza A - currently on room air Urine culture: > proteus mirabilis Blood Culture: NGTD Will de escalate cefepime to IV ceftriaxone today and then cefnidir starting 06/20 to complete on 06/[address] abd/pelvis concerning for obstructing calculus; however after evaluation of imaging with urology who also discussed with radiology it was determined that this was not a stone and more likely R iliac calcification CXR: ill defined haziness in Left costophrenic region, possible pneumonia, likely viral Given no urologic stone identified urology will no longer be consulted on the case Hypomagnesemia: replaced and normalized Low/Normal blood pressure: per outpt chart review pt BP tends to run on the lower side, low 100s-120 systolic, monitor closely, not on any antihypertensives COPD/Hx of tobacco use: continue home inhalers, no acute exac T2DM: lantus/novolog per protocol, hold glipizide, metformin, farxiga - given UTI farxiga should be discontinued in favor of another agent/defer new agent to PCP, a1c 7.3 Chronic Anemia: baseline hgb 10-11, remains stable, recommend updated anemia panel as an outpt HLD: chronic, stable continue statin ADHD: previously on ritalin DVT ppx: SQ Lovenox FULL CODE PCP: Dr. Alford Dispo: medically stable for discharge, await Rehab Patient daughter requesting updates from providers. I contacted daughter Julianna Lennon through [employer] (She is [employer] employee) and provided and update. I spent a total of 45 minutes reviewing notes, outpatient records, labs, medication, coordinating, documenting and providing care for this patient excluding time spent in the performance of separately billed services. Admission and Anticipated Discharge Date Admission Date: June 17, 2024 Supervising Physician Co-Signing Physician Notes Patient seen and examined I spent a total of 20 minutes coordinating, documenting and providing care for this patient excluding time spent in performance of separately billed services Subjective He is tired today. He offers no concerns. He states I ask him the same questions every day. He denies f/c/s, chest pain, sob, n/v/d. Review of Systems Review of Systems: All systems reviewed & are unremarkable except as noted in HPI & below Physical Exam Physical Exam: Gen: WD/WN, elderly, M, NAD, drowsy, A&O x3 HEENT: Normocephalic, atraumatic, conjunctivae moist, sclerae anicteric, mucous membranes moist. Lung: Clear to Auscultation bilaterally, no wheezes/rales/rhonchi Heart: Regular rate, regular rhythm,nml S1/S2 Abdomen: Soft, NT, ND +BS x 4 Extremities: No edema Skin: Warm, no rash, negative turgor. Results & Data Results & Data Vital Signs (Past 12 Hours) Vital Signs Temp Pulse Resp BP Pulse Ox O2 Del Method 06/19/24 07:48 36.7 C 71 20 123/60 94 Room Air 06/18/24 23:32 36.9 C 70 18 103/54 L 97 Room Air Medications Administered Current Inpatient Medications Acetaminophen (Acetaminophen 325 Mg Tab) 650 mg PO QID PRN PRN Reason: pain/fever Stop: 07/17/24 02:16 Last Admin: 06/18/24 01:46 Dose: 650 mg Aspirin (Aspirin 81 Mg Ectab) 81 mg PO [facility] Stop: 07/17/24 08:59 Last Admin: 06/19/24 08:58 Dose: 81 mg Atorvastatin Calcium (Atorvastatin 20 Mg Tab) 20 mg PO [facility] Stop: 07/17/24 08:59 Last Admin: 06/19/24 08:58 Dose: 20 mg Cefdinir (Cefdinir 300 Mg Cap) 300 mg PO BID ERINN; Protocol Stop: 06/28/24 08:59 Dextrose (Dextrose 50% 50 Ml Syringe) 25 - 50 ml IV UD PRN; Protocol PRN Reason: Hypoglycemia Protocol Stop: 07/17/24 03:40 Enoxaparin Sodium (Enoxaparin Inj 40 Mg/0.4 Ml Syr) 40 mg SQ HS [facility] Stop: 07/17/24 20:59 Last Admin: 06/18/24 20:18 Dose: 40 mg Glucagon (Glucagon For Inj 1 Mg Vial) 1 mg SQ UD PRN; Protocol PRN Reason: Hypoglycemia Protocol Stop: 07/17/24 03:40 Glucose (Glucose 40% Gel 15 Gm Tube) 15 - 30 gm PO UD PRN; Protocol PRN Reason: Hypoglycemia Protocol Stop: 07/17/24 03:40 Glucose (Glucose 10 Tab/Tube) 4 - 8 tab PO UD PRN; Protocol PRN Reason: Hypoglycemia Protocol Stop: 07/17/24 03:40 Promethazine HCl (Phenergan) 6.25 mg in 50.25 mls @ 201 mls/hr IV Q6H PRN PRN Reason: Nausea And Vomiting Stop: 07/17/24 02:16 Ceftriaxone Sodium (Rocephin) 1,000 mg in 50 mls @ 100 mls/hr IV NOW STA Stop: 06/19/24 10:45 Insulin Aspart (Insulin Aspart Per Unit Charge) 0 units SC ACHS [facility] Stop: 07/17/24 03:59 Last Admin: 06/19/24 08:57 Dose: 6 units Insulin Glargine (Lantus Per Unit Charge) 5 units SQ DAILY [facility] Stop: 07/17/24 08:59 Last Admin: 06/19/24 08:57 Dose: 5 units Magnesium Oxide (Magnesium Oxide 400 Mg Tab) 400 mg PO DAILY [facility] Stop: 07/17/24 08:59 Last Admin: 06/19/24 08:58 Dose: 400 mg Miscellaneous (Carbohydrates For Hypoglycemia ) 15 - 30 gm PO UD PRN PRN Reason: Hypoglycemia Protocol Stop: 07/17/24 03:40 Multivitamins (Multivitamin Tab) 1 tab PO QAM [facility] Stop: 07/17/24 08:59 Last Admin: 06/19/24 08:58 Dose: 1 tab Oseltamivir Phosphate (Oseltamivir Phosphate 75 Mg Cap) 75 mg PO BID [facility]; Protocol Stop: 06/22/24 08:59 Last Admin: 06/19/24 08:58 Dose: 75 mg Oxycodone HCl (Oxycodone Hcl Ir 5 Mg Tab (Immediate Release)) 5 mg PO Q4H PRN PRN Reason: Pain Stop: 07/01/24 02:53 Pantoprazole Sodium (Pantoprazole 40 Mg Tab) 40 mg PO DAILYBB [facility] Stop: 07/17/24 06:29 Last Admin: 06/19/24 06:05 Dose: 40 mg Tamsulosin HCl (Tamsulosin Hcl 0.4 Mg Cap) 0.8 mg PO QAM [facility] Stop: 07/18/24 08:59 Last Admin: 06/19/24 08:58 Dose: 0.8 mg Umeclidinium [place] (Umeclidinium [place] 62.5mcg/Blister 7 Puffs/Inhaler) 1 puffs INH DAILY [facility] Stop: 07/17/24 08:59 Last Admin: 06/19/24 08:58 Dose: 1 puffs
[2024-06-19] MEDS: cefTRIAXone SODIUM 1,000 MG/50 ML BAG IV STA (11:34)
[2024-06-20] MEDS: CEFDINIR 300 MG CAP PO SCH (08:30)
--- NOTE | 2024-06-20 11:23 | Hospitalist Progress Note ---
Date of Service June 20, 2024 Assessment & Plan (1) Hypotension: Plan: This is a 79 yr old M who has a significant PMH of T2DM, HLD, COPD, GERD, BPH, hx of tobacco use, ADHD who presented to ED in the late evening hours on 06/16/23 due to complaints of right flank pain that has been persistent for 7 days. Daughter at bedside also noted increased confusion and more weak that usual. Complicated UTI Influenza A + pt currently admitted to [facility] tele Continue Tamiflu for influenza A - currently on room air Urine culture: > proteus mirabilis Blood Culture: NGTD Will de escalate cefepime to IV ceftriaxone today and then cefnidir starting 06/20 to complete on 06/[address] abd/pelvis concerning for obstructing calculus; however after evaluation of imaging with urology who also discussed with radiology it was determined that this was not a stone and more likely R iliac calcification CXR: ill defined haziness in Left costophrenic region, possible pneumonia, likely viral Given no urologic stone identified urology will no longer be consulted on the case Hypomagnesemia: replaced and normalized Low/Normal blood pressure: per outpt chart review pt BP tends to run on the lower side, low 100s-120 systolic, monitor closely, not on any antihypertensives COPD/Hx of tobacco use: continue home inhalers, no acute exac T2DM: lantus/novolog per protocol, hold glipizide, metformin, farxiga - given UTI farxiga should be discontinued in favor of another agent/defer new agent to PCP, a1c 7.3 Chronic Anemia: baseline hgb 10-11, remains stable, recommend updated anemia panel as an outpt HLD: chronic, stable continue statin ADHD: previously on ritalin DVT ppx: SQ Lovenox FULL CODE PCP: Dr. Alford Dispo: medically stable for discharge, await SNF Rehab, CM assisting I spent a total of 45 minutes reviewing notes, outpatient records, labs, medicat ion, coordinating, documenting and providing care for this patient excluding time spent in the performance of separately billed services. Admission and Anticipated Discharge Date Admission Date: June 17, 2024 Subjective Patient seen and examined today. Was able to washout this morning and participate in therapy. Now feeling tired and wanting to rest. Expresses concern about ongoing health issues and wound questioning whether or not he can return to baseline. Denies f/c/s, chest pain, sob, n/v/d. Review of Systems Review of Systems: At least ten systems reviewed and negative except as noted in the HPI. Physical Exam Physical Exam: Gen: WD/WN, elderly, M, NAD, resting comfortably, A&O x3 HEENT: Normocephalic, atraumatic, conjunctivae moist, sclerae anicteric, mucous membranes moist Lung: Clear to Auscultation bilaterally Heart: Regular rate, regular rhythm,nml S1/S2 Abdomen: Soft, NT, ND +BS x 4 Extremities: No edema Skin: Warm, no rash Results & Data Results & Data Vital Signs (Past 12 Hours) Vital Signs Temp Pulse Resp BP Pulse Ox O2 Del Method 06/20/24 07:33 36.4 C L 63 16 123/61 95 Room Air 06/20/24 03:40 36.7 C 65 18 128/69 95 Room Air
--- NOTE | 2024-06-21 12:51 | Hospitalist Progress Note ---
Date of Service June 21, 2024 Assessment & Plan (1) Hypotension: Plan: This is a 79 yr old M who has a significant PMH of T2DM, HLD, COPD, GERD, BPH, hx of tobacco use, ADHD who presented to ED in the late evening hours on 06/16/23 due to complaints of right flank pain that has been persistent for 7 days. Daughter at bedside also noted increased confusion and more weak that usual. Complicated UTI Influenza A + Pt currently admitted to [facility] tele Continue Tamiflu for influenza A - currently on room air (EOT: 06/22) Urine culture: > proteus mirabilis Blood Culture: NGTD Will de escalate cefepime to IV ceftriaxone today and then Cefnidir starting 06/20 to complete on 06/[address] abd/pelvis concerning for obstructing calculus; however after evaluation of imaging with urology who also discussed with radiology it was determined that this was not a stone and more likely R iliac calcification CXR: ill defined haziness in Left costophrenic region, possible pneumonia, likely viral Given no urologic stone identified urology will no longer be consulted on the case Hypomagnesemia: replaced and normalized Low/Normal blood pressure: per outpt chart review pt BP tends to run on the lower side, low 100s-120 systolic, monitor closely, not on any antihypertensives COPD/Hx of tobacco use: continue home inhalers, no acute exac T2DM: lantus/novolog per protocol, hold glipizide, metformin, farxiga - given UTI farxiga should be discontinued in favor of another agent/defer new agent to PCP, a1c 7.3 Chronic Anemia: baseline hgb 10-11, remains stable, recommend updated anemia panel as an outpt HLD: chronic, stable continue statin ADHD: previously on ritalin DVT ppx: SQ Lovenox FULL CODE PCP: Dr. Alford Dispo: medically stable for discharge, await SNF Rehab, CM assisting - referrals pending at [facility] and [facility] discussion with daughter Julianna RN today - goal is for SNF rehab and then return to live with her I spent a total of 45 minutes reviewing notes, outpatient records, labs, medication, coordinating, documenting and providing care for this patient excluding time spent in the performance of separately billed services. Care coordinated with Dr. Patterson. Admission and Anticipated Discharge Date Admission Date: June 17, 2024 Supervising Physician Co-Signing Physician Notes Patient seen and examined I spent a total of 30 minutes coordinating, documenting and providing care for this patient excluding time spent in performance of separately billed services Subjective Patient seen and examined today. Sleeping during exam, agitated with staff about being woken up for exams. Does not want to get out of bed. No new health concerns. Denies f/c/s, chest pain, sob, n/v/d. Review of Systems Review of Systems: At least ten systems reviewed and negative except as noted in the HPI. Physical Exam Physical Exam: Gen: WD/WN, elderly, M, NAD, resting comfortably, A&O x3 HEENT: Normocephalic, atraumatic, conjunctivae moist, sclerae anicteric, mucous membranes moist Lung: Clear to Auscultation bilaterally Heart: Regular rate, regular rhythm,nml S1/S2 Abdomen: Soft, NT, ND +BS x 4 Extremities: No edema Skin: Warm, no rash Results & Data Results & Data Vital Signs (Past 12 Hours) Vital Signs Temp Pulse Resp BP Pulse Ox O2 Del Method 06/21/24 07:55 36.5 C 59 L 18 146/70 H 94 Room Air Laboratory Results Abnormal lab results 06/20/24 06/20/24 06/21/24 Range/Units 17:18 20:14 08:18 POC Glucose 171 H 209 H 178 H (70-99) mg/dl 06/21/24 06/21/24 Range/Units 12:16 13:14 POC Glucose 269 H 312 H* (70-99) mg/dl
[2024-06-21] MEDS ORDERED: PHARMACY GLYCEMIC MGMT CONSULT PRN (14:46)
--- NOTE | 2024-06-21 15:35 | Pharmacy Report ---
Pharmacy Glycemic Short Note 2 - Date of Service June 21, 2024 - Glycemic Short BSG Results (Last 24 hours): 06/20/24 06/20/24 06/21/24 17:18 20:14 08:18 POC Glucose 171 H 209 H 178 H 06/21/24 06/21/24 12:16 13:14 POC Glucose 269 H 312 H* OUTPATIENT ANTIDIABETIC REGIMEN: * glipizide 10mg PO BID * metformin 850mg PO TIDM * Farxiga 10mg PO QD * HbA1c 7.3% (06/18/24) ASSESSMENT: * Kamlesh is a 79 YOM admitted for complicated UTI and Influenza A with a history of T2DM. Pharmacy has been consulted to assist with glycemic management while inpatient. * Fasting BSG this AM slightly elevated with increase basal insulin slightly. * Hyperglycemic at lunch today, NovoLog adjusted to a weight based stress of 2 PLAN FOR INPATIENT GLYCEMIC CONTROL: * Hold outpatient oral diabetes medications * Basal insulin * Lantus 7 units SQ BID * Bolus insulin * NovoLog per scale ACHS or Q6hrs while NPO * Goal Range: Low 110 mg/dL - High 140 mg/dL * Correction Factor: 30 mg/dL/unit * Nutritional / Prandial insulin per carb ratio of 1 unit per 10 grams CHO consumed
[2024-06-21] MEDS: LANTUS PER UNIT CHARGE SQ SCH ×2 (16:54→20:04)
[2024-06-22 06:55] LABS: Hematocrit (blood only) 31.9 % (42.0-52.0); Mean Corpuscular Hemoglobin 25.1 pg (25.0-34.0); Mean Corpuscular Hgb Conc 31.3 g/dL (32.0-36.0); Mean Corpuscular Volume 80.2 fL (80.0-100.0); Mean Platelet Volume 9.6 fL (9.4-12.4); Platelet Count 230 K/uL (130-400); RDW Coefficient of Variation 15.3 % (11.5-14.5); RDW Standard Deviation 44.7 fL (36.4-46.3); Red Blood Count 3.98 M/uL (4.70-6.10); White Blood Count 4.25 K/ul (4.8-10.8)
[2024-06-22 07:21] LABS: BUN Creatinine Ratio 28.4 (10-20); Calcium 8.8 mg/dl (8.6-10.3); Creatinine Clr Calc Pharmacy 95.1 ml/min; Potassium 3.6 mmol/L (3.5-5.1)
--- NOTE | 2024-06-22 08:41 | Hospitalist Progress Note ---
Date of Service June 22, 2024 Assessment & Plan (1) Hypotension: Plan: 79 yr old M who has a significant PMH of T2DM, HLD, COPD, GERD, BPH, hx of tobacco use, ADHD who presented to ED in the late evening hours on 06/16/23 due to complaints of right flank pain that has been persistent for 7 days. Daughter also reported increased confusion and more weak that usual. Complicated UTI Influenza A + Urine culture: > proteus mirabilis Blood Culture: NGTD Initial CT abd/pelvis concerning for obstructing calculus; however after evaluation of imaging with urology who also discussed with radiology it was determined that this was not a stone and more likely R iliac calcification CXR: ill defined haziness in Left costophrenic region, possible pneumonia, likely viral Continue tamiflu to complete treatment Continue cefdinir to complete 7 days of treatment Hypomagnesemia: Had Mag of 1.5 on admission and was repleted Low/Normal blood pressure: Per outpt chart review pt BP tends to run on the lower side, low 100s-120 systolic, monitor closely, not on any antihypertensives COPD/Hx of tobacco use: Continue home inhalers, no acute exac T2DM: Continue to hold home glipizide, metformin, farxiga Hba1c 7.3 Discussed discontinuation of farxiga in view of his UTI. He will like to defer that to his PCP Continue ISS/lantus protocol to maintain normoglycemia Chronic Anemia: Baseline hgb 10-11 Stable HLD: Chronic, stable Continue statin ADHD: Previously on ritalin DVT ppx: SQ Lovenox FULL CODE PCP: Dr. Alford CM working on placement I spent a total of 40 minutes reviewing notes, outpatient records, labs, medication, coordinating, documenting and providing care for this patient excluding time spent in the performance of separately billed services. Admission and Anticipated Discharge Date Admission Date: June 17, 2024 Subjective Patient seen and examined Reports he did not get enough sleep last night and will like not to be disturbed to get some sleep Reports minimal cough Denied other complaints Physical Exam Constitutional: + well hydrated; no acute distress Eyes: PERRL, conjunctivae normal, anicteric sclerae ENMT: external ear and nose normal, oropharynx normal Respiratory: normal respiratory effort, lungs clear to auscultation Cardiovascular: Rate/Rhythm: regular rate and regular rhythm Gastrointestinal (Abdomen): normal bowel sounds, soft, nontender, no hepatosplenomegaly Musculoskeletal: No pedal edema Neurologic: PERRL, EOMI, accommodation nl, no face palsy, no dysarthria Results & Data Results & Data Vital Signs (Past 12 Hours) Vital Signs Temp Pulse Resp BP Pulse Ox O2 Del Method 06/22/24 07:48 36.5 C 66 20 116/67 94 Room Air Laboratory Results Abnormal lab results 06/21/24 06/21/24 06/21/24 Range/Units 12:16 13:14 17:14 WBC (4.8-10.8) K/ul RBC (4.70-6.10) M/uL Hgb (14.0-18.0) g/dl Hct (42.0-52.0) % MCHC (32.0-36.0) g/dL RDW Coeff of Andreas (11.5-14.5) % BUN/Creatinine Ratio (10-20) Glucose (70-99(Fasting)) mg/dl POC Glucose 269 H 312 H* 139 H (70-99) mg/dl 06/21/24 06/22/24 06/22/24 Range/Units 19:54 06:23 08:23 WBC 4.25 L (4.8-10.8) K/ul RBC 3.98 L (4.70-6.10) M/uL Hgb 10.0 L (14.0-18.0) g/dl Hct 31.9 L (42.0-52.0) % MCHC 31.3 L (32.0-36.0) g/dL RDW Coeff of Andreas 15.3 H (11.5-14.5) % BUN/Creatinine Ratio 28.4 H (10-20) Glucose 169 H (70-99(Fasting)) mg/dl POC Glucose 153 H 161 H (70-99) mg/dl
[2024-06-22] MEDS: LANTUS PER UNIT CHARGE SQ SCH (20:43)
[2024-06-23] MEDS: LANTUS PER UNIT CHARGE SQ SCH (10:07)
--- NOTE | 2024-06-23 10:23 | Hospitalist Progress Note ---
Date of Service June 23, 2024 Assessment & Plan (1) Hypotension: Plan: 79 yr old M who has a significant PMH of T2DM, HLD, COPD, GERD, BPH, hx of tobacco use, ADHD who presented to ED in the late evening hours on 06/16/23 due to complaints of right flank pain that has been persistent for 7 days. Daughter also reported increased confusion and more weak that usual. Complicated UTI Influenza A + Urine culture: > proteus mirabilis Blood Culture: NGTD Initial CT abd/pelvis concerning for obstructing calculus; however after evaluation of imaging with urology who also discussed with radiology it was determined that this was not a stone and more likely R iliac calcification CXR: ill defined haziness in Left costophrenic region, possible pneumonia, likely viral Completed tamiflu and antibiotics treatment Hypomagnesemia: Had Mag of 1.5 on admission and was repleted Low/Normal blood pressure: Per outpt chart review pt BP tends to run on the lower side, low 100s-120 systolic, Not on any antihypertensives COPD/Hx of tobacco use: Continue home inhalers, no acute exac T2DM: Continue to hold home glipizide, metformin, farxiga Hba1c 7.3 Discussed discontinuation of farxiga in view of his UTI. He will like to defer that to his PCP Continue ISS/lantus protocol to maintain normoglycemia Chronic Anemia: Baseline hgb 10-11 Stable HLD: Chronic, stable Continue statin ADHD: Previously on ritalin DVT ppx: SQ Lovenox FULL CODE PCP: Dr. Alford CM working on placement I spent a total of 35 minutes reviewing notes, outpatient records, labs, medication, coordinating, documenting and providing care for this patient excluding time spent in the performance of separately billed services. Admission and Anticipated Discharge Date Admission Date: June 17, 2024 Subjective Patient seen and examined No events overnight Physical Exam Constitutional: + well hydrated; no acute distress Eyes: PERRL, conjunctivae normal, anicteric sclerae ENMT: external ear and nose normal, oropharynx normal Respiratory: normal respiratory effort, lungs clear to auscultation Cardiovascular: Rate/Rhythm: regular rate and regular rhythm Gastrointestinal (Abdomen): normal bowel sounds, soft, nontender, no hepatosplenomegaly Neurologic: PERRL, EOMI, accommodation nl, no face palsy, no dysarthria Results & Data Results & Data Vital Signs (Past 12 Hours) Vital Signs Temp Pulse Resp BP Pulse Ox O2 Del Method 06/23/24 07:51 36.5 C 58 L 18 165/76 H 95 Room Air 06/23/24 07:10 Room Air 06/23/24 00:00 Room Air 06/22/24 23:45 36.6 C 74 18 130/66 97 Room Air Laboratory Results Abnormal lab results 06/22/24 06/22/24 06/22/24 Range/Units 12:16 17:10 20:29 POC Glucose 243 H 175 H 194 H (70-99) mg/dl 06/23/24 Range/Units 07:46 POC Glucose 172 H (70-99) mg/dl
--- NOTE | 2024-06-24 09:46 | Hospitalist Progress Note ---
Date of Service June 24, 2024 Assessment & Plan (1) Hypotension: Plan: 79 yr old M who has a significant PMH of T2DM, HLD, COPD, GERD, BPH, hx of tobacco use, ADHD who presented to ED in the late evening hours on 06/16/23 due to complaints of right flank pain that has been persistent for 7 days. Daughter also reported increased confusion and more weak that usual. Complicated UTI Influenza A + Urine culture: > proteus mirabilis Blood Culture: NGTD Initial CT abd/pelvis concerning for obstructing calculus; however after evaluation of imaging with urology who also discussed with radiology it was determined that this was not a stone and more likely R iliac calcification CXR: ill defined haziness in Left costophrenic region, possible pneumonia, likely viral Completed tamiflu and antibiotics treatment Hypomagnesemia: Had Mag of 1.5 on admission and was repleted Low/Normal blood pressure: Per outpt chart review pt BP tends to run on the lower side, low 100s-120 systolic, Not on any antihypertensives COPD/Hx of tobacco use: Continue home inhalers, no acute exac T2DM: Continue to hold home glipizide, metformin, farxiga Hba1c 7.3 Discussed discontinuation of farxiga in view of his UTI. He will like to defer that to his PCP Continue ISS/lantus protocol to maintain normoglycemia Chronic Anemia: Baseline hgb 10-11 Stable HLD: Chronic, stable Continue statin ADHD: Previously on ritalin DVT ppx: SQ Lovenox FULL CODE PCP: Dr. Alford CM working on placement I spent a total of 35 minutes reviewing notes, outpatient records, labs, medication, coordinating, documenting and providing care for this patient excluding time spent in the performance of separately billed services. Admission and Anticipated Discharge Date Admission Date: June 17, 2024 Subjective Patient seen and examined Denied any complaints Physical Exam Constitutional: + well hydrated; no acute distress Eyes: PERRL, conjunctivae normal, anicteric sclerae ENMT: external ear and nose normal, oropharynx normal Respiratory: normal respiratory effort, lungs clear to auscultation Cardiovascular: Rate/Rhythm: regular rate and regular rhythm Gastrointestinal (Abdomen): normal bowel sounds, soft, nontender, no hepatosplenomegaly Musculoskeletal: No pedal edema Neurologic: PERRL, EOMI, accommodation nl, no face palsy, no dysarthria Psychiatric: AOx3 Results & Data Results & Data Vital Signs (Past 12 Hours) Vital Signs Temp Pulse Resp BP Pulse Ox O2 Del Method 06/24/24 07:35 Room Air 06/24/24 07:16 36.5 C 68 16 120/70 95 Room Air Laboratory Results Abnormal lab results 06/23/24 06/23/24 06/23/24 Range/Units 11:36 16:15 20:24 POC Glucose 215 H 242 H 169 H (70-99) mg/dl 06/24/24 Range/Units 07:28 POC Glucose 151 H (70-99) mg/dl
--- NOTE | 2024-06-24 10:39 | Pharmacy Report ---
Pharmacy Glycemic Short Note 2 - Date of Service June 24, 2024 - Glycemic Short BSG Results (Last 24 hours): 06/23/24 06/23/24 06/23/24 11:36 16:15 20:24 POC Glucose 215 H 242 H 169 H 06/24/24 07:28 POC Glucose 151 H OUTPATIENT ANTIDIABETIC REGIMEN: * glipizide 10mg PO BID * metformin 850mg PO TIDM * Farxiga 10mg PO QD * HbA1c 7.3% (06/18/24) ASSESSMENT: 06/24/24 * patient received 24 units of lantus and 27 units of novolog yesterday. * fasting blood glucose came good 151 mg/dL * BSG at lunch time is trending high, so tighten carb ratio to 8 06/21/24 * Kamlesh is a 79 YOM admitted for complicated UTI and Influenza A with a history of T2DM. Pharmacy has been consulted to assist with glycemic management while inpatient. * Fasting BSG this AM slightly elevated with increase basal insulin slightly. * Hyperglycemic at lunch today, NovoLog adjusted to a weight based stress of 2 PLAN FOR INPATIENT GLYCEMIC CONTROL: * Hold outpatient oral diabetes medications * Basal insulin * Lantus 12 units SQ BID * Bolus insulin * NovoLog per scale ACHS or Q6hrs while NPO * Goal Range: Low 110 mg/dL - High 140 mg/dL * Correction Factor: 25 mg/dL/unit * Nutritional / Prandial insulin per carb ratio of 1 unit per 8 grams CHO consumed
--- NOTE | 2024-06-25 11:23 | Hospitalist Progress Note ---
Date of Service June 25, 2024 Assessment & Plan (1) Hypotension: Plan: 79 yr old M who has a significant PMH of T2DM, HLD, COPD, GERD, BPH, hx of tobacco use, ADHD who presented to ED in the late evening hours on 06/16/23 due to complaints of right flank pain that has been persistent for 7 days. Daughter also reported increased confusion and more weak that usual. Complicated UTI Influenza A + Urine culture: > proteus mirabilis Blood Culture: NGTD Initial CT abd/pelvis concerning for obstructing calculus; however after evaluation of imaging with urology who also discussed with radiology it was determined that this was not a stone and more likely R iliac calcification CXR: ill defined haziness in Left costophrenic region, possible pneumonia, likely viral Completed tamiflu and antibiotics treatment Hypomagnesemia: Had Mag of 1.5 on admission and was repleted Low/Normal blood pressure: Per outpt chart review pt BP tends to run on the lower side, low 100s-120 systolic, Not on any antihypertensives BP has recently been stable COPD/Hx of tobacco use: Continue home inhalers, no acute exac T2DM: Continue to hold home glipizide, metformin, farxiga Hba1c 7.3 Discussed discontinuation of farxiga in view of his UTI. He will like to defer that to his PCP Continue ISS/lantus protocol to maintain normoglycemia Chronic Anemia: Baseline hgb 10-11 Stable HLD: Chronic, stable Continue statin ADHD: Previously on ritalin DVT ppx: SQ Lovenox FULL CODE PCP: Dr. Alford CM working on placement Counseled patient on need to work with PT/OT to facilitate placmeent I spent a total of 35 minutes reviewing notes, outpatient records, labs, medication, coordinating, documenting and providing care for this patient excluding time spent in the performance of separately billed services. Admission and Anticipated Discharge Date Admission Date: June 17, 2024 Subjective Patient seen and examined Denied any complaints Physical Exam Constitutional: + well hydrated; no acute distress Eyes: PERRL, conjunctivae normal, anicteric sclerae ENMT: external ear and nose normal, oropharynx normal Respiratory: normal respiratory effort, lungs clear to auscultation Cardiovascular: Rate/Rhythm: regular rate and regular rhythm Gastrointestinal (Abdomen): normal bowel sounds, soft, nontender, no hepatosplenomegaly Musculoskeletal: No pedal edema Neurologic: PERRL, EOMI, accommodation nl, no face palsy, no dysarthria Results & Data Results & Data Vital Signs (Past 12 Hours) Vital Signs Temp Pulse Resp BP Pulse Ox O2 Del Method 06/25/24 07:42 36.9 C 69 17 126/69 95 Room Air 06/25/24 07:30 Room Air Laboratory Results Abnormal lab results 06/24/24 06/24/24 06/24/24 Range/Units 11:35 16:35 20:07 POC Glucose 289 H 109 H 148 H (70-99) mg/dl 06/25/24 Range/Units 07:23 POC Glucose 152 H (70-99) mg/dl
[2024-06-25 19:20] VITALS: RESP 16
[2024-06-26 07:30] VITALS: BP 113/63; PULSE 64; TEMP 97.5; O2SAT 94
--- NOTE | 2024-06-26 11:46 | Discharge Summary ---
Discharge Summary Date of Service June 26, 2024 Principal Dx & Hospital Course #1 = Principal Diagnosis (1) Hypotension: per Dr. Patterson's notes with addendum: 79 yr old M who has a significant PMH of T2DM, HLD, COPD, GERD, BPH, hx of tobacco use, ADHD who presented to ED in the late evening hours on 06/16/23 due to complaints of right flank pain that has been persistent for 7 days. Daughter also reported increased confusion and more weak that usual. Complicated UTI Influenza A + Urine culture: > proteus mirabilis Blood Culture: NGTD Initial CT abd/pelvis concerning for obstructing calculus; however after evaluation of imaging with urology who also discussed with radiology it was determined that this was not a stone and more likely R iliac calcification CXR: ill defined haziness in Left costophrenic region, possible pneumonia, likely viral Lungs are clear and well-expanded with no pulmonary infiltrate. Prominent paracardiac, perihilar markings is noted, likely due to basal congestion. Costophrenic angles are not included in the radiographic field of view. Ill-defined haziness is noted in the left costophrenic angle region, possible effusion. Apparent cardiomegaly is detected. Aortic knuckle calcification seen. No acute osseous abnormality. 1. Apparent cardiomegaly is detected. 2. Costophrenic angles are not included in the radiographic field of view. 3. Ill-defined haziness is noted in the left costophrenic angle region, possible effusion. 4. Prominent paracardiac, perihilar markings is noted, likely due to basal congestion. Completed tamiflu and antibiotics treatment 06/26 denies respiratory symptoms denies urinary symptoms repeat CT chest in 2-3 weeks to ff up cardiomegaly, left lung base consolidation, prominent paracardiac and perihilar markings continue usual ASA and Lipitor for aortic knuckle calcification ff up cardiomegaly as outpatient Abnormal CT abd/pelvis findings The aorta is normal in caliber. extensive atherosclerotic calcifications are noted in the abdominal aorta. IMPRESSION: 1. Left lung base consolidation - needs dedicated CT chest for further evaluation. 2. Mild splenomegaly. 3. Extrarenal left pelvis. 4. Colonic diverticulosis without diverticulitis. 5. Fecal matter loading of large bowel loops. 6. No CT identifiable cause for right flank pain in the present scan. -ff up and further management as outpatient Hypomagnesemia: Had Mag of 1.5 on admission and was repleted Low/Normal blood pressure: Per outpt chart review pt BP tends to run on the lower side, low 100s-120 systolic, Not on any antihypertensives BP has recently been stable COPD/Hx of tobacco use: Continue home inhalers, no acute exac T2DM: Continue to hold home glipizide, metformin, farxiga Hba1c 7.3 Discussed discontinuation of farxiga in view of his UTI. He will like to defer that to his PCP given ISS/lantus protocol while admitted 06/26 continue usual Metformin and Glipizide discontinue Farxiga given UTI monitor BSGs closely Chronic Anemia: Baseline hgb 10-11 Stable HLD: Chronic, stable Continue statin ADHD: Previously on ritalin DVT ppx: SQ Lovenox FULL CODE PCP: Dr. Alford accepted and will transition to [facility] today Notes For Next Care Provider repeat CT chest in 2-3 weeks to ff up cardiomegaly, left lung base consolidation, prominent paracardiac and perihilar markings monitor BSGs closely Medication Changes From Visit Farxiga discontinued Admission HPI Per Admitting Provider History obtained from patient, family, and records. Medical history significant for COPD, DM2 on oral medications, hyperlipidemia, GERD, BPH, ADD, chronic anemia (baseline hemoglobin 11-12), past tobacco abuse. Last confinement [facility] March 2024 under urology service for urinary retention secondary to BPH and bladder stones status post TURP/litholapaxy. Patient subsequently discharged to [place] [facility] facility where he stayed for 2 weeks. Patient had been staying with daughter the last couple of months due to inability to care for self at home. Daughter experiencing difficulty caring for patient and contemplating finding a facility to care for patient. 2 weeks ago, patient noted dysuria symptoms. Outpatient UA grew Proteus. Patient family unaware of findings. Patient with worsening congestion with cough productive of clear sputum the last couple of weeks. Sick family contacts. Denies chest pain or unusual SOB or fluid retention. Achy back pain yesterday without hematuria. Poor appetite. Patient weaker than usual. SBP 80s upon arrival at the ER. IV ceftriaxone and doxycycline administered at the ER. 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 Admission Exam Per Admitting Provider GENERAL: Comfortable, pleasant, slightly hard of hearing, episodic coughing, no respiratory distress SKIN: Pallor, warm HEENT: Bespectacled, pale palpebral conjunctivae, no ptosis, dry buccal mucosa NECK : Supple, no tenderness CHEST : Decreased breath sounds, no tenderness HEART : RRR, no obvious murmurs ABDOMEN: Some distention, nontender EXTREMITIES : No LE swelling/tenderness, no other conspicuous deformities noted NEUROLOGIC : Coherent, no facial asymmetry, slightly hard of hearing, no other gross focality Discharge Exam General- oriented x 3, not in distress, speaks in sentences with no effort or accessory muscle use Eyes- anicteric Neck- no JVD Lungs- clear breath sounds bilaterally, no rales/wheezes Heart- normal rate, regular rhythm; no murmurs Abdomen- normal bowel sounds, nondistended, soft, nontender Extremities- no pretibial edema, no calf tenderness Neuro- alert, oriented x 3; no gross focal neurologic deficits Skin- warm & dry Updated Medication List Medication Instructions Recorded Confirmed Type aspirin 81 mg tablet,delayed 81 mg PO QAM 09/04/18 06/17/24 History release metformin 850 mg tablet 850 mg PO TIDM 09/04/18 06/17/24 History multivitamin 1 tab PO QAM 09/04/18 06/17/24 History albuterol sulfate 90 mcg/actuation 1 inha inhalation Q6H PRN 09/09/18 06/17/24 Rx aerosol inhaler shortness of breath or wheezing #6.7 grams tamsulosin 0.4 mg capsule 0.8 mg PO QAM 04/15/19 06/17/24 History omeprazole 20 mg capsule,delayed 20 mg PO DAILYBB 05/23/22 06/17/24 History release magnesium oxide 400 mg (241.3 mg 400 mg PO DAILY #30 tabs 06/02/22 06/17/24 Rx magnesium) tablet umeclidinium 62.5 mcg/actuation 1 inh inhalation DAILY #30 ea 06/02/22 06/17/24 Rx blister powder for inhalation (Incruse Ellipta) atorvastatin 20 mg tablet 20 mg PO QAM 06/17/24 06/17/24 History dapagliflozin propanediol 10 mg 10 mg PO DAILY 06/17/24 06/17/24 History tablet (Farxiga) glipizide 10 mg tablet 10 mg PO BID 06/17/24 06/17/24 History enoxaparin 40 mg/0.4 mL 40 mg (0.4 mL) subcut HS 30 days 06/26/24 Rx subcutaneous syringe (Lovenox) #12 mL Hospital Stay Data Consultations 06/17/24 01:18 ED Decision to Admit Stat Diagnostic Imagining Performed EXAM: XR chest 1V portable CLINICAL HISTORY: SEPSIS JMF TECHNIQUE: Radiograph of chest was acquired. COMPARISON: None. FINDINGS: Lungs are clear and well-expanded with no pulmonary infiltrate. Prominent paracardiac, perihilar markings is noted, likely due to basal congestion. Costophrenic angles are not included in the radiographic field of view. Ill-defined haziness is noted in the left costophrenic angle region, possible effusion. Apparent cardiomegaly is detected. Aortic knuckle calcification seen. No acute osseous abnormality. IMPRESSION: 1. Apparent cardiomegaly is detected. 2. Costophrenic angles are not included in the radiographic field of view. 3. Ill-defined haziness is noted in the left costophrenic angle region, possible effusion. 4. Prominent paracardiac, perihilar markings is noted, likely due to basal congestion. Electronically signed by José Miguel Wilkinson 06-17-2024 01:30 AM 06/16/24 23:58 CT stones [CT abd pelvis wo con] Stat [facility], [place] [id number] CT Scan Report Patient: WILLIAM THORPE Jr Admit Date: 06/17/24 MR#: [id number] Address1: [address] [place] [address] Acct ID:[id number] Address2: [facility] [address] Date: 1945 [facility] Zip: [place] [address] Age: 79 Location: 2W Sex: M Room/Bed: W255-2 Att Phy: Keith Reyes DO Diagnosis: HYPOTENSION Piper Phy: Nirmala Alford DO Service Date: 06/16/24 Fam Phy: Interpreting Phy: José Miguel Wilkinson MDAdmit Phy: Tejinder Zimmer MD Ordering Phy: Guy Vasquez, DO cc: ~ ADDENDUM Addendum Report EXAM: CT abd pelvis wo con ADDENDUM: CLINICAL HISTORY: RIGHT FLANK PAIN COMPARISON: None. TECHNIQUE: Contiguous axial images were obtained from the level of the diaphragm to the pubic symphysis without intravenous or oral contrast. Coronal and sagittal reconstructions were likewise performed and indicated to increase the sensitivity for detecting clinically relevant pathology. CT scan was performed according to ALARA (as low as reasonable achievable). FINDINGS: The visualized lung bases show area of consolidation in left lower lobe with few small cavities. Evaluation of the abdominal and pelvic visceral organs is limited without intravenous contrast. The unenhanced liver, pancreas, and adrenal glands are grossly unremarkable. The gallbladder is present. mild splenomegaly (up to 13.3 cm in craniocaudal span ). The kidneys are normal in size and attenuation without obvious calcification. left extrarenal pelvis.There is no hydronephrosis or perinephric stranding. The ureters are normal in caliber. No adenopathy or fluid collections are seen. No evidence of focal or diffuse bowel wall thickening or evidence of bowel obstruction is seen. The appendix is unremarkable in the right lower quadrant. fecal matter loading of large bowel loops. Uncomplicated colonic diverticulosis . The aorta is normal in caliber. extensive atherosclerotic calcifications are noted in the abdominal aorta. The urinary bladder is normal in contour. No aggressive appearing osseous lesions are identified. IMPRESSION: 1. Left lung base consolidation - needs dedicated CT chest for further evaluation. 2. Mild splenomegaly. 3. Extrarenal left pelvis. 4. Colonic diverticulosis without diverticulitis. 5. Fecal matter loading of large bowel loops. 6. No CT identifiable cause for right flank pain in the present scan. Electronically signed by José Miguel Wilkinson 06-17-2024 03:16 AM Discharge Instructions Given to Patient (Per Discharging Provider) Please refer to accompanying hospital discharge summary for further details. Total Time Total Time Spent Total Time Spent (In Minutes): 50 minutes
== END 2024-06-26 12:35 | DRG 689 ==
LOC: ED 23:36 → EDINP 06-17 01:34 → SUATTDRO 06-17 01:34 → 2W 06-17 03:35 → 3E 06-22 23:28